=== PATIENT | male | born 1935 | race Caucasian/White ===

== ENCOUNTER 2019-03-14 15:59 | Outpatient (REF) | payer MEDICARE, BC, SELFPAY ==
[2019-03-14 21:21] LABS: Abs Immature Grans 0.01 k/cumm (0.0-0.09); Absolute Basophil Count 0.03 k/cumm (0.0-0.2); Absolute Eosinophil Count 0.36 k/cumm (0.0-0.7); Absolute Monocyte Count 0.54 k/cumm (0.11-0.7); Absolute Neutrophil Count 3.74 k/cumm (1.2-6.7); Basophils % 0.5; Eosinophils % 6.6; HCT 36.7 % (40.0-50.0); HGB 11.5 g/dL (13.5-17.5); Immature Grans % 0.2; Lymphocytes % 14.6; Mean Corp. HGB Concentration 31.3 g/dL (32.0-36.0); Mean Corpuscular Hemoglobin 26.6 pg (27.0-33.0); Mean Corpuscular Volume 84.8 fL (80-95); Mean Platelet Volume 10.8 fL (8.0-11.0); Monocytes % 9.9; Neutrophils % 68.2; Platelet Count 196 x1000/uL (130-400); RBC 4.33 m/cumm (4.50-6.00); RBC Distribution Width 14.4 % (11.8-14.1); White Blood Cell Count 5.48 k/cumm (4.4-10.8)
[2019-03-14 21:31] LABS: ALT 24 U/L (12-78); AST 23 U/L (15-37); Albumin 3.2 g/dL (3.4-5.0); Alkaline Phosphatase 101 U/L (46-116); Anion Gap 9.9 mmol/L (3-11); BUN 24 mg/dL (7-18); Bilirubin, Total 0.3 mg/dL (0.2-1.0); CO2 25.1 mmol/L (21.0-32.0); CREATININE 1.32 mg/dL (0.70-1.30); Calcium 8.3 mg/dL (8.5-10.1); Chloride 107 mmol/L (98-107); Estimated GFR 52.06 (mL/min/1.73m2); Glucose 97 mg/dL (70-100); Potassium 4.6 mmol/L (3.5-5.1); Sodium 142 mmol/L (136-145); Total Protein 6.4 g/dL (6.4-8.2)
== END 2019-03-14 16:19 ==
LOC: NCHCN 15:59
PROVIDERS: PCP Internal Medicine; Visit Provider Specialist/Technologist Athletic Trainer
DX: R00.1 Bradycardia, unspecified (principal); R42 Dizziness and giddiness; I45.10 Unspecified right bundle-branch block
CPT/HCPCS: 80053; 85025

== ENCOUNTER 2019-04-01 10:52 | Outpatient (REF) | payer MEDICARE, BC, SELFPAY ==
[2019-04-01 12:53] LABS: HCT 38.3 % (40.0-50.0); HGB 12.4 g/dL (13.5-17.5); Mean Corp. HGB Concentration 32.4 g/dL (32.0-36.0); Mean Corpuscular Hemoglobin 27.1 pg (27.0-33.0); Mean Corpuscular Volume 83.8 fL (80-95); Mean Platelet Volume 10.1 fL (8.0-11.0); Platelet Count 216 x1000/uL (130-400); RBC 4.57 m/cumm (4.50-6.00); RBC Distribution Width 14.5 % (11.8-14.1); Reticulocyte 0.7 % (0.5-2.4); White Blood Cell Count 5.45 k/cumm (4.4-10.8)
[2019-04-01 13:11] LABS: Iron 58 ug/dL (50-175); Total Iron Binding Capacity 347 ug/dL (250-450); Transferrin Sat 17 % (20-55)
[2019-04-01 13:36] LABS: Vitamin B12 381 pg/mL (193-986)
== END 2019-04-01 11:12 ==
LOC: NCHCN 10:52
PROVIDERS: PCP Internal Medicine; Visit Provider Internal Medicine
DX: D64.9 Anemia, unspecified (principal); I10 Essential (primary) hypertension; R42 Dizziness and giddiness; R00.1 Bradycardia, unspecified
CPT/HCPCS: 85027; 82607; 83540; 83550; 85045

== ENCOUNTER 2019-06-23 12:52 | Outpatient (REF) | payer MEDICARE, BC, SELFPAY ==
[2019-06-23 21:26] LABS: HCT 38.5 % (40.0-50.0); HGB 12.3 g/dL (13.5-17.5); Mean Corp. HGB Concentration 31.9 g/dL (32.0-36.0); Mean Corpuscular Hemoglobin 26.9 pg (27.0-33.0); Mean Corpuscular Volume 84.1 fL (80-95); Mean Platelet Volume 10.5 fL (8.0-11.0); Platelet Count 232 x1000/uL (130-400); RBC 4.58 m/cumm (4.50-6.00); RBC Distribution Width 14.2 % (11.8-14.1); White Blood Cell Count 6.15 k/cumm (4.4-10.8)
[2019-06-23 21:43] LABS: ALT 18 U/L (16-63); AST 23 U/L (15-37); Albumin 3.5 g/dL (3.4-5.0); Alkaline Phosphatase 116 U/L (46-116); Anion Gap 11.8 mmol/L (3-11); BUN 21 mg/dL (7-18); Bilirubin, Total 0.5 mg/dL (0.2-1.0); C-Reactive Protein 0.45 mg/dL (0.0-0.3); CO2 25.2 mmol/L (21.0-32.0); CREATININE 1.38 mg/dL (0.70-1.30); Calcium 8.7 mg/dL (8.5-10.1); Chloride 107 mmol/L (98-107); Estimated GFR 49.45 (mL/min/1.73m2); Glucose 91 mg/dL (70-100); Lipase 97 U/L (73-393); Potassium 4.7 mmol/L (3.5-5.1); Sodium 144 mmol/L (136-145); Total Protein 7.1 g/dL (6.4-8.2)
[2019-06-23 22:32] LABS: ESR 38 mm/hr (1-20)
== END 2019-06-23 13:12 ==
LOC: NCHCN 12:52
PROVIDERS: PCP Internal Medicine; Visit Provider Internal Medicine
DX: R63.4 Abnormal weight loss (principal)
CPT/HCPCS: 80053; 83690; 85027; 85652; 86140

== ENCOUNTER 2019-07-13 01:24 | Outpatient (CLI) | payer MEDICARE, BC, SELFPAY ==
--- NOTE | 2019-07-13 09:21 | DI.RAD_ITS ---
EXAM: XR HIP PELVIS ADULT BL INDICATION: BILATERAL HIP PAIN, WEIGHT LOSS, H/O RHEUMATOID ARTHRITIS, M25.559, R63.4. COMPARISON: No exams were available for comparison TECHNIQUE: 2D digital imaging was performed. FINDINGS: The pelvic bones appear intact. There are minimal degenerative changes involving both hips. There i s no evidence of a fracture or dislocation.
== END 2019-07-13 01:44 ==
PROVIDERS: PCP Internal Medicine; Visit Provider Internal Medicine
DX: M25.551 Pain in right hip (principal); M25.552 Pain in left hip; R63.4 Abnormal weight loss; M16.0 Bilateral primary osteoarthritis of hip
CPT/HCPCS: 73521

== ENCOUNTER → 2020-02-17 14:26 | Outpatient (BNVA) | payer MEDICARE, BC, SELFPAY | PROVIDERS: PCP Internal Medicine; Referring Provider Internal Medicine; Visit Provider Urology | DX: N40.1 Benign prostatic hyperplasia with lower urinary tract symptoms (principal); N13.8 Other obstructive and reflux uropathy; Z87.898 Personal history of other specified conditions; N52.9 Male erectile dysfunction, unspecified; I10 Essential (primary) hypertension | CPT/HCPCS: 81003; 99203 ==

== ENCOUNTER 2020-09-20 15:28 | Outpatient (REF) | payer MEDICARE, BC, SELFPAY ==
[2020-09-20 21:37] LABS: Anion Gap 11.1 mmol/L (3-11); BUN 21 mg/dL (7-18); CO2 23.9 mmol/L (21.0-32.0); CREATININE 1.38 mg/dL (0.70-1.30); Calcium 8.6 mg/dL (8.5-10.1); Chloride 108 mmol/L (98-107); Estimated GFR 49.21 (mL/min/1.73m2); Glucose 97 mg/dL (74-106); Potassium 4.3 mmol/L (3.5-5.1); Sodium 143 mmol/L (136-145)
== END 2020-09-20 15:48 ==
LOC: NCHCN 15:28
PROVIDERS: PCP Internal Medicine; Visit Provider Internal Medicine
DX: I10 Essential (primary) hypertension (principal)
CPT/HCPCS: 80048

== ENCOUNTER → 2021-02-15 07:45 | Outpatient (BNVA) | payer MEDICARE, BC, SELFPAY | PROVIDERS: PCP Internal Medicine; Referring Provider Internal Medicine; Visit Provider Urology | DX: N40.1 Benign prostatic hyperplasia with lower urinary tract symptoms (principal); N13.8 Other obstructive and reflux uropathy; R35.1 Nocturia; R39.12 Poor urinary stream; N52.9 Male erectile dysfunction, unspecified | CPT/HCPCS: 99213 ==

== ENCOUNTER 2021-03-25 17:47 | Outpatient (REF) | payer MEDICARE, BC, SELFPAY ==
[2021-03-25 21:34] LABS: Abs Immature Grans 0.01 10^3/uL (0.0-0.06); Absolute Basophil Count 0.05 10^3/uL (0.0-0.2); Absolute Eosinophil Count 0.31 10^3/uL (0.0-0.7); Absolute Lymphocyte Count 0.85 10^3/uL (1.2-3.4); Absolute Monocyte Count 0.43 10^3/uL (0.1-0.8); Absolute Neutrophil Count 4.11 10^3/uL (1.2-6.7); Basophils % 0.9; Eosinophils % 5.4; HCT 29.9 % (40.0-50.0); HGB 8.9 g/dL (13.5-17.5); Immature Grans % 0.2; Lymphocytes % 14.8; MCH 23.4 pg (27.0-33.0); MCHC 29.8 % (32.0-36.0); MCV 78.5 fL (80-95); MPV 10.8 fL (8.0-11.0); Monocytes % 7.5; Neutrophils % 71.2; Nucleated RBC 0 %; Platelet Count 242 10^3/uL (130-400); RBC 3.81 10^6/uL (4.36-5.78); RDW 15.6 % (11.8-14.1); RDW-SD 44.3 fL; WBC 5.76 10^3/uL (4.4-10.8)
[2021-03-25 21:51] LABS: ALT 18 U/L (16-63); AST 14 U/L (15-37); Albumin 3.1 g/dL (3.4-5.0); Alkaline Phosphatase 95 U/L (46-116); Anion Gap 9.3 mmol/L (3-11); BUN 33 mg/dL (7-18); Bilirubin, Total 0.4 mg/dL (0.2-1.0); CO2 23.7 mmol/L (21.0-32.0); CREATININE 1.7 mg/dL (0.70-1.30); Calcium 8.6 mg/dL (8.5-10.1); Chloride 109 mmol/L (98-107); Estimated GFR 38.68 (mL/min/1.73m2); Glucose 121 mg/dL (74-106); Potassium 4.3 mmol/L (3.5-5.1); Sodium 142 mmol/L (136-145); Total Protein 6.2 g/dL (6.4-8.2)
== END 2021-03-25 17:48 | disposition home or self-care (01) ==
LOC: NCHCN 17:47
PROVIDERS: PCP Internal Medicine; Visit Provider Family Medicine
DX: R19.7 Diarrhea, unspecified (principal)
CPT/HCPCS: 80053; 85025

== ENCOUNTER 2021-03-27 19:28 | Outpatient (REF) | payer MEDICARE, BC, SELFPAY | END 2021-03-27 19:29 | disposition home or self-care (01) | LOC: NCHCN 19:28 | PROVIDERS: PCP Internal Medicine; Visit Provider Family Medicine | DX: R19.7 Diarrhea, unspecified (principal) | CPT/HCPCS: 87329; 87493; 83630; 87177 ==

== ENCOUNTER 2021-04-01 20:46 | Outpatient (REF) | payer MEDICARE, BC, SELFPAY ==
[2021-04-01 21:43] LABS: Iron 24 ug/dL (65-175); Total Iron Binding Capacity 332 ug/dL (250-450); Transferrin Sat 7 % (20-55)
[2021-04-01 21:51] LABS: Ferritin 13 ng/mL (26-388)
== END 2021-04-01 20:47 | disposition home or self-care (01) ==
LOC: NCHCN 20:46
PROVIDERS: PCP Internal Medicine; Visit Provider Family Medicine
DX: D64.9 Anemia, unspecified (principal)
CPT/HCPCS: 82728; 83540; 83550

== ENCOUNTER 2021-04-15 09:20 | Outpatient (REF) | payer MEDICARE, BC, SELFPAY ==
[2021-04-15 18:23] LABS: Bilirubin Negative (Negative); Blood Trace-lysed (Negative); Clarity Clear (Clear); Glucose Negative (Negative); HCT 32.3 % (40.0-50.0); Ketones Negative (Negative); Leukocyte Esterase Negative (Negative); Nitrite Negative (Negative); Specific Gravity 1.015 (1.005-1.025); Urobilinogen 0.2 EU/dL (Up TO 0.2)
[2021-04-15 18:36] LABS: Bacteria Negative HPF (Negative); C & S Indicated? C&S Done As Ordered; Crystals Negative HPF (Negative); Epithelial Cells Negative HPF (Negative); Mucus Trace (Negative); WBC Negative HPF (0-5)
== END 2021-04-15 09:21 | disposition home or self-care (01) ==
LOC: NCHCN 09:20
PROVIDERS: PCP Internal Medicine; Visit Provider Family Medicine
DX: D50.9 Iron deficiency anemia, unspecified (principal); R19.7 Diarrhea, unspecified
CPT/HCPCS: 81003; 81015; 85014; 87086

== ENCOUNTER 2021-04-17 13:52 | Outpatient (CLI) | payer MEDICARE, BC, SELFPAY ==
--- NOTE | 2021-04-17 | DI.US_ITS ---
Exam(s) US RENAL EXAM: US RENAL CLINICAL HISTORY: ASYMPTOMATIC MICROSCOPIC HEMATURIA R31.21 TECHNIQUE: Ultrasound of both kidneys performed using standard protocol. COMPARISON: No exams were available for comparison FINDINGS: RIGHT KIDNEY: Measures 10.4 cm in length. There are few cysts noted in the inferior half the right kidney. The lar gest of these measures 1.6 x 1.5 cm. Normal cortical thickness and corticomedullary differentiation .No solid masses No intrarenal calculi nor hydronephrosis. LEFT KIDNEY: Measures 10.3 cm in length. No cysts evident. Normal cortical thickness and corticomedullary differe ntiaion. No solids masses. No intrarenal calculi nor hydonephrosis. URINARY BLADDER: Prevoid volume is 274 cc Postvoid volume is 71 cc There is some debris evident within the urinary bladder. Most of this appears mobile but cannot excl ude a mural mass. Adjacent to the right side of the urinary bladder and somewhat indenting the right side of the urinar y bladder is a round 4.8 x 4.7 x 4.6 cm cystic structure in the pelvis which contains some echogenic foci therein. This does not appear to communicate with the urinary bladder to suggest that it is a d iverticulum. IMPRESSION: 1. There are few small benign cyst in the right kidney. No solid renal masses. No hydronephrosis 2. Moderate residual urine volume in the urinary bladder post micturition. In addition, there is some debris evident within the urinary bladder. Cannot exclude mural mass at t his level. In addition, there is a round consistently present 4.8 x 4.6 x 4.7 cm cystic structure in the right-s edith of the pelvis indenting the right side of the urinary bladder and containing numerous echogenic f oci. This does not appear to communicate the urinary bladder despite being immediately adjacent to i t. Main possibilities here are that this is a somewhat atypical urinary bladder diverticulum or that it possibly represents a reservoir for this patient's penile prosthesis. Correlation with model of prosthesis and location of pump reservoir is recommended. If clinically indicated follow-up CT scan can be performed for added specificity DATA REPOSITORY:
== END 2021-04-17 14:12 ==
PROVIDERS: PCP Internal Medicine; Visit Provider Family Medicine
DX: N28.1 Cyst of kidney, acquired; R31.21 Asymptomatic microscopic hematuria
CPT/HCPCS: 76770

== ENCOUNTER → 2021-04-30 08:26 | Outpatient (BNVA) | payer MEDICARE, BC, SELFPAY | PROVIDERS: PCP Internal Medicine; Referring Provider Internal Medicine; Visit Provider Nurse Practitioner Gerontology | DX: R31.29 Other microscopic hematuria (principal); R19.7 Diarrhea, unspecified | CPT/HCPCS: 99214 ==

== ENCOUNTER 2021-06-07 16:33 | Outpatient (REF) | payer MEDICARE, BC, SELFPAY ==
[2021-06-07 20:25] LABS: HCT 39.9 % (40.0-50.0); HGB 12.2 g/dL (13.5-17.5); MCH 25.9 pg (27.0-33.0); MCHC 30.6 % (32.0-36.0); MCV 84.7 fL (80-95); MPV 10.7 fL (8.0-11.0); Platelet Count 215 10^3/uL (130-400); RBC 4.71 10^6/uL (4.36-5.78); RDW 18.8 % (11.8-14.1); WBC 6.73 10^3/uL (4.4-10.8)
[2021-06-07 21:05] LABS: BUN 23 mg/dL (7-18); CREATININE 1.4 mg/dL (0.70-1.30); Calcium 8.6 mg/dL (8.5-10.1); Chloride 108 mmol/L (98-107); Ferritin 43 ng/mL (26-388); Glucose 83 mg/dL (74-106); Potassium 4.2 mmol/L (3.5-5.1); Sodium 144 mmol/L (136-145)
== END 2021-06-07 16:34 | disposition home or self-care (01) ==
LOC: NCHCN 16:33
PROVIDERS: PCP Internal Medicine; Visit Provider Family Medicine
DX: D50.9 Iron deficiency anemia, unspecified (principal); I10 Essential (primary) hypertension; N28.9 Disorder of kidney and ureter, unspecified
CPT/HCPCS: 80048; 85027; 82728

== ENCOUNTER → 2021-07-19 10:50 | Outpatient (BNVA) | payer MEDICARE, BC, SELFPAY | PROVIDERS: PCP Family Medicine; Referring Provider Internal Medicine; Visit Provider Urology | DX: R31.29 Other microscopic hematuria (principal) | CPT/HCPCS: 52000; 81003 ==

== ENCOUNTER 2021-09-06 14:59 | Outpatient (REF) | payer MEDICARE, BC, SELFPAY ==
[2021-09-06 21:12] LABS: Abs Immature Grans 0.02 10^3/uL (0.0-0.06); Absolute Basophil Count 0.05 10^3/uL (0.0-0.2); Absolute Eosinophil Count 0.34 10^3/uL (0.0-0.7); Absolute Lymphocyte Count 0.56 10^3/uL (1.2-3.4); Absolute Neutrophil Count 6.14 10^3/uL (1.2-6.7); Basophils % 0.7; Eosinophils % 4.5; HCT 38.4 % (40.0-50.0); HGB 12.1 g/dL (13.5-17.5); Immature Grans % 0.3; Lymphocytes % 7.4; MCH 28.2 pg (27.0-33.0); MCHC 31.5 % (32.0-36.0); MCV 89.5 fL (80-95); MPV 10.1 fL (8.0-11.0); Monocytes % 6.6; Neutrophils % 80.5; Nucleated RBC 0 %; Platelet Count 201 10^3/uL (130-400); RBC 4.29 10^6/uL (4.36-5.78); RDW-SD 46.2 fL; WBC 7.61 10^3/uL (4.4-10.8)
[2021-09-06 21:49] LABS: Ferritin 76 ng/mL (26-388)
== END 2021-09-06 15:00 | disposition home or self-care (01) ==
LOC: NCHCN 14:59
PROVIDERS: PCP Family Medicine; Visit Provider Family Medicine
DX: D50.9 Iron deficiency anemia, unspecified (principal)
CPT/HCPCS: 82728; 85025

== ENCOUNTER → 2022-02-18 09:34 | Outpatient (BNVA) | payer MEDICARE, BC, SELFPAY | PROVIDERS: PCP Family Medicine; Referring Provider Internal Medicine; Visit Provider Urology | DX: R31.29 Other microscopic hematuria (principal); N40.1 Benign prostatic hyperplasia with lower urinary tract symptoms; N13.8 Other obstructive and reflux uropathy | CPT/HCPCS: 51798; 81003; 99213 ==

== ENCOUNTER 2022-04-30 17:01 | Emergency (ER) | payer MEDICARE, BC, SELFPAY ==
[2022-04-30 17:06] VITALS: BP 166/61; PULSE 65; RESP 18; TEMP 37; O2SAT 99
--- NOTE | 2022-04-30 17:49 | ED.GENADUL_ITS ---
Discharge Plan Disposition Patient Disposition: HOME Condition: Improving Discharge Details Chief Complaint: Laceration Clinical Impression: Skin tear of right upper extremity Primary Care Provider: Magdaleno Dickens ED Provider: Jt Hernandez Home Meds and New Rx's Prescriptions: No Action finasteride 5 mg tablet 5 mg PO DAILY betamethasone dipropionate 0.05 % cream 1 applic TP BID PRN spironolactone 50 mg tablet 50 mg PO DAILY losartan 100 mg tablet 100 mg PO DAILY ferrous sulfate 325 mg (65 mg iron) tablet 325 mg PO DAILY trazodone 50 MG tablet 50 mg PO HS simvastatin 10 MG tablet 10 mg PO DAILY aspirin [Aspir-Low] 81 MG tablet,delayed release (DR/EC) 81 mg PO DAILY omeprazole 20 MG capsule,delayed release(DR/EC) 20 mg PO DAILY folic acid 1 MG tablet 1 mg PO DAILY Discharge Instructions Instructions: Skin Tear (ED) Additional Instructions: Please keep wound clean and dry. Please return to the emergency room if you develop any signs of infection or worsening bleeding. Medical Decision Making 86-year-old male presents with 2 skin tears to right forearm in the setting of striking his arm on a cement wall while trying to start his lawnmower. 5 cm and 3 cm diameter skin tear to dorsal aspect of right forearm, cleaned, irrigated, hemostatic no foreign bodies. Will anesthetize skin and tacked down the edges of skin tears will wrap with Xeroform and dry dressing. Home care instructions and return precautions to be given. Patient's last Tdap was in 2016 per records. No evidence of underlying fracture. 18: 31 wound irrigated, hemostatic, no foreign bodies, 3 times simple interrupted 5-0 Vicryl on larger flap, 1x5 0 Vicryl simple interrupted on smaller flap. Covered with Xeroform gauze; dry gauze applied and Kerlix wrapping, home care instructions wound care instructions and return precautions given HPI General Date/Time Provider Initiated Documentation: 04/30/22 17:48 . HPI Narrative: 86-year-old male presents after sustaining skin tear lacerations to right upper extremity in the setting of trying to get his lawnmower started next to a wall, struck his arm against a concrete wall, 2 large skin flaps to dorsal aspect of forearm. No other injuries. Patient unsure when his last Tdap was. Related Data Home Medications Medication Instructions Recorded Confirmed aspirin 81 mg tablet,delayed 81 mg PO DAILY 07/26/15 04/30/22 release (Aspir-Low) folic acid 1 mg tablet 1 mg PO DAILY 07/26/15 04/30/22 omeprazole 20 mg capsule,delayed 20 mg PO DAILY 07/26/15 04/30/22 release simvastatin 10 mg tablet 10 mg PO DAILY 07/26/15 04/30/22 trazodone 50 mg tablet 50 mg PO HS 07/26/15 04/30/22 betamethasone dipropionate 0.05 % 1 applic topical BID PRN 12/05/19 04/30/22 topical cream losartan 100 mg tablet 100 mg PO DAILY 12/05/19 04/30/22 spironolactone 50 mg tablet 50 mg PO DAILY 12/05/19 04/30/22 ferrous sulfate 325 mg (65 mg 325 mg PO DAILY 04/16/21 04/30/22 iron) tablet finasteride 5 mg tablet 5 mg PO DAILY 02/18/22 04/30/22 Allergies Allergy/AdvReac Type Severity Reaction Status Date / Time atenolol Allergy Unverified 04/30/22 17:12 codeine AdvReac Unknown Unverified 04/30/22 17:12 General Stated Complaint: Laceration REGINALDO: 4 Review of Systems Narrative: Review of Systems Constitutional: negative Eyes: negative ENT: negative Cardiovascular: negative Respiratory: negative Gastrointestinal: negative : negative Musculoskeletal: negative Skin: Skin tear Neurologic: negative Psych: negative PFSH All Active Problems (Updated 04/30/22 @ 18:32 by Jt Hernandez MD) Skin tear of right upper extremity (Acute) Microscopic hematuria (Acute) Erectile dysfunction (Acute) History of elevated prostate specific antigen (PSA) (Acute) BPH w urinary obs/LUTS (Acute) Medical History (Updated 04/30/22 @ 18:32 by Jt Hernandez MD) Adenomatous colon polyp Allergic rhinitis Anemia Bilateral hip pain Chronic constipation Dysphonia Elevated PSA Esophageal stricture HLD (hyperlipidemia) HTN (hypertension) Lesion of iris Orthostatic dizziness Pruritus RBBB (right bundle branch block) Rheumatoid arthritis Sinus bradycardia Spinal stenosis Transient acantholytic dermatosis Weight loss Surgical History (Updated 07/30/15 @ 14:28 by Jailyn Cardenas) Colonoscopy - [facility] (07/27/15) DR.TERRY CHOUDHARY Social History Smoking/Tobacco Use Status: Former Tobacco Use Smoking risk assessment performed?: Yes Drug use: Never Do you feel safe at home: Yes Do you feel safe in your relationship?: Yes Exam Narrative Exam Narrative: Physical Examination General: alert, awake, cooperative, resting comfortably, no acute distress HEENT: normocephalic, atraumatic; PERRL, EOM intact, conjunctiva normal; no nasal discharge; moist mucous membranes, oral and pharyngeal mucosa normal, tolerating secretions Neck: supple, trachea midline; full ROM Chest: normal to inspection Respiratory: normal respiratory effort, speaking in full sentences, clear to auscultation, no wheezing, rales or rhonchi Cardiac: regular rate, regular rhythm, S1S2 intact, no murmurs rubs or gallops GI: abdomen soft, non-tender, non-distended; no palpable mass or hepatosplenomegaly Skin: 2 times large skin tears dorsal aspect of right forearm, 1 approximately 5 cm diameter the other approximately 3 cm in diameter. Clean hemostatic no foreign bodies appreciated Neuro: AAOx3, normal speech, moving all extremities Extremities: Range of motion hand wrist and elbow intact in affected limb. Warm well perfused sensate extremity. Psych: Appropriate mood and affect Course Vital Signs Vital signs: Vital Signs Temperature 37 C 04/30/22 17:06 Pulse 65 04/30/22 17:06 Respiratory Rate 18 04/30/22 17:06 Blood Pressure 166/61 H 04/30/22 17:06 Pulse Oximetry 99 04/30/22 17:06 Temperature 37 C 04/30/22 17:06 Temperature Source Skin 04/30/22 17:06 Pulse 65 04/30/22 17:06 Respiratory Rate 18 04/30/22 17:06 Respiratory Effort 04/30/22 17:15 Blood Pressure 166/61 H 04/30/22 17:06 Blood Pressure Position Sitting 04/30/22 17:06 Pulse Oximetry 99 04/30/22 17:06 Oxygen Delivery Method Room Air 04/30/22 17:06 Oxygen Flow Rate 0 04/30/22 17:06 Pain Level 2 04/30/22 17:17 Procedures Laceration Laceration 1: Site: upper extremity Side (If applicable): right Size (cm): 8 Description: flap Depth: simple, single layer Local Anesthetic: other anesthetic (LET gel) Pre-repair: irrigated extensively Skin layer closed with: vicryl Size (cm): 5-0 Number of sutures: 4 Technique: simple, interrupted
[2022-04-30] MEDS: Lidocaine/Epinephri/Tetracaine Topical Gel 3 ML TP (17:54)
== END 2022-04-30 18:36 | disposition home or self-care (01) ==
PROVIDERS: Emergency Provider Emergency Medicine; PCP Family Medicine
DX: S51.811A Laceration without foreign body of right forearm, initial encounter (principal); I10 Essential (primary) hypertension; Z87.891 Personal history of nicotine dependence; W22.01XA Walked into wall, initial encounter; Y93.89 Activity, other specified
CPT/HCPCS: 12004; 99282

== ENCOUNTER 2022-09-09 13:12 | Outpatient (REF) | payer MEDICARE, BC, SELFPAY ==
[2022-09-09 14:36] LABS: Abs Immature Grans 0.03 10^3/uL (0.0-0.06); Absolute Basophil Count 0.04 10^3/uL (0.0-0.2); Absolute Eosinophil Count 0.24 10^3/uL (0.0-0.7); Absolute Lymphocyte Count 0.42 10^3/uL (1.2-3.4); Absolute Monocyte Count 0.48 10^3/uL (0.1-0.8); Absolute Neutrophil Count 5.95 10^3/uL (1.2-6.7); Basophils % 0.6; Eosinophils % 3.4; HCT 36.1 % (40.0-50.0); HGB 11.4 g/dL (13.5-17.5); Immature Grans % 0.4; Lymphocytes % 5.9; MCH 28.6 pg (27.0-33.0); MCHC 31.6 % (32.0-36.0); MCV 91 fL (80-95); MPV 10.1 fL (8.0-11.0); Monocytes % 6.7; Platelet Count 223 10^3/uL (130-400); RBC 3.99 10^6/uL (4.36-5.78); RDW 13.3 % (11.8-14.1); RDW-SD 44.3 fL; WBC 7.16 10^3/uL (4.4-10.8)
[2022-09-09 15:06] LABS: ALT 14 U/L (16-63); AST 23 U/L (15-37); Albumin 3.1 g/dL (3.4-5.0); Alkaline Phosphatase 103 U/L (46-116); Anion Gap 5.8 mmol/L (3-11); BUN 28 mg/dL (7-18); Bilirubin, Total 0.5 mg/dL (0.2-1.0); CO2 28.2 mmol/L (21.0-32.0); CREATININE 1.4 mg/dL (0.70-1.30); Calcium 9.1 mg/dL (8.5-10.1); Chloride 107 mmol/L (98-107); Estimated GFR 49.25 (mL/min/1.73m2); Glucose 108 mg/dL (74-106); Potassium 4.5 mmol/L (3.5-5.1); Sodium 141 mmol/L (136-145); Total Protein 7.1 g/dL (6.4-8.2)
== END 2022-09-09 13:13 | disposition home or self-care (01) ==
LOC: NCHCN 13:12
PROVIDERS: PCP Family Medicine; Visit Provider Family Medicine
DX: R04.2 Hemoptysis (principal); I10 Essential (primary) hypertension; N28.9 Disorder of kidney and ureter, unspecified
CPT/HCPCS: 80053; 85025

== ENCOUNTER → 2022-09-26 00:44 | Outpatient (CLI) | payer MEDICARE, BC, SELFPAY ==
--- NOTE | 2022-09-26 11:00 | DI.CT_ITS ---
Exam(s) CT CHEST W EXAM: CT CHEST W CLINICAL HISTORY: HEMOPTYSIS, R04.2, ? MASS TECHNIQUE: Imaging Protocol: Axial computed tomography images with coronal and sagittal reformatted images were created and reviewed CONTRAST MATERIAL: Intravenous: Omnipaque 350Contrast volume:70 mL. COMPARISON: No exams were available for comparison FINDINGS: Tracheobronchial tree: There are few small secretions in the dependent portion of the mid trachea. Pulmonary parenchyma: Emphysematous changes are present in the lungs. There is a 1.4 cm area of spic ulation in the right upper lobe. No areas of consolidation are seen. There is scarring in the lung bases. Mediastinum and Dang: No dominant adenopathy or fluid collection. The esophagus is unremarkable. Thyroid gland: Unremarkable. Pleura: No effusion or pneumothorax. Heart: The heart is not dilated. Coronary artery calcifications are present. No pericardial effusion . Aorta: Thoracic aorta non-dilated. Atherosclerosis is present. Pulmonary arteries: The pulmonary arteries are inadequately opacified for evaluation of pulmonary emb marly. Upper abdomen: Status post cholecystectomy. Lymph nodes: Within normal limits. Bones: Within normal limits for the patient's age. Soft tissues: Bilateral gynecomastia. IMPRESSION: 1. 1.4 cm area of spiculation in the right upper lobe. A 3 month follow-up CT scan is recommended. Alternatively PET/CT or tissue sampling should be considered. (Krista et al, 2017). 2. Emphysematous changes in the lungs. RADIATION DOSE DELIVERED: 400.38mGy.cm Total DLP DATA REPOSITORY: All CT scans at this facility are submitted to the National Radiology Data Registry (NRDR) Dose Index Registry (DIR) with the [employer] ([employer]). RADIATION OPTIMIZATION: All CT scans at this facility use at least one of these dose optimization te chniques: automated exposure control; mA and/or kV adjustment per patient size (includes targeted exa ms where dose is matched to clinical indication); or iterative reconstruction.
[2022-09-26] MEDS: Omnipaque 350 MG/ML 500 ML BTL-Imaging package 70 ML IJ (11:12)
== END ==
PROVIDERS: PCP Family Medicine; Visit Provider Family Medicine
DX: R04.2 Hemoptysis (principal); J43.8 Other emphysema; R91.8 Other nonspecific abnormal finding of lung field; Z90.49 Acquired absence of other specified parts of digestive tract
CPT/HCPCS: 71260

== ENCOUNTER 2022-10-08 10:10 | Emergency (ER) | payer MEDICARE, BC, SELFPAY ==
[2022-10-08] VITALS (35 sets, daily range): BP systolic 101–154; BP diastolic 41–63; PULSE 72–107; RESP 8–25; TEMP 36.8; O2SAT 94–100
--- NOTE | 2022-10-08 10:00 | RT.EKG_ITS ---
APPROVED REPORT Exam: Resting ECG Reason for Exam: Shortness of breath Patient Location: E HR:78 bpm ECG Measurements Heart Rate 78 AXIS AL 144 P 72 QRSd 140 QRS -87 QT 403 T 77 QTc 460 Conclusion Sinus rhythm...normal P axis, V-rate 60- 99 Ventricular premature complex...V complex w/ short R-R interval Right bundle branch block...QRSd>120, terminal axis(90,270) Anteroseptal infarct, age indeterminate...Q >35mS, T neg, V1-V2 NO stemi
--- NOTE | 2022-10-08 10:30 | RT.EKG_ITS ---
APPROVED REPORT Exam: Resting ECG Reason for Exam: Shortness of breath Patient Location: E HR:79 bpm ECG Measurements Heart Rate [address] 136 P 54 QRSd 138 QRS -83 QT 425 T 68 QTc 487 Conclusion Sinus rhythm...normal P axis, V-rate 60- 99 Multiform ventricular premature complexes...short R-R, variable morphology Right bundle branch block...QRSd>120, terminal axis(90,270) Anteroseptal infarct, age indeterminate...Q >35mS, T neg, V1-V2 ST elevation, consider inferior injury...ST >0.08mV, II III aVF NO stemi
--- NOTE | 2022-10-08 10:37 | ED.GENADUL_ITS ---
Discharge Plan Disposition Patient Disposition: Home Condition: Stable Discharge Details Clinical Impression: RSV (respiratory syncytial virus infection), Emphysema lung, Abnormal CT scan of lung Primary Care Provider: Magdaleno Dickens ED Provider: Edison Saravia Home Meds and New Rx's Prescriptions: New prednisone 20 mg tablet 40 mg PO DAILY Qty: 8 0RF benzonatate 100 mg capsule 100 mg PO TID PRN (Reason: cough) Qty: 30 0RF Combivent Respimat 20-100 mcg/actuation mist 1 puff inhalation Q4H PRN (Reason: shortness of breath or wheezing) Qty: 4 0RF Continued finasteride 5 mg tablet 5 mg PO DAILY betamethasone dipropionate 0.05 % cream 1 applic TP BID PRN spironolactone 50 mg tablet 50 mg PO DAILY losartan 100 mg tablet 100 mg PO DAILY trazodone 50 MG tablet 50 mg PO HS simvastatin 10 MG tablet 10 mg PO DAILY aspirin [Aspir-Low] 81 MG tablet,delayed release (DR/EC) 81 mg PO DAILY omeprazole 20 MG capsule,delayed release(DR/EC) 20 mg PO DAILY Discharge Instructions Instructions: Respiratory Syncytial Virus (ED) Additional Instructions: Please take medication as prescribed and stay well-hydrated during viral illness. If you develop any new or significant worsening of symptoms or change in your condition feel free to return to the emergency department otherwise follow-up with pulmonology or primary care provider to further discuss your abnormal CT findings. Referrals: Nirmala Woodard MD [ [facility] STAFF PHYSICIAN] - (Please call the office on Thursday for arrangement of follow-up appointment) Medical Decision Making Patient presenting to the emergency department for chief complaint of cough with hemoptysis and some shortness of breath especially during severe coughing episodes. Patient states this is been going on for weeks and primary care provider did do a CT scan and found a lung mass but patient has had acute worsening over the past 5 days. No fever chills, sore throat, nasal congestion. Physical exam shows significant decreased lung sounds with possible rhonchi heard during coughing but difficult to assess. Patient does have a wet tight sounding cough. Patient has no signs of hypoxia, no tachycardia, no tachypnea and unremarkable cardiac and general exam. We will plan on performing EKG and labs with high probability of CTA for rule out of PE given hemoptysis and worsening cough with shortness of breath. Pending results we will give DuoNeb and Solu-Medrol. Please see physician interpretation for full interpretation of EKG but upon my review patient has a rate of 78, sinus rhythm, right bundle branch block noted but I do not feel that patient has any criteria to meet STEMI. We will continue to monitor. Pending results while patient was on monitor nurse staff did state some ST changes. Patient continues to deny any chest pain but will repeat EKG just to ensure no changes occurred. Repeat EKG did not show much changes from initial and I do not feel the patient again meet STEMI criteria. Please see physician interpretation for full interpretation of EKG Review of labs show a chronic but stable anemia otherwise nondiagnostic with no leukocytosis or shift noted, chloride slightly elevated at 109, BUN of 33 with creatinine 1.6 and GFR 41 which again is near patient's baseline. CMP is otherwise unremarkable and nondiagnostic. Initial troponin is negative, BNP slightly elevated at 304 and D-dimer is elevated at 1780. Viral pathogen panel was negative for COVID and influenza but positive for RSV. We will continue with CTA imaging of the chest given hemoptysis and lung mass along with elevated dimer but suspect that acute viral illness could be the main contributor to the worsening of symptoms over the past 5 days. Spoke with radiologist and reviewed CT imaging that shows stable and unchanged abnormality in the right upper lung that could represent mass versus scarring. No noted pneumonia, no pulmonary embolism. Was noted that patient had significant emphysema. Reviewed patient's meds and I do not see any long-term meds to help with his emphysema will consult with pulmonology Spoke with verification engineer who recommended Combivent, continued steroids, and trial of Tessalon Perles to see if this helps. We will hold off on antibiotics at this time due to patient having no signs of leukocytosis and CT not showing any signs of pneumonia either. Patient will follow-up with pulmonology office or return for new or worsening symptoms. I did reassess patient and still he did state some improvement after the DuoNeb but still sounded fairly diminished lung sounds so we will give additional DuoNeb prior to discharge. After discussion of diagnosis and plan of care patient has no further needs, questions, or concerns and states clear understanding to return to the emergency department for any worsening symptoms. This documentation was generated using Dragon dictation system, please disregard any oddities of phrase or misspellings. Imaging Data Radiologic Study: Imaging: CT Scan Radiologist's impression: Exam(s) CT CHEST PE CTA EXAM: CT CHEST PE CTA CLINICAL HISTORY: Shortness of breath, hemoptysis, lung mass. TECHNIQUE: Imaging Protocol: Axial CT angiography was performed with multi- slice acquisition and multi-planar reconstructions as well as axial, coronal and sagittal MIP reconstructions. CONTRAST MATERIAL: Intravenous: Omnipaque 350 Contrast volume:100 ml COMPARISON: CT CT CHEST W from 09/26/2022 FINDINGS: Pulmonary Arteries: No evidence of filling defect to suggest pulmonary emboli. Tracheobronchial tree: Mild lower lobe bronchiectasis. No mucous plugging. Mediastinum and Dang: No dominant adenopathy or fluid collection. Pulmonary parenchyma: Underlying moderate emphysematous changes. Stable area of spiculation at the right lung apex, scar versus mass. No change mild scarring posterior right upper lobe. Pleura: No effusion or pneumothorax. Heart: The heart is not dilated. Severe coronary artery calcifications are seen. Aorta: Thoracic aorta non-dilated. No aneurysm. No dissection. Severe atherosclerotic changes. Upper abdomen: Unremarkable. Bones: Flowing osteophytes. Stable mild T12 compression fracture. Lucencies in the vertebral endplates presumed Schmorl's nodes, unchanged. Tubes, Catheters, and Lines: None IMPRESSION: No evidence of pulmonary embolism. Stable spiculated area at the right lung apex may represent scarring versus mass. No change from prior exam. Findings called to Edison Saravia, emergency department provider. HPI General Mode of arrival: ambulatory . Date/Time Provider Initiated Documentation: 10/08/22 10:13 . Limitations to Documentation: no limitations . Information obtained by: patient, family and RN notes reviewed . History of Present Illness 87 year old M presents to the emergency department with the chief complaint of Worsening cough, shortness of breath, described as moderate and similar to prior episodes, Quality is described as other (Denies pain), and is localized to the chest. Patient reports no radiation. Patient started experiencing this week(s) (But worsening over the past 4 to 5 days) and it has been constant. No relieving factors improve symptom(s), No exacerbating factors reported . Patient notes no other symptoms.. Patient did receive the following treatments prior to arrival, none Related Data Home Medications Medication Instructions Recorded Confirmed aspirin 81 mg tablet,delayed 81 mg PO DAILY 07/26/15 10/08/22 release (Aspir-Low) omeprazole 20 mg capsule,delayed 20 mg PO DAILY 07/26/15 10/08/22 release simvastatin 10 mg tablet 10 mg PO DAILY 07/26/15 10/08/22 trazodone 50 mg tablet 50 mg PO HS 07/26/15 10/08/22 betamethasone dipropionate 0.05 % 1 applic topical BID PRN 12/05/19 10/08/22 topical cream losartan 100 mg tablet 100 mg PO DAILY 12/05/19 10/08/22 spironolactone 50 mg tablet 50 mg PO DAILY 12/05/19 10/08/22 finasteride 5 mg tablet 5 mg PO DAILY 02/18/22 10/08/22 benzonatate 100 mg capsule 100 mg PO TID PRN cough #30 caps 10/08/22 ipratropium 20 mcg-albuterol 100 1 puff inhalation Q4H PRN 10/08/22 mcg/actuation mist for inhalation shortness of breath or wheezing #4 (Combivent Respimat) grams prednisone 20 mg tablet 40 mg PO DAILY #8 tabs 10/08/22 Previous Rx's Medication Instructions Recorded benzonatate 100 mg capsule 100 mg PO TID PRN cough #30 caps 10/08/22 ipratropium 20 mcg-albuterol 100 1 puff inhalation Q4H PRN 10/08/22 mcg/actuation mist for inhalation shortness of breath or wheezing #4 (Combivent Respimat) grams prednisone 20 mg tablet 40 mg PO DAILY #8 tabs 10/08/22 Allergies Allergy/AdvReac Type Severity Reaction Status Date / Time atenolol Allergy Unverified 10/08/22 10:18 codeine AdvReac Unknown Unverified 10/08/22 10:18 General Stated Complaint: SOB REGINALDO: 3 Review of Systems Constitutional Constitutional: Denies chills, Denies fever(s) and Reports malaise Cardiovascular Cardiovascular: Denies chest pain, Denies chest pain with activity, Denies syncope, Denies irregular heart rhythm, Denies palpitations and Reports dyspnea (Mostly with severe coughing episodes) Respiratory Respiratory: Reports chest congestion, Reports cough, Reports hemoptysis and Reports dyspnea (Mostly with severe coughing episodes) Gastrointestinal Gastrointestinal: Denies abdominal pain, Denies nausea and Denies vomiting Neurologic Neurologic: Denies syncope Psychiatric Psychiatric: Denies anxiety Endocrine Endocrine: Denies cold intolerance, Denies heat intolerance and Denies palpitations PFSH All Active Problems (Updated 10/08/22 @ 12:30 by Edison Saravia NP) RSV (respiratory syncytial virus infection) (Acute) Emphysema lung (Acute) Abnormal CT scan of lung (Acute) Microscopic hematuria (Acute) Erectile dysfunction (Acute) History of elevated prostate specific antigen (PSA) (Acute) BPH w urinary obs/LUTS (Acute) Medical History Adenomatous colon polyp Allergic rhinitis Anemia Bilateral hip pain Chronic constipation Dysphonia Elevated PSA Esophageal stricture HLD (hyperlipidemia) HTN (hypertension) Lesion of iris Orthostatic dizziness Pruritus RBBB (right bundle branch block) Rheumatoid arthritis Sinus bradycardia Spinal stenosis Transient acantholytic dermatosis Weight loss Surgical History Colonoscopy - MAC (07/27/15) DR.TERRY CHOUDHARY Social History Smoking/Tobacco Use Status: Former Tobacco Use Smoking risk assessment performed?: Yes Alcohol Intake: never Drug use: Never Substance use type: does not use Do you feel safe at home: Yes Do you feel safe in your relationship?: Yes Exam Const General: cooperative, healthy appearing, comfortable, no acute distress, not diaphoretic and not ill appearing Nutritional Appearance: average body habitus Orientation: alert, awake and oriented x3 Limitations: mental status not altered Neck Neck: normal visual inspection, full ROM, trachea midline, supple and no anterior neck swelling Thyroid: thyroid normal Carotids: normal carotid upstroke and no bruits Chest Chest: normal inspection of the chest Resp Effort & Inspection: normal respiratory effort, able to speak in complete sentences and cough Quality of cough: actively coughing Auscultation: diminished lung sounds (Significant diminished bilateral) Cardio Jugular venous pressure: no JVD Palpation: normal PMI Rate: regular rate Rhythm: regular rhythm Heart Sounds: S1 normal, S2 normal, no click, no gallops, no murmurs and no rubs Bruits: no abdominal aortic bruits and no carotid bruits Pulses: radial pulses present bilaterally 2+ GI Inspection: normal to inspection Palpation: soft, no aortic enlargement, no pulsatile masses and nontender Auscultation: normal bowel sounds Skin General skin exam: no rashes or lesions noted Neuro General: patient alert, patient awake, patient oriented x3, tone normal and moves all extremities Course Vital Signs Vital signs: Vital Signs Temperature 36.8 C 10/08/22 10:13 Pulse 86 10/08/22 10:13 Respiratory Rate 18 10/08/22 10:13 Blood Pressure 154/63 H 10/08/22 10:13 Pulse Oximetry 100 10/08/22 10:13 Temperature 36.8 C 10/08/22 10:13 Temperature Source Skin 10/08/22 10:13 Pulse 86 10/08/22 10:13 Respiratory Rate 18 10/08/22 10:13 Respiratory Effort 10/08/22 10:21 Blood Pressure 154/63 H 10/08/22 10:13 Blood Pressure Position Sitting 10/08/22 10:13 Pulse Oximetry 100 10/08/22 10:13 Oxygen Delivery Method Room Air 10/08/22 10:13 Oxygen Flow Rate 0 10/08/22 10:13 Pain Level 0 10/08/22 10:13
[2022-10-08] MEDS: methylPREDNISolone SUCC 125 MG VIAL IVP (10:44)
[2022-10-08] MEDS: Albuterol/Ipratropium 3 ML UPD VIAL UPD ×2 (10:44→12:35)
[2022-10-08 10:51] LABS: Abs Immature Grans 0.01 10^3/uL (0.0-0.06); Absolute Basophil Count 0.03 10^3/uL (0.0-0.2); Absolute Eosinophil Count 0.39 10^3/uL (0.0-0.7); Absolute Lymphocyte Count 0.49 10^3/uL (1.2-3.4); Absolute Monocyte Count 0.48 10^3/uL (0.1-0.8); Basophils % 0.6; Eosinophils % 7.2; HCT 37.7 % (40.0-50.0); HGB 11.8 g/dL (13.5-17.5); Immature Grans % 0.2; Lymphocytes % 9.1; MCHC 31.3 % (32.0-36.0); MCV 90 fL (80-95); MPV 9.4 fL (8.0-11.0); Monocytes % 8.9; Platelet Count 162 10^3/uL (130-400); RBC 4.21 10^6/uL (4.36-5.78); RDW 13.1 % (11.8-14.1)
[2022-10-08 11:13] LABS: PTT Activated 25.6 sec (21.0-27.5); Prothrombin Time 9.8 sec (9.3-11.0)
[2022-10-08 11:16] LABS: ALT 17 U/L (16-63); AST 25 U/L (15-37); Alkaline Phosphatase 88 U/L (46-116); Anion Gap 5.8 mmol/L (3-11); BUN 33 mg/dL (7-18); Bilirubin, Total 0.4 mg/dL (0.2-1.0); CO2 25.2 mmol/L (21.0-32.0); CREATININE 1.6 mg/dL (0.70-1.30); Calcium 8.5 mg/dL (8.5-10.1); Chloride 109 mmol/L (98-107); Estimated GFR 41.96 (mL/min/1.73m2); Glucose 101 mg/dL (74-106); Magnesium 1.9 mg/dL (1.8-2.4); NT-proBNP 304 pg/mL (<300); Potassium 4.6 mmol/L (3.5-5.1); Sodium 140 mmol/L (136-145); Total Protein 7.1 g/dL (6.4-8.2); Troponin I < 50 ng/L (<or=60)
[2022-10-08 11:20] LABS: D-Dimer 1780 ng/mlFEU (<500)
[2022-10-08 11:32] LABS: COVID-19 PCR Negative (Negative); Influenza A PCR Negative (Negative); Influenza B PCR Negative (Negative)
[2022-10-08 11:33] LABS: Source Nasopharynx
[2022-10-08 11:36] LABS: RSV PCR Positive (Negative)
[2022-10-08] MEDS: Omnipaque 350 MG/ML 100 ML BTL IJ (11:54)
[2022-10-08] MEDS: Normal Saline - Diluent 50 ML VIAL IJ (11:56)
--- NOTE | 2022-10-08 12:00 | DI.CT_ITS ---
Exam(s) CT CHEST PE CTA EXAM: CT CHEST PE CTA CLINICAL HISTORY: Shortness of breath, hemoptysis, lung mass. TECHNIQUE: Imaging Protocol: Axial CT angiography was performed with multi-slice acquisition and mu lti-planar reconstructions as well as axial, coronal and sagittal MIP reconstructions. CONTRAST MATERIAL: Intravenous: Omnipaque 350 Contrast volume:100 ml COMPARISON: CT CT CHEST W from 09/26/2022 FINDINGS: Pulmonary Arteries: No evidence of filling defect to suggest pulmonary emboli. Tracheobronchial tree: Mild lower lobe bronchiectasis. No mucous plugging. Mediastinum and Dang: No dominant adenopathy or fluid collection. Pulmonary parenchyma: Underlying moderate emphysematous changes. Stable area of spiculation at the r ight lung apex, scar versus mass. No change mild scarring posterior right upper lobe. Pleura: No effusion or pneumothorax. Heart: The heart is not dilated. Severe coronary artery calcifications are seen. Aorta: Thoracic aorta non-dilated. No aneurysm. No dissection. Severe atherosclerotic changes. Upper abdomen: Unremarkable. Bones: Flowing osteophytes. Stable mild T12 compression fracture. Lucencies in the vertebral endpla brenda presumed Schmorl's nodes, unchanged. Tubes, Catheters, and Lines: None IMPRESSION: No evidence of pulmonary embolism. Stable spiculated area at the right lung apex may represent scarring versus mass. No change from aiden or exam. Findings called to Edison Saravia, emergency department provider. RADIATION DOSE DELIVERED: 322.65mGy.cm Total DLP DATA REPOSITORY: All CT scans at this facility are submitted to the National Radiology Data Registry (NRDR) Dose Index Registry (DIR) with the [employer] (A[employer]). RADIATION OPTIMIZATION: All CT scans at this facility use at least one of these dose optimization te chniques: automated exposure control; mA and/or kV adjustment per patient size (includes targeted exa ms where dose is matched to clinical indication); or iterative reconstruction.
== END 2022-10-08 13:29 | disposition home or self-care (01) ==
PROVIDERS: Emergency Provider Nurse Practitioner Family; PCP Family Medicine
DX: J43.9 Emphysema, unspecified (principal); B97.4 Respiratory syncytial virus as the cause of diseases classified elsewhere; R93.89 Abnormal findings on diagnostic imaging of other specified body structures; I10 Essential (primary) hypertension; I45.10 Unspecified right bundle-branch block; E87.8 Other disorders of electrolyte and fluid balance, not elsewhere classified; R79.1 Abnormal coagulation profile; Z79.82 Long term (current) use of aspirin; Z20.822 Contact with and (suspected) exposure to COVID-19
CPT/HCPCS: 36415; 71275; 80053; 87637; 93005; 94640; 96374; 99285; 83735; 83880; 84484; 85025; 85379; 85610; 85730; 93010; 99284; J2930; J3490; J7620

== ENCOUNTER → 2023-02-17 09:41 | Outpatient (BNVA) | payer MEDICARE, BC, SELFPAY | PROVIDERS: PCP Family Medicine; Visit Provider Urology | DX: N40.1 Benign prostatic hyperplasia with lower urinary tract symptoms (principal); N13.8 Other obstructive and reflux uropathy | CPT/HCPCS: 51798; 81003; 99213 ==

== ENCOUNTER 2023-02-25 10:13 | Emergency (ER) | payer MEDICARE, BC, SELFPAY ==
[2023-02-25 10:17] VITALS: BP 132/51; PULSE 73; RESP 16; TEMP 36.8; O2SAT 97
[2023-02-25] MEDS: Cephalexin 500 MG CAP PO (12:11)
--- NOTE | 2023-02-25 12:37 | W.ED.GENAD ---
Discharge Plan Disposition Patient Disposition: Home Discharge Details Clinical Impression: Infected skin tear Primary Care Provider: Magdaleno Dickens ED Provider: Bridget Landon Home Meds and New Rx's Prescriptions: New cephalexin 500 mg tablet 500 mg PO BID 5 Days Qty: 10 0RF No Action finasteride 5 mg tablet 5 mg PO DAILY indapamide 2.5 mg tablet 2.5 mg PO QAM potassium chloride [Klor-Con 10] 10 mEq tablet extended release 10 meq PO DAILY losartan-hydrochlorothiazide 100-12.5 mg tablet 1 tab PO DAILY tamsulosin 0.4 mg capsule 0.4 mg PO QHS Qty: 90 4RF betamethasone dipropionate 0.05 % cream 1 applic TP BID PRN spironolactone 50 mg tablet 50 mg PO DAILY losartan 100 mg tablet 100 mg PO DAILY trazodone 50 MG tablet 50 mg PO HS simvastatin 10 MG tablet 10 mg PO DAILY aspirin [Aspir-Low] 81 MG tablet,delayed release (DR/EC) 81 mg PO DAILY omeprazole 20 MG capsule,delayed release(DR/EC) 20 mg PO DAILY prednisone 20 mg tablet 40 mg PO DAILY Qty: 8 0RF benzonatate 100 mg capsule 100 mg PO TID PRN (Reason: cough) Qty: 30 0RF Combivent Respimat 20-100 mcg/actuation mist 1 puff inhalation Q4H PRN (Reason: shortness of breath or wheezing) Qty: 4 0RF Discharge Instructions Instructions: Skin Tear (ED) Additional Instructions: Please keep clean and dry. Allow to air dry at least 2 hours a day. May continue to wash it once daily with soap and water. Keep it covered as needed. Follow up with primary care provider in 3-5 days. Return to ED sooner if any worsening or concerns. Increase oral fluids. Take the antibiotic as directed with yogurt or probiotic twice daily for the next 5 days. You were given the first dose here. Referrals: Magdaleno Dickens MD [Primary Care Provider] - 3 days Medical Decision Making 87-year-old male presents to the ER with a chief complaint of right dorsal forearm skin tear which has been unhealed for the last 10 days. His reports that he accidentally scraped the scabs off. She has been applying bacitracin to the area. There is mild surrounding erythema, no significant purulent drainage or swelling noted. He has full range of motion noted to his wrist. Distal CMS is intact. Dermabond applied to small flap of skin wound care performed by staffing director. We will give patient a small 5-day dose of antibiotic. Instructed on home care and further follow-up with PCP his and verbalized understanding. This text was generated using [employer] dictation system, please disregard any oddities of phrase or misspellings. HPI General Mode of arrival: ambulatory. Date/Time Provider Initiated Documentation: 02/25/23 11:24. Limitations to Documentation: no limitations. Information obtained by: patient, RN notes reviewed and old records reviewed. HPI Narrative: 87-year-old male presents to the ER with a chief complaint of right dorsal forearm skin tear which has been unhealed for the last 10 days. His reports that he accidentally scraped the scabs off. She has been applying bacitracin to the area. There is mild surrounding erythema, no significant purulent drainage or swelling noted. He has full range of motion noted to his wrist. Distal CMS is intact. Related Data Home Medications Medication Instructions Recorded Confirmed aspirin 81 mg tablet,delayed 81 mg PO DAILY 07/26/15 02/17/23 release (Aspir-Low) omeprazole 20 mg capsule,delayed 20 mg PO DAILY 07/26/15 02/17/23 release simvastatin 10 mg tablet 10 mg PO DAILY 07/26/15 02/17/23 trazodone 50 mg tablet 50 mg PO HS 07/26/15 02/17/23 betamethasone dipropionate 0.05 % 1 applic topical BID PRN 12/05/19 02/17/23 topical cream losartan 100 mg tablet 100 mg PO DAILY 12/05/19 02/17/23 spironolactone 50 mg tablet 50 mg PO DAILY 12/05/19 02/17/23 finasteride 5 mg tablet 5 mg PO DAILY 02/18/22 02/17/23 benzonatate 100 mg capsule 100 mg PO TID PRN cough #30 caps 10/08/22 02/17/23 ipratropium 20 mcg-albuterol 100 1 puff inhalation Q4H PRN 10/08/22 02/17/23 mcg/actuation mist for inhalation shortness of breath or wheezing #4 (Combivent Respimat) grams prednisone 20 mg tablet 40 mg PO DAILY #8 tabs 10/08/22 02/17/23 indapamide 2.5 mg tablet 2.5 mg PO QAM 02/17/23 02/17/23 losartan 100 1 tab PO DAILY 02/17/23 02/17/23 mg-hydrochlorothiazide 12.5 mg tablet potassium chloride 10 mEq 10 meq PO DAILY 02/17/23 02/17/23 tablet,extended release (Klor-Con) tamsulosin 0.4 mg capsule 0.4 mg PO QHS urine flow #90 caps 02/17/23 02/17/23 cephalexin 500 mg tablet 500 mg PO BID 5 days #10 tabs 02/25/23 Previous Rx's Medication Instructions Recorded benzonatate 100 mg capsule 100 mg PO TID PRN cough #30 caps 10/08/22 ipratropium 20 mcg-albuterol 100 1 puff inhalation Q4H PRN 10/08/22 mcg/actuation mist for inhalation shortness of breath or wheezing #4 (Combivent Respimat) grams prednisone 20 mg tablet 40 mg PO DAILY #8 tabs 10/08/22 tamsulosin 0.4 mg capsule 0.4 mg PO QHS urine flow #90 caps 02/17/23 cephalexin 500 mg tablet 500 mg PO BID 5 days #10 tabs 02/25/23 Allergies Allergy/AdvReac Type Severity Reaction Status Date / Time atenolol Allergy Unverified 02/17/23 09:43 codeine AdvReac Unknown Unverified 02/17/23 09:43 General Stated Complaint: Laceration REGINALDO: 4 Review of Systems Integumentary/Breasts Skin/Breast: Reports as per HPI and Reports wounds PFSH All Active Problems (Updated 02/25/23 @ 12:43 by Bridget Landon NP) Infected skin tear (Acute) Atopic dermatitis (Acute) Lung nodule (Acute) Microscopic hematuria (Acute) Erectile dysfunction (Acute) History of elevated prostate specific antigen (PSA) (Acute) BPH w urinary obs/LUTS (Acute) Medical History Adenomatous colon polyp Allergic rhinitis Anemia Bilateral hip pain Chronic constipation Dysphonia Elevated PSA Esophageal stricture HLD (hyperlipidemia) HTN (hypertension) Lesion of iris Orthostatic dizziness Pruritus RBBB (right bundle branch block) Rheumatoid arthritis Sinus bradycardia Spinal stenosis Transient acantholytic dermatosis Weight loss Surgical History Colonoscopy - MAC (07/27/15) DR.TERRY CHOUDHARY Social History Smoking/Tobacco Use Status: Former Tobacco Use tobacco type: cigarettes Quit Date: 10/05/99 Smoking risk assessment performed?: Yes Alcohol Intake: never Drug use: Never Substance use type: does not use Do you feel safe at home: Yes Do you feel safe in your relationship?: Yes Exam Extrem Right upper extremity: wrist Details: abrasion (Skin tear noted approximately 4 cm in length by 3 cm in width) Elbow/forearm/wrist images: 1. Skin tear Course Vital Signs Vital signs: Vital Signs Temperature 36.8 C 02/25/23 10:17 Pulse 73 02/25/23 10:17 Respiratory Rate 16 02/25/23 10:17 Blood Pressure 132/51 L 02/25/23 10:17 Pulse Oximetry 97 02/25/23 10:17 Temperature 36.8 C 02/25/23 10:17 Temperature Source Skin 02/25/23 10:17 Pulse 73 02/25/23 10:17 Respiratory Rate 16 02/25/23 10:17 Respiratory Effort Normal 02/25/23 12:12 Blood Pressure 132/51 L 02/25/23 10:17 Blood Pressure Position Sitting 02/25/23 10:17 Pulse Oximetry 97 02/25/23 10:17 Oxygen Delivery Method Room Air 02/25/23 10:17 Oxygen Flow Rate 0 02/25/23 10:17 Pain Level 0 02/25/23 10:17
== END 2023-02-25 12:49 | disposition home or self-care (01) ==
PROVIDERS: Emergency Provider Registered Nurse Emergency; PCP Family Medicine
DX: S51.811A Laceration without foreign body of right forearm, initial encounter (principal); I10 Essential (primary) hypertension; X58.XXXA Exposure to other specified factors, initial encounter; L08.9 Local infection of the skin and subcutaneous tissue, unspecified
CPT/HCPCS: 12001

== ENCOUNTER 2023-03-03 09:51 | Outpatient (REF) | payer MEDICARE, BC, SELFPAY ==
[2023-03-03 15:19] LABS: Abs Immature Grans 0.02 10^3/uL (0.0-0.06); Absolute Basophil Count 0.04 10^3/uL (0.0-0.2); Absolute Eosinophil Count 0.23 10^3/uL (0.0-0.7); Absolute Lymphocyte Count 0.53 10^3/uL (1.2-3.4); Absolute Monocyte Count 0.48 10^3/uL (0.1-0.8); Absolute Neutrophil Count 5.11 10^3/uL (1.2-6.7); Basophils % 0.6; Eosinophils % 3.6; HCT 35.7 % (40.0-50.0); HGB 11.4 g/dL (13.5-17.5); Immature Grans % 0.3; Lymphocytes % 8.3; MCH 27.9 pg (27.0-33.0); MCHC 31.9 % (32.0-36.0); MCV 87 fL (80-95); MPV 10.5 fL (8.0-11.0); Monocytes % 7.5; Neutrophils % 79.7; Platelet Count 232 10^3/uL (130-400); RBC 4.09 10^6/uL (4.36-5.78); RDW 13.8 % (11.8-14.1); RDW-SD 43.8 fL; WBC 6.41 10^3/uL (4.4-10.8)
[2023-03-03 15:43] LABS: ALT 21 U/L (16-63); AST 23 U/L (15-37); Albumin 3.3 g/dL (3.4-5.0); Alkaline Phosphatase 103 U/L (46-116); Anion Gap 10.8 mmol/L (3-11); BUN 35 mg/dL (7-18); Bilirubin, Total 0.5 mg/dL (0.2-1.0); CO2 24.2 mmol/L (21.0-32.0); CREATININE 1.7 mg/dL (0.70-1.30); Chloride 106 mmol/L (98-107); Estimated GFR 39.02 (mL/min/1.73m2); Glucose 93 mg/dL (74-106); Potassium 5.1 mmol/L (3.5-5.1); Sodium 141 mmol/L (136-145); Total Protein 7.3 g/dL (6.4-8.2)
== END 2023-03-03 09:52 | disposition home or self-care (01) ==
LOC: NCHCN 09:51
PROVIDERS: PCP Family Medicine; Visit Provider Family Medicine
DX: D50.9 Iron deficiency anemia, unspecified (principal); I10 Essential (primary) hypertension; J44.9 Chronic obstructive pulmonary disease, unspecified
CPT/HCPCS: 80053; 85025

== ENCOUNTER → 2023-03-31 14:04 | Outpatient (BNVA) | payer MEDICARE, BC, SELFPAY | PROVIDERS: PCP Family Medicine; Visit Provider Urology | DX: N40.1 Benign prostatic hyperplasia with lower urinary tract symptoms (principal); N13.8 Other obstructive and reflux uropathy | CPT/HCPCS: 99213 ==

== ENCOUNTER 2023-05-10 08:51 | Observation (INO) | payer MEDICARE, BC, SELFPAY ==
[2023-05-10] VITALS (33 sets, daily range): BP systolic 103–183; BP diastolic 57–103; PULSE 55–71; RESP 12–23; TEMP 35.7–36.3; O2SAT 95–100
--- NOTE | 2023-05-10 08:45 | RT.EKG_ITS ---
APPROVED REPORT Exam: Resting ECG Reason for Exam: dizziness Patient Location: E HR:68 bpm ECG Measurements Heart Rate 68 AXIS MA [id number] P [id number] QRSd 138 QRS -80 QT 418 T 84 QTc 446 Conclusion Atrial flutter with predominant 4:1 AV block...A-rate 268, multiple Ps Right bundle branch block...QRSd>120, terminal axis(90,270) Anteroseptal infarct, age indeterminate...Q >35mS, T neg, V1-V2 ST elevation, consider inferior injury...ST >0.08mV, II III aVF The patient is in a NSR, not aflutter RBBB LAD, T wave inversion in V1-V2 unchanged from previous. No STEMI
--- NOTE | 2023-05-10 08:55 | ED.GENADUL_ITS ---
Discharge Plan Disposition Patient Disposition: Admit to [facility] Discharge Details Clinical Impression: Near syncope, Lung nodule Primary Care Provider: Magdaleno Dickens ED Provider: Nancy Givens Home Meds and New Rx's Prescriptions: No Action finasteride 5 mg tablet 5 mg PO DAILY indapamide 2.5 mg tablet 2.5 mg PO QAM potassium chloride [Klor-Con 10] 10 mEq tablet extended release 10 meq PO DAILY losartan-hydrochlorothiazide 100-12.5 mg tablet 1 tab PO DAILY doxazosin 1 mg tablet 1 mg PO QHS Qty: 90 0RF betamethasone dipropionate 0.05 % cream 1 applic TP BID PRN spironolactone 50 mg tablet 50 mg PO DAILY losartan 100 mg tablet 100 mg PO DAILY trazodone 50 MG tablet 50 mg PO HS simvastatin 10 MG tablet 10 mg PO DAILY aspirin [Aspir-Low] 81 MG tablet,delayed release (DR/EC) 81 mg PO DAILY omeprazole 20 MG capsule,delayed release(DR/EC) 20 mg PO DAILY prednisone 20 mg tablet 40 mg PO DAILY Qty: 8 0RF benzonatate 100 mg capsule 100 mg PO TID PRN (Reason: cough) Qty: 30 0RF Combivent Respimat 20-100 mcg/actuation mist 1 puff inhalation Q4H PRN (Reason: shortness of breath or wheezing) Qty: 4 0RF Discharge Data Discharge Physician: Nancy Givens Medical Decision Making This is an 87-year-old male with past medical history of TIA on aspirin who is being worked up for a lung nodule and who has lost 20 pounds over the past year. He presents today with dizziness that does not sound vertiginous which began at 3 AM this morning. He had another episode at 6 AM. He denies falling or headache. He has had diplopia which was present prior to the onset of today's symptoms. He has been seen at [facility] for a lung nodule and is awaiting the results of his second CT scan. He has no prior history of syncope although he has had dizziness in the past. It does not sound vertiginous and he denies any tinnitus, barotrauma changes in hearing or discharge from his ears. His neurologic exam currently is nonfocal. He does have severe rheumatoid arthritis but is not on any immunosuppressants currently. We will check a CBC for anemia. His EKG I have reviewed and it shows a right bundle branch block and left axis deviation with some T wave inversion which is old. There is no evidence of acute ST elevation [place]. My plan is to admit him to the hospital for further evaluation and treatment. Differential Diagnosis Differential Diagnosis: Near syncope, arrhythmia, electrolyte abnormality, vertigo Medical Records Medical records reviewed: Yes I reviewed the patient's medical records. Lab Data Lab results reviewed: Yes I reviewed the patient's lab results. Lab results narrative: Elevated D-dimer but also elevated renal function. ECG Data Attestation: I personally reviewed and interpreted this ECG (s) as follows: Prior ECG tracings: available for review Interpretation: Left axis deviation, right bundle branch block. T wave inversions in V1 V2 aVR and aVL. No evidence of ST elevation TX. Borderline left atrial enlargement HPI General Date/Time Provider Initiated Documentation: 05/10/23 08:53 . History of Present Illness 87 year old M presents to the emergency department with the chief complaint of Dizziness, HPI Narrative: Time seen was 9:10 AM in bed 8. The patient is a 87-year-old [id number] male who was well until approximately 3 AM this morning when he awoke to use the bathroom and felt dizzy. He states he did not fall but he was able to hold onto furniture and went to the bathroom and then went back to bed. At 6 AM this morning he got up to use the bathroom and again felt dizzy. He denied any chest pain or headache. He tells me he had 1 previous episode of near syncope when he had pneumonia but tells me that was a while ago and he was not admitted. He also tells me he is being worked up at [facility] for lung CA. He had an abnormal CT in October which was recently repeated about a month ago. He has not received those results and has a follow-up appointment in July. He does endorse a 20 pound weight loss and some chronic shortness of breath. He quit smoking 25 years ago. He says that he had a mini stroke 15 years ago. His symptoms at that time included difficulty with his speech. The symptoms resolved and he was started on a baby aspirin. He also endorses [id number] diplopia which she has had for months. He says that it usually occurs when he is driving at night but he is no longer driving. He denies any black or bloody stools. He does not use oxygen at home. He denies alcohol use. He denies any trauma, or headache. He denies chest or abdominal pain. He denies any unilateral weakness numbness or tingling. The patient also has a history of severe rheumatoid arthritis. He was on methotrexate but that was discontinued. He tells me it was discontinued because it affected his immune system. Related Data Home Medications Medication Instructions Recorded Confirmed aspirin 81 mg tablet,delayed 81 mg PO DAILY 07/26/15 05/10/23 release (Aspir-Low) omeprazole 20 mg capsule,delayed 20 mg PO DAILY 07/26/15 05/10/23 release simvastatin 10 mg tablet 10 mg PO DAILY 07/26/15 05/10/23 trazodone 50 mg tablet 50 mg PO HS 07/26/15 05/10/23 betamethasone dipropionate 0.05 % 1 applic topical BID PRN 12/05/19 03/31/23 topical cream losartan 100 mg tablet 100 mg PO DAILY 12/05/19 05/10/23 spironolactone 50 mg tablet 50 mg PO DAILY 12/05/19 05/10/23 finasteride 5 mg tablet 5 mg PO DAILY 02/18/22 05/10/23 ipratropium 20 mcg-albuterol 100 1 puff inhalation Q4H PRN 10/08/22 05/10/23 mcg/actuation mist for inhalation shortness of breath or wheezing #4 (Combivent Respimat) grams indapamide 2.5 mg tablet 2.5 mg PO QAM 02/17/23 03/31/23 losartan 100 1 tab PO DAILY 02/17/23 03/31/23 mg-hydrochlorothiazide 12.5 mg tablet potassium chloride 10 mEq 10 meq PO DAILY 02/17/23 03/31/23 tablet,extended release (Klor-Con) doxazosin 1 mg tablet 1 mg PO QHS #90 tabs 03/31/23 03/31/23 tamsulosin 0.4 mg capsule 0.4 mg PO DAILY 05/10/23 05/10/23 umeclidinium 62.5 mcg-vilanterol 1 inh inhalation DAILY 05/10/23 05/10/23 25 mcg/actuation powdr for inhalation (Anoro Ellipta) Previous Rx's Medication Instructions Recorded ipratropium 20 mcg-albuterol 100 1 puff inhalation Q4H PRN 10/08/22 mcg/actuation mist for inhalation shortness of breath or wheezing #4 (Combivent Respimat) grams doxazosin 1 mg tablet 1 mg PO QHS #90 tabs 03/31/23 Allergies Allergy/AdvReac Type Severity Reaction Status Date / Time atenolol Allergy Unverified 03/31/23 14:39 codeine AdvReac Unknown Unverified 03/31/23 14:39 General REGINALDO: 4 Review of Systems Narrative: see hpi Genitourinary Comments: History of elevated PSA and BPH Musculoskeletal Comments: Mild peripheral edema PFSH All Active Problems (Updated 05/10/23 @ 10:14 by Nancy Givens MD) Near syncope (Acute) Atopic dermatitis (Acute) Lung nodule (Acute) Microscopic hematuria (Acute) Erectile dysfunction (Acute) History of elevated prostate specific antigen (PSA) (Acute) BPH w urinary obs/LUTS (Acute) Medical History Adenomatous colon polyp Allergic rhinitis Anemia Bilateral hip pain Chronic constipation Dysphonia Elevated PSA Esophageal stricture HLD (hyperlipidemia) HTN (hypertension) Lesion of iris Orthostatic dizziness Pruritus RBBB (right bundle branch block) Rheumatoid arthritis Sinus bradycardia Spinal stenosis Transient acantholytic dermatosis Weight loss Surgical History Colonoscopy - [facility] (07/27/15) DR.TERRY CHOUDHARY Social History Smoking/Tobacco Use Status: Former Tobacco Use tobacco type: cigarettes Quit Date: 10/05/99 Smoking risk assessment performed?: Yes Alcohol Intake: never Drug use: Never Substance use type: does not use Housing: house Do you feel safe at home: Yes Do you feel safe in your relationship?: Yes Exam Narrative Exam Narrative: The patient is well-developed thin male in no acute distress. GCS is 15. He is alert and oriented x4. Vital signs reveal mild hypertension with a blood pressure of 145/86. He is not tachycardic or tachypneic. His temperature was slightly low at 36.3 ?C room air O2 sat is normal at 98% on room air. Const General: cooperative, comfortable, no acute distress, well developed and well groomed Orientation: alert, awake and oriented x3 HENMT Head: normal to inspection, normocephalic and atraumatic Ears: hearing grossly normal bilaterally and external ears normal General nose exam: external nose normal, nares normal and no nasal discharge Face and sinus: normal facial exam, sinuses nontender and face symmetric Mouth: oral mucosae normal, lip normal, tongue normal, oropharynx normal, moist mucous membranes and other (Normal phonation. The patient is handling secretions.) Throat: posterior oropharynx normal and uvula midline Eyes General: appearance normal, both eyes and all related structures Eyelids: eyelids normal Sclera: sclerae normal Cornea: corneas normal Pupils: PERRL EOM: EOM intact bilaterally and No nystagmus Other: His eye movements appear conjugate. He is not photophobic. Conjunctiva are slightly pale Neck Neck: normal visual inspection, full ROM, no lymphadenopathy, no meningeal signs, trachea midline and supple Lymphatic: no lymphadenopathy noted Other: No thyromegaly Chest Chest: normal inspection of the chest Resp Effort & Inspection: normal respiratory effort, able to speak in complete sentences, no audible wheezes, no nasal flaring, no respiratory distress, no retractions, no stridor, not tachypneic, no tracheal deviation, no use of accessory muscles, No prolonged expiratory phase and other (Normal inspiratory to expiratory ratio.) Auscultation: clear to auscultation bilaterally, no rales, no rhonchi, no wheezes and no rubs Tactile Fremitus: tactile fremitus absent Cardio Jugular venous pressure: no JVD Palpation: normal PMI Rate: regular rate Rhythm: regular rhythm Heart Sounds: S1 normal, S2 normal, no gallops, no murmurs and no rubs GI Inspection: normal to inspection and non-distended Palpation: soft, no hepatosplenomegaly, no guarding and nontender Percussion: normal to percussion Auscultation: normal bowel sounds General: No CVA tenderness Back/Spine/Pelvis Back: no CVA tenderness and No back tenderness Cervical Spine: normal cervical lordosis, cervical ROM normal, No cervical muscular tenderness, No pain with cervical ROM, No cervical spinal tenderness and No step off deformity Thoracic/Lumbar Spine: thoracic and lumbar spine normal to inspection, No thoracic spinal tenderness and No lumbar spinal tenderness Pelvis: no pain with anterior-posterior compression and no pain with lateral compression Skin General skin exam: no rashes or lesions noted, turgor normal, no petechiae and purpura Rashes: no rashes Other: The patient does have some bruises of variable ages on his forearms. Neuro General: patient alert, patient awake, patient oriented x3, moves all extremities, no meningeal signs, no focal motor deficits and CN's II-XI intact bilaterally Cranial Nerves: CN's II-XI intact bilaterally, PERRL, accommodation normal, EOM intact bilaterally, no nystagmus, facial strength normal, tongue midline, hearing normal and no nystagmus Cognition: normal cognition Speech: speech normal Gait: normal gait Motor: muscle tone normal throughout and strength 5/5 throughout Sensory Exam: no sensory deficits noted Other: Normal finger-nose bilaterally. No pronator drift. Reflexes 1-2+ and symmetric in his bicep brachioradialis patellar and ankle jerks. No Babinski is present. Extrem General: capillary refill normal and no calf tenderness Other: His extremities reveal severe changes consistent with rheumatoid arthritis. He has 2+ edema that is symmetric to the ankles. Motor function is 5 out of 5 in his upper and lower extremities. Psych Appearance: grossly normal Affect: normal affect Attitude: cooperative Thought Process: normal Thought Content: normal Insight: insight good Judgment: judgment good Other: The patient appears to have capacity make medical decisions. Course I have spoken with the hospitalist who has agreed to admit him for observation Lab/Test Results Lab/Test Results: Mild anemia, mild renal insufficiency, mild dehydration. Mild hypoalbuminemia
[2023-05-10 09:30] LABS: Abs Immature Grans 0.02 10^3/uL (0.0-0.06); Absolute Basophil Count 0.02 10^3/uL (0.0-0.2); Absolute Eosinophil Count 0.22 10^3/uL (0.0-0.7); Absolute Lymphocyte Count 0.51 10^3/uL (1.2-3.4); Absolute Monocyte Count 0.41 10^3/uL (0.1-0.8); Absolute Neutrophil Count 4.04 10^3/uL (1.2-6.7); Basophils % 0.4; Eosinophils % 4.2; HCT 33.4 % (40.0-50.0); HGB 10.7 g/dL (13.5-17.5); Immature Grans % 0.4; Lymphocytes % 9.8; MCH 27.9 pg (27.0-33.0); MCV 87 fL (80-95); MPV 9.4 fL (8.0-11.0); Monocytes % 7.9; Neutrophils % 77.3; Platelet Count 163 10^3/uL (130-400); RBC 3.83 10^6/uL (4.36-5.78); RDW 14.1 % (11.8-14.1); RDW-SD 45.1 fL; WBC 5.22 10^3/uL (4.4-10.8)
[2023-05-10 09:55] LABS: ALT 15 U/L (16-63); AST 19 U/L (15-37); Alkaline Phosphatase 98 U/L (46-116); Anion Gap 8.4 mmol/L (3-11); BUN 42 mg/dL (7-18); Bilirubin, Total 0.4 mg/dL (0.2-1.0); CO2 24.6 mmol/L (21.0-32.0); CREATININE 1.6 mg/dL (0.70-1.30); Calcium 8.6 mg/dL (8.5-10.1); Chloride 109 mmol/L (98-107); Estimated GFR 41.96 (mL/min/1.73m2); Glucose 89 mg/dL (74-106); Magnesium 1.8 mg/dL (1.8-2.4); Potassium 4.4 mmol/L (3.5-5.1); Sodium 142 mmol/L (136-145); TSH (W/Ref FT4) 2.12 uIU/mL (0.36-3.74); Total Protein 6.5 g/dL (6.4-8.2); Troponin I < 50 ng/L (<or=60)
--- NOTE | 2023-05-10 12:34 | HPE_ITS ---
Date of service: 05/10/23 Time of Service: 12:34 Assessment and Plan Assessment and plan (1) Near syncope: Status: Acute Assessment and plan: Patient is orthostatic hypotensive appears to be mildly dehydrated. He has chronic kidney disease as well as cardiac conduction problems. He has a bradycardia cardia despite the fact that he is not on any blockers or calcium channel blockers. I suspect he has some intrinsic conduction problems given his bifascicular block on his EKG. However he did demonstrate orthostatic hypotension which would suggest a decreased vascular tone or decreased intravasc ular volume. We will hydrate him overnight with LR x1 L I have discontinued his diuretics and occluding his indapamide and hydrochlorothiazide. I have reduced his losartan dose to half his usual dose of 50 daily. I think he needs further evaluation for his anemia. Given his prior history of adenomatous colon polyps and his history of intermittent hematuria I think he is having chronic blood lo ss causing iron deficiency anemia. Plan will be to monitor him overnight see if he develops any advanced heart block such as third-degree AV block. If there is no advanced heart block then he would not necessarily need a pacemaker. We will keep him off of his diuretics for now and monitor his blood pressure and a reduced dose of his losartan. He has blood pressure medications should be adjusted based on his standing blood pressure and not his sitting or supine blood pressures. I will treat his iron deficiency anemia with IV iron infusion. I will recommend further outpatient work-up including an EGD plus or minus colonoscopy depending on how aggressive he wants to get. With respect to his hematuria he should follow-up with his urologist. He has had a prior history of BPH and elevated PSAs therefore he may needs further urologic evaluation such as cystoscopy and/or prostate biopsy. I explicitly discussed CODE STATUS with him he wants to be full code at present time. He is indicated in the event that he does have cardiopulmonary arrest and it looks like you have no meaningful recovery then he would want further resuscitation to be discontinued. (2) Anemia: Assessment and plan: Normal B12 and folate but low serum iron as well as decreased transferrin saturation with normal TIBC and low normal ferritin levels. Findings are consistent with a chronic iron deficiency anemia. We will start him on Venofer. Check stools for occult blood. (3) BPH w urinary obs/LUTS: Status: Acute Assessment and plan: Continue his tamsulosin and pro scar. I have with his docs as his. (4) HTN (hypertension): (5) RBBB (right bundle branch block): Assessment and plan: Avoid calcium channel blockers and beta-blockers in treating his hypertension. We will monitor overnight on telemetry if there is no advanced heart block and pacemaker would not be indicated otherwise consider outpatient cardiac event recorder. History of Present Illness History of Present Illness Chief Complaint: dizziness Narrative: 87-year-old male with history of essential hypertension, COPD, BPH, GERD with history of esophageal stricture, hyperlipidemia, spinal stenosis, remote TIA for which she is on aspirin, adenomatous colon polyp, currently being worked up through [facility] for lung nodule. He presented emergency department today with recurrent dizziness and near syncope. Patient reportedly had episode around 3 AM this morning when he got up to go the bathroom. He did not lose consciousness or fall. Then again this morning had another spell at 6 AM not associated with any fall or headache. There is no vertiginous component nor any tinnitus with this. Evaluation in the ER included EKG that showed sinus rhythm with right bundle branch block with some old T wave inversions. Orthostatics were not performed in the emergency department. He was actually noted to be hypertensive with systolic blood pressures of 140's to 170's and diastolic readings in the 60s to 70s. HR in the 50's to 60's. Laboratory work-up was remarkable for a normocytic normochromic anemia hemoglobin 10.7 g hematocrit 33% with no leukocytosis. Patient's had a chronic anemia last hemoglobin was 11.4 g on March 03, 2023. He has a normal platelet count 163,000. There is no abnormalities on his differential. Chemistry profile was remarkable for elevated BUN and creatinine 42 and 1.6. This is similar to his previous readings from March 03, 2023 when his BUN was 35 creatinine 1.7. Magnesium level was normal at 1.8 calcium is normal at 8.6 potassium is normal at 4.4. He had a normal anion gap. Liver transaminases were unremarkable and he has had 3 troponin levels that are normal. TSH was normal at 2.1. After receiving a call from Dr Givens, ED provider, I had the lab add further anemia work-up to his labs including serum iron which is low at 34 with a normal TIBC of 274 low normal ferritin at 28 and transferrin saturation is low at 12%. His findings are consistent with iron deficiency anemia. Histo ry of bone and levels as a said were normal. His LDH is normal at 148 and his B12 is normal at 337 and folate is normal at 13.6. Since his admission he underwent orthostatic vital signs which showed significant drop in his blood pressure from 181/74 supine down to 103/58 standing. I have since ordered IV fluids of LR at 100 mL an hour x1 L. Patient is admitted to the hospital for further evaluation of his orthostatic symptoms. His home medications include number medications that can affect his blood pressure including doxazosin 1 mg nightly, indapamide 2.5 mg every morning, losartan with hydrochlorothiazide 100-12.5 mg daily, spironolactone 50 mg daily. I have withheld some of these medications including the doxazosin and the indapamide and the hydrochlorothiazide. I did order his losartan to be given at a reduced dose with blood pressure parameters. Patient will need further work- up of his iron deficiency anemia. Review of Systems Constitutional Constitutional: Denies chills, Denies fever(s) and Denies frequent falls ENT Ears, Nose, Mouth, and Throat: Reports system reviewed and no additional complaints, except as documented Cardiovascular Cardiovascular: Denies chest pain, Denies leg edema, Reports lightheadedness, Denies palpitations and Denies dyspnea Respiratory Respiratory: Reports cough, Denies hemoptysis, Denies excessive phlegm production and Denies dyspnea Gastrointestinal Gastrointestinal: Denies abdominal pain, Denies melena, Denies hematochezia, Denies diarrhea, Denies nausea and Denies vomiting Genitourinary Genitourinary: Reports hematuria and Reports difficulty urinating Musculoskeletal Musculoskeletal: Reports system reviewed and no additional complaints, except as documented Integumentary/Breasts Skin/Breast: Reports system reviewed and no additional complaints, except as documented Neurologic Neurologic: Reports system reviewed and no additional complaints, except as documented and Denies frequent falls Psychiatric Psychiatric: Reports system reviewed and no additional complaints, except as documented Endocrine Endocrine: Reports system reviewed and no additional complaints, except as documented and Denies palpitations Hematologic/Lymphatic Hematologic/Lymphatic: Reports system reviewed and no additional complaints, except as documented PFSH All Active Problems (Updated 05/10/23 @ 10:14 by Nancy Givens MD) Near syncope (Acute) Atopic dermatitis (Acute) Lung nodule (Acute) Microscopic hematuria (Acute) Erectile dysfunction (Acute) History of elevated prostate specific antigen (PSA) (Acute) BPH w urinary obs/LUTS (Acute) Medical History Adenomatous colon polyp Allergic rhinitis Anemia Bilateral hip pain Chronic constipation Dysphonia Elevated PSA Esophageal stricture HLD (hyperlipidemia) HTN (hypertension) Lesion of iris Orthostatic dizziness Pruritus RBBB (right bundle branch block) Rheumatoid arthritis Sinus bradycardia Spinal stenosis Transient acantholytic dermatosis Weight loss Surgical History Colonoscopy - MAC (07/27/15) DR.TERRY CHOUDHARY Social History Smoking/Tobacco Use Status: Former Tobacco Use tobacco type: cigarettes Quit Date: 10/05/99 Smoking risk assessment performed?: Yes Alcohol Intake: never Drug use: Never Substance use type: does not use Housing: house Do you feel safe at home: Yes Do you feel safe in your relationship?: Yes Meds Allergies and Home Medications Allergies Allergy/AdvReac Type Severity Reaction Status Date / Time atenolol Allergy Unverified 03/31/23 14:39 codeine AdvReac Unknown Unverified 03/31/23 14:39 Home Medications Medication Instructions Recorded Confirmed Type aspirin 81 mg tablet,delayed 81 mg PO DAILY 07/26/15 05/10/23 History release (Aspir-Low) omeprazole 20 mg capsule,delayed 20 mg PO DAILY 07/26/15 05/10/23 History release simvastatin 10 mg tablet 10 mg PO DAILY 07/26/15 05/10/23 History trazodone 50 mg tablet 50 mg PO HS 07/26/15 05/10/23 History betamethasone dipropionate 0.05 % 1 applic topical BID PRN 12/05/19 03/31/23 Hi story topical cream losartan 100 mg tablet 100 mg PO DAILY 12/05/19 05/10/23 History spironolactone 50 mg tablet 50 mg PO DAILY 12/05/19 05/10/23 History finasteride 5 mg tablet 5 mg PO DAILY 02/18/22 05/10/23 History ipratropium 20 mcg-albuterol 100 1 puff inhalation Q4H PRN 10/08/22 05/10/23 Rx mcg/actuation mist for inhalation shortness of breath or wheezing #4 (Combivent Respimat) grams indapamide 2.5 mg tablet 2.5 mg PO QAM 02/17/23 03/31/23 History losartan 100 1 tab PO DAILY 02/17/23 03/31/23 History mg-hydrochlorothiazide 12.5 mg tablet potassium chloride 10 mEq 10 meq PO DAILY 02/17/23 03/31/23 History tablet,extended release (Klor-Con) doxazosin 1 mg tablet 1 mg PO QHS #90 tabs 03/31/23 03/31/23 Rx tamsulosin 0.4 mg capsule 0.4 mg PO DAILY 05/10/23 05/10/23 History umeclidinium 62.5 mcg-vilanterol 1 inh inhalation DAILY 05/10/23 05/10/23 History 25 mcg/actuation powdr for inhalation (Anoro Ellipta) Exam Const General: cooperative, no acute distress and well developed Nutritional Appearance: average body habitus Orientation: alert, awake and oriented x3 HENMT Head: normal to inspection Ears: hearing grossly normal bilaterally General nose exam: external nose normal Face and sinus: normal facial exam Mouth: oral mucosae normal Teeth and gingiva: dentures (top) Eyes General: appearance normal, both eyes and all related structures Alignment and Position: alignment normal Periorbital: periorbital findings normal Eyelids: eyelids normal Conjunctivae: conjunctivae normal Sclera: sclerae normal Cornea: corneas normal Neck Neck: normal visual inspection, full ROM and no lymphadenopathy Carotids: normal carotid upstroke Lymphatic: no lymphadenopathy noted Chest Chest: normal inspection of the chest Resp Effort & Inspection: normal respiratory effort and able to speak in complete sentences Auscultation: clear to auscultation bilaterally and crackles bilaterally at the base Cardio Jugular venous pressure: no JVD Palpation: normal PMI Rate: bradycardic Rhythm: regular rhythm Heart Sounds: no gallops, no murmurs and no rubs Pulses: posterior tibial pulses present and dorsalis pedis present GI Inspection: normal to inspection Palpation: soft and no hepatosplenomegaly Auscultation: normal bowel sounds Back/Spine/Pelvis Back: no CVA tenderness Cervical Spine: normal cervical lordosis Thoracic/Lumbar Spine: thoracic and lumbar spine normal to inspection Skin General skin exam: elasticity normal and turgor normal Lesions: no lesions Rashes: no rashes Neuro General: patient alert, patient awake and patient oriented x3 Cranial Nerves: CN's II-XI intact bilaterally Cognition: normal cognition Speech: speech normal Gait: shuffling Motor: muscle tone normal throughout Sensory Exam: no sensory deficits noted Extrem General: full ROM Right upper extremity: hand (arthritic changes to MCP joints) Left upper extremity: hand (arthritic changes to MCP joints) Psych Appearance: grossly normal Mental Status: mental status grossly normal Speech and Movement: speech and movement normal Mood: congruent mood Affect: normal affect Attitude: cooperative Thought Process: normal Thought Content: normal Insight: insight good Judgment: judgment good Results Imaging EKG: image reviewed (SR w/ bifascicular block (LAFB, RBBB)) Labs 05/10/23 09:22 05/10/23 09:22 Labs: Laboratory Results - last 24 hr 05/10/23 05/10/23 05/10/23 09:22 09:22 09:30 WBC 5.22 RBC 3.83 L Hgb 10.7 L Hct 33.4 L MCV 87 MCH 27.9 MCHC 32.0 RDW 14.1 Plt Count 163 MPV 9.4 Immature Gran % 0.4 Neutrophils % 77.3 Lymphocytes % 9.8 Monocytes % 7.9 Eosinophils % 4.2 Basophils % 0.4 Nucleated RBC % 0.0 Absolute Neutrophils 4.04 Absolute Lymphocytes 0.51 L Absolute Monocytes 0.41 Absolute Eosinophils 0.22 Absolute Basophils 0.02 Sodium 142 Potassium 4.4 Chloride 109 H Carbon Dioxide 24.6 Anion Gap 8.4 BUN 42 H Creatinine 1.6 H Est GFR (CKD-EPI 2020) 41.96 Glucose 89 Calcium 8.6 Magnesium 1.8 Total Bilirubin 0.4 AST 19 ALT 15 L Alkaline Phosphatase 98 Troponin I < 50 Total Protein 6.5 Albumin 3.0 L TSH 2.12 Cancelled Last Vital Signs Temp 35.7 C L 05/10/23 12:34 Pulse 65 05/10/23 12:34 Resp 16 05/10/23 12:34 BP 176/69 H 05/10/23 12:34 Pulse Ox 98 05/10/23 12:34 Time Spent Time spent with Patient: 55-74 minutes Time was spent: preparing to see the patient(eg.review tests), obtaining and/or reviewing separately otained hiistory, ordering medications,tests, procedures, referring, communicating with other health pharmacy customer care specialist (Discussion with Dr. Givens), indepentently interpreting results, counseling the patient and care coordination
[2023-05-10 12:40] LABS: Lab Add On Test DONE
[2023-05-10 12:48] LABS: Troponin I < 50 ng/L (<or=60)
[2023-05-10 12:52] LABS: Reticulocyte 0.9 % (0.5-2.4)
[2023-05-10 13:03] LABS: Iron 34 ug/dL (65-175); Total Iron Binding Capacity 274 ug/dL (250-450); Transferrin Sat 12 % (20-55)
[2023-05-10 13:04] LABS: LDH 148 U/L (85-227)
[2023-05-10] MEDS: Lactated Ringers 1,000 ML 100 ML IV (13:08)
[2023-05-10] MEDS: Enoxaparin 40 MG/0.4 ML SYR SC (13:09)
[2023-05-10 13:31] LABS: Ferritin 28 ng/mL (26-388); Folate 13.6 ng/mL (8.6-20.0); Vitamin B12 337 pg/mL (193-986)
[2023-05-10 16:00] LABS: Troponin I < 50 ng/L (<or=60)
[2023-05-10] MEDS: Simvastatin 10 MG TAB PO (21:55)
[2023-05-11 05:51] VITALS: BP 132/66; PULSE 76; RESP 16; TEMP 35.9; O2SAT 97
[2023-05-11 07:00] VITALS: PULSE 61
[2023-05-11 07:14] LABS: Abs Immature Grans 0.01 10^3/uL (0.0-0.06); Absolute Basophil Count 0.03 10^3/uL (0.0-0.2); Absolute Eosinophil Count 0.29 10^3/uL (0.0-0.7); Absolute Lymphocyte Count 0.52 10^3/uL (1.2-3.4); Absolute Monocyte Count 0.47 10^3/uL (0.1-0.8); Basophils % 0.5; Eosinophils % 5.1; HCT 33.4 % (40.0-50.0); HGB 10.6 g/dL (13.5-17.5); Immature Grans % 0.2; Lymphocytes % 9.1; MCH 27.5 pg (27.0-33.0); MCHC 31.7 % (32.0-36.0); MCV 87 fL (80-95); Monocytes % 8.2; Neutrophils % 76.9; Platelet Count 156 10^3/uL (130-400); RBC 3.86 10^6/uL (4.36-5.78); RDW 14.2 % (11.8-14.1); RDW-SD 44.6 fL; WBC 5.72 10^3/uL (4.4-10.8)
[2023-05-11 07:23] VITALS: BP 102/59; BP 168/74; PULSE 77; PULSE 80; RESP 18; TEMP 36; O2SAT 96
[2023-05-11] MEDS: Omeprazole 20 MG CAPCR PO (07:33)
[2023-05-11 07:34] LABS: BUN 33 mg/dL (7-18); CREATININE 1.3 mg/dL (0.70-1.30); Calcium 8.7 mg/dL (8.5-10.1); Chloride 109 mmol/L (98-107); Estimated GFR 53.84 (mL/min/1.73m2); Glucose 91 mg/dL (74-106); Sodium 141 mmol/L (136-145)
[2023-05-11] MEDS: Losartan 50 MG TAB PO (07:34)
[2023-05-11] MEDS: Tamsulosin 0.4 MG CAPCR PO (07:34)
[2023-05-11] MEDS: Finasteride 5 MG TAB PO (07:34)
[2023-05-11] MEDS: Aspirin E.C. 81 MG TABEC PO (07:34)
[2023-05-11 07:35] VITALS: BP 136/63; PULSE 71; RESP 16; TEMP 36.5; O2SAT 98
[2023-05-11] MEDS: Tiotropium/Olodaterol 10 PUFF INHALER IH (08:15)
[2023-05-11] MEDS: IRON SUCROSE COMPLEX 400 MG in Normal Saline 250 ML 100 MG IVPB (09:17)
--- NOTE | 2023-05-11 10:09 | PDOC.CMIN ---
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 They have been together for 15 years. Ed requires some assistance but has not required any ambulatory aides. He did state that after this episode, he may need a cane or a walker for balance. Ed no longer drives. CURRENT FUNCTIONAL STATUS:: Ed was sitting up in a chair when CM met with him. He was pleasant and agreeable to conversation. Ed talked about his petroleum products district supervisor Nanette. Although she is 82 years old, he informed CM that she has the energy of someone 60. Her exact role was not made clear, but Ed stated that after 15 years they are good friends. When asked if he has [employer], Ed did not seem to think he did. Apparently Nanette is a paid privately as a petroleum products district supervisor. ADVANCE DIRECTIVES:: none on file Has patient been provided with info about the portal/API?: Yes Did the patient sign up for the portal?: No CODE STATUS:: Full Code INSURANCE COVERAGE / FINANCIAL ISSUES:: Medicare /[facility] CURRENT HOME/COMMUNITY SERVICES/EQUIPMENT:: has a caregiver PRIMARY CARE PHYSICIAN:: Magdaleno Dickens POTENTIAL DISCHARGE NEEDS:: follow up appointment with PCP PATIENT/FAMILY EDUCATION NEEDS:: review of discharge instructions, follow up plan, limitations, discuss Ask Me Three. TRANSPORTATION:: via private vehicle with Nanette PLAN:: Ed will be discharged home with no new services. He will follow up with his PCP and plan of care and transport home with Nanette. [facility] All Active Problems (Updated 05/10/23 @ 10:14 by Nancy Givens MD) Near syncope (Acute) Atopic dermatitis (Acute) Lung nodule (Acute) Microscopic hematuria (Acute) Erectile dysfunction (Acute) History of elevated prostate specific antigen (PSA) (Acute) BPH w urinary obs/LUTS (Acute) Medical History Adenomatous colon polyp Allergic rhinitis Anemia Bilateral hip pain Chronic constipation Dysphonia Elevated PSA Esophageal stricture HLD (hyperlipidemia) HTN (hypertension) Lesion of iris Orthostatic dizziness Pruritus RBBB (right bundle branch block) Rheumatoid arthritis Sinus bradycardia Spinal stenosis Transient acantholytic dermatosis Weight loss Surgical History Colonoscopy - [facility] (07/27/15) DR.TERRY CHOUDHARY Social History Smoking/Tobacco Use Status: Former Tobacco Use tobacco type: cigarettes Quit Date: 10/05/99 Smoking risk assessment performed?: Yes Alcohol Intake: never Drug use: Never Substance use type: does not use Housing: house Do you feel safe at home: Yes Do you feel safe in your relationship?: Yes
[2023-05-11 12:10] VITALS: BP 154/68; PULSE 71; RESP 16; TEMP 36.4; O2SAT 98
[2023-05-11] MEDS: Normal Saline Flush 10 ML SYR IVP (12:11)
[2023-05-11] MEDS: Enoxaparin 40 MG/0.4 ML SYR SC (13:27)
--- NOTE | 2023-05-11 14:16 | PDOC.HHF2F_ITS ---
Home Health Referral Home Health Orders Clinical synopsis of why skilled professionals are needed: P.T. and nursing evaluated him and feel that he would benefit from home P.T. to improve his gait stability. He would benefit from nursing to monitor his blood pressures and his orthostatic bp's and to coordinate medication changes w/ his PCP Medical diagnosis necessitation home health referral: orthostatic hypotension. Registered Nurse: Check all that apply Instruct on new or changed medication(s)/assess compliance: Ordered Physical Therapist: Check all that apply Increase strength & endurance for safe mobility at home: Ordered To design/establish home maintenance program: Ordered Fall reduction therapy program for patient with history of frequent falls: Ordered Home Bound Status Requires the aid of supportive device (check all that apply): Walker Patient has a condition such that leaving home is medically contraindicated (Describe): severe orthostasis causing near syncope Describe why leaving home would require a considerable and taxing effort: Safety Concerns: describe (orthostatic hypotension causing near syncope; increased risk of falls) Encounter Date and Reason: I certify that a FTF encounter for this patient was performed on May 11, 2023 and that such encounter was related to the primary reason the patient requires home health services. The encounter was conducted in the following manner: * By me as the certifying physician, ELECTRIC METER REPAIRER, PA or * By an inpatient physician, ELECTRIC METER REPAIRER or PA during an inpatient stay who communicated findings to me, Certification And Authentication I certify that I composed the above information based on my clinical judgment relating to this patient's medical condition and, if applicable, clinical findings communicated to me by the NPP or inpatient physician who performed the FTF encounter. Name of Provider that will be monitoring home health services: Magdaleno Dickens
--- NOTE | 2023-05-11 14:16 | W.PM.DS.N ---
Date of service: 05/11/23 Time of Service: 14:16 DS: Diagnosis Discharge Diagnosis (1) Near syncope: Status: Acute (2) Anemia: (3) BPH w urinary obs/LUTS: Status: Acute (4) HTN (hypertension): (5) RBBB (right bundle branch block): Discharge Plan Disposition Patient Disposition: Home W/Home Health Services Condition: Good Discharge Details Reason For Visit: Near Syncope Admit Date/Time: 05/10/23 10:55 Admit Provider: Teddy Brewer Attending Provider: Teddy Brewer Primary Care Provider: Magdaleno Dickens [facility] Course Hospital Course: Mr. Mcbride is an 87-year-old male with history of hypertension, COPD, BPH, GERD, esophageal stricture, hyperlipidemia, remote TIA, spinal stenosis who is [place] being [place] [facility] [place]. He presented emergency department on 05/10/2023 with complaints of recurrent dizziness and near syncope. See admission H&P for details. Evaluation included EKG that demonstrated sinus rhythm right bundle branch block and old T wave inversions. Unchanged from previous ECGs. Orthostatics were not performed intially but after admission were found to be postive. Nevertheless orthostatics were positive after admission to the medical/surgical floor. Rather interesting when he presented the emergency department he was actually hypertensive with systolic pressures in the 140-170 range and diastolic readings in the 60s to 70s. With a heart rate that was in the 50s to 60s. On admission his bp of 181/74 supine dropped to 103/58. His diuretics were witheld and he was given fluids overnight which improved his orthostatic symptoms. His HR was monitored and he had no advanced heart block and no signifcant pauses. Serial troponin were negative. Patient felt markedly better by the next day and he was discharged home w/ adjustment in his medications. His indapamide and doxazosin were stopped. His losartan was changed to 50 mg daily. An order for 14 day cardiac event recorder was written but will need prior authorization. Patient should be fitted for prescription strength compression stockings. Home Meds and New Rx's Prescriptions: Continued finasteride 5 mg tablet 5 mg PO DAILY spironolactone 50 mg tablet 50 mg PO DAILY trazodone 50 MG tablet 50 mg PO HS simvastatin 10 MG tablet 10 mg PO DAILY aspirin [Aspir-Low] 81 MG tablet,delayed release (DR/EC) 81 mg PO DAILY omeprazole 20 MG capsule,delayed release(DR/EC) 20 mg PO DAILY Anoro Ellipta 62.5-25 mcg/actuation Blister With Device 1 inh INHALATION DAILY tamsulosin 0.4 mg capsule 0.4 mg PO DAILY Patient Comments: TAKE ONE CAPSULE BY MOUTH AT BEDTIME FOR URINE FLOW Combivent Respimat 20-100 mcg/actuation mist 1 puff inhalation Q4H PRN (Reason: shortness of breath or wheezing) Qty: 4 0RF Changed losartan 100 mg tablet 50 mg PO DAILY Qty: 0 0RF Discontinued indapamide 2.5 mg tablet 2.5 mg PO QAM Patient Comments: Not on pts medication list potassium chloride [Klor-Con 10] 10 mEq tablet extended release 10 meq PO DAILY Patient Comments: Not on pts medication list losartan-hydrochlorothiazide 100-12.5 mg tablet 1 tab PO DAILY Patient Comments: Not on patients med list doxazosin 1 mg tablet 1 mg PO QHS Qty: 90 0RF Patient Comments: Not on pts med list betamethasone dipropionate 0.05 % cream 1 applic TP BID PRN Patient Comments: Not on pts med list Discharge Instructions Instructions: Syncope (GEN), Hypotension (DC), Near Syncope (DC) Additional Instructions: You were admitted for evaluation of near syncope and orthostatic hypotension. Your dizziness was directly related to drops in your blood pressure while standing. We feel that you are over medicated for your hypertension. You were on a number of medications for both control of your urinary symptoms from your enlarge prostate and medications to control your blood pressure. Some of the medicines for your prostate can drop your blood pressure and lead to dizziness. We have decreased your dose of losartan to 50 mg (1/2 of 100 mg tablet) once per day. Your medication list included two diuretics both which we have stopped from your list (indapamide and hydrochlorothiazide). You also were listed as taking doxazosin, a medication that is used for improving urinary flow due to enlarged prostate but also has effects of causing orthostatic hypotension. It is similar to a medication you were already taking, tamsulosin. We have kept the tamsulosin on your list but stopped the doxazosin. Please follow up with your primary care provider in the next week. Monitor your blood pressures twice a day and it would be a good idea to measure your blood pressure both while sitting and after you have been standing for two minutes in order to get an idea how much of a drop in your blood pressure is caused by being upright. We have prescribed a walker to take home with you. This will help with your balance. We have ordered home health nursing and physical therapy to visit you and work with you. We have also ordered a heart monitor to look for any arrhythmias. You have an intrinsic conduction issue in your heart known as a bundle branch block. YOur primary care provider will follow up on the results of the heart monitor and may refer you to cardiology if necessary. Stand Alone Forms: Nursing Discharge Form Referrals: Magdaleno Dickens MD [Primary Care Provider] - 05/19/23 10:45 am Activity:: Activity as Tolerated Equipment/Supplies:: Walker Diet:: Low Sodium Discharge Orders Discharge Orders: Discharge Order (Routine); Ordered 05/11/23 Ordered By: Teddy Brewer Other Ambulatory Orders: 14 Day Garden Worker (Routine) Timeframe: 10 Day Facility: [facility] - Location: Respiratory Therapy Ordered By: Teddy Brewer Discharge Data Discharge Date/Time-TO BE ENTERED AT DEPARTURE: 05/11/23 15:44 DS: Summary Time Spent with Patient providing and/or coordinating discharge services: Greater than 30 minutes Status at Discharge Functional status at discharge: uses cane/walker Overall status at discharge: patient is back to baseline Mental Status: mental status grossly normal Speech and Movement: speech and movement normal Mood: congruent mood Affect: normal affect Exam Narrative Exam Narrative: Mr. Galvez is sitting up in his chair he is alert and oriented person place time circumstance. No acute distress. He denies any dizziness or dyspnea or chest pain Lungs: clear Heart: regular Abdomen:soft, nontender legs: no edema Psych Mental Status: mental status grossly normal Speech and Movement: speech and movement normal Mood: congruent mood Affect: normal affect DS: Data Vitals/I&O Vitals and I&O: Vital Signs Temperature 36.4 C L 05/11/23 12:10 Temperature Source Tympanic 05/11/23 12:10 Pulse 71 05/11/23 12:10 Pulse Rhythm Regular 05/11/23 07:27 Pulse 61 05/10/23 11:40 Respiratory Rate 16 05/11/23 12:10 Respiratory Effort Normal, Non-Labored 05/11/23 07:27 Respiratory Depth Normal 05/11/23 07:27 Respiratory Pattern Normal 05/11/23 07:27 Blood Pressure 154/68 H 05/11/23 12:10 Blood Pressure Mean 85 05/10/23 11:31 Blood Pressure Position Sitting 05/10/23 08:55 Pulse Oximetry 98 05/11/23 12:10 Oxygen Delivery Method Room Air 05/11/23 12:10 Oxygen Flow Rate 0 05/11/23 12:10 Pain Level 0 05/11/23 12:10 Comment pt remained asymptomatic with positive orthostatic vitals signs. 05/11/23 07:23 Intake & Output 05/10/23 05/11/23 05/11/23 23:59 11:59 23:59 Intake Total 1240 / 1250 250 / 770 520 / 770 Output Total 525 / 525 2950 / 3250 300 / 3250 Balance 715 / 725 -2700 / -2480 220 / -2480 Weight 63 kg 63.078 kg Intake: IV 1000 / 1010 270 / 270 Oral 240 / 240 250 / 500 250 / 500 Output: Urine 525 / 525 2950 / 3250 300 / 3250 Other: Urine Color Straw Yellow Yellow Urine Appearance Clear Clear Clear Urine Odor Normal Comment with TP Stool Size Smear Small Stool Characteristics Brown Soft Voiding Methods Urinal Bedside Commode Urinal Data Completed and Pending Labs on day of discharge: Labs from last 24 hours 05/11/23 05/11/23 05/10/23 06:12 06:12 15:17 WBC 5.72 RBC 3.86 L Hgb 10.6 L Hct 33.4 L MCV 87 MCH 27.5 MCHC 31.7 L RDW 14.2 H Plt Count 156 MPV 10.0 Immature Gran % 0.2 Neutrophils % 76.9 Lymphocytes % 9.1 Monocytes % 8.2 Eosinophils % 5.1 Basophils % 0.5 Nucleated RBC % 0.0 Absolute Neutrophils 4.40 Absolute Lymphocytes 0.52 L Absolute Monocytes 0.47 Absolute Eosinophils 0.29 Absolute Basophils 0.03 Sodium 141 Potassium 4.0 Chloride 109 H Carbon Dioxide 24.0 Anion Gap 8.0 BUN 33 H Creatinine 1.3 Est GFR (CKD-EPI 2020) 53.84 Glucose 91 Calcium 8.7 Troponin I < 50 PFSH All Active Problems Near syncope (Acute) Atopic dermatitis (Acute) Lung nodule (Acute) Microscopic hematuria (Acute) Erectile dysfunction (Acute) History of elevated prostate specific antigen (PSA) (Acute) BPH w urinary obs/LUTS (Acute) Medical History Adenomatous colon polyp Allergic rhinitis Anemia Bilateral hip pain Chronic constipation Dysphonia Elevated PSA Esophageal stricture HLD (hyperlipidemia) HTN (hypertension) Lesion of iris Orthostatic dizziness Pruritus RBBB (right bundle branch block) Rheumatoid arthritis Sinus bradycardia Spinal stenosis Transient acantholytic dermatosis Weight loss Surgical History Colonoscopy - [facility] (07/27/15) DR.TERRY CHOUDHARY Social History Smoking/Tobacco Use Status: Former Tobacco Use tobacco type: cigarettes Quit Date: 10/05/99 Smoking risk assessment performed?: Yes Alcohol Intake: never Drug use: Never Substance use type: does not use Housing: house Do you feel safe at home: Yes Do you feel safe in your relationship?: Yes Time Spent with Patient Time Spent with Patient: <45 minutes Time was spent: preparing to see the patient(eg.review tests), ordering medications,tests, procedures, referring, communicating with other health laboratory animal care veterinarian, indepentently interpreting results, counseling the patient and care coordination
--- NOTE | 2023-05-11 14:45 | PT.INIE ---
Date of service: 05/11/23 Time of Service: 12:36 PT Notes Visit Reasons: Near Syncope Physical Therapy Inpatient Initial Evaluation Date: 05/11/2023 Referring Doctor: Teddy Marquez MD PT Orders: PT CONSULT: Safety consult for D/C Precautions: Fall. Standard. Activity as tolerated. Patient Profile/Admitting Diagnosis: Ed is an 87-year-old male who was admitted for management of near syncope, anemia, BPH, HTN, and RBBB. PMHX: All Active Problems?(Updated 05/10/23 @ 10:14 by Nancy Givens MD) Near syncope (Acute) Atopic dermatitis (Acute) Lung nodule (Acute) Microscopic hematuria (Acute) Erectile dysfunction (Acute) History of elevated prostate specific antigen (PSA) (Acute) BPH w urinary obs/LUTS (Acute) Medical History? Adenomatous colon polyp Allergic rhinitis Anemia Bilateral hip pain Chronic constipation Dysphonia Elevated PSA Esophageal stricture HLD (hyperlipidemia) HTN (hypertension) Lesion of iris Orthostatic dizziness Pruritus RBBB (right bundle branch block) Rheumatoid arthritis Sinus bradycardia Spinal stenosis Transient acantholytic dermatosis Weight loss Surgical History? Colonoscopy - [facility] (07/27/15) DR.TERRY CHOUDHARY Social History/Home Situation: Lives alone in a private home with his clinical reimbursement specialist. Has 10 steps to enter with 1 rail. Helminthologist no longer works during the day and is able to provide 24/7 care for patient as needed. Equipment Owned/DME: None Subjective: Agreeable to consult. Just got done with iron infusion. States that he has had good help at home and is confident about being able to manage with the help of the hair of his clinical reimbursement specialist. Agreeable to home health PT services. Denies headache, chest pain, and lightheadedness throughout session. Independent with all aspects of mobility ADL without an assistive device prior to admission. Objective: General Observation: Seated on bedside chair. Mental Status: Alert and oriented as to person, place, time, and purpose. Able to pay attention, focus, and respond appropriately. Pain: Denies Vital Signs: Closely monitored by nursing staff ROM: Right Upper Extremity: Shoulder Flexion WFL. Shoulder abduction WFL. Elbow flexion WFL. Wrist flexion WFL. Functional opening and closing of hand WFL. Left Upper Extremity: Shoulder Flexion WFL. Shoulder abduction WFL. Elbow flexion WFL. Wrist flexion WFL. Functional opening and closing of hand WFL. Right Lower Extremity: Hip flexion WFL. Hip abduction WFL. Knee flexion WFL. Ankle dorsiflexion WFL. Ankle plantarflexion WFL. Left Lower Extremity: Hip flexion WFL. Hip abduction WFL. Knee flexion WFL. Ankle dorsiflexion WFL. Ankle plantarflexion WFL. Strength: Right Upper Extremity: Shoulder flexors 4-/5. Shoulder abductors 4-/5. Elbow flexors 4-/5. Elbow extensors 4-/5. Director Of Institutional Research strong. Left Upper Extremity: Shoulder flexors 4-/5. Shoulder abductors 4-/5. Elbow flexors 4-/5. Elbow extensors 4-/5. Director Of Institutional Research strong. Right Lower Extremity: Hip flexors 4-/5. Hip abductors 4-/5. Knee flexors 4-/5. Knee extensors 4-/5. Ankle dorsiflexors 40/5. Ankle plantarflexors 4-/5. Left Lower Extremity: Hip flexors 4-/5. Hip abductors 4-/5. Knee flexors 4-/5. Knee extensors 4-/5. Ankle dorsiflexors 40/5. Ankle plantarflexors 4-/5. Bed Mobility/Transfers: Rolling independent Supine to sit independent Sit to supine independent Sit to stand independent Stand to sit independent Bed to bedside commode independent Bedside commode to bed independent Bed to reclining chair independent Reclining chair to bed independent Gait: Instructed patient with level surface ambulation of 200 feet requiring FWW and stand by assist. Suzanne decreased. Step height decrased. Step length decreased. Balance: Static Sitting: Normal Dynamic Sitting: Normal Static Standing: Fair Dynamic Standing: Fair Special Tests: Mobility Limitations Standardized Measure [facility] AM-PAC 6 clicks Basic Mobility Inpatient Short Form: Raw Score: 24 CMS Score: 0% deficit 4-Stage balance test: Able to mainatin feet together and semi tandem for 10 seconds, unable with full tandem and one-legged stance. Informed Consent/Education: Patient was instructed in purpose of PT consult and plan of care. Agreeable to proceed with established PT POC to achieve personal goals. Assessment: Patient presents with clinical signs and symptoms consistent with current/admitting diagnoses that have resulted to mobility limitations, gait instability, generalized weakness, and overall ADL decline as demonstrated by the following impairment level findings: 1. Decreased strength to b UE/LE major muscle groups 2. Impaired sitting/standing balance 3. Impaired activity tolerance Impairments are contributing to the following functional limitations: 1. Difficulty with ambulation without assistive device 2. Increased completion time for mobility ADL performance 3. Increased risk for falls Patient is assessed as a [id number] moderate complexity based on the following: History: 87-year-old male with past medical history as indicated above Examination: Demonstrable impairment in strength, balance, and mobility level with underlying impairments and functional limitations as exhibited above Presentation: Stable Decision Makin moderate complexity Goals: N/A. PT evaluation only. Plan of Care/Treatment Plan: N/A. PT evaluation only. DISCHARGE RECOMMENDATIONS: [] Home with no services [] [X] Home with services. Patient will benefit from home health PT services in order to progress mobility level using least restrictive assistive ambulatory device, assess home safety, identify additional equipment needs, and establish a functional maintenance program that will increase ability of patient to remain at home. [] Home with outpatient PT [] [] SNF for continued rehabilitation [] [] Care Home Care [] [] SNF versus LTC based on ability to participate and progress [] TREATMENT CODE/TIME: 17961 x 20 minutes beginning at 12:36 PM. Thank you for the opportunity to participate in the care of this patient. Vicky Myers PT, DPT, CLT [facility] [place], [place]
[2023-05-11 14:56] VITALS: PULSE 72
[2023-05-12 10:00] LABS: Haptoglobin 170 mg/dL (32-197)
== END 2023-05-11 15:44 | disposition home health service (06) ==
LOC: ER 11:09 → MS 17:44
PROVIDERS: Admitting Provider Internal Medicine; Emergency Provider Emergency Medicine Emergency Medical Services; PCP Family Medicine; Visit Provider Internal Medicine
DX: R55 Syncope and collapse (principal); I45.10 Unspecified right bundle-branch block; I10 Essential (primary) hypertension; I48.92 Unspecified atrial flutter; Z79.899 Other long term (current) drug therapy; R42 Dizziness and giddiness; R91.1 Solitary pulmonary nodule; R06.02 Shortness of breath; Z87.891 Personal history of nicotine dependence; Z86.73 Personal history of transient ischemic attack (TIA), and cerebral infarction without residual deficits; N40.1 Benign prostatic hyperplasia with lower urinary tract symptoms; N13.8 Other obstructive and reflux uropathy; E78.5 Hyperlipidemia, unspecified; K22.2 Esophageal obstruction; K59.09 Other constipation; M48.00 Spinal stenosis, site unspecified; R63.4 Abnormal weight loss; Z68.21 Body mass index [BMI] 21.0-21.9, adult; D50.9 Iron deficiency anemia, unspecified; J44.9 Chronic obstructive pulmonary disease, unspecified
CPT/HCPCS: 36415; 80048; 80053; 93005; 94640; 96365; 96366; 97162; 99285; J1650; 82270; 82607; 82728; 82746; 83010; 83540; 83550; 83615; 83735; 84443; 84484; 85025; 85045; 93010; 94664; 99223; 99239; G0378; J1756; J3490

== ENCOUNTER → 2023-05-19 11:09 | Outpatient (BNVA) | payer MEDICARE, BC, SELFPAY | PROVIDERS: PCP Family Medicine; Visit Provider Urology | DX: N40.1 Benign prostatic hyperplasia with lower urinary tract symptoms (principal); N13.8 Other obstructive and reflux uropathy | CPT/HCPCS: 99213 ==

== ENCOUNTER 2023-05-28 13:23 | Outpatient (CLI) | payer MEDICARE, BC, SELFPAY | END 2023-05-28 13:24 | disposition home or self-care (01) | LOC: CARDOPNVT 13:23 | PROVIDERS: PCP Family Medicine; Visit Provider Family Medicine | DX: I45.10 Unspecified right bundle-branch block (principal); R00.1 Bradycardia, unspecified; R55 Syncope and collapse | CPT/HCPCS: 93246 ==

== ENCOUNTER 2023-06-25 06:58 | Outpatient (CLI) | payer MEDICARE, BC, SELFPAY ==
--- NOTE | 2023-06-25 12:49 | W.CARDEVENT ---
Date of service: 06/25/23 Time of Service: 12:49 Cardiac Event Recorder Referring Provider:: Magdaleno Dickens Indications:: Syncope Cardiac Event Note: This is a cardiac event monitor ordered for syncope. Patient was monitored for 13 days 11 hours rhythm throughout was sinus. Average heart rate was 67. Minimum was 37, maximum 92 There were occasional ventricular ectopic beats. There was 1 ventricular triplet There were moderately frequent atrial premature beats. Several self-limited atrial runs occurred. The longest of these was 23 beats in duration There was no atrial fibrillation, no high-grade AV block, no pauses greater than 3 seconds Patient symptoms were reported. Some of these corresponded to atrial premature beats, others to sinus rhythm
== END 2023-06-25 06:59 | disposition home or self-care (01) ==
LOC: CARDOPNVT 06:58
PROVIDERS: PCP Family Medicine; Visit Provider Internal Medicine Cardiovascular Disease
DX: R55 Syncope and collapse (principal); I49.1 Atrial premature depolarization; I49.3 Ventricular premature depolarization
CPT/HCPCS: 93248

== ENCOUNTER 2023-09-01 19:54 | Outpatient (REF) | payer MEDICARE, BC, SELFPAY ==
[2023-09-01 14:53] LABS: Source Nasal/Nares
[2023-09-01 15:35] LABS: ALT 22 U/L (16-63); AST 22 U/L (15-37); Alkaline Phosphatase 115 U/L (46-116); Anion Gap 7.6 mmol/L (3-11); BUN 29 mg/dL (7-18); Bilirubin, Total 0.5 mg/dL (0.2-1.0); CO2 26.4 mmol/L (21.0-32.0); CREATININE 1.3 mg/dL (0.70-1.30); Calcium 8.8 mg/dL (8.5-10.1); Chloride 105 mmol/L (98-107); Glucose 100 mg/dL (74-106); Potassium 4.9 mmol/L (3.5-5.1); Sodium 139 mmol/L (136-145); Total Protein 6.5 g/dL (6.4-8.2)
[2023-09-01 16:09] LABS: COVID-19 PCR POSITIVE (Negative)
== END 2023-09-01 19:55 | disposition home or self-care (01) ==
LOC: LBN 19:54
PROVIDERS: PCP Family Medicine; Visit Provider Nurse Practitioner Family
DX: Z20.822 Contact with and (suspected) exposure to COVID-19 (principal)
CPT/HCPCS: 80053; 87635

== ENCOUNTER 2023-09-09 13:50 | Outpatient (REF) | payer MEDICARE, BC, SELFPAY ==
[2023-09-09 14:57] LABS: Abs Immature Grans 0.06 10^3/uL (0.0-0.06); Absolute Basophil Count 0.03 10^3/uL (0.0-0.2); Absolute Eosinophil Count 0.26 10^3/uL (0.0-0.7); Absolute Lymphocyte Count 0.45 10^3/uL (1.2-3.4); Absolute Monocyte Count 0.45 10^3/uL (0.1-0.8); Absolute Neutrophil Count 8.76 10^3/uL (1.2-6.7); Basophils % 0.3; Eosinophils % 2.6; HCT 39.6 % (40.0-50.0); HGB 12.6 g/dL (13.5-17.5); Immature Grans % 0.6; Lymphocytes % 4.5; MCH 28.3 pg (27.0-33.0); MCHC 31.8 % (32.0-36.0); MCV 89 fL (80-95); MPV 9.9 fL (8.0-11.0); Monocytes % 4.5; Neutrophils % 87.5; Platelet Count 228 10^3/uL (130-400); RBC 4.46 10^6/uL (4.36-5.78); RDW 13.7 % (11.8-14.1); RDW-SD 44.9 fL; WBC 10.01 10^3/uL (4.4-10.8)
[2023-09-09 15:11] LABS: Iron 51 ug/dL (65-175); Total Iron Binding Capacity 248 ug/dL (250-450); Transferrin Sat 21 % (20-55)
[2023-09-09 15:22] LABS: Ferritin 106 ng/mL (26-388)
== END 2023-09-09 13:51 | disposition home or self-care (01) ==
LOC: NCHCN 13:50
PROVIDERS: PCP Family Medicine; Visit Provider Family Medicine
DX: D50.9 Iron deficiency anemia, unspecified (principal)
CPT/HCPCS: 82728; 83540; 83550; 85025

== ENCOUNTER → 2023-09-25 07:47 | Outpatient (BNVA) | payer MEDICARE, BC, SELFPAY | PROVIDERS: PCP Family Medicine; Visit Provider Urology | DX: R31.29 Other microscopic hematuria (principal); N40.1 Benign prostatic hyperplasia with lower urinary tract symptoms; R35.1 Nocturia; N13.8 Other obstructive and reflux uropathy; Z87.898 Personal history of other specified conditions | CPT/HCPCS: 81002; 99214 ==

== ENCOUNTER 2023-10-08 13:23 | Outpatient (REF) | payer MEDICARE, BC, SELFPAY ==
[2023-10-08 19:54] LABS: Abs Immature Grans 0.03 10^3/uL (0.0-0.06); Absolute Basophil Count 0.04 10^3/uL (0.0-0.2); Absolute Eosinophil Count 0.17 10^3/uL (0.0-0.7); Absolute Lymphocyte Count 0.54 10^3/uL (1.2-3.4); Absolute Monocyte Count 0.43 10^3/uL (0.1-0.8); Absolute Neutrophil Count 6.42 10^3/uL (1.2-6.7); Basophils % 0.5; Eosinophils % 2.2; HCT 38.1 % (40.0-50.0); HGB 12.3 g/dL (13.5-17.5); Immature Grans % 0.4; Lymphocytes % 7.1; MCH 28.9 pg (27.0-33.0); MCHC 32.3 % (32.0-36.0); MCV 90 fL (80-95); MPV 9.5 fL (8.0-11.0); Monocytes % 5.6; Neutrophils % 84.2; Platelet Count 220 10^3/uL (130-400); RBC 4.25 10^6/uL (4.36-5.78); RDW 13.8 % (11.8-14.1); RDW-SD 45.2 fL; WBC 7.63 10^3/uL (4.4-10.8)
[2023-10-08 20:54] LABS: ALT 20 U/L (16-63); AST 20 U/L (15-37); Alkaline Phosphatase 108 U/L (46-116); Anion Gap 8.2 mmol/L (3-11); BUN 32 mg/dL (7-18); Bilirubin, Total 0.4 mg/dL (0.2-1.0); CO2 24.8 mmol/L (21.0-32.0); CREATININE 1.5 mg/dL (0.70-1.30); Chloride 106 mmol/L (98-107); Estimated GFR 45.06 (mL/min/1.73m2); Glucose 95 mg/dL (74-106); Potassium 5.7 mmol/L (3.5-5.1); Sodium 139 mmol/L (136-145); Total Protein 6.7 g/dL (6.4-8.2); Vitamin B12 405 pg/mL (193-986)
[2023-10-08 20:59] LABS: Folate > 20.0 ng/mL (8.6-20.0)
== END 2023-10-08 13:24 | disposition home or self-care (01) ==
LOC: NCHCN 13:23
PROVIDERS: PCP Family Medicine; Visit Provider Family Medicine
DX: R41.9 Unspecified symptoms and signs involving cognitive functions and awareness (principal); G45.9 Transient cerebral ischemic attack, unspecified
CPT/HCPCS: 80053; 82607; 82746; 85025

== ENCOUNTER → 2023-10-26 02:08 | Outpatient (CLI) | payer MEDICARE, BC, SELFPAY ==
--- NOTE | 2023-10-26 | DI.CT_ITS ---
Exam(s) CT HEAD WO EXAM: CT HEAD WO CLINICAL HISTORY: IMPAIRED COGNITION R41.89. TECHNIQUE: Imaging Protocol: Axial computed tomography images with coronal and sagittal reformatted images were created and reviewed COMPARISON: No exams were available for comparison FINDINGS: Ventricles and Extra axial spaces: Normal in size and morphology for the patient's age. Hemorrhage: None. Cerebral parenchyma: No evidence of acute infarct or mass. Mild atrophy. Dmss-yv-ohodvzaq white ma tter changes of small vessel disease. Midline shift: None. Brainstem/Cerebellum: Normal. Calvarium: Normal. Visualized Paranasal sinuses:Clear. Mastoids: Clear. Soft Tissues: Unremarkable. ORBITS: Unremarkable. PITUITARY: Normal. IMPRESSION: No acute intracranial process. RADIATION DOSE DELIVERED: 715.28mGy.cm Total DLP DATA REPOSITORY: All CT scans at this facility are submitted to the National Radiology Data Registry (NRDR) Dose Index Registry (DIR) with the [employer] (A[employer]). RADIATION OPTIMIZATION: All CT scans at this facility use at least one of these dose optimization te chniques: automated exposure control; mA and/or kV adjustment per patient size (includes targeted exa ms where dose is matched to clinical indication); or iterative reconstruction.
== END ==
PROVIDERS: PCP Family Medicine; Visit Provider Family Medicine
DX: R41.89 Other symptoms and signs involving cognitive functions and awareness (principal)
CPT/HCPCS: 70450

== ENCOUNTER 2024-01-26 13:18 | Emergency (ER) | payer MEDICARE, BC, SELFPAY ==
[2024-01-26 13:34] VITALS: BP 105/49; PULSE 77; RESP 26; TEMP 36.8; O2SAT 95
--- NOTE | 2024-01-26 13:45 | RT.EKG_ITS ---
APPROVED REPORT Exam: Resting ECG Reason for Exam: Resp Patient Location: E HR:69 bpm ECG Measurements Heart Rate 69 AXIS VT 134 P 18 QRSd 142 QRS -79 QT 433 T 52 QTc 466 Conclusion Sinus rhythm...normal P axis, V-rate 60- 99 RBBB and LAFB...QRSd >120mS, axis(-40,240) sinus rhyhtm, left axis, bifascicular block, non ischemic
--- NOTE | 2024-01-26 14:02 | ED.GENADUL_ITS ---
Discharge Plan Discharge Details Chief Complaint: RespSymp Primary Care Provider: Magdaleno Dickens ED Provider: Dev Austin Home Meds and New Rx's Prescriptions: No Action tamsulosin 0.4 mg capsule 0.4 mg PO DAILY Qty: 90 4RF finasteride 5 mg tablet 5 mg PO DAILY Qty: 90 4RF multivitamin with iron Tablet 1 tab PO DAILY spironolactone 50 mg tablet 50 mg PO DAILY simvastatin 10 MG tablet 10 mg PO DAILY aspirin [Aspir-Low] 81 MG tablet,delayed release (DR/EC) 81 mg PO DAILY omeprazole 20 MG capsule,delayed release(DR/EC) 20 mg PO DAILY Anoro Ellipta 62.5-25 mcg/actuation Blister With Device 1 inh INHALATION DAILY losartan 100 mg tablet 50 mg PO DAILY Qty: 0 0RF HPI General Date/Time Provider Initiated Documentation: 01/26/24 13:25 . HPI Narrative: 88 year-old male presents to ED today by POV/ambulating with his with a chief complaint of hemoptysis- patient has been battling a respiratory infection for the past 10 days- was seen at [facility] and diagnosed with Covid-19 and Influenza B concurrently- and was started on doyxycycline for empiric secondary PNA coverage for duration of symptoms, today he had some significant hemoptysis. Quality described as coughing, denies severe shortness of breath, no radiation to chest pain, abdominal pain, nausea/vomiting, endorses eating well, denies severe distress just states his phlegm is thick and difficult to bring up. Severity is described as moderate to severe. Palliating factors include has inhalers at home. Provoking factors include nothing specific. Patient not anticoagulated. Related Data Home Medications Medication Instructions Recorded Confirmed aspirin 81 mg tablet,delayed 81 mg PO DAILY 07/26/15 01/26/24 release (Aspir-Low) omeprazole 20 mg capsule,delayed 20 mg PO DAILY 07/26/15 01/26/24 release simvastatin 10 mg tablet 10 mg PO DAILY 07/26/15 01/26/24 spironolactone 50 mg tablet 50 mg PO DAILY 12/05/19 01/26/24 umeclidinium 62.5 mcg-vilanterol 1 inh inhalation DAILY 05/10/23 01/26/24 25 mcg/actuation powdr for inhalation (Anoro Ellipta) losartan 100 mg tablet 50 mg (1/2 x 100 mg) PO DAILY #0 05/11/23 01/26/24 tabs finasteride 5 mg tablet 5 mg PO DAILY #90 tabs 05/19/23 01/26/24 tamsulosin 0.4 mg capsule 0.4 mg PO DAILY #90 caps 05/19/23 01/26/24 multivitamin with iron 1 tab PO DAILY 09/25/23 01/26/24 Previous Rx's Medication Instructions Recorded losartan 100 mg tablet 50 mg (1/2 x 100 mg) PO DAILY #0 05/11/23 tabs finasteride 5 mg tablet 5 mg PO DAILY #90 tabs 05/19/23 tamsulosin 0.4 mg capsule 0.4 mg PO DAILY #90 caps 05/19/23 Allergies Allergy/AdvReac Type Severity Reaction Status Date / Time atenolol Allergy Other (See Unverified 01/26/24 14:31 Comment) codeine AdvReac Unknown Other (See Unverified 01/26/24 14:31 Comment) General Stated Complaint: RespSymp REGINALDO: 4 Review of Systems All systems reviewed & are unremarkable except as noted in HPI and below Exam Narrative Exam Narrative: GENERAL APPEARANCE: Well-nourished, non-toxic, awake and alert, atraumatic, no acute distress. SKIN: Warm, pink, dry, intact, without rashes/lesions/ulcerations. HEAD: Normocephalic, atraumatic, normal hair distribution for gender/age. EYES: Pupils PERRLA, EOMs intact without nystagmus, normal conjunctiva, no exudates on lids/lashes. ENT: Nares patent, no circumoral cyanosis, no facial swelling NECK: Supple, trachea midline, painless cervical ROM. LUNGS/CHEST: Lungs -diffuse rhonchi, no rales or wheezing, labored respirations, normal A/P diameter, symmetrical expansion, no chest wall deformity HEART (CV/PV): Regular rate and rhythm without murmur, no peripheral edema, no JVD. ABDOMEN: Soft, non-distended, no guarding, no tenderness. MSK: Normal ROM, no swelling/deformity to bilateral UEs or LEs, moving all extremities without weakness, no cyanosis, spine midline without tenderness, normal curvature. NEURO: Mental Status AAOx4 - alert to person, place, time, events No facial droop, no forehead involvement. Motor: No focal weakness - strength 5/5 in bilateral UEs and LEs, proximal and distal, symmetric. Sensory: sensation intact to light touch globally. Gait normal: patient ambulated without ataxia into ED room. PSYCH: euthymic, cooperative, pleasant, appropriate speech Course Vital Signs Vital signs: Vital Signs Temperature 36.8 C 01/26/24 13:34 Pulse 77 01/26/24 13:34 Respiratory Rate 26 H 01/26/24 13:34 Blood Pressure 105/49 L 01/26/24 13:34 Pulse Oximetry 95 01/26/24 13:34 Temperature 36.8 C 01/26/24 13:34 Temperature Source Tympanic 01/26/24 13:34 Pulse 77 01/26/24 13:34 Respiratory Rate 26 H 01/26/24 13:34 Blood Pressure 105/49 L 01/26/24 13:34 Blood Pressure Position Sitting 01/26/24 13:34 Pulse Oximetry 95 01/26/24 13:34 Oxygen Delivery Method Room Air 01/26/24 13:34 Oxygen Flow Rate 0 01/26/24 13:34 Pain Level 0 01/26/24 13:34 Medical Decision Making This dictation utilizes [id number] dictation software and may contain unedited grammatical errors. 88 y/o M presents to ED today with a chief complaint of has concurrent Covid & influenza B, ongoing for greater than 10 days, due to duration was started on doxycycline for empiric PNA coverage at [facility]. Today he had some significant hemoptysis, and reports his sputum is thick and difficult to bring up. Denies any decrease in appetite, denies chest pain, denies abdominal pain. Patient is vaccinated for Covid-19. 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 Family and social history: Lives at home with his . Pertinent exam findings / vital signs include rhonchorous lungs diffusely, benign abdomen, nontoxic vitals, not hypoxic, neuro baseline. Differential / pathologies of concern include pulmonary embolism, pneumonia, respiratory failure. Diagnostic studies of: -CBC, CMP, lactate, lipase, CTA chest PE study, blood cultures. EKG. -CBC shows no leukocytosis, mild chronic anemia -CMP shows mildly elevated creatinine chronic in nature, no other actionable abnormalities -CRP and ESR both mildly elevated, nonspecific -BNP mildly elevated at 442, initial troponin negative -Lipase within normal limits -Magnesium within normal limits - VBG shows PO2 of 32, patient not hypoxic. Interventions of: -no interventions initiated prior to sign-out, no breathing treatment required 99% RA. ED Course/Assessment/Plan: 88-year-old male experiencing significant lower respiratory tract infection with both rapid antigen test positive for COVID and influenza B at a recent express care visit was also started on doxycycline for this illness due to the duration longer than 10 days. He did have some hemoptysis today and was urged to present to ED for this reason. I empirically performed CTA, he is signed out with this imaging study pending to Dr. Natasha Givens. Findings not consistent with hypoxic respiratory failure, sepsis- nontoxic vitals. Disposition of Covid-19, Influenza B. Patient verbalized understanding of the plan and return to ED criteria and engaged in shared decision making. Medical Records Medical records reviewed: Yes I reviewed the patient's medical records. Lab Data Lab results reviewed: Yes I reviewed the patient's lab results. Labs: Laboratory Tests Range/Units 01/26/24 14:13 WBC (4.4-10.8) 10^3/uL 5.28 RBC (4.36-5.78) 10^6/uL 3.93 L Hgb (13.5-17.5) g/dL 11.3 L Hct (40.0-50.0) % 35.5 L MCV (80-95) fL 90 MCH (27.0-33.0) pg 28.8 MCHC (32.0-36.0) % 31.8 L RDW (11.8-14.1) % 13.1 Plt Count (130-400) 10^3/uL 160 MPV (8.0-11.0) fL 9.1 Immature Gran % 0.2 Neutrophils % 78.7 Lymphocytes % 9.7 Monocytes % 7.0 Eosinophils % 3.8 Basophils % 0.6 Nucleated RBC % (0.0-0.3) % 0.0 Absolute Neutrophils (1.2-6.7) 10^3/uL 4.16 Absolute Lymphocytes (1.2-3.4) 10^3/uL 0.51 L Absolute Monocytes (0.1-0.8) 10^3/uL 0.37 Absolute Eosinophils (0.0-0.7) 10^3/uL 0.20 Absolute Basophils (0.0-0.2) 10^3/uL 0.03 ESR (0-20) mm/hr 34 H VBG pH (7.31-7.41) 7.33 VBG pCO2 (41-51) mmHg 43 VBG pO2 mmHg 32 L* VBG HCO3 (23-28) mmol/L 23 VBG Total CO2 (24-29) mmol/L 24 VBG O2 Saturation % 57 VBG Base Excess (-2-3) mmol/L -4 L VBG Lactate (0.9-1.7) mmol/L 1.2 Sodium (136-145) mmol/L 142 Potassium (3.5-5.1) mmol/L 4.3 Chloride (98-107) mmol/L 107 Carbon Dioxide (21.0-32.0) mmol/L 25.9 Anion Gap (3-11) mmol/L 9.1 BUN (7-18) mg/dL 29 H Creatinine (0.70-1.30) mg/dL 1.6 H Est GFR (CKD-EPI 2020) (mL/min/1.73m2) 41.70 Glucose (74-106) mg/dL 131 H Calcium (8.5-10.1) mg/dL 8.3 L Magnesium (1.8-2.4) mg/dL 1.8 Total Bilirubin (0.2-1.0) mg/dL 0.4 AST (15-37) U/L 26 ALT (16-63) U/L 26 Alkaline Phosphatase (46-116) U/L 99 Troponin I (< or =60) ng/L < 50 C-Reactive Protein (<or=0.5) mg/dL 1.47 H NT-Pro-B Natriuret Pep (<300) pg/mL 442 H Total Protein (6.4-8.2) g/dL 6.6 Albumin (3.4-5.0) g/dL 2.7 L Lipase (16-77) U/L 28 Procalcitonin ng/mL < 0.1 Quality:SDOH Health Related Social Needs: No Data to Display PFSH All Active Problems (Updated 05/20/23 @ 00:05 by KODI RAMIREZ) Atopic dermatitis (Acute) Lung nodule (Acute) Microscopic hematuria (Acute) Erectile dysfunction (Acute) History of elevated prostate specific antigen (PSA) (Acute) BPH w urinary obs/LUTS (Acute) Medical History Adenomatous colon polyp Allergic rhinitis Anemia Bilateral hip pain Chronic constipation Dysphonia Elevated PSA Esophageal stricture HLD (hyperlipidemia) HTN (hypertension) Lesion of iris Orthostatic dizziness Pruritus RBBB (right bundle branch block) Rheumatoid arthritis Sinus bradycardia Spinal stenosis Transient acantholytic dermatosis Weight loss Surgical History Colonoscopy - MAC (07/27/15) DR.TERRY CHOUDHARY Social History Smoking/Tobacco Use Status: Former Tobacco Use tobacco type: cigarettes Quit Date: 10/05/99 Smoking risk assessment performed?: Yes Alcohol Intake: never Drug use: Never Substance use type: does not use Housing: house Do you feel safe at home: Yes Do you feel safe in your relationship?: Yes Sign Out Sign Out Data: Sign Out Comment: Patient seen at [facility] for Lower Resp Infxn - diagnosed with concurrent Covid and Flu B - ongoing 10 days. [facility] started on doxy due to length of illness to cover 2ndary PNA. Non-hypoxic on RA - had hemoptysis, needs CTA for PE ruleout. Last updated by Dev Austin PA at 01/26/24 15:08
[2024-01-26 14:24] LABS: Lactate 1.2 mmol/L (0.9-1.7)
[2024-01-26 14:28] LABS: Abs Immature Grans 0.01 10^3/uL (0.0-0.06); Absolute Basophil Count 0.03 10^3/uL (0.0-0.2); Absolute Lymphocyte Count 0.51 10^3/uL (1.2-3.4); Absolute Monocyte Count 0.37 10^3/uL (0.1-0.8); Absolute Neutrophil Count 4.16 10^3/uL (1.2-6.7); BE (Venous) -4 mmol/L (-2-3); Basophils % 0.6; Eosinophils % 3.8; HCO3 (Venous) 23 mmol/L (23-28); HCT 35.5 % (40.0-50.0); HGB 11.3 g/dL (13.5-17.5); Immature Grans % 0.2; Lymphocytes % 9.7; MCH 28.8 pg (27.0-33.0); MCHC 31.8 % (32.0-36.0); MCV 90 fL (80-95); MPV 9.1 fL (8.0-11.0); Neutrophils % 78.7; Platelet Count 160 10^3/uL (130-400); RBC 3.93 10^6/uL (4.36-5.78); RDW 13.1 % (11.8-14.1); RDW-SD 43.4 fL; TCO2 (Venous) 24 mmol/L (24-29); WBC 5.28 10^3/uL (4.4-10.8); pCO2 (Venous) 43 mmHg (41-51); pH (Venous) 7.33 (7.31-7.41)
[2024-01-26 14:29] LABS: O2 Sat (Venous) 57 %; pO2 (Venous) 32 mmHg
[2024-01-26 14:30] VITALS: PULSE 74; RESP 16
[2024-01-26 14:33] LABS: ESR 34 mm/hr (0-20)
[2024-01-26 14:36] VITALS: BP 124/48; PULSE 77; RESP 16; TEMP 36.8; O2SAT 99
[2024-01-26 14:49] LABS: ALT 26 U/L (16-63); AST 26 U/L (15-37); Albumin 2.7 g/dL (3.4-5.0); Alkaline Phosphatase 99 U/L (46-116); Anion Gap 9.1 mmol/L (3-11); BUN 29 mg/dL (7-18); Bilirubin, Total 0.4 mg/dL (0.2-1.0); C-Reactive Protein 1.47 mg/dL (<or=0.5); CO2 25.9 mmol/L (21.0-32.0); CREATININE 1.6 mg/dL (0.70-1.30); Calcium 8.3 mg/dL (8.5-10.1); Chloride 107 mmol/L (98-107); Glucose 131 mg/dL (74-106); Lipase 28 U/L (16-77); Magnesium 1.8 mg/dL (1.8-2.4); NT-proBNP 442 pg/mL (<300); Potassium 4.3 mmol/L (3.5-5.1); Sodium 142 mmol/L (136-145); Total Protein 6.6 g/dL (6.4-8.2); Troponin I < 50 ng/L (< or =60)
[2024-01-26 15:07] LABS: Procalcitonin < 0.1 ng/mL
[2024-01-26] MEDS: Normal Saline - Diluent 50 ML VIAL IJ (15:19)
[2024-01-26] MEDS: Omnipaque 350 MG/ML 100 ML BTL IJ (15:20)
--- NOTE | 2024-01-26 15:26 | DI.CT_ITS ---
Exam(s) CT CHEST PE CTA EXAM: CT CHEST PE CTA CLINICAL HISTORY: hemoptysis, active covid flu. TECHNIQUE: Imaging Protocol: CT angiography of the chest was performed using pulmonary embolus maryjo col. Multi planar reconstructions were performed. CONTRAST MATERIAL: Intravenous: Omnipaque 350 Contrast volume: 100 cc COMPARISON: CT CT CHEST PE CTA from 10/08/2022 FINDINGS: CHEST: PULMONARY ARTERIES: There are no intraluminal filling defects to suggest acute pulmonary emboli. LUNGS: The previously described spiculated nodular infiltrate in the sub apical aspect of the right u pper lobe is again noted. It is slightly increased in size from 10/08/2022. May be malignant. Ther e are also some increased interstitial markings in the right lower lobe basal segments more so than p revious. No pleural effusion.. In the opposite-left lung there is an unchanged subpleural 3 millimeter nodule in the lateral basal s egment of the left lower lobe. There increased interstitial markings in the posterior basal segment left lower lobe. No pleural effusion. There is mucous noted in the left side of the trachea and diamond MEDIASTINUM: Is no significant hilar adenopathy. Enlarged subcarinal lymph node again noted. There is no adenopathy in the anterior mediastinal fat. No axillary adenopathy. No supraclavicular adenop athy. CARDIAC: Heart size is upper normal. There is no pericardial effusion.Caliber of the thoracic aorta is within normal limits. No evidence of aortic dissection. There is no significant shift of the inte rventricular septum. PARTIALLY VISUALIZED UPPERMOST ABDOMEN: There is slight thickening of both adrenal glands, unchanged from previous. Spleen size normal. OSSEOUS: No acute fractures but there is significant osseous findings in the lower thoracic upper lum bar spine which are only partially included in the field of view. There is a compression fracture of T12 superior endplate which is unchanged from October 2022. Inferior endplate L1 large Schmorl's no de noted. L2-3 disc space is partially included in the field of view and there appear to be erosive changes at this level. Unfortunately only part of this level is included in the field of view of thi s chest study. Further imaging recommended. IMPRESSION: 1. No evidence of acute pulmonary emboli. No evidence of pulmonary infarction.No pleural effusions. 2. Spiculated nodular infiltrate in the right upper lobe has slightly further increased in size and m ay be malignant. This is in the sub apical region of the right upper lobe. 3. Increased interstitial markings in the basal segments both lower lobes. Also unchanged 3 millimet er small nodule left lower lobe. 4. Significant osseous findings in the partially visualized upper lumbar spine which requires furthe r imaging studies to rule out significant pathology at this level. Discussed by phone with ER physician RADIATION DOSE DELIVERED: 288.69mGy.cm Total DLP DATA REPOSITORY: All CT scans at this facility are submitted to the National Radiology Data Registry (NRDR) Dose Index Registry (DIR) with the [employer] ([employer]). RADIATION OPTIMIZATION: All CT scans at this facility use at least one of these dose optimization te chniques: automated exposure control; mA and/or kV adjustment per patient size (includes targeted exa ms where dose is matched to clinical indication); or iterative reconstruction.
--- NOTE | 2024-01-26 16:38 | W.EDPROG ---
Date of service: 01/26/24 Time of Service: 16:41 Medical Decision Making 4:31 PM I have seen and examined the patient. I have discussed the CT findings with Dr. Arshad radiologist. 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 We will request that his CT scan be sent to the virtual file room. The patient understands that he may have a malignancy in the right upper lobe which is slightly larger than it was in October 2022. The patient has no history of tuberculosis but this is also in the differential. I have discussed admission and the patient and his are amenable. I have discussed with Dr. Vazquez who has agreed to admit the patient. He requested that I write for 2 g of Rocephin and 500 mg p.o. of azithromycin. 4:58 PM the patient's friend wanted the express care notes she received the discharge returned to her but we cannot find them, so I have called express care and they will be faxing the patient's discharge information to us which I will provide to the patient's friend. She has gone home to feed their pets. 5:[address] Langley is in the department and is evaluating the patient. 5:[address] Vazquez has seen the patient and feels he can be discharged on prednisone 40 mg p.o. daily for 5 days. The nursing staff has called the patient's friend with whom he lives and notified them. Prior to discharge the patient and his friend were advised to take prednisone 40 mg once a day for the next 4 days. He was advised to return here if he develops any new or worsening symptoms. He was advised to follow-up with his water softener servicer and installer at [facility]. The patient/family/caregiver voiced agreement and understanding of the discharge instructions and plan for outpatient follow-up. There were advised to return to the Emergency Department for any new or worrisome symptoms or concerns. Due to voice recognition software, sound alike and misspelled words may be contained in the documentation. Medical Records Medical records reviewed: Yes I reviewed the patient's medical records. Imaging Data Radiologic Study: Imaging: CT Scan (CTA chest) Radiologist's impression: IMPRESSION: 1. No evidence of acute pulmonary emboli. No evidence of pulmonary infarction.No pleural effusions. 2. Spiculated nodular infiltrate in the right upper lobe has slightly further increased in size and may be malignant. This is in the sub apical region of the right upper lobe. 3. Increased interstitial markings in the basal segments both lower lobes. Also unchanged 3 millimeter small nodule left lower lobe. 4. Significant osseous findings in the partially visualized upper lumbar spine which requires further imaging studies to rule out significant pathology at this level. Lab Data Lab results reviewed: Yes I reviewed the patient's lab results. Lab results narrative: Slightly elevated sed rate. Negative procalcitonin. Mild anemia. proBNP is normal for age ECG Data Attestation: I personally reviewed and interpreted this ECG (s) as follows: Prior ECG tracings: available for review Quality:SDOH Health Related Social Needs: No Data to Display Exam Narrative Exam Narrative: The patient is a well-developed well-nourished elderly male lying in the stretcher no acute distress. He is able to speak in full sentences. He appears slightly . his lungs were clear to auscultation with a slight prolongation of his expiratory phase. Heart had a regular rate and rhythm I cannot appreciate any murmur rub or gallop. PMI was not displaced Sign Out Sign Out Data: Sign Out Comment: Patient seen at [facility] for Lower Resp Infx[facility] - diagnosed with concurrent Covid and Flu B - ongoing 10 days. [facility] due to length of illness to cover 2ndary PNA. Non-hypoxic on RA - had hemoptysis, needs CTA for PE ruleout. Last updated by Dev Austin PA at 01/26/24 15:08 Discharge Plan Disposition Patient Disposition: Home Condition: Good Discharge Details Clinical Impression: COVID, Influenza B, Anemia, Mass of upper lobe of lung Primary Care Provider: Magdaleno Dickens ED Provider: Nancy Givens Home Meds and New Rx's Prescriptions: New prednisone 20 mg tablet 20 mg PO DAILY 4 Days Qty: 4 0RF Rx Instructions: Take 2 tablets once a day for 4 days starting 01/27/2024 No Action tamsulosin 0.4 mg capsule 0.4 mg PO DAILY Qty: 90 4RF finasteride 5 mg tablet 5 mg PO DAILY Qty: 90 4RF multivitamin with iron Tablet 1 tab PO DAILY spironolactone 50 mg tablet 50 mg PO DAILY simvastatin 10 MG tablet 10 mg PO DAILY aspirin [Aspir-Low] 81 MG tablet,delayed release (DR/EC) 81 mg PO DAILY omeprazole 20 MG capsule,delayed release(DR/EC) 20 mg PO DAILY Anoro Ellipta 62.5-25 mcg/actuation Blister With Device 1 inh INHALATION DAILY losartan 100 mg tablet 50 mg PO DAILY Qty: 0 0RF Discharge Instructions Instructions: Influenza (ED), Viral Syndrome (ED) Additional Instructions: Start prednisone 40 mg once a day for the next 4 days. Continue the doxycycline as previously instructed. We recommend you take a probiotic while on the doxycycline. Call your primary care provider tomorrow for follow-up appointment and call your water softener servicer and installer at [facility] for a follow-up appointment. Tell your water softener servicer and installer that the CT scan should be available for their review. Recheck and return here if you develop any new or worsening symptoms, such as worsening shortness of breath or any concerns. Discharge Data Discharge Physician: Nancy Givens
--- NOTE | 2024-01-26 17:37 | W.MEDCONSULT ---
Date of service: 01/26/24 Time of Service: 17:37 Assessment and Plan Assessment and plan (1) COPD with exacerbation: Status: Acute Assessment and plan: Imaging reviewed including CT. Interstial markings c/w viral pneumonia. No focal pnuemonia, no fever, no respiratory distress. O2 sat 99-100% consistently. Given this, I don't see reason to admit or treat with pneumonia. Given 10 days of cough and increased sputum in setting of COPD, I recommend treating with prednisone - one dose here and 4 more days of burst - along with his previously prescirbed doxycycline and inhalers. Follow up with PCP within the week. (2) Mass of upper lobe of lung: Status: Acute Assessment and plan: This is the likely cause of the hemoptysis. He will need outpatient work up to consider biopsy or excision. Possible spinal lesions should also be evaluated. History of Present Illness History of Present Illness Chief Complaint: hemoptysis Narrative: 88 yo M with history of COPD, known lung nodule who presented to the ED with ongoing cough and new hemoptysis. He was seen 01/24 at [facility] with 10 days of cough and congestion. Flu B and COVID positive there. Given duration of symptoms was not offered antiviral treatment but did get doxycycline. Came to ED today after episode of hemoptysis. He states his phlegm is thick and difficult to bring up, denies severe shortness of breath. He is using his inhalers. Hospitalist team called to consider admission. [facility] All Active Problems (Updated 01/26/24 @ 17:48 by Remi Knott) COPD with exacerbation (Acute) Mass of upper lobe of lung (Acute) Anemia (Chronic) Influenza B (Acute) COVID (Acute) Atopic dermatitis (Acute) Lung nodule (Acute) Microscopic hematuria (Acute) Erectile dysfunction (Acute) History of elevated prostate specific antigen (PSA) (Acute) BPH w urinary obs/LUTS (Acute) Medical History Adenomatous colon polyp Allergic rhinitis Anemia Bilateral hip pain Chronic constipation Dysphonia Elevated PSA Esophageal stricture HLD (hyperlipidemia) HTN (hypertension) Lesion of iris Orthostatic dizziness Pruritus RBBB (right bundle branch block) Rheumatoid arthritis Sinus bradycardia Spinal stenosis Transient acantholytic dermatosis Weight loss Surgical History Colonoscopy - MAC (07/27/15) DR.TERRY CHOUDHARY Social History Smoking/Tobacco Use Status: Former Tobacco Use tobacco type: cigarettes Quit Date: 10/05/99 Smoking risk assessment performed?: Yes Alcohol Intake: never Drug use: Never Substance use type: does not use Housing: house Do you feel safe at home: Yes Do you feel safe in your relationship?: Yes Exam Narrative Exam Narrative: GEN: Alert and cooperative, but poor historian (has documented memory impairment). No acute distress at rest. HEENT: Head atraumatic. Conjunctiva clear, no icterus. PEERL, EOMI. no rhinorrhea. MMM, OP benign. Neck is supple with no masses or lymphadenopathy, trachea midline LUNGS: Diffusely deminished breath sounds, but moving air well, no increased WOB, no wheeze or rales. CV: RRR with no murmurs, gallops, or rubs. ABD: +BS, soft, NT/ND EXT: no cyanosis, clubbing, or edema MSK: No joint redness or swelling NEURO: CN 2-12 grossly intact. Normal movement of 4 extremities. Normal speech and coordination SKIN: No rashes or open wounds. PSYCH: normal mood and affect Results Last Vital Signs Temp 36.8 C 01/26/24 14:36 Pulse 77 01/26/24 14:36 Resp 16 01/26/24 14:36 BP 124/48 L 01/26/24 14:36 Pulse Ox 99 01/26/24 14:36 Labs 01/26/24 14:13 01/26/24 14:13 Labs: Laboratory Results - last 24 hr 01/26/24 14:13 WBC 5.28 RBC 3.93 L Hgb 11.3 L Hct 35.5 L MCV 90 MCH 28.8 MCHC 31.8 L RDW 13.1 Plt Count 160 MPV 9.1 Immature Gran % 0.2 Neutrophils % 78.7 Lymphocytes % 9.7 Monocytes % 7.0 Eosinophils % 3.8 Basophils % 0.6 Nucleated RBC % 0.0 Absolute Neutrophils 4.16 Absolute Lymphocytes 0.51 L Absolute Monocytes 0.37 Absolute Eosinophils 0.20 Absolute Basophils 0.03 ESR 34 H VBG pH 7.33 VBG pCO2 43 VBG pO2 32 L* VBG HCO3 23 VBG Total CO2 24 VBG O2 Saturation 57 VBG Base Excess -4 L VBG Lactate 1.2 Sodium 142 Potassium 4.3 Chloride 107 Carbon Dioxide 25.9 Anion Gap 9.1 BUN 29 H Creatinine 1.6 H Est GFR (CKD-EPI 2020) 41.70 Glucose 131 H Calcium 8.3 L Magnesium 1.8 Total Bilirubin 0.4 AST 26 ALT 26 Alkaline Phosphatase 99 Troponin I < 50 C-Reactive Protein 1.47 H NT-Pro-B Natriuret Pep 442 H Total Protein 6.6 Albumin 2.7 L Lipase 28 Procalcitonin < 0.1 [address] scan - pelvis: report reviewed
[2024-01-26] MEDS: predniSONE 20 MG TAB 40 MG PO (18:37)
[2024-01-26 18:40] VITALS: BP 187/63; PULSE 69; RESP 16; O2SAT 973
== END 2024-01-26 18:52 | disposition home or self-care (01) ==
PROVIDERS: Physician Assistant; Emergency Provider Emergency Medicine Emergency Medical Services; PCP Family Medicine
DX: R91.8 Other nonspecific abnormal finding of lung field; U07.1 COVID-19; J10.1 Influenza due to other identified influenza virus with other respiratory manifestations; I10 Essential (primary) hypertension; E78.5 Hyperlipidemia, unspecified; Z79.82 Long term (current) use of aspirin
CPT/HCPCS: 00123; 71275; 80053; 82805; 83690; 84145; 85652; 93005; 96365; 99285; 83605; 83735; 83880; 84484; 85025; 86140; 93010; 99284; J3490; J7512

== ENCOUNTER 2024-02-28 14:25 | Emergency (ER) | payer MEDICARE, BC, SELFPAY ==
[2024-02-28 14:31] VITALS: BP 113/68; PULSE 86; RESP 12; TEMP 37; O2SAT 92
--- NOTE | 2024-02-28 14:45 | ED.GENADUL_ITS ---
Discharge Plan Disposition Patient Disposition: Home Condition: Improving Discharge Details Chief Complaint: Laceration Clinical Impression: Multiple skin tears Primary Care Provider: Magdaleno Dickens ED Provider: Jt Hernandez Home Meds and New Rx's Prescriptions: No Action tamsulosin 0.4 mg capsule 0.4 mg PO DAILY Qty: 90 4RF finasteride 5 mg tablet 5 mg PO DAILY Qty: 90 4RF multivitamin with iron Tablet 1 tab PO DAILY spironolactone 50 mg tablet 50 mg PO DAILY simvastatin 10 MG tablet 10 mg PO DAILY aspirin [Aspir-Low] 81 MG tablet,delayed release (DR/EC) 81 mg PO DAILY omeprazole 20 MG capsule,delayed release(DR/EC) 20 mg PO DAILY Anoro Ellipta 62.5-25 mcg/actuation Blister With Device 1 inh INHALATION DAILY losartan 100 mg tablet 50 mg PO DAILY Qty: 0 0RF Discharge Instructions Instructions: Skin Tear (ED) Additional Instructions: Please keep wound clean and dry. Please return to the emerged part for any worsening symptoms HPI General Date/Time Provider Initiated Documentation: 02/28/24 14:32 . HPI Narrative: 89-year-old male brought in by family for evaluation of skin tears to left hand, tripped falling forward into the yard, no other injuries. Related Data Home Medications Medication Instructions Recorded Confirmed aspirin 81 mg tablet,delayed 81 mg PO DAILY 07/26/15 01/26/24 release (Aspir-Low) omeprazole 20 mg capsule,delayed 20 mg PO DAILY 07/26/15 01/26/24 release simvastatin 10 mg tablet 10 mg PO DAILY 07/26/15 01/26/24 spironolactone 50 mg tablet 50 mg PO DAILY 12/05/19 01/26/24 umeclidinium 62.5 mcg-vilanterol 1 inh inhalation DAILY 05/10/23 01/26/24 25 mcg/actuation powdr for inhalation (Anoro Ellipta) losartan 100 mg tablet 50 mg (1/2 x 100 mg) PO DAILY #0 05/11/23 01/26/24 tabs finasteride 5 mg tablet 5 mg PO DAILY #90 tabs 05/19/23 01/26/24 tamsulosin 0.4 mg capsule 0.4 mg PO DAILY #90 caps 05/19/23 01/26/24 multivitamin with iron 1 tab PO DAILY 09/25/23 01/26/24 Previous Rx's Medication Instructions Recorded losartan 100 mg tablet 50 mg (1/2 x 100 mg) PO DAILY #0 05/11/23 tabs finasteride 5 mg tablet 5 mg PO DAILY #90 tabs 05/19/23 tamsulosin 0.4 mg capsule 0.4 mg PO DAILY #90 caps 05/19/23 Allergies Allergy/AdvReac Type Severity Reaction Status Date / Time atenolol Allergy Other (See Unverified 01/26/24 14:31 Comment) codeine AdvReac Unknown Other (See Unverified 01/26/24 14:31 Comment) General Stated Complaint: Laceration REGINALDO: 4 Review of Systems Narrative: Review of Systems Constitutional: negative Eyes: negative ENT: negative Cardiovascular: negative Respiratory: negative Gastrointestinal: negative : negative Musculoskeletal: negative Skin: Skin tears left hand Neurologic: negative Psych: negative Exam Narrative Exam Narrative: Physical Examination General: alert, awake, cooperative, resting comfortably, no acute distress HEENT: normocephalic, atraumatic; PERRL, EOM intact, conjunctiva normal; no nasal discharge; moist mucous membranes, oral and pharyngeal mucosa normal, tolerating secretions Neck: supple, trachea midline; full ROM Chest: normal to inspection Respiratory: normal respiratory effort, speaking in full sentences Skin: See extremity Neuro: AAOx3, normal speech, moving all extremities Extremities: Left hand: 5 cm skin flap dorsal radial aspect of hand, 7 cm skin flap dorsal ulnar aspect of hand, hemostatic no foreign bodies; chronic contractures of fingers, radial pulse intact, sensation intact, warm well- perfused Psych: Appropriate mood and affect Course Vital Signs Vital signs: Vital Signs Temperature 37.0 C 02/28/24 14:31 Pulse 86 02/28/24 14:31 Respiratory Rate 12 02/28/24 14:31 Blood Pressure 113/68 02/28/24 14:31 Pulse Oximetry 92 02/28/24 14:31 Temperature 37.0 C 02/28/24 14:31 Temperature Source Oral 02/28/24 14:31 Pulse 86 02/28/24 14:31 Respiratory Rate 12 02/28/24 14:31 Respiratory Effort Normal, Non-Labored 02/28/24 14:33 Blood Pressure 113/68 02/28/24 14:31 Blood Pressure Position Sitting 02/28/24 14:31 Pulse Oximetry 92 02/28/24 14:31 Oxygen Delivery Method Room Air 02/28/24 14:31 Oxygen Flow Rate 0 02/28/24 14:31 Medical Decision Making 88-year-old male presents brought in by family for evaluation of skin tears to dorsal aspect of left hand, hemostatic no foreign bodies, wound irrigated and flaps approximated with Steri-Strips and adhesive, neurovascular exam of limb intact, no signs of dislocation or fractures. No other signs of trauma. Home care instructions return precautions given. Patient's tetanus is up-to-date per family Quality:SDOH Health Related Social Needs: No Data to Display PFSH All Active Problems (Updated 02/28/24 @ 14:48 by Jt Hernandez MD) Multiple skin tears (Acute) COPD with exacerbation (Acute) COVID (Acute) Atopic dermatitis (Acute) Lung nodule (Acute) Microscopic hematuria (Acute) Erectile dysfunction (Acute) History of elevated prostate specific antigen (PSA) (Acute) BPH w urinary obs/LUTS (Acute) Medical History Adenomatous colon polyp Allergic rhinitis Anemia Bilateral hip pain Chronic constipation Dysphonia Elevated PSA Esophageal stricture HLD (hyperlipidemia) HTN (hypertension) Lesion of iris Orthostatic dizziness Pruritus RBBB (right bundle branch block) Rheumatoid arthritis Sinus bradycardia Spinal stenosis Transient acantholytic dermatosis Weight loss Surgical History Colonoscopy - MAC (07/27/15) DR.TERRY CHOUDHARY Social History Smoking/Tobacco Use Status: Former Tobacco Use tobacco type: cigarettes Quit Date: 10/05/99 Smoking risk assessment performed?: Yes Alcohol Intake: never Drug use: Never Substance use type: does not use Housing: house Do you feel safe at home: Yes Do you feel safe in your relationship?: Yes
== END 2024-02-28 15:06 | disposition home or self-care (01) ==
LOC: ER 18:05
PROVIDERS: Emergency Provider Emergency Medicine; PCP Family Medicine
DX: S61.402A Unspecified open wound of left hand, initial encounter (principal); W01.10XA Fall on same level from slipping, tripping and stumbling with subsequent striking against unspecified object, initial encounter
CPT/HCPCS: 90471; 90715; 99284; 99283

== ENCOUNTER 2024-03-06 09:11 | Emergency (ER) | payer MEDICARE, BC, SELFPAY ==
[2024-03-06 09:16] VITALS: BP 127/73; PULSE 70; RESP 18; TEMP 36.6; O2SAT 99
--- NOTE | 2024-03-06 10:06 | ED.GENADUL_ITS ---
Discharge Plan Disposition Patient Disposition: Home Condition: Good Discharge Details Clinical Impression: Cellulitis Primary Care Provider: Magdaleno Dickens ED Provider: Ana Villar Home Meds and New Rx's Prescriptions: New cefuroxime axetil 500 mg tablet 500 mg PO BID Qty: 11 0RF Continued tamsulosin 0.4 mg capsule 0.4 mg PO DAILY Qty: 90 4RF finasteride 5 mg tablet 5 mg PO DAILY Qty: 90 4RF multivitamin with iron Tablet 1 tab PO DAILY spironolactone 50 mg tablet 50 mg PO DAILY simvastatin 10 MG tablet 10 mg PO DAILY aspirin [Aspir-Low] 81 MG tablet,delayed release (DR/EC) 81 mg PO DAILY Anoro Ellipta 62.5-25 mcg/actuation Blister With Device 1 inh INHALATION DAILY losartan 100 mg tablet 50 mg PO DAILY Qty: 0 0RF Held omeprazole 20 MG capsule,delayed release(DR/EC) 20 mg PO DAILY Hold Instructions: Resume on 03/10/24. Discharge Instructions Instructions: Cellulitis (ED) Additional Instructions: Please follow-up with [facility] this week for reevaluation of your hand wound. I have prescribed an antibiotic to treat local infection. Please take this with food. I recommend that you hold your omeprazole while you are taking this medication, as it may decrease absorption. Keep your wound clean and dry. Wash daily with antibacterial soap and water, cover with a thin layer bacitracin. You may keep it open to air, but cover it when you are going out or if you are at risk of getting it dirty. Keep an eye out for signs of worsening infection such as redness, pus drainage, swelling, pain. If you notice any of these, please seek care immediately. Referrals: Magdaleno Dickens MD [Primary Care Provider] - HPI General Date/Time Provider Initiated Documentation: 03/06/24 09:15 . HPI Narrative: Ed is an 88-year-old male who presents to the emergency department today for evaluation of redness to his left forearm. He reports that he fell 5 days ago, hitting his arm on the banister of his deck. He had Steri-Strips applied. Caregiver/girlfriend Nanette has been taking care of the wound, washing daily with water and covering with a thin layer of bacitracin. They have been wrapping daily with roll gauze. Today she noticed redness to his forearm. He denies increased pain, fever/chills, general malaise. No history of recent antibiotic use or immunocompromise. He does have a PCP he can follow-up with. Related Data Home Medications Medication Instructions Recorded Confirmed aspirin 81 mg tablet,delayed 81 mg PO DAILY 07/26/15 03/06/24 release (Aspir-Low) omeprazole 20 mg capsule,delayed 20 mg PO DAILY 07/26/15 03/06/24 release simvastatin 10 mg tablet 10 mg PO DAILY 07/26/15 03/06/24 spironolactone 50 mg tablet 50 mg PO DAILY 12/05/19 03/06/24 umeclidinium 62.5 mcg-vilanterol 1 inh inhalation DAILY 05/10/23 03/06/24 25 mcg/actuation powdr for inhalation (Anoro Ellipta) losartan 100 mg tablet 50 mg (1/2 x 100 mg) PO DAILY #0 05/11/23 03/06/24 tabs finasteride 5 mg tablet 5 mg PO DAILY #90 tabs 05/19/23 03/06/24 tamsulosin 0.4 mg capsule 0.4 mg PO DAILY #90 caps 05/19/23 03/06/24 multivitamin with iron 1 tab PO DAILY 09/25/23 03/06/24 cefuroxime axetil 500 mg tablet 500 mg PO BID #11 tabs 03/06/24 Previous Rx's Medication Instructions Recorded losartan 100 mg tablet 50 mg (1/2 x 100 mg) PO DAILY #0 05/11/23 tabs finasteride 5 mg tablet 5 mg PO DAILY #90 tabs 05/19/23 tamsulosin 0.4 mg capsule 0.4 mg PO DAILY #90 caps 05/19/23 cefuroxime axetil 500 mg tablet 500 mg PO BID #11 tabs 03/06/24 Allergies Allergy/AdvReac Type Severity Reaction Status Date / Time atenolol Allergy Other (See Unverified 03/06/24 09:23 Comment) codeine AdvReac Unknown Other (See Unverified 03/06/24 09:23 Comment) General Stated Complaint: Laceration REGINALDO: 4 Review of Systems Narrative: see HPI Exam Const General: cooperative, healthy appearing, comfortable and no acute distress Resp Effort & Inspection: normal respiratory effort and able to speak in complete sentences Skin Trauma: laceration (dorsum of L hand, closely approximated lacerations, scant pus drainage) Other: approx 4 in x 4 in area of erythema to dorsum of L forearm, no overlying warmth or skin changes. No tenderness with palpation Course Vital Signs Vital signs: Vital Signs Temperature 36.6 C 03/06/24 09:16 Pulse 70 03/06/24 09:16 Respiratory Rate 18 03/06/24 09:16 Blood Pressure 127/73 03/06/24 09:16 Pulse Oximetry 99 03/06/24 09:16 Temperature 36.6 C 03/06/24 09:16 Temperature Source Temporal Artery Scan 03/06/24 09:16 Pulse 70 03/06/24 09:16 Respiratory Rate 18 03/06/24 09:16 Blood Pressure 127/73 03/06/24 09:16 Blood Pressure Position Sitting 03/06/24 09:16 Pulse Oximetry 99 03/06/24 09:16 Oxygen Delivery Method Room Air 03/06/24 09:16 Oxygen Flow Rate 0 03/06/24 09:16 Pain Level 2 03/06/24 09:16 Medical Decision Making Ed is an 88-year-old male who presents to the emergency department today for evaluation of redness to his left forearm. He reports that he fell 5 days ago, hitting his arm on the banister of his deck. He had Steri-Strips applied. Caregiver/girlfriend Nanette has been taking care of the wound, washing daily with water and covering with a thin layer of bacitracin. They have been wrapping daily with roll gauze. Today she noticed redness to his forearm. He denies increased pain, fever/chills, general malaise. No history of recent antibiotic use or immunocompromise. He does have a PCP he can follow-up with. Physical exam remarkable for well-approximated lacerations noted to the left dorsum of hand. Mild pus drainage noted from wounds. No surrounding tenderness/erythema/warmth. There is an area of redness noted to his right forearm, nontender, nonswollen. Patient is alert and oriented, no acute distress. History and presentation concerning for early cellulitis, though sunburn is also possible to forearm. No red flags at this time for significant extension of infection/systemic infection requiring labs or imaging. As there is scant pus drainage at the lacerations, will treat for local cellulitis with cefuroxime and have patient reevaluated by PCP within the week. Reviewed wound care instructions with patient and family. They are agreeable with plan of care. Quality:SDOH Health Related Social Needs: No Data to Display PFSH All Active Problems (Updated 03/06/24 @ 10:02 by Ana Lees) Cellulitis (Acute) Multiple skin tears (Acute) COPD with exacerbation (Acute) COVID (Acute) Atopic dermatitis (Acute) Lung nodule (Acute) Microscopic hematuria (Acute) Erectile dysfunction (Acute) History of elevated prostate specific antigen (PSA) (Acute) BPH w urinary obs/LUTS (Acute) Medical History Adenomatous colon polyp Allergic rhinitis Anemia Bilateral hip pain Chronic constipation Dysphonia Elevated PSA Esophageal stricture HLD (hyperlipidemia) HTN (hypertension) Lesion of iris Orthostatic dizziness Pruritus RBBB (right bundle branch block) Rheumatoid arthritis Sinus bradycardia Spinal stenosis Transient acantholytic dermatosis Weight loss Surgical History Colonoscopy - MAC (07/27/15) DR.TERRY CHOUDHARY Social History Smoking/Tobacco Use Status: Former Tobacco Use tobacco type: cigarettes Quit Date: 10/05/99 Smoking risk assessment performed?: Yes Alcohol Intake: never Drug use: Never Substance use type: does not use Housing: house Do you feel safe at home: Yes Do you feel safe in your relationship?: Yes
[2024-03-06] MEDS: Cefuroxime 500 MG TAB PO (10:13)
--- NOTE | 2024-03-06 13:14 | NUR.NOTE ---
Referral faxed to PCP for re-evaluation hand wound, for this week. Nursing Note:
== END 2024-03-06 10:31 | disposition home or self-care (01) ==
PROVIDERS: Emergency Provider Nurse Practitioner Family; PCP Family Medicine
DX: L03.114 Cellulitis of left upper limb (principal); I10 Essential (primary) hypertension; E78.5 Hyperlipidemia, unspecified; I45.19 Other right bundle-branch block; M06.8A Other specified rheumatoid arthritis, other specified site; J44.9 Chronic obstructive pulmonary disease, unspecified; Z79.82 Long term (current) use of aspirin; Z87.891 Personal history of nicotine dependence
CPT/HCPCS: 99283

== ENCOUNTER → 2024-05-27 12:57 | Outpatient (BNVA) | payer MEDICARE, BC, SELFPAY | PROVIDERS: PCP Family Medicine; Visit Provider Urology | DX: N40.1 Benign prostatic hyperplasia with lower urinary tract symptoms (principal); N13.8 Other obstructive and reflux uropathy | CPT/HCPCS: 99214 ==

== ENCOUNTER → 2024-06-21 10:09 | Outpatient (BNVA) | payer MEDICARE, BC, SELFPAY | PROVIDERS: PCP Family Medicine; Referring Provider Family Medicine; Visit Provider Nurse Practitioner Adult Health | DX: R44.1 Visual hallucinations (principal); R41.89 Other symptoms and signs involving cognitive functions and awareness; R29.818 Other symptoms and signs involving the nervous system | CPT/HCPCS: 99215 ==

== ENCOUNTER → 2024-07-13 09:31 | Outpatient (BNVA) | payer MEDICARE, BC, SELFPAY | PROVIDERS: PCP Family Medicine; Referring Provider Family Medicine; Visit Provider Podiatrist | DX: L84 Corns and callosities (principal); M20.41 Other hammer toe(s) (acquired), right foot; M20.42 Other hammer toe(s) (acquired), left foot; L97.519 Non-pressure chronic ulcer of other part of right foot with unspecified severity; L60.2 Onychogryphosis; I73.89 Other specified peripheral vascular diseases; R60.0 Localized edema; M79.674 Pain in right toe(s); M79.675 Pain in left toe(s) | CPT/HCPCS: 11056; 11719 ==

== ENCOUNTER 2024-07-14 01:07 | Outpatient (CLI) | payer MEDICARE, BC, SELFPAY ==
--- NOTE | 2024-07-14 11:33 | DI.MRI_ITS ---
Exam(s) MR BRAIN WO EXAM: MR BRAIN WO CLINICAL HISTORY: ? stroke, mass,visual hallucination,paranoia,cognitive changes TECHNIQUE: Multiplanar multisequence MRI of the brain was performed. COMPARISON: CT CT HEAD WO from 10/26/2023 FINDINGS: CEREBRAL PARENCHYMA: There is no evidence of intracranial hemorrhage, mass effect, or shift of midline structures. There are no extra-axial fluid collections. Ventricles are not enlarged or shifted. Amount of involutiona l changes consistent with the patient's advanced age and is symmetrical. There are multiple foci of FLAIR bright signal abnormality in the Mady in supra ventricular white mat ter consistent chronic small vessel disease. There is no evidence of hemorrhage or surrounding edema and there is no restricted diffusion on DWI to suggest acute ischemic event. SWI: Small focus susceptibility artifact in the right occipital parietal region probably from prior m icrohemorrhage (series [id number]/image [id number]). There is no significant focal signal abnormality evident on diffusion imaging to suggest acute ischem ic event. PITUITARY GLAND: No mass nor parasellar abnormality. No obvious abnormality in the cavernous sinuses. FLOW VOIDS: The expected flow void are noted. No evidence of obvious aneurysm nor obvious vascular ma lformation. Posterior communicating arteries are incidentally noted on both sides the [id number] s. PARANASAL SINUSES: Post inflammatory retention cysts noted in the floor of the right maxillary sinus. No associated fluid level. Other paranasal sinuses are clear. ORBITS: Left orbit unremarkable. On the right side there is an abnormal finding on the posterior asp ect of the globe adjacent to the insertion of the optic nerve, this measuring 8 mm by 5.7 mm. This w as evident on prior CT scan of 10/26/2023. IMPRESSION: No significant acute intracranial findings on this noninfused MRI scan of the brain. Bilateral periventricular signal abnormality consistent with chronic small vessel disease. No eviden ce of restricted diffusion to suggest acute ischemic event. Incidental note is made of an 8 x 5.7 cm abnormality in the posterior aspect of the right orbital alden be which appears unchanged in size from 10/26/2023. This may be related to prior surgery. If clinic ally indicated follow-up dedicated orbital MRI can be performed. DATA REPOSITORY:
== END 2024-07-14 01:27 ==
LOC: DI 01:07
PROVIDERS: PCP Family Medicine; Visit Provider Nurse Practitioner Adult Health
DX: I67.82 Cerebral ischemia (principal)
CPT/HCPCS: 70551

== ENCOUNTER → 2024-07-27 09:42 | Outpatient (BNVA) | payer MEDICARE, BC, SELFPAY | PROVIDERS: PCP Family Medicine; Referring Provider Family Medicine; Visit Provider Nurse Practitioner Adult Health | DX: G31.83 Neurocognitive disorder with Lewy bodies (principal); F02.80 Dementia in other diseases classified elsewhere, unspecified severity, without behavioral disturbance, psychotic disturbance, mood disturbance, and anxiety; R41.89 Other symptoms and signs involving cognitive functions and awareness | CPT/HCPCS: 99215; G2212 ==

== ENCOUNTER → 2024-08-08 15:12 | Outpatient (BNVA) | payer MEDICARE, BC, SELFPAY | PROVIDERS: PCP Family Medicine; Referring Provider Family Medicine; Visit Provider Podiatrist | DX: L97.422 Non-pressure chronic ulcer of left heel and midfoot with fat layer exposed (principal); L84 Corns and callosities; M20.41 Other hammer toe(s) (acquired), right foot; M20.42 Other hammer toe(s) (acquired), left foot; M21.611 Bunion of right foot; M21.612 Bunion of left foot; L60.2 Onychogryphosis | CPT/HCPCS: 11042 ==

== ENCOUNTER → 2024-08-09 09:04 | Outpatient (BNVA) | payer MEDICARE, BC, SELFPAY | PROVIDERS: PCP Family Medicine; Referring Provider Family Medicine; Visit Provider Psychiatry & Neurology Neurology | DX: G31.83 Neurocognitive disorder with Lewy bodies (principal); F02.80 Dementia in other diseases classified elsewhere, unspecified severity, without behavioral disturbance, psychotic disturbance, mood disturbance, and anxiety; R29.818 Other symptoms and signs involving the nervous system | CPT/HCPCS: 99215 ==

== ENCOUNTER 2024-08-15 15:21 | Outpatient (REF) | payer MEDICARE, BC, SELFPAY ==
[2024-08-15 15:44] LABS: Abs Immature Grans 0.01 10^3/uL (0.0-0.06); Absolute Basophil Count 0.03 10^3/uL (0.0-0.2); Absolute Eosinophil Count 0.35 10^3/uL (0.0-0.7); Absolute Monocyte Count 0.38 10^3/uL (0.1-0.8); Absolute Neutrophil Count 6.01 10^3/uL (1.2-6.7); Basophils % 0.4 %; Eosinophils % 4.8 %; HCT 38.9 % (40.0-50.0); HGB 12.4 g/dL (13.5-17.5); Immature Grans % 0.1 %; Lymphocytes % 6.9 %; MCH 27.9 pg (27.0-33.0); MCHC 31.9 % (32.0-36.0); MCV 87 fL (80-95); MPV 10.3 fL (8.0-11.0); Monocytes % 5.2 %; Neutrophils % 82.6 %; Platelet Count 194 10^3/uL (130-400); RBC 4.45 10^6/uL (4.36-5.78); RDW 14.4 % (11.8-14.1); RDW-SD 45.9 fL; WBC 7.28 10^3/uL (4.4-10.8)
[2024-08-15 16:26] LABS: Iron 54 ug/dL (65-175); Total Iron Binding Capacity 260 ug/dL (250-450); Transferrin Sat 21 % (20-55)
[2024-08-15 16:38] LABS: ALT 19 U/L (16-63); AST 23 U/L (15-37); Albumin 2.7 g/dL (3.4-5.0); Alkaline Phosphatase 103 U/L (46-116); BUN 35 mg/dL (7-18); Bilirubin, Total 0.38 mg/dL (0.2-1.0); CREATININE 1.6 mg/dL (0.70-1.30); Calcium 8.8 mg/dL (8.5-10.1); Chloride 109 mmol/L (98-107); Estimated GFR 41.44 (mL/min/1.73m2); Ferritin 58 ng/mL (26-388); Glucose 82 mg/dL (74-106); Potassium 4.5 mmol/L (3.5-5.1); Sodium 143 mmol/L (136-145); Total Protein 6.5 g/dL (6.4-8.2)
== END 2024-08-15 15:22 | disposition home or self-care (01) ==
LOC: NCHCN 15:21
PROVIDERS: PCP Family Medicine; Visit Provider Family Medicine
DX: D50.9 Iron deficiency anemia, unspecified (principal); I10 Essential (primary) hypertension
CPT/HCPCS: 80053; 82728; 83540; 83550; 85025

== ENCOUNTER → 2024-08-29 11:21 | Outpatient (BNVA) | payer MEDICARE, BC, SELFPAY | PROVIDERS: PCP Family Medicine; Referring Provider Family Medicine; Visit Provider Podiatrist | DX: L97.512 Non-pressure chronic ulcer of other part of right foot with fat layer exposed (principal); L97.422 Non-pressure chronic ulcer of left heel and midfoot with fat layer exposed; L84 Corns and callosities; M20.41 Other hammer toe(s) (acquired), right foot; M20.42 Other hammer toe(s) (acquired), left foot; M21.611 Bunion of right foot; M21.612 Bunion of left foot; L60.2 Onychogryphosis | CPT/HCPCS: 11042 ==

== ENCOUNTER 2024-08-29 12:29 | Outpatient (REF) | payer MEDICARE, BC, SELFPAY | END 2024-08-29 12:30 | disposition home or self-care (01) | LOC: LBN 12:29 | PROVIDERS: PCP Family Medicine; Visit Provider Podiatrist | DX: L97.529 Non-pressure chronic ulcer of other part of left foot with unspecified severity (principal); L97.419 Non-pressure chronic ulcer of right heel and midfoot with unspecified severity | CPT/HCPCS: 87070; 87075; 87205 ==

== ENCOUNTER → 2024-09-20 13:13 | Outpatient (BNVA) | payer MEDICARE, BC, SELFPAY | PROVIDERS: PCP Family Medicine; Referring Provider Family Medicine; Visit Provider Podiatrist | DX: L97.512 Non-pressure chronic ulcer of other part of right foot with fat layer exposed (principal); L97.422 Non-pressure chronic ulcer of left heel and midfoot with fat layer exposed; L84 Corns and callosities; M20.41 Other hammer toe(s) (acquired), right foot; M20.42 Other hammer toe(s) (acquired), left foot; M21.611 Bunion of right foot; M21.612 Bunion of left foot; L60.2 Onychogryphosis; L03.115 Cellulitis of right lower limb | CPT/HCPCS: 99214 ==

== ENCOUNTER 2024-09-20 15:10 | Outpatient (REF) | payer MEDICARE, BC, SELFPAY | END 2024-09-20 15:11 | disposition home or self-care (01) | LOC: LBN 15:10 | PROVIDERS: PCP Family Medicine; Visit Provider Podiatrist | DX: L97.519 Non-pressure chronic ulcer of other part of right foot with unspecified severity (principal) | CPT/HCPCS: 87077; 87070; 87075; 87186; 87205 ==

== ENCOUNTER 2024-09-21 02:56 | Outpatient (CLI) | payer MEDICARE, BC, SELFPAY ==
--- NOTE | 2024-09-21 07:15 | DI.RAD_ITS ---
Exam(s) XR HEEL RT OS CALCIS EXAM: XR HEEL RT OS CALCIS CLINICAL HISTORY: heel ulcer,rt,l97.512. TECHNIQUE: 2D digital imaging was performed. COMPARISON: CR XR HEEL LT OS CALCIS from 09/21/2024 FINDINGS: Two views-lateral and axial views of the calcaneus: No evidence of calcaneal fracture. Small inferior calcaneal spur is noted. There is a skin ulcer ov er the posterior lateral aspect of the heel best seen on the axial image. There is some irregularity of the posterior cortex of the calcaneus which appears generalize but slightly more so laterally lorraine n medially. Cannot exclude very subtle radiographic evidence of osteomyelitis Vascular calcification is noted in the region of the ankle including posterior tibial artery and dors alphonso pedis artery. IMPRESSION: As above. If there is a significant clinical consideration for osteomyelitis an MRI would be recomme nded. DATA REPOSITORY: RADIATION DOSE DELIVERED:
--- NOTE | 2024-09-21 07:15 | DI.RAD_ITS ---
Exam(s) XR HEEL LT OS CALCIS EXAM: XR HEEL LT OS CALCIS CLINICAL HISTORY: Heel ulcer,lt,l97.422. TECHNIQUE: 2D digital imaging was performed. COMPARISON: No exams were available for comparison FINDINGS: Two views-lateral and axial views of left calcaneus: There is no obvious heel ulcer seen on the axial image. Hand there may be a shallow ulcer noted post eriorly on the lateral view. There are no fractures. No evidence of osteomyelitis on the lateral view. On the axial view there i s an area of lucency in the posterior aspect of the calcaneus which is possibly suspicious for osteom yelitis in the correct clinical setting. Otherwise, there is a tiny inferior calcaneal spur. No calcification seen in the plantar fascia. So me vascular calcifications noted, similar to the opposite foot. IMPRESSION: Possible osteomyelitis. Recommend follow-up MRI. DATA REPOSITORY: RADIATION DOSE DELIVERED:
== END 2024-09-21 03:16 ==
LOC: DI 02:56
PROVIDERS: PCP Family Medicine; Visit Provider Podiatrist
DX: L97.512 Non-pressure chronic ulcer of other part of right foot with fat layer exposed (principal); L97.422 Non-pressure chronic ulcer of left heel and midfoot with fat layer exposed
CPT/HCPCS: 73650

== ENCOUNTER 2024-10-07 01:24 | Outpatient (CLI) | payer MEDICARE, BC, SELFPAY ==
[2024-10-07 12:53] LABS: Abs Immature Grans 0.01 10^3/uL (0.0-0.06); Absolute Basophil Count 0.01 10^3/uL (0.0-0.2); Absolute Eosinophil Count 0.24 10^3/uL (0.0-0.7); Absolute Lymphocyte Count 0.37 10^3/uL (1.2-3.4); Absolute Monocyte Count 0.35 10^3/uL (0.1-0.8); Absolute Neutrophil Count 4.76 10^3/uL (1.2-6.7); Basophils % 0.2 %; Eosinophils % 4.2 %; HCT 35.5 % (40.0-50.0); HGB 11.5 g/dL (13.5-17.5); Immature Grans % 0.2 %; Lymphocytes % 6.4 %; MCH 27.6 pg (27.0-33.0); MCHC 32.4 % (32.0-36.0); MCV 85 fL (80-95); MPV 9.8 fL (8.0-11.0); Monocytes % 6.1 %; Neutrophils % 82.9 %; Platelet Count 173 10^3/uL (130-400); RBC 4.16 10^6/uL (4.36-5.78); RDW 15.1 % (11.8-14.1); RDW-SD 47.3 fL; WBC 5.74 10^3/uL (4.4-10.8)
[2024-10-07 13:10] LABS: ESR 59 mm/hr (0-20)
[2024-10-07 13:25] LABS: ALT 17 U/L (16-63); AST 27 U/L (15-37); Albumin 2.4 g/dL (3.4-5.0); Alkaline Phosphatase 85 U/L (46-116); Anion Gap 7.7 mmol/L (3-11); BUN 28 mg/dL (7-18); Bilirubin, Total 0.22 mg/dL (0.2-1.0); C-Reactive Protein 1.77 mg/dL (<or=0.5); CO2 23.3 mmol/L (21.0-32.0); CREATININE 1.5 mg/dL (0.70-1.30); Calcium 8.7 mg/dL (8.5-10.1); Chloride 109 mmol/L (98-107); Estimated GFR 44.78 (mL/min/1.73m2); Glucose 84 mg/dL (74-106); Potassium 4.7 mmol/L (3.5-5.1); Sodium 140 mmol/L (136-145); Total Protein 6.5 g/dL (6.4-8.2)
== END 2024-10-07 01:25 | disposition home or self-care (01) ==
LOC: LBO 01:24
PROVIDERS: PCP Family Medicine; Visit Provider Podiatrist
DX: L97.422 Non-pressure chronic ulcer of left heel and midfoot with fat layer exposed (principal); L97.512 Non-pressure chronic ulcer of other part of right foot with fat layer exposed; L03.90 Cellulitis, unspecified
CPT/HCPCS: 36415; 80053; 85652; 85025; 86140

== ENCOUNTER → 2024-10-10 12:54 | Outpatient (BNVA) | payer MEDICARE, BC, SELFPAY | PROVIDERS: PCP Family Medicine; Referring Provider Family Medicine; Visit Provider Podiatrist | DX: L97.512 Non-pressure chronic ulcer of other part of right foot with fat layer exposed (principal); L97.422 Non-pressure chronic ulcer of left heel and midfoot with fat layer exposed; I70.209 Unspecified atherosclerosis of native arteries of extremities, unspecified extremity; L84 Corns and callosities; M20.41 Other hammer toe(s) (acquired), right foot; M20.42 Other hammer toe(s) (acquired), left foot; M21.611 Bunion of right foot; M21.612 Bunion of left foot; L60.2 Onychogryphosis; L03.115 Cellulitis of right lower limb; L03.116 Cellulitis of left lower limb | CPT/HCPCS: 11042 ==

== ENCOUNTER 2024-10-10 14:55 | Outpatient (CLI) | payer MEDICARE, BC, SELFPAY ==
--- NOTE | 2024-10-10 14:02 | DI.RAD_ITS ---
Exam(s) XR HEEL RT OS CALCIS EXAM: XR HEEL RT OS CALCIS CLINICAL HISTORY: Atherosclerotic PVD with ulceration, I70.209, L98.499, osteomyelitis?. TECHNIQUE: 2D digital imaging was performed. COMPARISON: CR XR HEEL RT OS CALCIS from 09/21/2024 FINDINGS: BONES: No acute fracture is present. No bony destructive lesion is seen. JOINTS: No dislocation present. SOFT TISSUE: Atherosclerotic calcifications are present. IMPRESSION: No radiographic evidence to suggest osteomyelitis of the calcaneus. DATA REPOSITORY: RADIATION DOSE DELIVERED:
== END 2024-10-10 15:15 ==
LOC: DI 14:56
PROVIDERS: PCP Family Medicine; Visit Provider Podiatrist
DX: L98.499 Non-pressure chronic ulcer of skin of other sites with unspecified severity
CPT/HCPCS: 11042; 73650

== ENCOUNTER → 2024-10-26 12:49 | Outpatient (BNVA) | payer MEDICARE, BC, SELFPAY | PROVIDERS: PCP Family Medicine; Referring Provider Family Medicine; Visit Provider Podiatrist | DX: L97.512 Non-pressure chronic ulcer of other part of right foot with fat layer exposed (principal); L97.422 Non-pressure chronic ulcer of left heel and midfoot with fat layer exposed; L03.115 Cellulitis of right lower limb; L03.116 Cellulitis of left lower limb; I70.209 Unspecified atherosclerosis of native arteries of extremities, unspecified extremity; L84 Corns and callosities; M20.41 Other hammer toe(s) (acquired), right foot; M20.42 Other hammer toe(s) (acquired), left foot; M21.611 Bunion of right foot; M21.612 Bunion of left foot; L60.2 Onychogryphosis | CPT/HCPCS: 11042 ==

== ENCOUNTER 2024-10-31 01:51 | Outpatient (CLI) | payer MEDICARE, BC, SELFPAY ==
--- NOTE | 2024-10-31 07:15 | DI.MRI_ITS ---
Exam(s) MR LOWER JOINT RT WO/W EXAM: MR LOWER JOINT RT WO/W CLINICAL HISTORY: osteomyelitis,atherosclerotic pvd with ulceration. TECHNIQUE: Multiplanar multisequence MRI was performed. CONTRAST MATERIAL: IV Contrast: 13 mL of Dotarem contrast administered. COMPARISON: CR XR HEEL RT OS CALCIS from 10/10/2024 FINDINGS: The examination is limited due to patient motion artifact. BONES/JOINTS: No evidence of fracture. In the plantar surface of the heel posterior laterally there i s hyperintense signal on the T2 weighted images and corresponding hypointense signal on the T1 weight ed images. There is mild edema seen in the soft tissues overlying the bone in this region. There al so appears to be a soft tissue defect in the skin suggesting an ulcer. No joint space narrowing iden tified. No joint effusion identified. LIGAMENTS: The medial and lateral collateral ligaments are intact. MUSCULOTENDINOUS STRUCTURES: Visualized portion of the planar fascia is unremarkable. There is diffus e [id number] atrophy of the musculature of the foot. SOFT TISSUES: There is a soft tissue ulceration at the posterior lateral aspect of the heel. This is adjacent to the calcaneal marrow signal abnormality. ENHANCEMENT: Following contrast administration, there is enhancement seen in the plantar surface of t he calcaneus posterior laterally. Findings are suspicious for osteomyelitis. There is also mild enhan cement in the soft tissues around the ulceration. No focal fluid collection is seen to suggest an abs cess. OTHER FINDINGS: None. IMPRESSION: 1. Findings suspicious for osteomyelitis involving the plantar surface of the calcaneus posterior lat erally. No abscess is seen. 2. Skin defect in the heel posterior laterally suggestive of an ulcer. 3. Examination is severely limited due to patient motion artifact. DATA REPOSITORY:
[2024-10-31] MEDS: Normal Saline Flush 10 ML SYR IVP (13:12)
[2024-10-31] MEDS: Gadoterate meglumine 20 ML SYRINGE 13 ML IVP (13:12)
== END 2024-10-31 02:11 ==
LOC: DI 01:51
PROVIDERS: PCP Family Medicine; Visit Provider Podiatrist
DX: L97.512 Non-pressure chronic ulcer of other part of right foot with fat layer exposed (principal)
CPT/HCPCS: 73723

== ENCOUNTER 2024-11-01 18:06 | Outpatient (REF) | payer MEDICARE, BC, SELFPAY ==
[2024-11-01 18:16] LABS: Abs Immature Grans 0.01 10^3/uL (0.0-0.06); Absolute Basophil Count 0.05 10^3/uL (0.0-0.2); Absolute Eosinophil Count 0.34 10^3/uL (0.0-0.7); Absolute Lymphocyte Count 0.46 10^3/uL (1.2-3.4); Absolute Monocyte Count 0.47 10^3/uL (0.1-0.8); Absolute Neutrophil Count 5.62 10^3/uL (1.2-6.7); Basophils % 0.7 %; Eosinophils % 4.9 %; HGB 11.8 g/dL (13.5-17.5); Immature Grans % 0.1 %; Lymphocytes % 6.6 %; MCH 27.9 pg (27.0-33.0); MCHC 31.1 % (32.0-36.0); MCV 90 fL (80-95); MPV 10.7 fL (8.0-11.0); Monocytes % 6.8 %; Neutrophils % 80.9 %; Platelet Count 195 10^3/uL (130-400); RBC 4.23 10^6/uL (4.36-5.78); RDW 15.1 % (11.8-14.1); RDW-SD 49.7 fL; WBC 6.95 10^3/uL (4.4-10.8)
[2024-11-01 18:26] LABS: ALT 25 U/L (16-63); AST 31 U/L (15-37); Alkaline Phosphatase 97 U/L (46-116); Anion Gap 4.8 mmol/L (3-11); BUN 36 mg/dL (7-18); Bilirubin, Total 0.44 mg/dL (0.2-1.0); CO2 27.2 mmol/L (21.0-32.0); CREATININE 1.6 mg/dL (0.70-1.30); Calcium 9.1 mg/dL (8.5-10.1); Chloride 108 mmol/L (98-107); Estimated GFR 41.44 (mL/min/1.73m2); Glucose 84 mg/dL (74-106); Sodium 140 mmol/L (136-145); Total Protein 6.6 g/dL (6.4-8.2)
== END 2024-11-01 18:07 | disposition home or self-care (01) ==
LOC: NCHCN 18:06
PROVIDERS: PCP Family Medicine; Visit Provider Family Medicine
DX: Z01.818 Encounter for other preprocedural examination (principal)
CPT/HCPCS: 80053; 85025

== ENCOUNTER 2024-11-02 02:44 | Outpatient (CLI) | payer MEDICARE, BC, SELFPAY ==
--- NOTE | 2024-11-02 | DI.RAD_ITS ---
Exam(s) XR CHEST 2V PA LATERAL EXAM: XR CHEST 2V PA LATERAL CLINICAL HISTORY: PREOP,Z01.818,ENCOUNTER FOR PRE PROCEDURE TECHNIQUE: 2D digital imaging was performed of the chest. Two images were obtained. PA and lateral views were obtained. COMPARISON: No exams were available for comparison FINDINGS: MEDIASTINUM: Normal. HEART: Normal. PULMONARY VASCULATURE: Normal. LUNGS: No focal consolidating infiltrates. PLEURAL SPACE: No pleural effusion or pneumothorax. BONE:Within normal limits for the patient's age. OTHER FINDINGS:Colon is seen beneath the hemidiaphragms. IMPRESSION: No acute pulmonary findings. DATA REPOSITORY: RADIATION DOSE DELIVERED:
== END 2024-11-02 03:04 ==
LOC: DI 02:44
PROVIDERS: PCP Family Medicine; Visit Provider Family Medicine
DX: Z01.818 Encounter for other preprocedural examination (principal)
CPT/HCPCS: 71046

== ENCOUNTER 2024-11-07 07:01 | Day surgery (SDC) | payer MEDICARE, BC, SELFPAY ==
[2024-11-07] VITALS (15 sets, daily range): BP systolic 118–152; BP diastolic 53–96; PULSE 60–80; RESP 12–18; TEMP 36–36.6; O2SAT 79–100; BMI 21.4
--- NOTE | 2024-11-07 06:23 | ANES.PREOP_ITS ---
General Info Date of Service Date Performed: 11/07/24 Height: 5 ft 8 in Weight: 63.957 kg Body Mass Index (BMI): 21.4 Surgical Procedure: Operation Date: 11/07/24 08:10 Proposed Procedure Side Surgeon p Excisional Wound Debridement Heel, Possible Bone Biopsy Right Che Amaral DPM Meds Allergies and Home Medications Allergies Allergy/AdvReac Type Severity Reaction Status Date / Time trazodone Allergy Mild Other (See Verified 11/03/24 09:27 Comment) atenolol Allergy Other (See Verified 11/03/24 09:27 Comment) codeine AdvReac Unknown Other (See Verified 11/03/24 09:27 Comment) Home Medication ?Medication ?Instructions ?Recorded aspirin 81 mg tablet,delayed 81 mg PO DAILY 07/26/15 release (Aspir-Low) omeprazole 20 mg capsule,delayed 20 mg PO DAILY 07/26/15 release simvastatin 10 mg tablet 10 mg PO DAILY 07/26/15 spironolactone 50 mg tablet 50 mg PO DAILY 12/05/19 umeclidinium 62.5 mcg-vilanterol 1 inh inhalation DAILY 05/10/23 25 mcg/actuation powdr for inhalation (Anoro Ellipta) multivitamin with iron 1 tab PO DAILY 09/25/23 finasteride 5 mg tablet 5 mg PO DAILY #90 tabs 05/27/24 tamsulosin 0.4 mg capsule 0.8 mg (2 x 0.4 mg) PO DAILY #180 06/17/24 caps losartan 100 mg tablet 25 mg PO DAILY 06/21/24 triamcinolone acetonide 0.1 % 1 applic topical BID 06/22/24 topical cream hydroxyzine HCl 25 mg tablet 25 mg PO QID PRN 07/27/24 collagenase clostridium histo. 250 1 applic topical DAILY #90 grams 08/29/24 unit/gram topical ointment (Santyl) quetiapine 25 mg tablet (Seroquel) 75 mg PO DAILY 09/27/24 albuterol sulfate 90 mcg/actuation 1 puff inhalation ONCE 10/18/24 aerosol inhaler benzonatate 100 mg capsule 100 mg PO BID PRN 10/18/24 lisdexamfetamine 50 mg capsule 50 mg PO DAILY 10/18/24 meclizine 12.5 mg tablet 12.5 mg PO DAILY PRN 10/18/24 polyethylene glycol 3350 17 17 g PO DAILY 10/18/24 gram/dose oral powder sodium chloride 5 % eye ointment 1 applic ophthalmic (eye) DAILY 10/18/24 Current Visit Medications: Current Medications Generic Name Dose Route Start Last Admin Trade Name Hugo PRN Reason Stop Dose Admin Ringer's Solution 1,000 mls @ 30 mls/hr 11/07/24 06:00 IV 11/07/24 23:59 INFUSION KAMILAH Cefazolin Sodium/Dextrose 2 gm in 50 mls @ 100 mls/hr 11/07/24 06:00 Ancef Duplex IVPB 11/07/24 16:00 PREOP KAMILAH IV Miscellaneous Supplies 1 each 11/07/24 06:00 Iv Access IV 11/07/24 23:59 DIRECTED KAMILAH Sodium Chloride 0 ml 11/07/24 06:00 Normal Saline Flush 10 Ml Syr IV 11/07/24 23:59 PRN PRN Sodium Chloride 0 ml 11/07/24 06:00 Normal Saline 10 Ml Vial IJ 11/07/24 23:59 DIRECTED PRN Sterile Water 0 ml 11/07/24 06:00 Water,Injection,Sterile 10 Ml Vial IJ 11/07/24 23:59 DIRECTED PRN PFSH Active Problems Active Problems: Problem Status Onset Code Acute osteomyelitis of right calcaneus Acute M86.171 Atherosclerotic PVD with ulceration Acute I70.209, L98.499 DNR (do not resuscitate) Acute Z66 Advanced care planning/counseling discussion Acute Z71.89 Palliative care encounter Acute Z51.5 Ambulatory dysfunction Acute R26.2 Caregiver stress Acute Z63.6 Non-healing ulcer of right foot Acute L97.519 Ulcer of right foot with fat layer exposed Acute L97.512 Ulcer of left heel and midfoot with fat layer exposed Acute L97.422 Lewy body dementia Acute G31.83, F02.80 Corns and callosities Acute L84 Long toenail Acute L60.2 Bilateral bunions Acute M21.611, M21.612 Acquired hammertoes of both feet Acute M20.41, M20.42 Ulcer of right foot Acute L97.519 Parkinsonian features Acute R29.818 Cognitive changes Acute R41.89 Paranoia Acute F22 Visual hallucination Acute R44.1 Cellulitis Acute L03.90 Atopic contact dermatitis Acute L23.9 Transient cerebral ischemia Chronic G45.9 Chronic kidney disease Chronic N18.9 Benign prostatic hyperplasia Chronic N40.0 COPD with exacerbation Acute J44.1 COVID Acute U07.1 Atopic dermatitis Acute L20.9 Lung nodule Acute R91.1 Microscopic hematuria Acute R31.29 Erectile dysfunction Acute N52.9 History of elevated prostate specific antigen (PSA) Acute Z87.898 BPH w urinary obs/LUTS Acute N40.1, N13.8 Medical History Medical History Esophageal stricture Rheumatoid arthritis HTN (hypertension) HLD (hyperlipidemia) Adenomatous colon polyp Allergic rhinitis Dysphonia Lesion of iris Transient acantholytic dermatosis Elevated PSA Bilateral hip pain Spinal stenosis Chronic constipation Orthostatic dizziness Sinus bradycardia RBBB (right bundle branch block) Anemia Weight loss Pruritus Surgical History Surgical History Colonoscopy - MAC (07/27/15) DR.TERRY CHOUDHARY Tobacco Smoking/Tobacco Use Status: Former Tobacco Use Alcohol Alcohol Intake: never Substance Use Substance use: Never Substance use type: does not use Vital Signs and Lab Results Vital Signs Most Recent Vital Signs in EMR: Temp Pulse Resp BP Pulse Ox 36.2 C L 80 18 140/67 98 11/07/24 07:38 11/07/24 07:38 11/07/24 07:38 11/07/24 07:38 11/07/24 07:38 Lab Results Blood Type / Crossmatch: No Data to Display Complete Blood Count: White Blood Count 6.95 10^3/uL (4.4-10.8) 11/01/24 12:10 Red Blood Count 4.23 10^6/uL (4.36-5.78) L 11/01/24 12:10 Hemoglobin 11.8 g/dL (13.5-17.5) L 11/01/24 12:10 Hematocrit 38.0 % (40.0-50.0) L 11/01/24 12:10 Platelet Count 195 10^3/uL (130-400) 11/01/24 12:10 Complete Metabolic Panel: Sodium 140 mmol/L (136-145) 11/01/24 12:10 Potassium 5.0 mmol/L (3.5-5.1) 11/01/24 12:10 Chloride 108 mmol/L (98-107) H 11/01/24 12:10 Carbon Dioxide 27.2 mmol/L (21.0-32.0) 11/01/24 12:10 BUN 36 mg/dL (7-18) H 11/01/24 12:10 Creatinine 1.6 mg/dL (0.70-1.30) H 11/01/24 12:10 Est GFR (CKD-EPI 2020) 41.44 (mL/min/1.73m2) 11/01/24 12:10 Calcium 9.1 mg/dL (8.5-10.1) 11/01/24 12:10 Albumin 3.0 g/dL (3.4-5.0) L 11/01/24 12:10 Glucose 84 mg/dL (74-106) 11/01/24 12:10 Liver Function Panel: Alanine Aminotransferase (ALT/SGPT) 25 U/L (16-63) 11/01/24 12: 10 Aspartate Amino Transf (AST/SGOT) 31 U/L (15-37) 11/01/24 12:10 Coagulation Panel: No Data to Display Cardiac Panel: No Data to Display Arterial Blood Gas: No Data to Display Venous Blood Gas: No Data to Display Pancreas Panel: No Data to Display Thyroid Panel: No Data to Display Infectious Disease: No Data to Display Blood Cultures: No Data to Display Toxicology Panel: No Data to Display Anesthesia Assessment and Plan Anesthesia History Personal History: No History of Anesthesia Complications Family History: No Family History of Anesthesia Complications Exercise Tolerance Exercise Tolerance: Metabolic Equivalents<4 Cardiac & Pulmonary Exam Cardiac Exam: Normal S1/S2 Heart Sounds Pulmonary Exam: Clear Bilateral Breath Sounds (distant) Implantable Cardiac Device Does patient have a Pacemaker or an ICD?: No Airway Exam Known Difficult Airway: No Mallampati Class: 4 Mouth Opening: Narrow (< 3cm) Thyromental Distance: Less than 3 cm Neck Range of Motion: Limited ROM Neck Circumference: Normal Teeth Condition: Removable Dentures/Plates Upper and Edentulous ASA Classification ASA Score: ASA 3 Emergency Case?: No NPO Status NPO Status: NPO Clears >2 hours, Solids >8 hours Anesthesia Plan Resuscitation Status: DNR Modified During Perioperative Period Resuscitation Modifications: Pt. Requests for Clinical Judgement to be Used Anesthesia Technique: MAC Anesthesia Airway Planned: Natural Airway Monitors Used: Standard Monitors Preoperative Comments:: 89 yo male for debridement. Sig PMHx: HTN (losartan, spironolactone. is checked at home, they don't have numbers with them, but his DBP runs low), COPD (albuterol (rare use), anoro ellipta. breathing feels good today), GERD (omeprazole), lewy body dementia (has had issues with disturbing hallucinations). former smoker EKG: sinus. RBBB/LAFB. Holter: no afib/AV block. Discussed plan with Ed and his SO of very light sedation for the localization of the foot. DNR will be modified for the procedure for us to correct reversible causes, but resucitiative efforts would be limited in order to respect his DNR wishes - he and his SO are in agreement.
[2024-11-07] MEDS: Lactated Ringers 1,000 ML 30 ML IV (08:12)
[2024-11-07] MEDS: ceFAZolin 2 GM/50 ML BAG IVPB (08:21)
[2024-11-07] MEDS: Lidocaine 1% Pres-Free 30 ML VIAL (08:30)
[2024-11-07] MEDS: Gelatin SPONGE 12-7 MM PKT 1 EACH TP (09:00)
--- NOTE | 2024-11-07 09:10 | BONE_PTH ---
PATIENT: Ed Galvez LOC: DI U#:[id number] AGE/SX: 89/M ROOM: RE11/07/[address]: Che Amaral DPM : 1935 BED: DIS: 11/07/2024 SPEC #: [id number] RECD: 11/07/24 13:00 STATUS: KASHIF REKeagan #: [id number] GUI: 11/07/24 09:[address]: Che Amaral DEPT: Surgical Specimen RECD BY: Tegan Brito ENTERED: 11/07/24 13:01 SP TYPE: Bone OTHR DR: Magdaleno Dickens Tissues: 1 - BONE BX/CURRETTE NOT PATH FRACTURE Procedures: GROSS AND MICRO LEVEL 5 DECALCIFICATION Comments: [id number]
--- NOTE | 2024-11-07 09:36 | W.PM.DSUDISC ---
Date of service: 11/07/24 Discharge Plan Disposition Patient Disposition: Home Condition: Stable Discharge Details Attending Provider: Che Amaral Primary Care Provider: Magdaleno Dickens Home Meds and New Rx's Prescriptions: No Action losartan 100 mg tablet 25 mg PO DAILY triamcinolone acetonide 0.1 % cream 1 applic topical BID lisdexamfetamine 50 mg capsule 50 mg PO DAILY albuterol sulfate 90 mcg/actuation HFA aerosol inhaler 1 puff inhalation ONCE benzonatate 100 mg capsule 100 mg PO BID PRN meclizine 12.5 mg tablet 12.5 mg PO DAILY PRN polyethylene glycol 3350 17 gram/dose powder 17 g PO DAILY sodium chloride 5 % ointment 1 applic ophthalmic (eye) DAILY multivitamin with iron Tablet 1 tab PO DAILY finasteride 5 mg tablet 5 mg PO DAILY Qty: 90 4RF hydroxyzine HCl 25 mg tablet 25 mg PO QID PRN quetiapine [Seroquel] 25 mg tablet 75 mg PO DAILY Patient Comments: 25mg QAM 62.5QPM per caregiver Santyl 250 unit/gram ointment 1 applic topical DAILY Qty: 90 0RF Rx Instructions: 4.3x3.6x0.5cm spironolactone 50 mg tablet 50 mg PO DAILY tamsulosin 0.4 mg capsule 0.8 mg PO DAILY Qty: 180 4RF simvastatin 10 MG tablet 10 mg PO DAILY aspirin [Aspir-Low] 81 MG tablet,delayed release (DR/EC) 81 mg PO DAILY omeprazole 20 MG capsule,delayed release(DR/EC) 20 mg PO DAILY Anoro Ellipta 62.5-25 mcg/actuation Blister With Device 1 inh INHALATION DAILY Discharge Instructions Stand Alone Forms: Podiatry Instructions-DSU Activity:: Elevate Remove Dressings/Wound Care:: Do Not Remove Shower/Bathe:: Cover Diet:: Normal Diet Discharge Orders Discharge Orders: Discharge Order (Routine); Ordered 11/07/24 Ordered By: Che Amaral DS: Diagnosis Discharge Diagnosis (1) Acute osteomyelitis of right calcaneus: Status: Acute (2) Atherosclerotic PVD with ulceration: Status: Acute (3) Ulcer of right foot with fat layer exposed: Status: Acute (4) Non-healing ulcer of right foot: Status: Acute (5) Ulcer of left heel and midfoot with fat layer exposed: Status: Acute
--- NOTE | 2024-11-07 09:41 | ROE_ITS ---
Operative Note Operative Note PRE-OP DIAGNOSIS: Full thickness ulcer with osteomyelitis, right heel POST-OP DIAGNOSIS: same PROCEDURE: Excisional wound debridement (2.1x1.3x1.0cm post debridement), including subcutaenous tissue, right heel. Bone biopsy, right calcaenus SURGEON: Che Amaral ANESTHESIA TYPE: Local By Surgeon (10 mL 1% LIdocaine plain. ) Refer to Anesthesia Record ESTIMATED BLOOD LOSS: 10 PATHOLOGY: none sent (Bone cultures and biopsy, wound cultures, right heel ) COMPLICATIONS: None Patient was transported to: PACU Patient's condition: stable Indications: This is a male patient with dementia, TIA, CKD, nonhealing ulcer to the right heel. Patient has had local wound care in office however the ulcer persists. There is a worsening noted to the ulcer. MRI findings concerning for osteomyelitis. The wound is extremely painful for the patient for an office wound debridement. I discussed taking the patient to the OR for OR wound debridement as well as biopsy with the patient's significant other. I discussed all the risks, benefits and possible complications of the procedure including but not limited to pain, nerve pain, bleeding, hematoma formation, seroma formation, need for further surgery or amputation, worsening infection, delayed healing, nonhealing, DVT, PE, stroke, heart attack or with anesthesia. No guarantees or warranties were made or implied. Informed consent was signed, reviewed and in chart. Findings: Soft tissue necrosis, healthy bleeding. Procedure Description: Patient was identified in preop holding. Site was marked. Patient was then brought to the operating room placed in supine position with the anesthesia team. Upon induction of general anesthesia, a local block was performed using 10 mL of 1% lidocaine plain preoperatively around the ulcer. An ankle tourniquet was then applied. The right lower extremity was then scrubbed, prepped and draped in the usual aseptic manner. An Esmarch was used for his exsanguination and the tourniquet was then inflated. Attention was then directed to the lateral aspect of the right heel where a full-thickness ulc eration was noted. The Versajet was used for excisional debridement of the right heel wound and all necrotic, nonviable tissue was debrided excisionally until healthy bleeding tissue was noted. Next, a biopsy trocar was used to obtain 2 bone biopsy specimens from the calcaneus. 1 was sent to pathology and 1 was sent for cultures. Wound culture was then taken and sent as well. There was bleeding to the tissue noted, electrocautery was used to achieve hemostasis however bleeding persisted. Surgifoam was then applied to the wound followed by 4 x 4 and Coban for compression for 5 minutes. This was then removed, tourniquet was then deflated and hemostasis was noted to be achieved without any active bleeders noted to the wound bed. Additional Surgifoam was then applied to the wound, Xeroform gauze, 4 x 4, Kerlix and an Mauricio wrap. Patient tolerated the procedure and anesthesia well with vital signs stable and vascular status intact to the right lower extremity. Patient was transferred to PACU for further monitoring. Patient has an appointment scheduled to follow-up in office on . Date of Procedure: 11/07/24
--- NOTE | 2024-11-07 09:43 | W.ANESPOSTOP ---
Postoperative Evaluation Date, Time and Location Date Performed: 11/07/24 Time Performed: 09:43 Patient Location: PACU Vital Signs Most Recent Imported Vital Signs: Most Recent Vital Signs Temp Pulse Resp BP Pulse Ox 36.2 C L 63 12 138/53 L 100 11/07/24 07:38 11/07/24 09:40 11/07/24 09:40 11/07/24 09:36 11/07/24 09:40 Pain Score Most Recent Pain Score: Most Recent Pain Score Pain Level 0 11/07/24 07:38 Assessment Mental Status: Awake (Alert & Oriented to Patient Baseline) Airway and Respiratory Function: Patent airway with normal (patient baseline) respiratory exam Cardiovascular Function: Hemodynamically Stable Hydration Status: Adequately Hydrated Nausea & Vomiting: No Nausea or Vomiting Pain: Pt. Denies Any Pain Peripheral Nerve Block: Patient did not receive a nerve block
== END 2024-11-07 10:55 | disposition home or self-care (01) ==
PROVIDERS: PCP Family Medicine; Visit Provider Podiatrist
PROC: (CPT 20220; principal; 2024-11-07 08:00)
DX: M86.171 Other acute osteomyelitis, right ankle and foot (principal); I70.244 Atherosclerosis of native arteries of left leg with ulceration of heel and midfoot; L97.422 Non-pressure chronic ulcer of left heel and midfoot with fat layer exposed; I70.234 Atherosclerosis of native arteries of right leg with ulceration of heel and midfoot; L97.412 Non-pressure chronic ulcer of right heel and midfoot with fat layer exposed; E78.5 Hyperlipidemia, unspecified; J44.9 Chronic obstructive pulmonary disease, unspecified; F03.90 Unspecified dementia, unspecified severity, without behavioral disturbance, psychotic disturbance, mood disturbance, and anxiety; N18.9 Chronic kidney disease, unspecified; I12.9 Hypertensive chronic kidney disease with stage 1 through stage 4 chronic kidney disease, or unspecified chronic kidney disease
CPT/HCPCS: 20220; 11042; 00123; 87070; 87075; 87205; 88304; 88307; 88311; J0690; J2704

== ENCOUNTER 2024-11-08 21:29 | Observation (INO) | payer MEDICARE, BC, SELFPAY ==
[2024-11-08] VITALS (16 sets, daily range): BP systolic 142–185; BP diastolic 70–152; PULSE 56–88; RESP 14–19; TEMP 36.6; O2SAT 87–97
--- NOTE | 2024-11-08 21:45 | DI.CT_ITS ---
Exam(s) CT HEAD WO EXAM: CT HEAD WO CLINICAL HISTORY: AMS. TECHNIQUE: Imaging Protocol: Axial computed tomography images with coronal and sagittal reformatted images were created and reviewed COMPARISON: CT CT HEAD WO from 10/26/2023 FINDINGS: Ventricles and Extra axial spaces: Normal in size and morphology for the patient's age. Hemorrhage: None. Cerebral parenchyma: No evidence of acute infarct or mass. White matter changes small vessel diseas e. Mild atrophy. Midline shift: None. Brainstem/Cerebellum: Normal. Calvarium: Normal. Visualized Paranasal sinuses:Mucous retention cysts in the maxillary sinuses. Ethmoid mucosal thicke cira. Mastoids: Clear. Soft Tissues: Unremarkable. ORBITS: Circumferential high density material noted around the right globe, related to prior surgery. PITUITARY: Not enlarged. IMPRESSION: No acute intracranial process. RADIATION DOSE DELIVERED: 884.03mGy.cm Total DLP DATA REPOSITORY: All CT scans at this facility are submitted to the National Radiology Data Registry (NRDR) Dose Index Registry (DIR) with the [employer] ([employer]). RADIATION OPTIMIZATION: All CT scans at this facility use at least one of these dose optimization te chniques: automated exposure control; mA and/or kV adjustment per patient size (includes targeted exa ms where dose is matched to clinical indication); or iterative reconstruction.
--- NOTE | 2024-11-08 21:45 | RT.EKG_ITS ---
APPROVED REPORT Exam: Resting ECG Reason for Exam: AMS, vomiting Patient Location: E HR:85 bpm ECG Measurements Heart Rate 85 AXIS MA 143 P 38 QRSd 136 QRS -84 QT 394 T 74 QTc 470 Conclusion Gender not entered, assumed to be male for purpose of ECG interpretation Sinus rhythm...normal P axis, V-rate 60- 99 RBBB and LAFB...QRSd >120mS, axis(-40,240) There are no significant changes compared to prior EKG performed on 01/26/2024 at 14:02.
--- NOTE | 2024-11-08 21:59 | DI.RAD_ITS ---
Exam(s) XR CHEST 2V PA LATERAL EXAM: XR CHEST 2V PA LATERAL CLINICAL HISTORY: AMS TECHNIQUE: 2D digital imaging was performed. Two views. COMPARISON: No exams were available for comparison FINDINGS: HEART: Normal size. Aorta: Not dilated. Calcification. PULMONARY VASCULATURE: Normal. MEDIASTINUM: Unremarkable. LUNGS: Mild fibrotic changes, otherwise clear. PLEURAL SPACE: No pleural effusion or pneumothorax. BONE:Unremarkable for age. SOFT TISSUES: Stable mild elevation of the left hemidiaphragm. IMPRESSION: No acute abnormality. DATA REPOSITORY: RADIATION DOSE DELIVERED:
--- NOTE | 2024-11-08 22:00 | ED.GENADUL_ITS ---
Discharge Plan Discharge Details Chief Complaint: Nausea/Vomit/Diar Clinical Impression: Vomiting Primary Care Provider: Magdaleno Dickens ED Provider: Crow Rothman [place] Meds and New Rx's Prescriptions: No Action losartan 100 mg tablet 25 mg PO DAILY triamcinolone acetonide 0.1 % cream 1 applic topical BID lisdexamfetamine 50 mg capsule 50 mg PO DAILY albuterol sulfate 90 mcg/actuation HFA aerosol inhaler 1 puff inhalation ONCE benzonatate 100 mg capsule 100 mg PO BID PRN meclizine 12.5 mg tablet 12.5 mg PO DAILY PRN polyethylene glycol 3350 17 gram/dose powder 17 g PO DAILY sodium chloride 5 % ointment 1 applic ophthalmic (eye) DAILY multivitamin with iron Tablet 1 tab PO DAILY finasteride 5 mg tablet 5 mg PO DAILY Qty: 90 4RF hydroxyzine HCl 25 mg tablet 25 mg PO QID PRN quetiapine [Seroquel] 25 mg tablet 75 mg PO DAILY Patient Comments: 25mg QAM 62.5QPM per caregiver Santyl 250 unit/gram ointment 1 applic topical DAILY Qty: 90 0RF Rx Instructions: 4.3x3.6x0.5cm spironolactone 50 mg tablet 50 mg PO DAILY tamsulosin 0.4 mg capsule 0.8 mg PO DAILY Qty: 180 4RF simvastatin 10 MG tablet 10 mg PO DAILY aspirin [Aspir-Low] 81 MG tablet,delayed release (DR/EC) 81 mg PO DAILY omeprazole 20 MG capsule,delayed release(DR/EC) 20 mg PO DAILY Anoro Ellipta 62.5-25 mcg/actuation Blister With Device 1 inh INHALATION DAILY HPI General Mode of arrival: EMS . Date/Time Provider Initiated Documentation: 11/08/24 21:34 . Limitations to Documentation: other (dementia) . Information obtained by: patient, EMS, RN notes reviewed and old records reviewed . HPI Narrative: Patient brought into ED by ambulance for evaluation of vomiting. Patient has history of dementia unable to provide history other than hearing now. Denies having headache, chest pain, shortness of breath, abdominal pain. Did have biopsy done by podiatry yesterday in the right foot. There is no report of fever. Significant other is reporting that he has been persistently vomiting clear marie liquid. Related Data Home Medications ?Medication ?Instructions ?Recorded ?Confirmed aspirin 81 mg tablet,delayed 81 mg PO DAILY 07/26/15 11/07/24 release (Aspir-Low) omeprazole 20 mg capsule,delayed 20 mg PO DAILY 07/26/15 11/07/24 release simvastatin 10 mg tablet 10 mg PO DAILY 07/26/15 11/07/24 spironolactone 50 mg tablet 50 mg PO DAILY 12/05/19 11/07/24 umeclidinium 62.5 mcg-vilanterol 1 inh inhalation DAILY 05/10/23 11/07/24 25 mcg/actuation powdr for inhalation (Anoro Ellipta) multivitamin with iron 1 tab PO DAILY 09/25/23 11/07/24 finasteride 5 mg tablet 5 mg PO DAILY #90 tabs 05/27/24 11/07/24 tamsulosin 0.4 mg capsule 0.8 mg (2 x 0.4 mg) PO DAILY #180 06/17/24 11/07/24 caps losartan 100 mg tablet 25 mg PO DAILY 06/21/24 11/07/24 triamcinolone acetonide 0.1 % 1 applic topical BID 06/22/24 11/03/24 topical cream hydroxyzine HCl 25 mg tablet 25 mg PO QID PRN 07/27/24 11/07/24 collagenase clostridium histo. 250 1 applic topical DAILY #90 grams 08/29/24 11/03/24 unit/gram topical ointment (Santyl) quetiapine 25 mg tablet (Seroquel) 75 mg PO DAILY 09/27/24 11/07/24 albuterol sulfate 90 mcg/actuation 1 puff inhalation ONCE 10/18/24 11/07/24 aerosol inhaler benzonatate 100 mg capsule 100 mg PO BID PRN 10/18/24 11/07/24 lisdexamfetamine 50 mg capsule 50 mg PO DAILY 10/18/24 11/03/24 meclizine 12.5 mg tablet 12.5 mg PO DAILY PRN 10/18/24 11/07/24 polyethylene glycol 3350 17 17 g PO DAILY 10/18/24 11/03/24 gram/dose oral powder sodium chloride 5 % eye ointment 1 applic ophthalmic (eye) DAILY 10/18/24 11/03/24 Previous Rx's ?Medication ?Instructions ?Recorded finasteride 5 mg tablet 5 mg PO DAILY #90 tabs 05/27/24 tamsulosin 0.4 mg capsule 0.8 mg (2 x 0.4 mg) PO DAILY #180 06/17/24 caps collagenase clostridium histo. 250 1 applic topical DAILY #90 grams 08/29/24 unit/gram topical ointment (Santyl) Allergies Allergy/AdvReac Type Severity Reaction Status Date / Time trazodone Allergy Mild Other (See Verified 11/03/24 09:27 Comment) atenolol Allergy Other (See Verified 11/03/24 09:27 Comment) codeine AdvReac Unknown Other (See Verified 11/03/24 09:27 Comment) General Stated Complaint: Nausea/Vomit/Diar REGINALDO: 3 Review of Systems Unobtainable due to (dementia) Exam Narrative Exam Narrative: Const: WDWN elderly male in NAD. VS per triage. HEENT: NC/AT. Normal facial exam. Neck: Supple. Trachea midline. Lungs: Normal respiratory effort. Lungs are clear. Cor: RRR without murmur. Good radial pulses. GI: Soft/ND/NT. Neuro: A+O x 2. Normal speech. Cranial nerves II - XII grossly intact. No gross motor or sensory deficit. Ext: No C/C/E. Right foot/ankle in post op dressing, not taken down. Course Vital Signs Vital signs: Vital Signs Temperature 97.9 F 11/08/24 21: Pulse 85 11/08/24 21: Respiratory Rate 16 11/08/24 21:26 Blood Pressure 178/77 H 11/08/24 21:26 Pulse Oximetry 94 11/08/24 21:26 Temperature 97.9 F 11/08/24 21:26 Pulse 85 11/08/24 21:26 Respiratory Rate 16 11/08/24 21:26 Blood Pressure 178/77 H 11/08/24 21:26 Pulse Oximetry 94 11/08/24 21:26 Oxygen Delivery Method Room Air 11/08/24 21: Oxygen Flow Rate 0 11/08/24 21:26 Medical Decision Making Patient presenting to ED because of persistent vomiting at home. He has no complaint of pain. There has been no report of fever. He is status post biopsy involving right foot due to concern for osteomyelitis. Review of his records shows that he does have a history of esophageal stricture. He also has history of Lewy body dementia. Significant other stating that he is also not really a cting right seems more confused. IV is in place. Will proceed with altered mental status workup to include head CT, chest x-ray, labs, urinalysis. EKG is sinus rhythm with bundle branch block which is old and unchanged. 23:00 - Patient's laboratory studies with normal white count and mild anemia. Electrolytes are normal and kidney function is baseline. Troponin is normal. Liver function and lipase normal. Imaging and urinalysis still pending. 23:45 - Patient's CT head per prelim radiology read is negative. CXR per my read without acute cardiopulmonary process. Appears to have a large amount of air in the visible bowel. Nursing reports that he was gagging and dry heaves with just oral mouth care. Does have a history of esophageal stricture. Consider possibility of esophageal foreign body. Will attempt p.o. trial here after Zofran. If unable to swallow consider esophageal foreign body. If it goes down consider CT abdomen pelvis given the amount of air noted in the bowel on chest x-ray. Straight cath urinalysis being performed now. [facility], Dr. Noble. 23:55 - Patient took one swallow of liquid which came back up within a couple of minutes. Still no abdominal pain or tenderness. Significant other reporting that he had chicken, peas, rice for lunch. He has not ate since then but has not been able to keep down liquids either. Suspect this probably is food impaction. Will try IV glucagon but if this is related to stricture unlikely to help. He has just been straight cathed for urine. Medical Records Medical records reviewed: Yes I reviewed the patient's medical records. Imaging Data Radiologic Study: Attestation: I personally reviewed and interpreted this imaging study as follows: Imaging: X-Ray My impression: see [facility] Lab Data Lab results reviewed: Yes I reviewed the patient's lab results. Lab results narrative: see [facility] ECG Data Attestation: I personally reviewed and interpreted this ECG (s) as follows: Prior ECG tracings: available for review Interpretation: see [facility]/EKG [facility] All Active Problems (Updated 11/08/24 @ 23:46 by Crow Rothman MD) Vomiting (Acute) Acute osteomyelitis of right calcaneus (Acute) Atherosclerotic PVD with ulceration (Acute) DNR (do not resuscitate) (Acute) 09/27/2024 COLST: DNR/DNI. +transfer to the hospital, treat, use antibiotics and IV fluids. Nanette says he should not have a feeding tube. Pt does not know what he would want to do. Advanced care planning/counseling discussion (Acute) Palliative care encounter (Acute) Ambulatory dysfunction (Acute) Caregiver stress (Acute) Non-healing ulcer of right foot (Acute) Ulcer of right foot with fat layer exposed (Acute) Ulcer of left heel and midfoot with fat layer exposed (Acute) Corns and callosities (Acute) Long toenail (Acute) Bilateral bunions (Acute) Acquired hammertoes of both feet (Acute) Ulcer of right foot (Acute) Parkinsonian features (Acute) Cognitive changes (Acute) Paranoia (Acute) Visual hallucination (Acute) Cellulitis (Acute) Atopic contact dermatitis (Acute) Transient cerebral ischemia (Chronic) Benign prostatic hyperplasia (Chronic) Atopic dermatitis (Acute) Lung nodule (Acute) Microscopic hematuria (Acute) Erectile dysfunction (Acute) History of elevated prostate specific antigen (PSA) (Acute) Medical History BPH w urinary obs/LUTS Chronic kidney disease CKD 3B Lewy body dementia Esophageal stricture Rheumatoid arthritis HTN (hypertension) HLD (hyperlipidemia) Adenomatous colon polyp Allergic rhinitis Dysphonia Lesion of iris Transient acantholytic dermatosis Bilateral hip pain Spinal stenosis Chronic constipation Orthostatic dizziness Sinus bradycardia RBBB (right bundle branch block) Anemia Weight loss Pruritus Surgical History Colonoscopy - MAC (07/27/15) DR.TERRY CHOUDHARY Social History Smoking/Tobacco Use Status: Former Tobacco Use tobacco type: cigarettes Quit Date: 10/05/99 Smoking risk assessment performed?: Yes Alcohol Intake: never Drug use: Never Substance use type: does not use Housing: house Additional Social history: [employer]
[2024-11-08 22:07] LABS: Abs Immature Grans 0.03 10^3/uL (0.0-0.06); Absolute Basophil Count 0.02 10^3/uL (0.0-0.2); Absolute Eosinophil Count 0.03 10^3/uL (0.0-0.7); Absolute Lymphocyte Count 0.33 10^3/uL (1.2-3.4); Absolute Neutrophil Count 7.91 10^3/uL (1.2-6.7); Basophils % 0.2 %; Eosinophils % 0.3 %; HCT 38.9 % (40.0-50.0); HGB 12.4 g/dL (13.5-17.5); Immature Grans % 0.3 %; Lymphocytes % 3.8 %; MCHC 31.9 % (32.0-36.0); MCV 88 fL (80-95); Monocytes % 3.5 %; Neutrophils % 91.9 %; Platelet Count 216 10^3/uL (130-400); RBC 4.43 10^6/uL (4.36-5.78); RDW 14.7 % (11.8-14.1); RDW-SD 47.1 fL; WBC 8.62 10^3/uL (4.4-10.8)
[2024-11-08 22:27] LABS: ALT 18 U/L (16-63); AST 26 U/L (15-37); Albumin 2.9 g/dL (3.4-5.0); Alkaline Phosphatase 106 U/L (46-116); Anion Gap 8.2 mmol/L (3-11); BUN 25 mg/dL (7-18); Bilirubin, Total 0.42 mg/dL (0.2-1.0); CO2 26.8 mmol/L (21.0-32.0); CREATININE 1.5 mg/dL (0.70-1.30); Calcium 9.1 mg/dL (8.5-10.1); Chloride 107 mmol/L (98-107); Estimated GFR 44.78 (mL/min/1.73m2); Glucose 115 mg/dL (74-106); Lipase 21 U/L (<78); Sodium 142 mmol/L (136-145); Total Protein 7.3 g/dL (6.4-8.2); Troponin I 13 ng/L (<or=76)
[2024-11-08] MEDS: Ondansetron 4 MG/2 ML VIAL IVP (23:01)
--- NOTE | 2024-11-08 23:40 | DI.VRAD_ITS ---
PROCEDURE INFORMATION: Exam: CT Head Without Contrast Exam date and time: 11/08/2024 11:03 PM Age: 89 years old Clinical indication: Altered mental status/memory loss; AMS TECHNIQUE: Imaging protocol: Computed tomography of the head without contrast. Radiation optimization: All CT scans at this facility use at least one of these dose optimization techniques: automated exposure control; mA and/or kV adjustment per patient size (includes targeted exams where dose is matched to clinical indication); or iterative reconstruction. COMPARISON: MR BRAIN WO 07/14/2024 12:05 PM FINDINGS: Brain: Mineralization of bilateral basal ganglia, age-related. There are bilateral periventricular white matter and centrum semiovale hypodensities, consistent with chronic ischemic small vessel disease. No recent infarct, intracranial bleed or mass effect. Age related diffuse parenchymal volume loss. Cerebral ventricles: Ex vacuo dilatation of the ventricles. Paranasal sinuses: Mucous retention cysts in bilateral maxillary sinuses. Mild mucosal disease of the right ethmoid air cells. Mastoid air cells: Visualized mastoid air cells are well aerated. Orbital cavities: Post bilateral cataract surgery. Bones: Unremarkable. No acute fracture. Soft tissues: Unremarkable. IMPRESSION: No large territorial infarct or intracranial bleed. Dictated and Authenticated by: Cristopher Contreras MD. Orderin Stephan Maria MD
--- NOTE | 2024-11-08 23:41 | DI.VRAD_ITS ---
PROCEDURE INFORMATION: Exam: XR Chest Exam date and time: 11/08/2024 11:14 PM Age: 89 years old Clinical indication: Other: AMS TECHNIQUE: Imaging protocol: Radiologic exam of the chest. Views: 2 views. COMPARISON: CR XR CHEST 2V PA LATERAL 11/02/2024 10:01 AM FINDINGS: Lungs: Bibasilar atelectasis. No focal consolidation. Pleural spaces: Unremarkable. No pleural effusion. No pneumothorax. Heart/Mediastinum: Unremarkable. No cardiomegaly. Vasculature: There are aortic arch calcifications. There is unfolding of the thoracic aorta. Diaphragm: Elevated left hemidiaphragm. Bones/joints: The thoracic spine demonstrates mild degenerative changes at multiple levels. Moderate degenerative disease of bilateral acromioclavicular joints. There are mild degenerative changes of the glenohumeral joint. IMPRESSION: No acute cardiopulmonary process. Dictated and Authenticated by: Cristopher Contreras MD. Orderin Stephan Maria MD
[2024-11-08] MEDS: Lidocaine 2% Jelly 6 ML SYR (23:46)
[2024-11-08 23:51] LABS: Bilirubin Negative (Negative); Blood Negative (Negative); Clarity Clear (Clear); Glucose Negative (Negative); Ketones Negative (Negative); Leukocyte Esterase Negative (Negative); Nitrite Negative (Negative); Urobilinogen 0.2 mg/dL (Up to 0.2); pH 5.5 (5-8)
[2024-11-09] VITALS (42 sets, daily range): BP systolic 91–172; BP diastolic 51–103; PULSE 59–88; RESP 12–23; TEMP 36.3–36.9; O2SAT 90–97
[2024-11-09] MEDS: Glucagon 1 MG VIAL IVP (00:09)
--- NOTE | 2024-11-09 00:37 | ED.PROG_ITS ---
Date of service: 11/08/24 Time of Service: 23:45 Medical Decision Making This patient was signed out to me. Please see previous notes for H&P and initial eval. In brief, 89yo M with dementia presenting with vomiting. Workup overall reassuring. Failed PO trial, difficulty swallowing and liquids immediately come back up. Known esophageal stricture, concerned for food impaction. Signed out pending glucagon and repeat PO trial; if not successful, plan to consult surgery for endoscopy. PO challenge unsuccessful. On my assessment abdomen entirely non-tender. Spoke with surgery Dr. Rodriges; plan for barium swallow in the morning. Request pt be admitted to medicine service. Discussed with Dr. Knott; patient accepted to medicine service. Awaiting transfer to the floor. Quality:[facility] Health Related Social Needs: No Data to Display Discharge Plan Disposition Patient Disposition: Admit to [facility] Condition: Serious Discharge Details Chief Complaint: Nausea/Vomit/Diar Clinical Impression: Vomiting Primary Care Provider: Magdaleno Dickens ED Provider: Helena Noble Home Meds and New Rx's Prescriptions: No Action losartan 100 mg tablet 25 mg PO DAILY triamcinolone acetonide 0.1 % cream 1 applic topical BID lisdexamfetamine 50 mg capsule 50 mg PO DAILY albuterol sulfate 90 mcg/actuation HFA aerosol inhaler 1 puff inhalation ONCE benzonatate 100 mg capsule 100 mg PO BID PRN meclizine 12.5 mg tablet 12.5 mg PO DAILY PRN polyethylene glycol 3350 17 gram/dose powder 17 g PO DAILY sodium chloride 5 % ointment 1 applic ophthalmic (eye) DAILY multivitamin with iron Tablet 1 tab PO DAILY finasteride 5 mg tablet 5 mg PO DAILY Qty: 90 4RF hydroxyzine HCl 25 mg tablet 25 mg PO QID PRN quetiapine [Seroquel] 25 mg tablet 75 mg PO DAILY Patient Comments: 25mg QAM 62.5QPM per caregiver Santyl 250 unit/gram ointment 1 applic topical DAILY Qty: 90 0RF Rx Instructions: 4.3x3.6x0.5cm spironolactone 50 mg tablet 50 mg PO DAILY tamsulosin 0.4 mg capsule 0.8 mg PO DAILY Qty: 180 4RF simvastatin 10 MG tablet 10 mg PO DAILY aspirin [Aspir-Low] 81 MG tablet,delayed release (DR/EC) 81 mg PO DAILY omeprazole 20 MG capsule,delayed release(DR/EC) 20 mg PO DAILY Anoro Ellipta 62.5-25 mcg/actuation Blister With Device 1 inh INHALATION DAILY
--- NOTE | 2024-11-09 02:06 | W.SURGCON ---
Date of service: 11/09/24 Time of Service: 02:07 Assessment and Plan Assessment and plan (1) Vomiting: Status: Acute Assessment and plan: Agree that Ed has a number of risk factors that would raise concern for impaction of a food bolus. Although details on the esophageal stricture are quite limited with regards to his history, that would certainly put him at risk. He also appears to have significant mechanical dysfunction that is probably secondary to his Lewy body dementia. Currently, he seems to be managing his secretions okay, and although it took a little while to drink the water, he was able to keep that down with no signs of any type of vomiting or discomfort. And while the risk of the EGD itself is actually quite low, I would suggest endotracheal intubation for this as the risk of aspiration if there is impacted food bolus is much higher. And I think the intubation and sedation would raise a fair amount of risk and the big picture of things if there is no active food bolus at this time. Since Ed seems to doing better now compared to the original presentation, I think admission to the hospital for observation, and a trial of n.p.o. is very reasonable. Once he is more awake and alert in the morning time, we can reassess his swallowing function. A contrast-enhanced swallowing study such as a modified barium swallow, esophagram may be the safest option in the short-term. History of Present Illness History of Present Illness Chief Complaint: Vomiting Narrative: Ed is 89 years old. He has a past medical history that is most significant for Lewy body dementia with parkinsonian features. He comes to the emergency department tonight with fire rescue after his caregiver had concerns about vomiting. She tells me he had been doing well through yesterday, when he underwent a bone biopsy of his heel as part of workup for osteomyelitis. She says he tolerated that procedure fine, was doing okay at home, although in retrospect she thinks he is appetite was a little bit less than usual. He was mostly requesting things like chicken soup. At the time, however, nothing in particular structure is unusual. For lunch, he had chicken and peas, which she tells me she chopped up quite fine. She says that is the normal routine since he does have some difficulty swallowing, which mostly seems oropharyngeal and complicated by his lack of teeth, and difficulty with chewing. She tells me that he ate lunch, and that was uneventful. It sounds like it was several hours later that he started to develop vomiting. She describes it as productive of marie, stringy, bubbly fluid. She does not recall noting any food particulate within it. She says it seems like he has something stuck at the back of his throat. He had several rounds of this, and she eventually called 911 for help. Upon further review, they report a history of an esophageal stricture that was diagnosed much earlier in his life. This was long before she knew him (which has been 16 years). She says they had to stretch something out. Ed's not able to provide any meaningful details on this because of his dementia. He developed a more retching, vomiting type symptoms while in the ER, and he was treated with intravenous glucagon. I was asked to see him for EGD over concerns for an impacted food bolus. When I got to the bedside, Ed was sleeping, but easily arousable. His caregiver provided the history mentioned above. She thought that he has been a little bit more comfortable prior to my arrival. Currently, Ed denies any nausea. Although he also says he does not have any appetite. He seems quite tired and dozes off intermittently during the conversation. As were talking, I assisted him with drinking a cup of water. He is not able to use a straw, but is able to sip from the cup. Over the course of about half an hour he drank a full cup of water. We talked for a little while thereafter, he had no episodes of any retching or vomiting. He does cough quite a bit, and does seem to pull some secretions in the hypopharynx, but he seems to be clearing them on his own without any intervention while I was present. Other past medical history includes retinal detachment, TIA, and a pulmonary nodule that has features that are concerning for malignancy. He has been working with palliative care, and is currently DNR/DNI, do transfer and do treat. Review of Systems Constitutional Constitutional: Reports poor appetite, Reports weakness and Reports weight loss Eyes Eyes: Reports blurry vision ENT Ears, Nose, Mouth, and Throat: Reports abnormal hearing, Reports dysphagia, Reports hearing loss, Denies odynophagia, Reports disequilibrium and Denies sore throat Cardiovascular Cardiovascular: Denies chest pain and Denies dyspnea Respiratory Respiratory: Reports cough, Reports excessive phlegm production and Denies dyspnea Gastrointestinal Gastrointestinal: Reports bloating, Denies change in stool character, Reports dysphagia, Reports nausea, Denies odynophagia and Reports vomiting Musculoskeletal Musculoskeletal: Reports atrophy Comments: Tremor Neurologic Neurologic: Reports abnormal hearing, Reports behavioral changes, Reports confusion, Reports memory loss, Reports other visual disturbances, Reports tremor(s), Reports disequilibrium and Reports weakness Psychiatric Psychiatric: Reports behavioral changes, Reports confusion and Reports memory loss Hematologic/Lymphatic Hematologic/Lymphatic: Denies easy bleeding and Denies easy bruising PFSH All Active Problems Vomiting (Acute) Acute osteomyelitis of right calcaneus (Acute) Atherosclerotic PVD with ulceration (Acute) DNR (do not resuscitate) (Acute) 09/27/2024 COLST: DNR/DNI. +transfer to the hospital, treat, use antibiotics and IV fluids. Nanette says he should not have a feeding tube. Pt does not know what he would want to do. Advanced care planning/counseling discussion (Acute) Palliative care encounter (Acute) Ambulatory dysfunction (Acute) Caregiver stress (Acute) Non-healing ulcer of right foot (Acute) Ulcer of right foot with fat layer exposed (Acute) Ulcer of left heel and midfoot with fat layer exposed (Acute) Corns and callosities (Acute) Long toenail (Acute) Bilateral bunions (Acute) Acquired hammertoes of both feet (Acute) Ulcer of right foot (Acute) Parkinsonian features (Acute) Cognitive changes (Acute) Paranoia (Acute) Visual hallucination (Acute) Cellulitis (Acute) Atopic contact dermatitis (Acute) Transient cerebral ischemia (Chronic) Benign prostatic hyperplasia (Chronic) Atopic dermatitis (Acute) Lung nodule (Acute) Microscopic hematuria (Acute) Erectile dysfunction (Acute) History of elevated prostate specific antigen (PSA) (Acute) Medical History BPH w urinary obs/LUTS Chronic kidney disease CKD 3B Lewy body dementia Esophageal stricture Rheumatoid arthritis HTN (hypertension) HLD (hyperlipidemia) Adenomatous colon polyp Allergic rhinitis Dysphonia Lesion of iris Transient acantholytic dermatosis Bilateral hip pain Spinal stenosis Chronic constipation Orthostatic dizziness Sinus bradycardia RBBB (right bundle branch block) Anemia Weight loss Pruritus Surgical History Colonoscopy - MAC (07/27/15) DR.TERRY CHOUDHARY Social History Smoking/Tobacco Use Status: Former Tobacco Use tobacco type: cigarettes Quit Date: 10/05/99 Smoking risk assessment performed?: Yes Alcohol Intake: never Drug use: Never Substance use type: does not use Housing: house 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 General: cooperative and no acute distress Nutritional Appearance: well nourished Orientation: confused (But is able to answer many questions accurately) [facility] Head: normal to inspection Ears: external ears normal Mouth: oral mucosae normal, moist mucous membranes abnormal, no drooling and no muffled voice Throat: posterior oropharynx normal Neck Neck: normal visual inspection, full ROM, no lymphadenopathy, trachea midline and supple Thyroid: no masses Resp Effort & Inspection: able to speak in complete sentences (Mostly), cough and decreased respiratory effort Auscultation: bronchial breath sounds and rhonchi Cardio Rate: regular rate Rhythm: regular rhythm GI Inspection: normal to inspection and distended (Mild) Palpation: soft, no guarding and nontender Auscultation: normal bowel sounds Results Last Vital Signs Temp 97.9 F 11/08/24 21:26 Pulse 82 11/09/24 01:31 Resp 17 11/09/24 01:31 BP 91/55 L 11/09/24 01:31 Pulse Ox 87 L 11/08/24 22:15 Labs 11/08/24 21:35 11/08/24 21:35 Labs: Laboratory Results - last 24 hr 11/08/24 11/08/24 21:35 23:43 WBC 8.62 RBC 4.43 Hgb 12.4 L Hct 38.9 L MCV 88 MCH 28.0 MCHC 31.9 L RDW 14.7 H Plt Count 216 MPV 10.0 Immature Gran % 0.3 Neutrophils % 91.9 Lymphocytes % 3.8 Monocytes % 3.5 Eosinophils % 0.3 Basophils % 0.2 Nucleated RBC % 0.0 Absolute Neutrophils 7.91 H Absolute Lymphocytes 0.33 L Absolute Monocytes 0.30 Absolute Eosinophils 0.03 Absolute Basophils 0.02 Sodium 142 Potassium 5.0 Chloride 107 Carbon Dioxide 26.8 Anion Gap 8.2 BUN 25 H Creatinine 1.5 H Est GFR (CKD-EPI 2020) 44.78 Glucose 115 H Calcium 9.1 Total Bilirubin 0.42 AST 26 ALT 18 Alkaline Phosphatase 106 Troponin I 13 Total Protein 7.3 Albumin 2.9 L Lipase 21 Urine Color Yellow Urine Clarity Clear Urine pH 5.5 Ur Specific [place] 1.020 Urine Protein Negative Urine Ketones Negative Urine Blood Negative Urine Nitrite Negative Urine Bilirubin Negative Urine Urobilinogen 0.2 Ur Leukocyte Esterase Negative Urine Glucose Negative
--- NOTE | 2024-11-09 02:44 | HPE_ITS ---
Date of service: 11/09/24 Time of Service: 06:11 Assessment and Plan Assessment and plan (1) Vomiting: Status: Acute Assessment and plan: Mr. Galvez has a history of both Parkinsonism/Lewy Body Dementia as well as known esophogeal strictures. He does have some degree of baseline oropharyngeal dysphagia related to his Parkinsons. This could also be the first stages of infectious gastroenteritis/norovirus we are seeing this winter. CT head negative, no localizing findings to suggest acute CVA/TIA Case was reviewed with Dr. Rodriges in ED who recommends barium swallow as the first step in evaluation rather than endoscopy given his high baseline risk. He was able to tolerate some sips of water with Dr. Rodriges but not adequate to discharge. Will observe inpatient with IV fluids for now, NPO until discussed again with surgery, and proceed with barium swallow. 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 (2) Chronic kidney disease: Assessment and plan: creatinine at baseline suggesting is he not severely dehydrated. Continue to monitor (3) Non-healing ulcer of right foot: Status: Acute Assessment and plan: He just had day surgery procedure with Dr. Amaral. Will consult to ask her to reassess the wound and help determine need for antibiotics. Continue wound care as previously directed by Dr. Amaral. (4) HTN (hypertension): Assessment and plan: Continue losartan if tolerating po but hold spironolactone while vomiting (5) BPH w urinary obs/LUTS: Assessment and plan: continue tamsulosin (6) Anemia: Assessment and plan: mild, at baseline. Hold iron until GI issues resolve. (7) Lewy body dementia: Assessment and plan: Continue quetiapine as he has been tolerating this as outpatient despite risk of worse parkinsonism with neuroleptics (8) DVT prophylaxis: Status: Acute Assessment and plan: enoxaparin History of Present Illness History of Present Illness Chief Complaint: vomiting Narrative: 89 yo M with history of dementia, esophageal stricture, s/p debridement with bone biopsy 11/07/24 for non-healing right foot wound with concern for osteomyelitis, who presented overnight with acute vomiting, unable to keep food or fluids down. Per family vomiting torres fluid for several hours. Patient is not able to give history, but does say no to direct questions about headache, fever, increased cough, abdominal or chest pain, nausea or shortness of breath. He has not had diarrhea. No blood in vomit or coffee grounds or bile. He had a debridement and biopsy of a non-healing pressure wound of his right heel on 11/07 as a day procedure without complication. There is concern for osteomyelitis but he has not been on antibiotics. Since then he had been eating normal food, though perhaps with slightly less appetite. He does have baseline oropharyngeal dysphagia and eats a finely chopped diet. His last meal was lunch 11/08, and the vomiting started a couple of hours after that. See Dr. Rodriges's note, as he was able to talk directly to Mr. Galvez's caregiver. Of note, he had a remote esophageal stricture that was stretched. When Dr. Rodriges evaluated the patient in the ED, he was able sip a full cup of water over 30 minutes without additional vomiting. Review of Systems All systems reviewed & are unremarkable except as noted in HPI and below (though limited by MS) Constitutional Constitutional: Denies chills and Denies fever(s) Cardiovascular Cardiovascular: Denies dyspnea Respiratory Respiratory: Reports cough (some at baseline), Denies excessive phlegm production and Denies dyspnea Integumentary/Breasts Skin/Breast: Reports wounds (right heel) Neurologic Neurologic: Reports memory loss Psychiatric Psychiatric: Reports memory loss PFSH All Active Problems DVT prophylaxis (Acute) Vomiting (Acute) Acute osteomyelitis of right calcaneus (Acute) Atherosclerotic PVD with ulceration (Acute) DNR (do not resuscitate) (Acute) 09/27/2024 COLST: DNR/DNI. +transfer to the hospital, treat, use antibiotics and IV fluids. Nanette says he should not have a feeding tube. Pt does not know what he would want to do. Advanced care planning/counseling discussion (Acute) Palliative care encounter (Acute) Ambulatory dysfunction (Acute) Caregiver stress (Acute) Non-healing ulcer of right foot (Acute) Ulcer of right foot with fat layer exposed (Acute) Ulcer of left heel and midfoot with fat layer exposed (Acute) Corns and callosities (Acute) Long toenail (Acute) Bilateral bunions (Acute) Acquired hammertoes of both feet (Acute) Ulcer of right foot (Acute) Parkinsonian features (Acute) Cognitive changes (Acute) Paranoia (Acute) Visual hallucination (Acute) Atopic contact dermatitis (Acute) Transient cerebral ischemia (Chronic) Benign prostatic hyperplasia (Chronic) Cellulitis (Acute) Atopic dermatitis (Acute) Lung nodule (Acute) Microscopic hematuria (Acute) Erectile dysfunction (Acute) History of elevated prostate specific antigen (PSA) (Acute) Medical History Lewy body dementia Chronic kidney disease CKD 3B Esophageal stricture Rheumatoid arthritis HTN (hypertension) HLD (hyperlipidemia) BPH w urinary obs/LUTS Adenomatous colon polyp Allergic rhinitis Dysphonia Lesion of iris Transient acantholytic dermatosis Bilateral hip pain Spinal stenosis Chronic constipation Orthostatic dizziness Sinus bradycardia RBBB (right bundle branch block) Anemia Weight loss Pruritus Surgical History Colonoscopy - MAC (07/27/15) DR.TERRY CHOUDHARY Social History Smoking/Tobacco Use Status: Former Tobacco Use tobacco type: cigarettes Quit Date: 10/05/99 Smoking risk assessment performed?: Yes Alcohol Intake: never Drug use: Never Substance use type: does not use Housing: house Additional Social history: [facility] Meds Allergies and Home Medications Allergies Allergy/AdvReac Type Severity Reaction Status Date / Time trazodone Allergy Mild Other (See Verified 11/03/24 09:27 Comment) atenolol Allergy Other (See Verified 11/03/24 09:27 Comment) codeine AdvReac Unknown Other (See Verified 11/03/24 09:27 Comment) Home Medications ?Medication ?Instructions ?Recorded ?Confirmed ?Type aspirin 81 mg tablet,delayed 81 mg PO DAILY 07/26/15 11/09/24 History release (Aspir-Low) omeprazole 20 mg capsule,delayed 20 mg PO DAILY 07/26/15 11/09/24 History release simvastatin 10 mg tablet 10 mg PO DAILY 07/26/15 11/09/24 History spironolactone 50 mg tablet 50 mg PO DAILY 12/05/19 11/09/24 History umeclidinium 62.5 mcg-vilanterol 1 inh inhalation DAILY 05/10/23 11/09/24 History 25 mcg/actuation powdr for inhalation (Anoro Ellipta) multivitamin with iron 1 tab PO DAILY 09/25/23 11/09/24 History finasteride 5 mg tablet 5 mg PO DAILY #90 tabs 05/27/24 11/09/24 Rx tamsulosin 0.4 mg capsule 0.8 mg (2 x 0.4 mg) PO DAILY #180 06/17/24 11/09/24 Rx caps losartan 100 mg tablet 25 mg PO DAILY 06/21/24 11/09/24 History triamcinolone acetonide 0.1 % 1 applic topical BID 06/22/24 11/09/24 History topical cream hydroxyzine HCl 25 mg tablet 25 mg PO QID PRN 07/27/24 11/09/24 History collagenase clostridium histo. 250 1 applic topical DAILY #90 grams 08/29/24 11/09/24 Rx unit/gram topical ointment (Santyl) quetiapine 25 mg tablet (Seroquel) 75 mg PO DAILY 09/27/24 11/09/24 History albuterol sulfate 90 mcg/actuation 1 puff inhalation ONCE 10/18/24 11/09/24 History aerosol inhaler benzonatate 100 mg capsule 100 mg PO BID PRN 10/18/24 11/09/24 History lisdexamfetamine 50 mg capsule 50 mg PO DAILY 10/18/24 11/09/24 History meclizine 12.5 mg tablet 12.5 mg PO DAILY PRN 10/18/24 11/09/24 History polyethylene glycol 3350 17 17 g PO DAILY 10/18/24 11/09/24 History gram/dose oral powder sodium chloride 5 % eye ointment 1 applic ophthalmic (eye) DAILY 10/18/24 11/09/24 History Exam Narrative Exam Narrative: GEN: Sleepy, thin with masked faces, only answering yes/no to direct questions, though cooperative and following directions. Unable to related history. No acute distress at rest. HEENT: Head atraumatic. Conjunctiva clear, no icterus. Pupils 2mm bilaterally and reactive. no rhinorrhea. MM a little dry (he is mouth breathing), edentulous, OP benign. Neck is supple with no masses or lymphadenopathy, trachea midline LUNGS: CTAB with normal effort CV: RRR with no murmurs, gallops, or rubs. ABD: active bowel sounds, soft, nontender and nondistended. No masses. EXT: no cyanosis, clubbing, or edema MSK: No joint redness or swelling NEURO: CN 2-12 grossly intact. Increased tone diffusely with occaisional slight myoclonic jerk. Cogwheeling with passive ROM. He is moving with roughly equal tone all 4 extremities. His speech is slow but can make out words. slight resting tremor in extremities. SKIN: No rashes. Skin proximal and distal to right heel wound is not red or tender. Bandage is C/D/I, I did not take this down. PSYCH: flat affect Results Imaging CT scan - chest: report reviewed (No large territorial infarct or intracranial bleed. ) and image reviewed Additional studies: sugerical culture 2/3: NG x 24 hours Imaging Studies: CT head: No large territorial infarct or intracranial bleed. Labs 11/08/24 21:35 11/08/24 21:35 Labs: Laboratory Results - last 24 hr 11/08/24 11/08/24 21:35 23:43 WBC 8.62 RBC 4.43 Hgb 12.4 L Hct 38.9 L MCV 88 MCH 28.0 MCHC 31.9 L RDW 14.7 H Plt Count 216 MPV 10.0 Immature Gran % 0.3 Neutrophils % 91.9 Lymphocytes % 3.8 Monocytes % 3.5 Eosinophils % 0.3 Basophils % 0.2 Nucleated RBC % 0.0 Absolute Neutrophils 7.91 H Absolute Lymphocytes 0.33 L Absolute Monocytes 0.30 Absolute Eosinophils 0.03 Absolute Basophils 0.02 Sodium 142 Potassium 5.0 Chloride 107 Carbon Dioxide 26.8 Anion Gap 8.2 BUN 25 H Creatinine 1.5 H Est GFR (CKD-EPI 2020) 44.78 Glucose 115 H Calcium 9.1 Total Bilirubin 0.42 AST 26 ALT 18 Alkaline Phosphatase 106 Troponin I 13 Total Protein 7.3 Albumin 2.9 L Lipase 21 Urine Color Yellow Urine Clarity Clear Urine pH 5.5 Ur Specific [place] 1.020 Urine Protein Negative Urine Ketones Negative Urine Blood Negative Urine Nitrite Negative Urine Bilirubin Negative Urine Urobilinogen 0.2 Ur Leukocyte Esterase Negative Urine Glucose Negative Last Vital Signs Temp 36.6 C 11/08/24 21:26 Pulse 83 11/09/24 02:20 Resp 21 11/09/24 02:20 BP 113/51 L 11/09/24 02:15 Pulse Ox 95 11/09/24 02:20 Time Spent Time spent with Patient: 55-74 minutes Time was spent: preparing to see the patient(eg.review tests), obtaining and/or reviewing separately otained hiistory, ordering medications,tests, procedures, referring, communicating with other health critical care rn, indepentently interpreting results and care coordination
--- NOTE | 2024-11-09 05:04 | W.PC.ACHO ---
Registration Status: Primary Language: Preferred Language: ED Information & Data Chief Complaint Nausea/Vomit/Diar 11/08/24 22:16 Other Complaint AMS/LOC 11/08/24 21:26 Triage Note right foot bone biopsy 11/08/24 21:26 yesterday. today vomiting, unknown amount of times, appears clear/marie. BS 145. hx of dementia. reporting he is acting unusual. Medical / Surgical History (Last Reviewed 11/09/24 @ 02:58 by Remi Knott) BPH w urinary obs/LUTS Chronic kidney disease Lewy body dementia Esophageal stricture Rheumatoid arthritis HTN (hypertension) HLD (hyperlipidemia) Adenomatous colon polyp Allergic rhinitis Dysphonia Lesion of iris Transient acantholytic dermatosis Bilateral hip pain Spinal stenosis Chronic constipation Orthostatic dizziness Sinus bradycardia RBBB (right bundle branch block) Anemia Weight loss Pruritus (Last Reviewed 11/09/24 @ 02:58 by Remi Knott) Colonoscopy - MAC (07/27/15) Most Recent Vital Signs Temperature 36.9 C 11/09/24 04:29 Pulse 79 11/09/24 04:29 Pulse Rhythm Regular 11/09/24 04:13 Pulse 70 11/09/24 03:50 Respiratory Rate 18 11/09/24 04:29 Respiratory Effort Non-Labored 11/09/24 04:13 Respiratory Depth Deep 11/09/24 04:13 Respiratory Pattern Normal 11/09/24 04:13 Blood Pressure 134/67 11/09/24 04:29 Blood Pressure Mean 67 11/09/24 03:45 Pulse Oximetry 95 11/09/24 04:29 Oxygen Delivery Method Room Air 11/09/24 04:29 Oxygen Flow Rate 0 11/09/24 04:29 Comment pt denies pain at this time 11/09/24 04:29 Allergies trazodone Allergy (Mild, Verified 11/03/24 09:27) Other (See Comment) CONFUSION, HALLUCINATIONS atenolol Allergy (Verified 11/03/24 09:27) Other (See Comment) unknown codeine Adverse Reaction (Unknown, Verified 11/03/24 09:27) Other (See Comment) unknown IV IV Catheter Type [Right Saline Lock Antecubital] IV Catheter Gauge [Right 20 Antecubital] Diet Orders Category Date Time Status Regular/Normal [DIET] Nutrition 11/09/24 Breakfast Active Diagnostics 11/09/24 11/08/24 11/08/24 Range/Units 05:35 23:43 21:35 WBC 8.62 (4.4-10.8) 10^3/uL RBC 4.43 (4.36-5.78) 10^6/uL Hgb 12.4 L (13.5-17.5) g/dL Hct 38.9 L (40.0-50.0) % MCV 88 (80-95) fL MCH 28.0 (27.0-33.0) pg MCHC 31.9 L (32.0-36.0) % RDW 14.7 H (11.8-14.1) % Plt Count 216 (130-400) 10^3/uL MPV 10.0 (8.0-11.0) fL Immature Gran % 0.3 % Neutrophils % 91.9 % Lymphocytes % 3.8 % Monocytes % 3.5 % Eosinophils % 0.3 % Basophils % 0.2 % Nucleated RBC % 0.0 (0.0-0.3) % Absolute Neutrophils 7.91 H (1.2-6.7) 10^3/uL Absolute Lymphocytes 0.33 L (1.2-3.4) 10^3/uL Absolute Monocytes 0.30 (0.1-0.8) 10^3/uL Absolute Eosinophils 0.03 (0.0-0.7) 10^3/uL Absolute Basophils 0.02 (0.0-0.2) 10^3/uL Sodium Pending 142 (136-145) mmol/L Potassium Pending 5.0 (3.5-5.1) mmol/L Chloride Pending 107 (98-107) mmol/L Carbon Dioxide Pending 26.8 (21.0-32.0) mmol/L Anion Gap Pending 8.2 (3-11) mmol/L BUN Pending 25 H (7-18) mg/dL Creatinine Pending 1.5 H (0.70-1.30) mg/dL Est GFR (CKD-EPI 2020) Pending 44.78 (mL/min/1.73m2) Glucose Pending 115 H (74-106) mg/dL Calcium Pending 9.1 (8.5-10.1) mg/dL Magnesium Pending Total Bilirubin 0.42 (0.2-1.0) mg/dL AST 26 (15-37) U/L ALT 18 (16-63) U/L Alkaline Phosphatase 106 (46-116) U/L Troponin I 13 (<or=76) ng/L Total Protein 7.3 (6.4-8.2) g/dL Albumin 2.9 L (3.4-5.0) g/dL Lipase 21 (<78) U/L Urine Color Yellow (Yellow) Urine Clarity Clear (Clear) Urine pH 5.5 (5-8) Ur Specific [place] 1.020 (1.005-1.025) Urine Protein Negative (Neg-Trace) mg/dL Urine Ketones Negative (Negative) mg/dL Urine Blood Negative (Negative) Urine Nitrite Negative (Negative) Urine Bilirubin Negative (Negative) Urine Urobilinogen 0.2 (Up to 0.2) mg/dL Ur Leukocyte Esterase Negative (Negative) Urine Glucose Negative (Negative) mg/dL Intake and Output - 24 Hour Total 11/08/24 21:18 thru 11/09/24 04:29 Intake Total 10 Output Total 900 Balance -890 Weight 64.864 kg Intake: IV 10 Output: Urine 900 Other: Urine Color Pale Yellow Urine Appearance Clear Emesis Description Clear/Water Mucous # Voids 1 Falls Risk Assessment History of Falls Previous History 11/09/24 04:13 Contributing Factors Confusion,Impairments 11/09/24 04:13 Ambulatory Aids Uses ambulatory device + 11/09/24 04:13 Tubes/Lines With any additional score 11/09/24 04:13 Gait Evaluation W/any additional score 11/09/24 04:13 Cognition No cognitive impairment 11/09/24 04:13 Fall Total Score 91 11/09/24 04:13 Level of Risk Maximum Risk 11/09/24 04:13 Problems (Last Reviewed 11/09/24 @ 02:58 by Remi Knott) DVT prophylaxis (Acute) Vomiting (Acute) Non-healing ulcer of right foot (Acute) v v v v v v v v v Sending and/or Receiving Nurses: Please use comment section below to note any information pertinent to the patient hand-off not included above. Information / Comments: Report received from:
[2024-11-09] MEDS: Normal Saline Flush 10 ML SYR IVP ×3 (05:18→21:23)
[2024-11-09] MEDS: POTASSIUM CHLORIDE/D5-0.45NACL 1,000 ML 100 MEQ IV (05:19)
[2024-11-09 07:55] LABS: Anion Gap 7.1 mmol/L (3-11); BUN 30 mg/dL (7-18); CO2 24.9 mmol/L (21.0-32.0); CREATININE 1.5 mg/dL (0.70-1.30); Calcium 8.7 mg/dL (8.5-10.1); Chloride 106 mmol/L (98-107); Estimated GFR 44.78 (mL/min/1.73m2); Glucose 136 mg/dL (74-106); Magnesium 1.8 mg/dL (1.8-2.4); Potassium 4.1 mmol/L (3.5-5.1); Sodium 138 mmol/L (136-145)
[2024-11-09] MEDS: Tiotropium/Olodaterol 10 PUFF INHALER IH (08:20)
[2024-11-09] MEDS: Pantoprazole 40 MG VIAL IVP (08:23)
--- NOTE | 2024-11-09 10:48 | DI.RAD_ITS ---
Exam(s) RF BARIUM SWALLOW EXAM: RF BARIUM SWALLOW CLINICAL HISTORY: h/o esophageal stricture, acute vomiting TECHNIQUE: 2D and realtime digital imaging was performed. CONTRAST MATERIAL: Thick and thin barium and barium tablet were administered. 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 Exam is limited by patient immobility. The exam was performed upright a chair. Laryngeal penetration was observed on 1 occasion. No shira aspiration was observed. Mild residue in the vallecular or piriform sinuses. Esophagus: The patient swallowed barium without difficulty. Noevidence for mucosal erosions. Nofol d thickening. No mass is visible. Nostricture. No evidence of Zenker diverticulum. A barium tablet was administered was stuck briefly at the vallecula. Motility: There is a normal primary stripping wave. No tertiary contractions were noted. There is no visible hiatal hernia. IMPRESSION: No evidence of esophageal stricture. RADIATION DOSE DELIVERED: johanna Naylor=15.9 mGy
[2024-11-09] MEDS: Barium Sulfate 700 MG TAB PO (10:49)
[2024-11-09] MEDS: Barium Sulfate 60% W/V 355 ML BTL PO (10:50)
--- NOTE | 2024-11-09 12:44 | W.PODCONSULT ---
Date of service: 11/09/24 Time of Service: 11:15 Assessment and Plan Assessment and plan (1) Acute osteomyelitis of right calcaneus: Status: Acute (2) Atherosclerotic PVD with ulceration: Status: Acute (3) Non-healing ulcer of right foot: Status: Acute (4) Ulcer of right foot with fat layer exposed: Status: Acute (5) Ulcer of left heel and midfoot with fat layer exposed: Status: Acute Assessment and plan: Patient was seen bedside today. Right heel ulcer was evaluated today. The wound bed appears healthy and stable. No periwound erythema noted there is edema noted to the right heel, no malodor no fluctuance no bogginess concerning for worsening infection. MRI concerning for osteomyelitis. Early wound cultures show growth of corynebacterium. I recommend antibiotics. Will await biopsy results to determine length of antibiotics. Dressings changed today with Allevyn heel dressings. Will continue to monitor. History of Present Illness Narrative: 89-year-old male with dementia patient admitted for vomiting and inability to keep fluids and food down. He is status post OR wound debridement and bone biopsy on 11/07/2024. Patient seen bedside resting comfortably. Offers no complaints. Review of Systems Integumentary/Breasts Comments: Ulcer to the right heel Psychiatric Psychiatric: Reports as per [facility] All Active Problems DVT prophylaxis (Acute) Vomiting (Acute) Acute osteomyelitis of right calcaneus (Acute) Atherosclerotic PVD with ulceration (Acute) DNR (do not resuscitate) (Acute) 09/27/2024 COLST: DNR/DNI. +transfer to the hospital, treat, use antibiotics and IV fluids. Nanette says he should not have a feeding tube. Pt does not know what he would want to do. Advanced care planning/counseling discussion (Acute) Palliative care encounter (Acute) Ambulatory dysfunction (Acute) Caregiver stress (Acute) Cellulitis (Acute) Non-healing ulcer of right foot (Acute) Ulcer of right foot with fat layer exposed (Acute) Ulcer of left heel and midfoot with fat layer exposed (Acute) Corns and callosities (Acute) Long toenail (Acute) Bilateral bunions (Acute) Acquired hammertoes of both feet (Acute) Ulcer of right foot (Acute) Parkinsonian features (Acute) Cognitive changes (Acute) Paranoia (Acute) Visual hallucination (Acute) Atopic contact dermatitis (Acute) Transient cerebral ischemia (Chronic) Benign prostatic hyperplasia (Chronic) Atopic dermatitis (Acute) Lung nodule (Acute) Microscopic hematuria (Acute) Erectile dysfunction (Acute) History of elevated prostate specific antigen (PSA) (Acute) Medical History Lewy body dementia Chronic kidney disease CKD 3B BPH w urinary obs/LUTS Esophageal stricture Rheumatoid arthritis HTN (hypertension) HLD (hyperlipidemia) Adenomatous colon polyp Allergic rhinitis Dysphonia Lesion of iris Transient acantholytic dermatosis Bilateral hip pain Spinal stenosis Chronic constipation Orthostatic dizziness Sinus bradycardia RBBB (right bundle branch block) Anemia Weight loss Pruritus Surgical History Colonoscopy - MAC (07/27/15) DR.TERRY CHOUDHARY Social History Smoking/Tobacco Use Status: Former Tobacco Use tobacco type: cigarettes Quit Date: 10/05/99 Smoking risk assessment performed?: Yes Alcohol Intake: never Drug use: Never Substance use type: does not use Housing: house Additional Social history: [employer] Exam Extrem Other: Right lower extremity physical exam: Derm: Full-thickness ulcer noted to the lateral aspect of the right heel without any periwound erythema, there is edema, no fluctuance no bogginess no crepitus there is bone exposed at the biopsy site. Vascular: Pulses are nonpalpable to the light right lower extremity however skin is warm. No active bleeding noted from the ulcer. Neuro: Light touch is intact Results Last Vital Signs Temp 97.3 F L 11/09/24 08:09 Pulse 84 11/09/24 08:09 Resp 17 11/09/24 08:09 BP 136/103 H 11/09/24 08:09 Pulse Ox 94 11/09/24 08:09 Labs 11/08/24 21:35 11/09/24 07:38 Labs: Laboratory Results - last 24 hr 11/08/24 11/08/24 11/09/24 21:35 23:43 07:38 WBC 8.62 RBC 4.43 Hgb 12.4 L Hct 38.9 L MCV 88 MCH 28.0 MCHC 31.9 L RDW 14.7 H Plt Count 216 MPV 10.0 Immature Gran % 0.3 Neutrophils % 91.9 Lymphocytes % 3.8 Monocytes % 3.5 Eosinophils % 0.3 Basophils % 0.2 Nucleated RBC % 0.0 Absolute Neutrophils 7.91 H Absolute Lymphocytes 0.33 L Absolute Monocytes 0.30 Absolute Eosinophils 0.03 Absolute Basophils 0.02 Sodium 142 138 Potassium 5.0 4.1 Chloride 107 106 Carbon Dioxide 26.8 24.9 Anion Gap 8.2 7.1 BUN 25 H 30 H Creatinine 1.5 H 1.5 H Est GFR (CKD-EPI 2020) 44.78 44.78 Glucose 115 H 136 H Calcium 9.1 8.7 Magnesium 1.8 Total Bilirubin 0.42 AST 26 ALT 18 Alkaline Phosphatase 106 Troponin I 13 Total Protein 7.3 Albumin 2.9 L Lipase 21 Urine Color Yellow Urine Clarity Clear Urine pH 5.5 Ur Specific [place] 1.020 Urine Protein Negative Urine Ketones Negative Urine Blood Negative Urine Nitrite Negative Urine Bilirubin Negative Urine Urobilinogen 0.2 Ur Leukocyte Esterase Negative Urine Glucose Negative
--- NOTE | 2024-11-09 13:20 | TELEP.MEDR_ITS ---
Date of service: 11/09/24 Time of Service: 13:21 Telepharmacy Home Med Rec Allergies Allergies: trazodone Allergy (Mild, Verified 11/03/24 09:27) Other (See Comment) atenolol Allergy (Verified 11/03/24 09:27) Other (See Comment) codeine Adverse Reaction (Unknown, Verified 11/03/24 09:27) Other (See Comment) Interview Person Interviewed: Nanette Schreiber [phone] Quality Quality of Interview/Accuracy of Medication List: Good Sources Sources used to compile medication list: [employer] Medication List, Patient List and SureScripts Changes made to Home Medication List: ADDITIONS: Systane CLARY DELETIONS: Benzonatate Lisdexamfetamine Meclizine Polyethylene glycol CHANGES: Aspirin at HS Simvastatin at HS Tamsulosin at HS Quetiapine is now 25mg in AM and 62.5mg at HS (1 tab in AM, 2 and one half tabs at HS) Additional Notes Additional Notes: Per Nanette, pt took medications at home last night 11/09/24 Recommended Changes Recommended Changes(reason for recommendation): None Attestation: The home medication list is now updated to the best of my knowledge and is ready to be reconciled by the provider. Please contact the TelePharmacy Medication Reconciliation Pharmacist at for any questions.
--- NOTE | 2024-11-09 14:11 | INITIAL_ITS ---
Date of service: 11/09/24 Time of Service: 14:11 Care Management Initial Assmt Initial Assessment Reason for Hospitalization: Vomiting, osteomyelitis Functional Status/Living Situation Patient Presentation: Ed Pascual was sleeping when CM attempted to meet with him. Per report, he has been busy with testing all day, so CM did not wake him. CM contacted his s/o, Nanette, who is also his health care agent, by phone. She stated that Ankur requires a lot of support from her, but he is generally ambulatory. She helps with cooking, cleaning, and ADLs. She stated that his eyesight and arthritis impede his functioning. She reported that they have been receiving support from Yanna at [facility], and recently hired a caregiver using a dementia salvatore. Nanette stated that Yanna is helping them with a half-way [facility] application as well. Nanette stated that her goal is to keep Ed home as long as she is able to take care of him; she is a retired AIR COMPRESSOR MECHANIC and reported that she is very independent. Nanette stated that they recently were connected to palliative care, and have a home visit scheduled in December. CM will continue to follow. 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/ Care Team Visit Care Team Role Provider Type Magdaleno Dickens MD Primary Care Provider NON-[facility] STAFF PHYSICIAN Che Amaral, DPM Other Providers DPM [facility] STAFF PHYSICIAN Wili Wang, IMPACT HAMMER OPERATOR Other Providers CERT REG NURSE KERFER MACHINE OPERATOR [place] WilderM Other Providers DPM [facility] STAFF PHYSICIAN Davie Rodriges MD Other Providers [facility] STAFF PHYSICIAN Helena Noble MD Emergency Provider [facility] STAFF PHYSICIAN Remi Knott Admit Provider [facility] STAFF PHYSICIAN Attending Provider Discharge Potential Discharge Needs: PCP F/U Appt Anticipated Barriers to Discharge: None Identified Patient/Family Education Needs: Review discharge instructions, discuss Ask Me Three Transportation: Private vehicle Plan: Anticipate Ed will return home with a resumption of RN when medically cleared. He will transport home via private vehicle by family. He will follow up with his PCP and discharge plan of care. CM will continue to follow. Social Determinants of Health Screening Will the Patient Participate in the Screening?: Unable to obtain PFSH All Active Problems DVT prophylaxis (Acute) Vomiting (Acute) Acute osteomyelitis of right calcaneus (Acute) Atherosclerotic PVD with ulceration (Acute) DNR (do not resuscitate) (Acute) 09/27/2024 COLST: DNR/DNI. +transfer to the hospital, treat, use antibiotics and IV fluids. Nanette says he should not have a feeding tube. Pt does not know what he would want to do. Advanced care planning/counseling discussion (Acute) Palliative care encounter (Acute) Ambulatory dysfunction (Acute) Caregiver stress (Acute) Non-healing ulcer of right foot (Acute) Ulcer of right foot with fat layer exposed (Acute) Ulcer of left heel and midfoot with fat layer exposed (Acute) Corns and callosities (Acute) Long toenail (Acute) Bilateral bunions (Acute) Acquired hammertoes of both feet (Acute) Ulcer of right foot (Acute) Parkinsonian features (Acute) Cognitive changes (Acute) Paranoia (Acute) Visual hallucination (Acute) Cellulitis (Acute) Atopic contact dermatitis (Acute) Transient cerebral ischemia (Chronic) Benign prostatic hyperplasia (Chronic) Atopic dermatitis (Acute) Lung nodule (Acute) Microscopic hematuria (Acute) Erectile dysfunction (Acute) History of elevated prostate specific antigen (PSA) (Acute) Medical History Lewy body dementia Chronic kidney disease CKD 3B BPH w urinary obs/LUTS Esophageal stricture Rheumatoid arthritis HTN (hypertension) HLD (hyperlipidemia) Adenomatous colon polyp Allergic rhinitis Dysphonia Lesion of iris Transient acantholytic dermatosis Bilateral hip pain Spinal stenosis Chronic constipation Orthostatic dizziness Sinus bradycardia RBBB (right bundle branch block) Anemia Weight loss Pruritus Surgical History Colonoscopy - MAC (07/27/15) DR.TERRY CHOUDHARY Social History Smoking/Tobacco Use Status: Former Tobacco Use tobacco type: cigarettes Quit Date: 10/05/99 Smoking risk assessment performed?: Yes Alcohol Intake: never Drug use: Never Substance use type: does not use Housing: house Additional Social history: [facility]
[2024-11-09] MEDS: Finasteride 5 MG TAB PO (14:48)
[2024-11-09] MEDS: Simvastatin 10 MG TAB PO (21:20)
[2024-11-09] MEDS: Doxycycline Hyclate 100 MG CAP PO (21:20)
[2024-11-09] MEDS: Tamsulosin 0.4 MG CAPCR 0.8 MG PO (21:21)
[2024-11-09] MEDS: QUEtiapine 25 MG TAB 62.5 MG PO (21:21)
[2024-11-09] MEDS: Aspirin E.C. 81 MG TABEC PO (21:21)
[2024-11-09] MEDS: Triamcinolone 0.1% CR 15 GM TUBE TP (21:22)
[2024-11-09] MEDS: Enoxaparin 40 MG/0.4 ML SYR SC (21:22)
[2024-11-10 07:52] VITALS: BP 132/73; PULSE 60; RESP 17; TEMP 36.7; O2SAT 93
[2024-11-10] MEDS: Tiotropium/Olodaterol 10 PUFF INHALER IH (08:34)
[2024-11-10] MEDS: QUEtiapine 25 MG TAB PO (09:21)
[2024-11-10] MEDS: Losartan 25 MG TAB PO (09:21)
[2024-11-10] MEDS: Doxycycline Hyclate 100 MG CAP PO ×2 (09:21→20:06)
[2024-11-10] MEDS: Pantoprazole 40 MG VIAL IVP (09:21)
[2024-11-10] MEDS: Normal Saline Flush 10 ML SYR IVP ×2 (09:22→20:07)
[2024-11-10] MEDS: Finasteride 5 MG TAB PO (09:22)
--- NOTE | 2024-11-10 12:03 | PGE_ITS ---
Date of Service Date of service: 11/10/24 Time of Service: 11:30 Assessment and Plan Assessment and plan (1) Acute osteomyelitis of right calcaneus: Status: Acute (2) Atherosclerotic PVD with ulceration: Status: Acute (3) Non-healing ulcer of right foot: Status: Acute (4) Ulcer of right foot with fat layer exposed: Status: Acute (5) Ulcer of left heel and midfoot with fat layer exposed: Status: Acute Assessment and plan: Patient was seen bedside today. Right heel ulcer was evaluated today. The wound bed remains healthy and stable. No periwound erythema noted there is edema noted to the right heel, no malodor no fluctuance no bogginess concerning for worsening infection. MRI concerning for osteomyelitis. Early wound cultures show growth of corynebacterium. I recommend continuing antibiotics. I discussed this with Nanette today and she agrees with antibiotics to help keep this wound stable as there is risk for infection. Will await biopsy results to determine length of antibiotics. Dressings changed today with Allevyn heel dressings. Nursing to continue daily dressing changes as follows: Cleanse the wound with wound cleanse. Pat dry. Apply saline to the wound bed, Santyl, foam border dressing. Please continue Prevalon boots. Patient to remain nonweightbearing to the right lower extremity however he may toe touch for transfers. Patient to follow-up outpatient within 1 week of discharge Subjective Subjective Interval history since last seen: Patient was seen bedside today with family, his significant other present in the room. Patient offers no complaints however appears to be comfortable. Exam Extrem Other: Right lower extremity physical exam: Derm: Full-thickness ulcer noted to the lateral aspect of the right heel without any periwound erythema, there is edema, no fluctuance no bogginess no crepitus there is bone exposed at the biopsy site, no bogginess. Vascular: Pulses are nonpalpable to the light right lower extremity however skin is warm. No active bleeding noted from the ulcer. Neuro: Light touch is intact Objective Last Vital Signs Temp 98.1 F 11/10/24 07:52 Pulse 60 11/10/24 07:52 Resp 17 11/10/24 07:52 BP 132/73 11/10/24 07:52 Pulse Ox 93 11/10/24 07:52 Time Spent with Patient Time Spent with Patient: 35-49 minutes Time was spent: preparing to see the patient(eg.review tests), obtaining and/or reviewing separately otained hiistory, referring, communicating with other health veterinarian laboratory animal care, indepentently interpreting results, counseling the patient and care coordination
[2024-11-10] MEDS: Triamcinolone 0.1% CR 15 GM TUBE TP ×2 (12:08→20:06)
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
[2024-11-10 15:56] VITALS: BP 128/74; PULSE 75; RESP 18; TEMP 36.9; O2SAT 96
--- NOTE | 2024-11-10 16:22 | SP_ITS ---
Date of service: 11/10/24 Time of Service: 15:30 Subjective Clinical (Bedside) Swallow Evaluation Speech Language Pathology Referred by: Dr Manley Referral Type: Clinical Swallow Evaluation Reason for Referral/HPI: Ed Galvez is an 89 yo male adm with vomiting marie fluid and non-healing R heel wound with concern for osteomyeltis. He has history of esophageal strictures s/p dilation and hx Parkinsons/Lewy Body Dementia. Per MD and patient report, he is on a finely chopped diet at baseline and requires 1:1 assist with feeding. Per nursing, vomiting ceased last evening. He did undergo barium swallow which was largely unremarkable. Currently NPO pending BIOFUELS RESEARCH SCIENTIST eval. CXR negative. BIOFUELS RESEARCH SCIENTIST IMPRESSIONS & RECOMMENDATIONS: Patient presents with suspected acute on chronic oral pharyngeal dysphagia, with high fatigue at time of evaluation. Though he was able to tolerate small amounts of thin liquid and L5 minced/moist solid well. Recommend initiate PO as outlined below with strict aspiration precautions in place. Anticipate patient may be close to baseline in regards to swallow function. FURTHER BIOFUELS RESEARCH SCIENTIST SERVICES: Patient to be followed while on unit. Upon Discharge, do not anticipate BIOFUELS RESEARCH SCIENTIST needs Diet Recommendations: SOLIDS: L5 Minced Moist Solids LIQUIDS: Thin MEDICATIONS: Crushed or whole in puree SUPERVISION: 1:1 assist STRATEGIES: - Strict aspiration precautions - [place] upright 90 degrees for PO - Oral care before and after meals. Please use mouth moisturizer - 1:1 feed assist - Small single bites/sips SUBJECTIVE: Patient received alert/awake, agreeable to evaluation Pain Reported? None Baseline Swallow Function: Minced/moist diet at baseline due to PD/dentition PO Trials Assessed: Ice IDDSI 0 Thin Liquids - via straw IDDSI 4 Puree Solid - pudding IDDSI 5 Minced and Moist Solid - cottage cheese Oral Mechanism Examination: Pt is edentulous. Of notice, oral mucosa is very dry, with thick/dry secretions along palate, unable to fully remove. Lingual/labial strength is decreased as consistent with deconditioned status. Oral Phase Findings: Anterior leakage from mouth Slowed oral phaes Pharyngeal Phase Findings: Delayed swallow initiation Reduced hyolaryngeal elevation/excursion Voice change after swallow?x1 ASSESSMENT: Further BIOFUELS RESEARCH SCIENTIST Services indicated. Patient to be followed while on unit. Plan for re-assessment x1-2 as indicated Recommendation at Discharge: to be determined Education Provided to: Nursing, Patient Topics Addressed: BIOFUELS RESEARCH SCIENTIST findings PLAN: Frequency: 1-2x/week for 1-2 weeks Goals: Cigarette Machine Filler Goals: Patient will remain free from aspiration-related illness, malnutrition, and dehydration. Short Term Goals: Patient will tolerate L5 Diet and Thin liquids without overt s/s aspiration across 2/2 visits. BIOFUELS RESEARCH SCIENTIST CPT Code: 07427 Clinical Swallowing Evaluation TOTAL TIME: 20 Minutes [id number]
--- NOTE | 2024-11-10 16:49 | PDOC.CMPRO ---
Date of service: 11/10/24 Time of Service: 16:50 Care Management Progress Note Progress Note Text Progress Note Text: Ed was sitting up in bed when CM met with him. He stated that he is doing well, but he does not remember the events that led him to the hospital. During the conversation, speech therapy arrived to complete an evaluation. Ed was also seen by palliative care today, who contacted Nanette and discussed his goals of care. CM will continue to follow. Discharge Potential Discharge Needs: PCP F/U Appt Anticipated Barriers to Discharge: None Identified Patient/Family Education Needs: Review discharge instructions, discuss Ask Me Three Transportation: Private vehicle Plan: Anticipate Ed will return home with a resumption of HH RN when medically cleared. He will transport home via private vehicle by family. He will follow up with his PCP and discharge plan of care. CM will continue to follow. Social Determinants of Health Screening Will the Patient Participate in the Screening?: Unable to obtain Anticipated HH Services Anticipated HH Services at Discharge [facility] Resumption, RN Anticipated Date of Discharge: 11/11/24. Following Provider: Magdaleno Dickens.
--- NOTE | 2024-11-10 17:41 | W.PM.PROGNOT ---
Date of Service Date of service: 11/10/24 Time of Service: 17:41 Assessment and Plan Assessment and plan (1) Vomiting: Status: Acute Assessment and plan: -Mr. Galvez has a history of both Parkinsonism/Lewy Body Dementia as well as known esophogeal strictures. He does have some degree of baseline oropharyngeal dysphagia related to his Parkinsons. This could also be the first stages of infectious gastroenteritis/norovirus we are seeing this winter. -CT head negative, no localizing findings to suggest acute CVA/TIA -Case was reviewed with Dr. Rodriges in ED who recommends barium swallow which did not show any acute findings -Patient was observed, and ultimately evaluated by speech who determined that we could advance his diet to minced which patient states is not far from his baseline dietary restrictions (2) Chronic kidney disease: Assessment and plan: creatinine at baseline suggesting is he not severely dehydrated. Continue to monitor (3) Non-healing ulcer of right foot: Status: Acute Assessment and plan: -He just had day surgery procedure with Dr. Amaral. -Appreciate Dr. Roberts's ongoing assistance; stated about initial bone biopsy showed corny bacterium for which she has been started on doxycycline (4) HTN (hypertension): Assessment and plan: Continue losartan if tolerating po but hold spironolactone while vomiting (5) BPH w urinary obs/LUTS: Assessment and plan: continue tamsulosin (6) Anemia: Assessment and plan: mild, at baseline. Hold iron until GI issues resolve. (7) Lewy body dementia: Assessment and plan: Continue quetiapine as he has been tolerating this as outpatient despite risk of worse parkinsonism with neuroleptics (8) DVT prophylaxis: Status: Acute Assessment and plan: enoxaparin Subjective Subjective Interval history since last seen: Patient is stating that he is feeling significantly better as compared to admission. He is happy was able to work with speech therapy and knows he will continue to work on his diet. He has no complaints or concerns at this time. Exam Narrative Exam Narrative: Fatigued, chronically ill-appearing older gentleman laying in bed in no acute distress, ANO x 4, heart regular rhythm, lungs clear to auscultation bilaterally, abdomen soft, nontender, nondistended, resting tremors and rigidity noted in bilateral upper and lower extremities which is baseline for his known Parkinson's Objective Last Vital Signs Temp 98.4 F 11/10/24 15:56 Pulse 75 11/10/24 15:56 Resp 18 11/10/24 15:56 BP 128/74 11/10/24 15:56 Pulse Ox 96 11/10/24 15:56 Time Spent with Patient Time Spent with Patient: >50 minutes Time was spent: preparing to see the patient(eg.review tests), obtaining and/or reviewing separately otained hiistory, ordering medications,tests, procedures, referring, communicating with other health career development associate, indepentently interpreting results, counseling the patient and care coordination
[2024-11-10] MEDS: Tamsulosin 0.4 MG CAPCR 0.8 MG PO (20:06)
[2024-11-10] MEDS: QUEtiapine 25 MG TAB 62.5 MG PO (20:06)
[2024-11-10] MEDS: Aspirin E.C. 81 MG TABEC PO (20:06)
[2024-11-10] MEDS: Enoxaparin 40 MG/0.4 ML SYR SC (20:07)
[2024-11-10] MEDS: Simvastatin 10 MG TAB PO (21:16)
[2024-11-10 23:18] VITALS: BP 140/53; PULSE 64; RESP 18; TEMP 36.5; O2SAT 98
[2024-11-11 07:28] VITALS: BP 154/64; PULSE 60; RESP 18; TEMP 36.1; O2SAT 96
[2024-11-11] MEDS: Pantoprazole 40 MG VIAL IVP (07:39)
[2024-11-11] MEDS: Losartan 25 MG TAB PO (07:43)
[2024-11-11] MEDS: Doxycycline Hyclate 100 MG CAP PO (07:43)
[2024-11-11] MEDS: QUEtiapine 25 MG TAB PO (07:43)
[2024-11-11] MEDS: Finasteride 5 MG TAB PO (07:44)
[2024-11-11] MEDS: Triamcinolone 0.1% CR 15 GM TUBE TP (07:44)
[2024-11-11] MEDS: Normal Saline Flush 10 ML SYR IVP (07:44)
[2024-11-11] MEDS: Tiotropium/Olodaterol 10 PUFF INHALER IH (08:30)
--- NOTE | 2024-11-11 10:34 | IN_ITS ---
PT Notes Visit Reasons: Vomiting/Dysphagia Inpatient Physical Therapy Evaluation Date: 11/11/2024 Referring Doctor: Dr Manley PT Orders: PT CONSULT: PT Evaluation and treatment Precautions: Toe touch Weight bearing for transfers Patient Profile/Admitting Diagnosis: Pt is an 89yo male with parkinson's/Lewy Body Dementia , esophageal stricture who presented to ED with vomitting and non healing Right heel ulcer. Barium Swallow showed no acute findings. Podiatry Consult with Dr Amaral recommended Nonweight bearing/ Toe touch weight bearing for transfers only. Pt with (+) Osteomyelitis to calcaneus dressing in place. PMHX: DVT prophylaxis (Acute) Vomiting (Acute) Acute osteomyelitis of right calcaneus (Acute) Atherosclerotic PVD with ulceration (Acute) DNR (do not resuscitate) (Acute) 09/27/2024 COLST: DNR/DNI. +transfer to the hospital, treat, use antibiotics and IV fluids. Nanette says he should not have a feeding tube. Pt does not know what he would want to do.Advanced care planning/counseling discussion (Acute) Palliative care encounter (Acute) Ambulatory dysfunction (Acute) Caregiver stress (Acute) Non-healing ulcer of right foot (Acute) Ulcer of right foot with fat layer exposed (Acute) Ulcer of left heel and midfoot with fat layer exposed (Acute) Corns and callosities (Acute) Long toenail (Acute) Bilateral bunions (Acute) Acquired hammertoes of both feet (Acute) Ulcer of right foot (Acute) Parkinsonian features (Acute) Cognitive changes (Acute) Paranoia (Acute) Visual hallucination (Acute) Atopic contact dermatitis (Acute) Transient cerebral ischemia (Chronic) Benign prostatic hyperplasia (Chronic) Cellulitis (Acute) Atopic dermatitis (Acute) Lung nodule (Acute) Microscopic hematuria (Acute) Erectile dysfunction (Acute) History of elevated prostate specific antigen (PSA) (Acute) Medical History Lewy body dementia Chronic kidney disease CKD 3B Esophageal stricture Rheumatoid arthritis HTN (hypertension) HLD (hyperlipidemia) BPH w urinary obs/LUTS Adenomatous colon polyp Allergic rhinitis Dysphonia Lesion of iris Transient acantholytic dermatosis Bilateral hip pain Spinal stenosis Chronic constipation Orthostatic dizziness Sinus bradycardia RBBB (right bundle branch block) Anemia Weight loss Pruritus Surgical History Colonoscopy - MAC (07/27/15) DR.TERRY CHOUDHARY Social History/Home Situation: lives with partner He was independent with ambulation until recent heel ulcer debridement. Ankur requires a lot of support from his partner now , but he was generally ambulatory. She helps with cooking, cleaning, and ADLs. She stated that his eyesight and arthritis impede his functioning. She reported that they have been receiving support from Y[facility] at [facility], and recently hired a caregiver using a dementia salvatore. Nanette stated that Yanna is helping them with a software engineer advisor MARKO application as well. Nanette stated that her goal is to keep Ed home as long as she is able to take care of him; she is a retired FIELD HANDYMAN and reported that she is very independent. Nanette stated that they recently were connected to palliative care, and have a home visit scheduled in December. Equipment Owned/DME: [facility] Subjective: Pt reports he is feeling better and hoping to go home today Objective: [] General Observation: elderly male upright in bed sleeping easily woke to his name Heel float boot under blankets but not on his foot. Mental Status: Alert and oriented to person and place , cooperative, able to follow instructions Pain: right foot it hurts when I have to move my ankle unable to use scale Vital Signs: monitored by Nursing ROM: BUR: Shoulders limited to 100 degrees able to touch back of head, elbows WNL, hands with severe ulnar drift limited opposition BLE WFL except DF to neutral Strength: BUE : shoulders 3/5 elbow 3/5 hand power and recovery superintendent Fair -, pinch poor Right Lower Extremity: grossly 3/5 Left Lower Extremity: grossly 3/5 Sensation: intact Bed Mobility/Transfers: supine to sit min A sit to stand CGA step turn toward left min A maintaining Toe touch WB Gait: NA d/t WB restriction to transfers only Balance: [] Static Sitting: good Dynamic Sitting: fair + Static Standing:Fair Dynamic Standing:poor Special Tests: Mobility Limitations Standardized Measure [facility] AM-PAC 6 clicks Basic Mobility Inpatient Short Form: Raw Score: 17 CMS Score: 50.57% Informed Consent/Education: Patient instructed in purpose of PT consult and plan of care. Assessment: Pt demonstrates ability to maintain toe touch WB in static stand however unable to maintain during dynamic standing tasks. Pt performs transfers only at home since debridement of right heel ulcer . Pt performs transfer in less than 30 sec of WB on right LE. Due to PD/ LBD pt is at greater risk for falls , harm and injury attempting to perform NWB transfer vs performing quick transfer to various surfaces. Dr Amaral also advised of these recommendations. If strict WB restrictions are needed then pt would need to perform slide board.transfers. Home PT can continue to work with pt on Toe touch WB and further assess for benefit of heel offloading shoe. Patient is an 89 year old male referred to physical therapy services with the diagnosis of PD/ Lewy Body Dementia and non healing right heel ulcer. Patient presents with clinical signs and symptoms consistent with admitting diagnosis, as demonstrated by the following impairment level findings: 1. impaired strength BUE and BLE major muscle groups 2. impaired standing balance 3. impaired weight bearing RLE 4. Impaired activity tolerance 5. Limitation on ROM B hands 6. pain in right foot Impairments are contributing to the following functional limitations: 1.AMPAC score. 2. decline in bed mobility skills 3. decline in transfer skills 4. unable to ambulate maintaining WB 5. increased time to complete ADl/mobility tasks 6. Increased risk for falls Patient is assessed as a Moderate 45089 complexity based on the following: History: pt is an 89 yo male with complicated past medical history as outlined above Examination: demonstrates impaired strength, balance and mobility at toe touch WB level with underlying impairments and functional limitations as stated above. Presentation:evolving Decision Making: moderate Goals: NA dc to home Plan of Care/Treatment Plan: NA dc to home DISCHARGE RECOMMENDATIONS: [] [] Home with no services [] [X] Home with services PT Nursing [] Home with outpatient PT [] [] SNF for continued rehabilitation [] [] Intermediate Care [] [] SNF versus LTC based on ability to participate and progress [] TREATMENT CODE/TIME:92950, [id number] /[id number]
[2024-11-11] MEDS: Collagenase 30 GM TUBE TP (11:01)
--- NOTE | 2024-11-11 11:10 | PDOC.HHF2F_ITS ---
Home Health Referral Home Health Orders Clinical synopsis of why skilled professionals are needed: Parkinsons, non-healing right foot wound with osteo Registered Nurse: Check all that apply Instruct on new or changed medication(s)/assess compliance: Ordered Physical Therapist: Check all that apply Increase strength & endurance for safe mobility at home: Ordered To design/establish home maintenance program: Ordered Fall reduction therapy program for patient with history of frequent falls: Ordered Home Bound Status Requires the aid of supportive device (check all that apply): Walker Patient has a condition such that leaving home is medically contraindicated (Describe): severe orthostasis causing near syncope Encounter Date and Reason: I certify that a FTF encounter for this patient was performed on November 11, 2024 and that such encounter was related to the primary reason the patient requires home health services. The encounter was conducted in the following manner: * By me as the certifying physician, MAINTENANCE MECHANIC MILLWRIGHT, PA or * By an inpatient physician, MAINTENANCE MECHANIC MILLWRIGHT or PA during an inpatient stay who communicated findings to me, Certification And Authentication I certify that I composed the above information based on my clinical judgment relating to this patient's medical condition and, if applicable, clinical findings communicated to me by the NPP or inpatient physician who performed the FTF encounter. Name of Provider that will be monitoring home health services: Magdaleno Dickens
--- NOTE | 2024-11-11 11:11 | DSE_ITS ---
Date of service: 11/11/24 Time of Service: 11:11 DS: Diagnosis Discharge Diagnosis (1) Vomiting: Status: Acute (2) Chronic kidney disease: (3) Non-healing ulcer of right foot: Status: Acute (4) HTN (hypertension): (5) BPH w urinary obs/LUTS: (6) Anemia: (7) Lewy body dementia: (8) DVT prophylaxis: Status: Acute Discharge Plan Disposition Patient Disposition: Home W/Hospice Services Condition: Good Discharge Details Reason For Visit: Vomiting/Dysphagia Admit Date/Time: 11/09/24 02:26 Admit Provider: Remi Knott Attending Provider: Remi Knott Primary Care Provider: Magdaleno Dickens Hospital Course Hospital Course: Patient initially presented with intractable vomiting with concern for worsening esophageal stricture, worsening dysphagia secondary to Parkinson's, or potential viral gastritis. During hospitalization patient had significant improvement of his symptoms and was able to tolerate p.o. intake. Addition, he had barium swallow which did not show any acute findings. Ultimately, it is determined that patient had likely a viral gastritis which has since resolved. While hospitalized, the bone biopsy results from his procedure performed earlier in the week by Dr. Roberts showed Corynebacterium for which she was started on doxycycline. He worked with speech which also cleared him to return back to his home diet, and PT recommended resumption of home health RN with the addition of home health physical therapy to assist family with set up to promote transfers to toe-touch weightbearing. Home Meds and New Rx's Prescriptions: New doxycycline hyclate 100 mg Capsule 100 mg PO BID 14 Days Qty: 28 0RF Continued losartan 100 mg tablet 25 mg PO DAILY triamcinolone acetonide 0.1 % cream 1 applic topical BID PRN (Reason: itching) albuterol sulfate 90 mcg/actuation HFA aerosol inhaler 1 puff inhalation ONCE multivitamin with iron Tablet 1 tab PO DAILY finasteride 5 mg tablet 5 mg PO DAILY Qty: 90 4RF hydroxyzine HCl 25 mg tablet 25 mg PO QID PRN quetiapine [Seroquel] 25 mg tablet See Rx Instructions PO BID Patient Comments: 25mg QAM 62.5QPM per caregiver Rx Instructions: 25mg in AM and 62.5mg in PM orally twice a day spironolactone 50 mg tablet 50 mg PO DAILY simvastatin 10 MG tablet 10 mg PO HS aspirin [Aspir-Low] 81 MG tablet,delayed release (DR/EC) 81 mg PO HS omeprazole 20 MG capsule,delayed release(DR/EC) 20 mg PO DAILY Anoro Ellipta 62.5-25 mcg/actuation Blister With Device 1 inh INHALATION DAILY Systane Gel 0.3 % gel 1 drp ophthalmic (eye) DAILY Spencer 128 2 % drops 1 drp ophthalmic (eye) DAILY tamsulosin 0.4 mg capsule 0.8 mg PO HS No Action Santyl 250 unit/gram ointment 1 applic topical DAILY Qty: 90 0RF Rx Instructions: 4.3x3.6x0.5cm Discharge Instructions Activity:: Activity as Tolerated Equipment/Supplies:: No Equipment Needed Diet:: As Tolerated Discharge Orders Discharge Orders: Discharge Order (Routine); Ordered 11/11/24 Ordered By: Manav Manley DS: Summary Time Spent with Patient providing and/or coordinating discharge services: Greater than 30 minutes Status at Discharge Functional status at discharge: independent ambulation Overall status at discharge: patient is back to baseline Mental Status: mental status grossly normal Speech and Movement: speech and movement normal Mood: congruent mood Affect: normal affect Quality:SDOH Health Related Social Needs: No Data to Display Exam Narrative Exam Narrative: chronically ill-appearing older gentleman laying in bed in no acute distress, ANO x 4, heart regular rhythm, lungs clear to auscultation bilaterally, abdomen soft, nontender, nondistended, resting tremors and rigidity noted in bilateral upper and lower extremities which is baseline for his known Parkinson's Psych Mental Status: mental status grossly normal Speech and Movement: speech and movement normal Mood: congruent mood Affect: normal affect DS: Data Vitals/I&O Vitals and I&O: Vital Signs Temperature 97.0 F L 11/11/24 07:28 Temperature Source Tympanic 11/11/24 07:28 Pulse 60 11/11/24 07:28 Pulse Rhythm Regular 11/09/24 04:13 Pulse 70 11/09/24 03:50 Respiratory Rate 18 11/11/24 07:28 Respiratory Effort Non-Labored, Labored 11/09/24 04:13 Respiratory Depth Deep 11/09/24 04:13 Respiratory Pattern Normal 11/09/24 04:13 Blood Pressure 154/64 H 11/11/24 07:28 Blood Pressure Mean 67 11/09/24 03:45 Pulse Oximetry 96 11/11/24 07:28 Oxygen Delivery Method Room Air 11/11/24 07:28 Oxygen Flow Rate 0 11/11/24 07:28 Pain Level 0 11/10/24 23:18 Comment RN notified 11/09/24 15:40 Intake & Output 11/10/24 11/11/24 11/11/24 17:59 05:59 17:59 Intake Total 1000 / 1000 200 / 1200 Output Total 650 / 650 550 / 1200 Balance 350 / 350 -350 / 0 Weight 142 lb 10.225 oz Intake: IV 1000 / 1000 Oral 200 / 200 Output: Urine 650 / 650 550 / 1200 Other: Urine Color Light Cookie Yellow Urine Appearance Clear Clear Urine Odor None Normal Comment pT stated that he had to pee, pTs brief was dry but pT also did not urinate in the urinal pT was dry at this time. Stool Size Smear Small Stool Characteristics Soft Liquid Brown PFSH All Active Problems (Updated 11/11/24 @ 11:10 by Manav Manley MD) Palliative care patient (Acute) DVT prophylaxis (Acute) Vomiting (Acute) Acute osteomyelitis of right calcaneus (Acute) Atherosclerotic PVD with ulceration (Acute) DNR (do not resuscitate) (Acute) 09/27/2024 COLST: DNR/DNI. +transfer to the hospital, treat, use antibiotics and IV fluids. Nanette says he should not have a feeding tube. Pt does not know what he would want to do. Advanced care planning/counseling discussion (Acute) Palliative care encounter (Acute) Ambulatory dysfunction (Acute) Caregiver stress (Acute) Non-healing ulcer of right foot (Acute) Ulcer of right foot with fat layer exposed (Acute) Ulcer of left heel and midfoot with fat layer exposed (Acute) Corns and callosities (Acute) Long toenail (Acute) Bilateral bunions (Acute) Acquired hammertoes of both feet (Acute) Ulcer of right foot (Acute) Parkinsonian features (Acute) Cognitive changes (Acute) Paranoia (Acute) Visual hallucination (Acute) Cellulitis (Acute) Atopic contact dermatitis (Acute) Transient cerebral ischemia (Chronic) Benign prostatic hyperplasia (Chronic) Atopic dermatitis (Acute) Lung nodule (Acute) Microscopic hematuria (Acute) Erectile dysfunction (Acute) History of elevated prostate specific antigen (PSA) (Acute) Medical History BPH w urinary obs/LUTS Chronic kidney disease CKD 3B Lewy body dementia Esophageal stricture Rheumatoid arthritis HTN (hypertension) HLD (hyperlipidemia) Adenomatous colon polyp Allergic rhinitis Dysphonia Lesion of iris Transient acantholytic dermatosis Bilateral hip pain Spinal stenosis Chronic constipation Orthostatic dizziness Sinus bradycardia RBBB (right bundle branch block) Anemia Weight loss Pruritus Surgical History Colonoscopy - MAC (07/27/15) DR.TERRY CHOUDHARY Social History Smoking/Tobacco Use Status: Former Tobacco Use tobacco type: cigarettes Quit Date: 10/05/99 Smoking risk assessment performed?: Yes Alcohol Intake: never Drug use: Never Substance use type: does not use Housing: house Additional Social history: [employer] Time Spent with Patient Time Spent with Patient: <45 minutes Time was spent: preparing to see the patient(eg.review tests), obtaining and/or reviewing separately otained hiistory, ordering medications,tests, procedures, referring, communicating with other health career center advisor, indepentently interpreting results, counseling the patient and care coordination
--- NOTE | 2024-11-11 13:28 | PDOC.CMDIS ---
Date of service: 11/11/24 Time of Service: 13:28 LACE Index Scoring Tool Questions: Length of Stay (in days): 2 Was the patient admitted via the E.D.?: Yes Comorbidities: Dementia E.D. Visits: 0 Answers: Total Score: 8 Risk of Readmission: Low Risk Care Management Discharge Plan Reason for Hospitalization: vomiting, dysphasia Discharge Plan: Ed returned home today with a resumption of HH RN, and the addition of PT. His transported him home via private vehicle. He will follow up with his PCP and discharge plan of care. He is happy to be going home. Patient/Family Education Needs: Review discharge instructions and limitations, discussion of self care needs including ask me three. Services Needed at Discharge: Home Health Care Services (resume HH RN, add PT) SDOH Health Related Social Needs: No Data to Display
== END 2024-11-11 12:11 | disposition hospice, home (50) ==
LOC: ER 11-09 02:49 → MS 11-09 04:12
PROVIDERS: Emergency Medicine; Admitting Provider Family Medicine; Emergency Provider Student in an Organized Health Care Education/Training Program; PCP Family Medicine; Visit Provider Family Medicine
DX: R11.10 Vomiting, unspecified (principal); K22.2 Esophageal obstruction; R13.12 Dysphagia, oropharyngeal phase; G31.83 Neurocognitive disorder with Lewy bodies; F02.80 Dementia in other diseases classified elsewhere, unspecified severity, without behavioral disturbance, psychotic disturbance, mood disturbance, and anxiety; Z86.73 Personal history of transient ischemic attack (TIA), and cerebral infarction without residual deficits; R91.1 Solitary pulmonary nodule; Z66 Do not resuscitate; M86.171 Other acute osteomyelitis, right ankle and foot; L97.422 Non-pressure chronic ulcer of left heel and midfoot with fat layer exposed; L97.412 Non-pressure chronic ulcer of right heel and midfoot with fat layer exposed; G20.C Parkinsonism, unspecified; N18.32 Chronic kidney disease, stage 3b; I12.9 Hypertensive chronic kidney disease with stage 1 through stage 4 chronic kidney disease, or unspecified chronic kidney disease; E78.5 Hyperlipidemia, unspecified; N40.1 Benign prostatic hyperplasia with lower urinary tract symptoms; N13.8 Other obstructive and reflux uropathy; D64.9 Anemia, unspecified; I45.10 Unspecified right bundle-branch block; I70.244 Atherosclerosis of native arteries of left leg with ulceration of heel and midfoot; I70.234 Atherosclerosis of native arteries of right leg with ulceration of heel and midfoot
CPT/HCPCS: 00123; 36415; 51701; 80048; 80053; 83690; 92526; 93005; 94640; 96372; 96374; 96375; 96376; 97162; 97530; 99222; 99233; 99285; J1650; 70450; 71046; 74221; 81003; 83735; 84484; 85025; 93010; 94664; 99223; 99239; G0378; J1610; J2405; J2470

== ENCOUNTER → 2024-12-01 14:40 | Outpatient (BNVA) | payer MEDICARE, BC, SELFPAY | PROVIDERS: PCP Family Medicine; Referring Provider Family Medicine; Visit Provider Podiatrist | DX: L97.512 Non-pressure chronic ulcer of other part of right foot with fat layer exposed (principal); L97.422 Non-pressure chronic ulcer of left heel and midfoot with fat layer exposed; L84 Corns and callosities; M20.41 Other hammer toe(s) (acquired), right foot; M20.42 Other hammer toe(s) (acquired), left foot; M21.611 Bunion of right foot; M21.612 Bunion of left foot; L60.2 Onychogryphosis; M86.171 Other acute osteomyelitis, right ankle and foot; L03.115 Cellulitis of right lower limb; L03.116 Cellulitis of left lower limb | CPT/HCPCS: 99213 ==

== ENCOUNTER → 2024-12-21 14:08 | Outpatient (BNVA) | payer MEDICARE, BC, SELFPAY | PROVIDERS: PCP Family Medicine; Referring Provider Family Medicine; Visit Provider Nurse Practitioner Adult Health | DX: G31.83 Neurocognitive disorder with Lewy bodies (principal); F02.80 Dementia in other diseases classified elsewhere, unspecified severity, without behavioral disturbance, psychotic disturbance, mood disturbance, and anxiety; I95.9 Hypotension, unspecified | CPT/HCPCS: 99214 ==

== ENCOUNTER 2024-12-21 14:58 | Inpatient (IN) | payer MEDICARE, BC, SELFPAY ==
[2024-12-21] VITALS (70 sets, daily range): BP systolic 76–170; BP diastolic 42–90; PULSE 64–85; RESP 11–23; TEMP 36.7; O2SAT 91–99
--- NOTE | 2024-12-21 15:45 | RT.EKG_ITS ---
APPROVED REPORT Exam: Resting ECG Reason for Exam: Hypotension Patient Location: E HR:67 bpm ECG Measurements Heart Rate 67 AXIS MD 79 P 34 QRSd 147 QRS -85 QT 457 T 63 QTc 480 Conclusion Sinus rhythm 67 R BBB no stemi
--- NOTE | 2024-12-21 15:45 | DI.RAD_ITS ---
Exam(s) XR FOOT RT COMPLETE EXAM: XR FOOT RT COMPLETE CLINICAL HISTORY: Wound heel and toe. TECHNIQUE: 2D digital imaging was performed of the right foot. Three images were obtained. AP, obl ique and lateral views were obtained. COMPARISON: CR XR HEEL RT OS CALCIS from 10/10/2024 FINDINGS: BONES: No acute fracture is present. No bony destructive lesion is seen. JOINTS: No dislocation present. Chronic deformities are seen at the toes including hallux valgus defo rmity. There are subluxations of the metatarsophalangeal joints and hammertoe deformities. SOFT TISSUE: Normal. IMPRESSION: No radiographic findings to suggest osteomyelitis of the calcaneus. Follow-up as clinically appropri ate. DATA REPOSITORY: RADIATION DOSE DELIVERED:
--- NOTE | 2024-12-21 15:55 | DI.RAD_ITS ---
Exam(s) XR CHEST 2V PA LATERAL EXAM: XR CHEST 2V PA LATERAL CLINICAL HISTORY: Low Blood pressure TECHNIQUE: 2D digital imaging was performed of the chest. Two images were obtained. PA and lateral views were obtained. COMPARISON: CR XR CHEST 2V PA LATERAL from 11/02/2024 CR,XR XR CHEST 2V PA LATERAL from 11/08/2024 FINDINGS: There is poor inspiration. MEDIASTINUM: Normal. HEART: Normal. PULMONARY VASCULATURE: Normal. LUNGS: There are increased interstitial markings in the lung bases bilaterally. No focal consolidati ng infiltrates are seen. PLEURAL SPACE: No pleural effusion or pneumothorax. BONE:Within normal limits for the patient's age. OTHER FINDINGS:Normal. IMPRESSION: 1. Low lung volumes. There are increased interstitial markings predominantly in the bases. Differen tial considerations include pulmonary fibrosis, interstitial edema or pneumonitis. Please correlate clinically. 2. No focal consolidating infiltrates are present. DATA REPOSITORY: RADIATION DOSE DELIVERED:
--- NOTE | 2024-12-21 15:55 | W.ED.GENAD ---
Discharge Plan Disposition Patient Disposition: Admit to [facility] Condition: Stable Discharge Details Clinical Impression: Orthostatic hypotension, Dizziness Primary Care Provider: Magdaleno Dickens ED Provider: Bridget Landon Home Meds and New Rx's Prescriptions: No Action losartan 100 mg tablet 25 mg PO DAILY triamcinolone acetonide 0.1 % cream 1 applic topical BID PRN (Reason: itching) albuterol sulfate 90 mcg/actuation HFA aerosol inhaler 1 puff inhalation ONCE multivitamin with iron Tablet 1 tab PO DAILY finasteride 5 mg tablet 5 mg PO DAILY Qty: 90 4RF hydroxyzine HCl 25 mg tablet 25 mg PO QID PRN quetiapine [Seroquel] 25 mg tablet See Rx Instructions PO .COMPLEX Patient Comments: 25mg QAM 62.5QPM per caregiver Rx Instructions: 25mg in AM and 62.5mg in PM orally; Santyl 250 unit/gram ointment 1 applic topical DAILY Qty: 90 0RF Rx Instructions: 4.3x3.6x0.5cm doxycycline hyclate 100 mg capsule 100 mg PO BID Qty: 28 0RF spironolactone 50 mg tablet 50 mg PO DAILY simvastatin 10 MG tablet 10 mg PO HS aspirin [Aspir-Low] 81 MG tablet,delayed release (DR/EC) 81 mg PO HS omeprazole 20 MG capsule,delayed release(DR/EC) 20 mg PO DAILY Anoro Ellipta 62.5-25 mcg/actuation Blister With Device 1 inh INHALATION DAILY Systane Gel 0.3 % gel 1 drp ophthalmic (eye) DAILY Spencer 128 2 % drops 1 drp ophthalmic (eye) DAILY tamsulosin 0.4 mg capsule 0.8 mg PO HS HPI General Mode of arrival: EMS. Date/Time Provider Initiated Documentation: 12/21/24 15:05. Limitations to Documentation: no limitations and physical limitation (Dementia). Information obtained by: patient, family (), RN notes reviewed and old records reviewed. HPI Narrative: 89 year old male presents with low blood pressure and dizziness, was at Neurology appt per when he was c/o dizziness and found to have a BP of 70 systolic. Supine BP at this time is 115/50. He is awake and answers questions appropriately. Recently diagnosed with osteomyelitis to his right calcaneal and is taking Doxycycline. reports he ate breakfast and lunch today, does have a history of watery stools, no vomiting or nausea reported. He is DNR/DNI, sees palliative care, hx of Lewy body dementia, Chronic kidney disease, osteomyelitis, HTN, HLD, Esophageal stricture, and PVD. Related Data Home Medications ?Medication ?Instructions ?Recorded ?Confirmed aspirin 81 mg tablet,delayed 81 mg PO HS 07/26/15 12/21/24 release (Aspir-Low) omeprazole 20 mg capsule,delayed 20 mg PO DAILY 07/26/15 12/21/24 release simvastatin 10 mg tablet 10 mg PO HS 07/26/15 12/21/24 spironolactone 50 mg tablet 50 mg PO DAILY 12/05/19 12/21/24 umeclidinium 62.5 mcg-vilanterol 1 inh inhalation DAILY 05/10/23 12/21/24 25 mcg/actuation powdr for inhalation (Anoro Ellipta) multivitamin with iron 1 tab PO DAILY 09/25/23 12/21/24 finasteride 5 mg tablet 5 mg PO DAILY #90 tabs 05/27/24 12/21/24 losartan 100 mg tablet 25 mg PO DAILY 06/21/24 12/21/24 triamcinolone acetonide 0.1 % 1 applic topical BID PRN itching 06/22/24 12/21/24 topical cream hydroxyzine HCl 25 mg tablet 25 mg PO QID PRN 07/27/24 12/21/24 collagenase clostridium histo. 250 1 applic topical DAILY #90 grams 08/29/24 12/21/24 unit/gram topical ointment (Santyl) albuterol sulfate 90 mcg/actuation 1 puff inhalation ONCE 10/18/24 12/21/24 aerosol inhaler artificial tears(hypromellose) 0.3 1 drp ophthalmic (eye) DAILY 11/09/24 12/21/24 % eye gel (Systane Gel) sodium chloride 2 % eye drops 1 drp ophthalmic (eye) DAILY 11/09/24 12/21/24 (Spencer 128) tamsulosin 0.4 mg capsule 0.8 mg PO HS 11/09/24 12/21/24 quetiapine 25 mg tablet (Seroquel) See Rx Instructions PO .COMPLEX 12/08/24 12/21/24 doxycycline hyclate 100 mg capsule 100 mg PO BID #28 caps 12/12/24 12/21/24 Previous Rx's ?Medication ?Instructions ?Recorded finasteride 5 mg tablet 5 mg PO DAILY #90 tabs 05/27/24 collagenase clostridium histo. 250 1 applic topical DAILY #90 grams 08/29/24 unit/gram topical ointment (Santyl) doxycycline hyclate 100 mg capsule 100 mg PO BID #28 caps 12/12/24 Allergies Allergy/AdvReac Type Severity Reaction Status Date / Time trazodone Allergy Mild Other (See Verified 12/21/24 15:15 Comment) atenolol Allergy Other (See Verified 12/21/24 15:15 Comment) codeine AdvReac Unknown Other (See Verified 12/21/24 15:15 Comment) General Stated Complaint: [facility]Medical REGINALDO: 3 Review of Systems All systems reviewed & are unremarkable except as noted in HPI and below Constitutional Constitutional: Reports as per HPI and Reports weakness ENT Ears, Nose, Mouth, and Throat: Reports dizziness Cardiovascular Cardiovascular: Denies chest pain, Denies dyspnea and Reports other (low blood pressure) Respiratory Respiratory: Denies dyspnea Neurologic Neurologic: Reports dizziness and Reports weakness Exam Narrative Exam Narrative: Constitutional: Alert and oriented x3. Appears stated age. Normal body habitus. Appears very frail, Head: Normocephalic, no trauma. Eyes: Pupils PERRL, 2 mm bilaterally, Red reflex noted, EOM's intact. Eyelids symmetrical without lesions, discharge, or swelling. ENT: Bilateral TM's WNL, External ear normal to inspection, no mastoid TTP, swelling, or erythema, Nasal turbinates WNL, no nasal discharge. Normal dentition, Posterior pharynx WNL, no exudate. Chest: RRR, Normal S1, S2, distal pulses intact. Resp: Lungs clear to auscultation bilaterally, no wheezes, rales, or rhonchi. Abdomen: Soft, non-distended, Normoactive bowel sounds all 4 quads. Musculoskeletal: Unable to assess gait, Skin: Does have a small 1 cm ulcer to his right lateral heel, no surrounding erythema or swelling. Is chronic.. Capillary refill less than 2 sec. Neurologic: At baseline, does have a history of Lewy body dementia, alert and oriented x 2. Motor: No deficits noted. Sensory: Intact bilaterally all 4 extremities. Hematologic/Lymphatic: No ecchymosis, no lymphadenopathy. Course Vital Signs Vital signs: Vital Signs Temperature 36.7 C 12/21/24 15:08 Pulse 69 12/21/24 15:08 Respiratory Rate 18 12/21/24 15:08 Blood Pressure 93/58 L 12/21/24 15:08 Pulse Oximetry 91 L 12/21/24 15:08 Temperature 36.7 C 12/21/24 15:14 Temperature Source Oral 12/21/24 15:14 Pulse 69 12/21/24 15:14 Respiratory Rate 18 12/21/24 15:14 Blood Pressure 93/58 L 12/21/24 15:14 Blood Pressure Position Sitting 12/21/24 15:14 Pulse Oximetry 91 L 12/21/24 15:14 Oxygen Delivery Method Room Air 12/21/24 15:14 Oxygen Flow Rate 0 12/21/24 15:08 Pain Level 0 12/21/24 15:14 Lab/Test Results Lab/Test Results: 12/21/24 15:51 Blood Blood Culture - Pending 12/21/24 15:51 Blood Blood Culture - Pending Medical Decision Making 89 year old male presents with low blood pressure and dizziness, was at Neurology appt per when he was c/o dizziness and found to have a BP of 70 systolic. Supine BP at this time is 115/50. He is awake and answers questions appropriately. Recently diagnosed with osteomyelitis to his right calcaneal and is taking Doxycycline. reports he ate breakfast and lunch today, does have a history of watery stools, no vomiting or nausea reported. He is DNR/DNI, sees palliative care, hx of Lewy body dementia, Chronic kidney disease, osteomyelitis, HTN, HLD, Esophageal stricture, and PVD. work up ordered including CBC, CMP, Troponin, Lactate, Blood cultures, CXR, Foot XR, and 1 liter NS Rpt BP 146/68 At this time labs are largely at baseline no leukocytosis 12.0 hematocrit, lactate 1.0 sodium 139 BUN 40 creatinine 1.7 which is slightly above his previous. Initial troponin within normal limits. proBNP 265 Orthostatic vital signs patient's blood pressure dropped to 76/42 when standing. Upon lying back down, Bp 146/71 Unknown reason for orthostatic hypotension, could be from some of his medications as he is on tamsulosin, spironolactone alone losartan hydroxyzine. X-ray showed no radiographic evidence for osteomyelitis on the foot, chest x-ray shows low lung volumes. Increased interstitial markings in the bases. No focal consolidating infiltrates present. Discussed admission with verbalized understanding. Hospitalist myron. 192: Spoke with Dr. Knott who agrees to accept patient for admission. At this time patient is awaiting bed placement upstairs. Has remained hemodynamically stable while supine in bed. Medical Records Medical records reviewed: Yes I reviewed the patient's medical records. Lab Data Lab results reviewed: Yes I reviewed the patient's lab results. Labs: 12/21/24 16:59 Blood Blood Culture - Pending 12/21/24 16:31 Blood Blood Culture - Pending Laboratory Tests Range/Units 12/21/24 12/21/24 12/21/24 15:59 16:59 18:46 WBC (4.4-10.8) 10^3/uL 6.28 RBC (4.36-5.78) 10^6/uL 4.32 L Hgb (13.5-17.5) g/dL 12.0 L Hct (40.0-50.0) % 37.4 L MCV (80-95) fL 87 MCH (27.0-33.0) pg 27.8 MCHC (32.0-36.0) % 32.1 RDW (11.8-14.1) % 14.0 Plt Count (130-400) 10^3/uL 171 MPV (8.0-11.0) fL 9.2 Immature Gran % % 0.3 Neutrophils % % 77.3 Lymphocytes % % 7.3 Monocytes % % 8.6 Eosinophils % % 5.9 Basophils % % 0.6 Nucleated RBC % (0.0-0.3) % 0.0 Absolute Neutrophils (1.2-6.7) 10^3/uL 4.85 Absolute Lymphocytes (1.2-3.4) 10^3/uL 0.46 L Absolute Monocytes (0.1-0.8) 10^3/uL 0.54 Absolute Eosinophils (0.0-0.7) 10^3/uL 0.37 Absolute Basophils (0.0-0.2) 10^3/uL 0.04 VBG Lactate (<or=2.0) mmol/L 1.0 Sodium (136-145) mmol/L 139 Potassium (3.5-5.1) mmol/L 4.6 Chloride (98-107) mmol/L 104 Carbon Dioxide (21.0-32.0) mmol/L 25.2 Anion Gap (3-11) mmol/L 9.8 BUN (7-18) mg/dL 40 H Creatinine (0.70-1.30) mg/dL 1.7 H Est GFR (CKD-EPI 2020) (mL/min/1.73m2) 38.53 Glucose (74-106) mg/dL 94 Calcium (8.5-10.1) mg/dL 8.8 Magnesium mg/dL 1.7 Total Bilirubin (0.2-1.0) mg/dL 0.3 AST (15-37) U/L 27 ALT (16-63) U/L 19 Alkaline Phosphatase (46-116) U/L 108 Troponin I (<or=76) ng/L 9 9 Cancelled NT-Pro-B Natriuret Pep (<300) pg/mL 265 Total Protein (6.4-8.2) g/dL 6.7 Albumin (3.4-5.0) g/dL 2.5 L Quality:SDOH Health Related Social Needs: No Data to Display PFSH All Active Problems (Updated 12/21/24 @ 19:27 by Bridget Landon NP) Dizziness (Acute) Orthostatic hypotension (Acute) Chronic kidney disease (Chronic) CKD 3B Lewy body dementia (Acute) Chronic osteomyelitis (Acute) Palliative care patient (Acute) Acute osteomyelitis of right calcaneus (Acute) Atherosclerotic PVD with ulceration (Acute) DNR (do not resuscitate) (Acute) 09/27/2024 COLST: DNR/DNI. +transfer to the hospital, treat, use antibiotics and IV fluids. Nanette says he should not have a feeding tube. Pt does not know what he would want to do. Advanced care planning/counseling discussion (Acute) Palliative care encounter (Acute) Ambulatory dysfunction (Acute) Caregiver stress (Acute) Non-healing ulcer of right foot (Acute) Ulcer of right foot with fat layer exposed (Acute) Ulcer of left heel and midfoot with fat layer exposed (Acute) Corns and callosities (Acute) Long toenail (Acute) Bilateral bunions (Acute) Acquired hammertoes of both feet (Acute) Ulcer of right foot (Acute) Parkinsonian features (Acute) Cognitive changes (Acute) Paranoia (Acute) Visual hallucination (Acute) Cellulitis (Acute) Atopic contact dermatitis (Acute) Transient cerebral ischemia (Chronic) Benign prostatic hyperplasia (Chronic) Atopic dermatitis (Acute) Lung nodule (Acute) Microscopic hematuria (Acute) Erectile dysfunction (Acute) History of elevated prostate specific antigen (PSA) (Acute) Medical History Lewy body dementia Chronic kidney disease CKD 3B BPH w urinary obs/LUTS Esophageal stricture Rheumatoid arthritis HTN (hypertension) HLD (hyperlipidemia) Adenomatous colon polyp Allergic rhinitis Dysphonia Lesion of iris Transient acantholytic dermatosis Bilateral hip pain Spinal stenosis Chronic constipation Orthostatic dizziness Sinus bradycardia RBBB (right bundle branch block) Anemia Weight loss Pruritus Surgical History Colonoscopy - MAC (07/27/15) DR.TERRY CHOUDHARY Social History Smoking/Tobacco Use Status: Former Tobacco Use tobacco type: cigarettes Quit Date: 10/05/99 Smoking risk assessment performed?: Yes Alcohol Intake: never Drug use: Never Substance use type: does not use Housing: house Do you feel safe at home: Yes Do you feel safe in your relationship?: Yes Additional [facility] history[facility]
[2024-12-21] MEDS: Normal Saline 1,000 ML 1000 ML IV (16:00)
[2024-12-21 16:14] LABS: Abs Immature Grans 0.02 10^3/uL (0.0-0.06); Absolute Basophil Count 0.04 10^3/uL (0.0-0.2); Absolute Eosinophil Count 0.37 10^3/uL (0.0-0.7); Absolute Lymphocyte Count 0.46 10^3/uL (1.2-3.4); Absolute Monocyte Count 0.54 10^3/uL (0.1-0.8); Absolute Neutrophil Count 4.85 10^3/uL (1.2-6.7); Basophils % 0.6 %; Eosinophils % 5.9 %; HCT 37.4 % (40.0-50.0); Immature Grans % 0.3 %; Lymphocytes % 7.3 %; MCH 27.8 pg (27.0-33.0); MCHC 32.1 % (32.0-36.0); MCV 87 fL (80-95); MPV 9.2 fL (8.0-11.0); Monocytes % 8.6 %; Neutrophils % 77.3 %; Platelet Count 171 10^3/uL (130-400); RBC 4.32 10^6/uL (4.36-5.78); RDW-SD 45.1 fL; WBC 6.28 10^3/uL (4.4-10.8)
[2024-12-21 16:37] LABS: ALT 19 U/L (16-63); AST 27 U/L (15-37); Albumin 2.5 g/dL (3.4-5.0); Alkaline Phosphatase 108 U/L (46-116); Anion Gap 9.8 mmol/L (3-11); BUN 40 mg/dL (7-18); Bilirubin, Total 0.3 mg/dL (0.2-1.0); CO2 25.2 mmol/L (21.0-32.0); CREATININE 1.7 mg/dL (0.70-1.30); Calcium 8.8 mg/dL (8.5-10.1); Chloride 104 mmol/L (98-107); Estimated GFR 38.53 (mL/min/1.73m2); Glucose 94 mg/dL (74-106); Magnesium 1.7 mg/dL; Potassium 4.6 mmol/L (3.5-5.1); Sodium 139 mmol/L (136-145); Total Protein 6.7 g/dL (6.4-8.2); Troponin I 9 ng/L (<or=76)
[2024-12-21 16:44] LABS: NT-proBNP 265 pg/mL (<300)
[2024-12-21 17:47] LABS: Troponin I 9 ng/L (<or=76)
--- NOTE | 2024-12-21 21:42 | W.PM.HP.N ---
Date of service: 12/21/24 Time of Service: 21:55 Assessment and Plan Assessment and plan (1) Orthostatic hypotension: Status: Acute Assessment and plan: There is not a clear acute cause for orthostasis, though there are many possible causes in his history. Orthostasis can be a/w autonomic dysfunction of Lewey Body Dementia. Several of his medicaitons can cause it, including quetiapine, BP meds, and alpha blockers. 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 Will observe on telemetry, get echo as his EKG is abnormal and he has known vascular disease. Adjusing medications as below. He may be able to go home tomorrow if orthostasis resolves (2) Chronic kidney disease: Status: Chronic Assessment and plan: CKD near baseline around 1.5, follow (3) Chronic osteomyelitis: Status: Acute Assessment and plan: As above this doesn't appear to be getting worse, wound looks benign. Continue doxycycline. (4) Lewy body dementia: Status: Acute Assessment and plan: He has been on quetiapine to control hallucinations, I am hesitant to cut this back even though it can contribute to orthostasis and parkinsonism. No change for now. (5) BPH w urinary obs/LUTS: Assessment and plan: He is on high dose tamsulosin, which can cause orthostasis. Cut dose to 0.4mg and check post void bladder scan tomorrow. continue finasteride (6) Anemia: Assessment and plan: This is near his baseline mild anemia. I don't think it is contributing. (7) Palliative care patient: Status: Acute Assessment and plan: Follows with palliative. Some struggles with caring for him at home. Will consult. (8) DVT prophylaxis: Status: Resolved Assessment and plan: enoxaparin History of Present Illness Narrative: 89 yo M with history of Lewey Body dementia, chronic osteomyelitis a/w right foot ulcer, PAD, inactive RA, CKD, BPH/LUTS who was sent from a routine visit with his neurologist where he was complaining of dizziness and found to have a systolic blood pressure in 70s. He is being treated for chornic osteomyelitis but he has been acting normally recently. He ate breakfast and lunch as normal. He has not had any recent cough or URI symptoms, nausea/vomiting or abdominal pain. He has had some loose stools recently but not frequent. He has progressive Lewey Body dementia and relies on his partner Nanette for care. He gives a limited history, denies complaints currently. He has no currently focal pain. Doesn't feel dizzy now at rest. No chest pain or palptiations. His wound has not looked any worse. He hasn't had worse joint pain, though he does have chronic back pain issues. He was admitted 11/09-04/28 for vomiting/dysphagia, which improved and attributed to gastroenteritis. During that admission his previous bone biopsy returned with cornybacterium and he was started on doxycycline. He was given 1 liter NS in the emergency room. [place] well at rest, but BP dropped with standing and could not walk. Partner Nanette did not feel comfortable taking him home. Review of Systems All systems reviewed & are unremarkable except as noted in HPI and below Constitutional Constitutional: Denies headache(s) ENT Ears, Nose, Mouth, and Throat: Denies headache(s) Neurologic Neurologic: Reports abnormal speech, Denies headache(s), Denies localized weakness, Reports memory loss and Reports tremor(s) Comments: no change Psychiatric Psychiatric: Reports memory loss PFSH All Active Problems Dizziness (Acute) Orthostatic hypotension (Acute) Chronic osteomyelitis (Acute) Palliative care patient (Acute) Lewy body dementia (Acute) Chronic kidney disease (Chronic) CKD 3B Acute osteomyelitis of right calcaneus (Acute) Atherosclerotic PVD with ulceration (Acute) DNR (do not resuscitate) (Acute) 09/27/2024 COLST: DNR/DNI. +transfer to the hospital, treat, use antibiotics and IV fluids. Nanette says he should not have a feeding tube. Pt does not know what he would want to do. Advanced care planning/counseling discussion (Acute) Palliative care encounter (Acute) Ambulatory dysfunction (Acute) Caregiver stress (Acute) Non-healing ulcer of right foot (Acute) Ulcer of right foot with fat layer exposed (Acute) Ulcer of left heel and midfoot with fat layer exposed (Acute) Corns and callosities (Acute) Long toenail (Acute) Bilateral bunions (Acute) Acquired hammertoes of both feet (Acute) Ulcer of right foot (Acute) Parkinsonian features (Acute) Cognitive changes (Acute) Paranoia (Acute) Visual hallucination (Acute) Atopic contact dermatitis (Acute) Transient cerebral ischemia (Chronic) Benign prostatic hyperplasia (Chronic) Cellulitis (Acute) Atopic dermatitis (Acute) Lung nodule (Acute) Microscopic hematuria (Acute) Erectile dysfunction (Acute) History of elevated prostate specific antigen (PSA) (Acute) Medical History Esophageal stricture Rheumatoid arthritis HTN (hypertension) HLD (hyperlipidemia) BPH w urinary obs/LUTS Adenomatous colon polyp Allergic rhinitis Dysphonia Lesion of iris Transient acantholytic dermatosis Bilateral hip pain Spinal stenosis Chronic constipation Orthostatic dizziness Sinus bradycardia RBBB (right bundle branch block) Anemia Weight loss Pruritus Surgical History Colonoscopy - MAC (07/27/15) DR.TERRY CHOUDHARY Social History Smoking/Tobacco Use Status: Former Tobacco Use tobacco type: cigarettes Quit Date: 10/05/99 Smoking risk assessment performed?: Yes Alcohol Intake: never Drug use: Never Substance use type: does not use Housing: house Do you feel safe at home: Yes Do you feel safe in your relationship?: Yes Additional Social history: [facility] Meds Allergies and Home Medications Allergies Allergy/AdvReac Type Severity Reaction Status Date / Time trazodone Allergy Mild Other (See Verified 12/21/24 15:15 Comment) atenolol Allergy Other (See Verified 12/21/24 15:15 Comment) codeine AdvReac Unknown Other (See Verified 12/21/24 15:15 Comment) Home Medications ?Medication ?Instructions ?Recorded ?Confirmed ?Type aspirin 81 mg tablet,delayed 81 mg PO HS 07/26/15 12/21/24 History release (Aspir-Low) omeprazole 20 mg capsule,delayed 20 mg PO DAILY 07/26/15 12/21/24 History release simvastatin 10 mg tablet 10 mg PO HS 07/26/15 12/21/24 History spironolactone 50 mg tablet 50 mg PO DAILY 12/05/19 12/21/24 History umeclidinium 62.5 mcg-vilanterol 1 inh inhalation DAILY 05/10/23 12/21/24 History 25 mcg/actuation powdr for inhalation (Anoro Ellipta) multivitamin with iron 1 tab PO DAILY 09/25/23 12/21/24 History finasteride 5 mg tablet 5 mg PO DAILY #90 tabs 05/27/24 12/21/24 Rx losartan 100 mg tablet 25 mg PO DAILY 06/21/24 12/21/24 History triamcinolone acetonide 0.1 % 1 applic topical BID PRN itching 06/22/24 12/21/24 History topical cream hydroxyzine HCl 25 mg tablet 25 mg PO QID PRN 07/27/24 12/21/24 History collagenase clostridium histo. 250 1 applic topical DAILY #90 grams 08/29/24 12/21/24 Rx unit/gram topical ointment (Santyl) albuterol sulfate 90 mcg/actuation 1 puff inhalation ONCE 10/18/24 12/21/24 History aerosol inhaler artificial tears(hypromellose) 0.3 1 drp ophthalmic (eye) DAILY 11/09/24 12/21/24 History % eye gel (Systane Gel) sodium chloride 2 % eye drops 1 drp ophthalmic (eye) DAILY 11/09/24 12/21/24 History (Spencer 128) tamsulosin 0.4 mg capsule 0.8 mg PO HS 11/09/24 12/21/24 History quetiapine 25 mg tablet (Seroquel) See Rx Instructions PO .COMPLEX 12/08/24 12/21/24 History doxycycline hyclate 100 mg capsule 100 mg PO BID #28 caps 12/12/24 12/21/24 Rx Exam Narrative Exam Narrative: GEN: Alert and appropriately responsive, oriented to self only, cooperative and following directions. Cannot relate a linear history. No acute distress at rest. HEENT: Head atraumatic. Conjunctiva clear, no icterus. Pupils 2mm bilaterally and reactive. no rhinorrhea. MMM, edentulous, OP benign. Neck is supple with no masses or lymphadenopathy, trachea midline LUNGS: CTAB with normal effort CV: RRR with no murmurs, gallops, or rubs. ABD: active bowel sounds, soft, nontender and nondistended. No masses. EXT: no cyanosis, clubbing, or edema MSK: No joint redness or swelling. Ulnar deviation nicci MCPs, but no warmth/redness NEURO: CN 2-12 grossly intact. Increased tone diffusely with occaisional slight myoclonic jerk. Cogwheeling with passive ROM. He is moving with roughly equal tone all 4 extremities. His speech is slow but clear. slight resting tremor in extremities. SKIN: No rashes. Skin proximal and distal to right heel wound is not red or tender. Wound dress, under bandage looks pink, dry, no exudate or redness. PSYCH: flat affect, no apparent hallucinations or delusions. Results Imaging EKG: report reviewed and image reviewed (normal sinus, RBBB with left axis, no STEMI) Labs 12/21/24 15:59 12/21/24 15:59 Labs: Laboratory Results - last 24 hr 12/21/24 12/21/24 12/21/24 15:59 16:59 18:46 WBC 6.28 RBC 4.32 L Hgb 12.0 L Hct 37.4 L MCV 87 MCH 27.8 MCHC 32.1 RDW 14.0 Plt Count 171 MPV 9.2 Immature Gran % 0.3 Neutrophils % 77.3 Lymphocytes % 7.3 Monocytes % 8.6 Eosinophils % 5.9 Basophils % 0.6 Nucleated RBC % 0.0 Absolute Neutrophils 4.85 Absolute Lymphocytes 0.46 L Absolute Monocytes 0.54 Absolute Eosinophils 0.37 Absolute Basophils 0.04 VBG Lactate 1.0 Sodium 139 Potassium 4.6 Chloride 104 Carbon Dioxide 25.2 Anion Gap 9.8 BUN 40 H Creatinine 1.7 H Est GFR (CKD-EPI 2020) 38.53 Glucose 94 Calcium 8.8 Magnesium 1.7 Total Bilirubin 0.3 AST 27 ALT 19 Alkaline Phosphatase 108 Troponin I 9 9 Cancelled NT-Pro-B Natriuret Pep 265 Total Protein 6.7 Albumin 2.5 L Last Vital Signs Temp 36.7 C 12/21/24 15:14 Pulse 72 12/21/24 20:31 Resp 17 12/21/24 20:30 BP 138/60 12/21/24 20:31 Pulse Ox 95 12/21/24 20:31 Time Spent Time spent with Patient: 55-74 minutes Time was spent: preparing to see the patient(eg.review tests), obtaining and/or reviewing separately otained hiistory, ordering medications,tests, procedures, referring, communicating with other health healthcare consulting manager, indepentently interpreting results, counseling the patient and care coordination
--- NOTE | 2024-12-21 23:00 | W.PC.ACHO ---
Registration Status: Primary Language: Preferred Language: ED Information & Data Chief Complaint GenMedical 12/21/24 17:15 Chief Complaint GenMedical 12/21/24 16:01 Triage Note Patient presented today with 12/21/24 15:08 low blood pressure BP 76/38 at home. Significant other says he was complaining of dizziness Medical / Surgical History (Last Reviewed 12/21/24 @ 22:28 by Remi Knott) BPH w urinary obs/LUTS Esophageal stricture Rheumatoid arthritis HTN (hypertension) HLD (hyperlipidemia) Adenomatous colon polyp Allergic rhinitis Dysphonia Lesion of iris Transient acantholytic dermatosis Bilateral hip pain Spinal stenosis Chronic constipation Orthostatic dizziness Sinus bradycardia RBBB (right bundle branch block) Anemia Weight loss Pruritus (Last Reviewed 12/21/24 @ 22:28 by Remi Knott) Colonoscopy - MAC (07/27/15) Most Recent Vital Signs Temperature 36.7 C 12/21/24 15:14 Temperature Source Oral 12/21/24 15:14 Pulse 77 12/21/24 22:31 Pulse 76 12/21/24 22:31 Respiratory Rate 17 12/21/24 22:31 Respiratory Effort Normal 12/21/24 17:15 Respiratory Depth Normal 12/21/24 17:15 Blood Pressure 147/67 H 12/21/24 22:31 Blood Pressure Mean 96 12/21/24 22:31 Blood Pressure Position Sitting 12/21/24 15:14 Pulse Oximetry 98 12/21/24 22:31 Oxygen Delivery Method Room Air 12/21/24 15:14 Oxygen Flow Rate 0 12/21/24 15:08 Pain Level 0 12/21/24 15:14 Allergies trazodone Allergy (Mild, Verified 12/21/24 15:15) Other (See Comment) CONFUSION, HALLUCINATIONS atenolol Allergy (Verified 12/21/24 15:15) Other (See Comment) unknown codeine Adverse Reaction (Unknown, Verified 12/21/24 15:15) Other (See Comment) unknown Precautions Isolation Standard precaution 12/21/24 17:15 IV IV Catheter Type [Right Peripheral IV Antecubital] IV Catheter Gauge [Right 18 Antecubital] Diet Orders Category Date Time Status Regular/Normal [DIET] Nutrition 12/22/24 Breakfast Ordered Diagnostics 12/21/24 12/21/24 12/21/24 Range/Units 18:46 16:59 15:59 WBC 6.28 (4.4-10.8) 10^3/uL RBC 4.32 L (4.36-5.78) 10^6/uL Hgb 12.0 L (13.5-17.5) g/dL Hct 37.4 L (40.0-50.0) % MCV 87 (80-95) fL MCH 27.8 (27.0-33.0) pg MCHC 32.1 (32.0-36.0) % RDW 14.0 (11.8-14.1) % Plt Count 171 (130-400) 10^3/uL MPV 9.2 (8.0-11.0) fL Immature Gran % 0.3 % Neutrophils % 77.3 % Lymphocytes % 7.3 % Monocytes % 8.6 % Eosinophils % 5.9 % Basophils % 0.6 % Nucleated RBC % 0.0 (0.0-0.3) % Absolute Neutrophils 4.85 (1.2-6.7) 10^3/uL Absolute Lymphocytes 0.46 L (1.2-3.4) 10^3/uL Absolute Monocytes 0.54 (0.1-0.8) 10^3/uL Absolute Eosinophils 0.37 (0.0-0.7) 10^3/uL Absolute Basophils 0.04 (0.0-0.2) 10^3/uL VBG Lactate 1.0 (<or=2.0) mmol/L Sodium 139 (136-145) mmol/L Potassium 4.6 (3.5-5.1) mmol/L Chloride 104 (98-107) mmol/L Carbon Dioxide 25.2 (21.0-32.0) mmol/L Anion Gap 9.8 (3-11) mmol/L BUN 40 H (7-18) mg/dL Creatinine 1.7 H (0.70-1.30) mg/dL Est GFR (CKD-EPI 2020) 38.53 (mL/min/1.73m2) Glucose 94 (74-106) mg/dL Calcium 8.8 (8.5-10.1) mg/dL Magnesium 1.7 mg/dL Total Bilirubin 0.3 (0.2-1.0) mg/dL AST 27 (15-37) U/L ALT 19 (16-63) U/L Alkaline Phosphatase 108 (46-116) U/L Troponin I Cancelled 9 9 (<or=76) ng/L NT-Pro-B Natriuret Pep 265 (<300) pg/mL Total Protein 6.7 (6.4-8.2) g/dL Albumin 2.5 L (3.4-5.0) g/dL 12/21/24 16:59 Blood Culture - Pending Blood 12/21/24 16:31 Blood Culture - Pending Blood Intake and Output - 24 Hour Total 12/21/24 14:58 thru 12/21/24 17:13 Intake Total 1000 Balance 1000 Weight 63.503 kg Intake: IV 1000 Falls Risk Assessment History of Falls Previous History 12/21/24 17:15 Contributing Factors Confusion 12/21/24 17:15 Ambulatory Aids Uses ambulatory device 12/21/24 17:15 Tubes/Lines With any additional score 12/21/24 17:15 Gait Evaluation W/any additional score 12/21/24 17:15 Cognition Cognitive impairment 12/21/24 17:15 Fall Total Score 88 12/21/24 17:15 Level of Risk Maximum Risk 12/21/24 17:15 Problems (Last Reviewed 12/21/24 @ 22:28 by Remi Knott) Dizziness (Acute) Orthostatic hypotension (Acute) Chronic kidney disease (Chronic) Lewy body dementia (Acute) Chronic osteomyelitis (Acute) Palliative care patient (Acute) v v v v v v v v v Sending and/or Receiving Nurses: Please use comment section below to note any information pertinent to the patient hand-off not included above. Information / Comments: Pt with PMHx of lewy body dementia came from provider office for symptomatic low BP. 18g RAC. wearing brief, continent at home. 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 Report received from: DARRIUS Hernandez
[2024-12-22] VITALS (7 sets, daily range): BP systolic 76–137; BP diastolic 47–78; PULSE 70–84; RESP 17–20; TEMP 36.4–37.7; O2SAT 92–97
[2024-12-22] MEDS: MAGNESIUM SULFATE 1 GM/100 ML BAG IV_INF (00:12)
[2024-12-22] MEDS: Normal Saline Flush 10 ML SYR IVP ×2 (00:13→21:02)
[2024-12-22] MEDS: hydrOXYzine HCL 25 MG TAB PO (01:30)
[2024-12-22] MEDS: Tamsulosin 0.4 MG CAPCR PO ×2 (01:30→21:01)
[2024-12-22 07:27] LABS: Anion Gap 10.7 mmol/L (3-11); BUN 37 mg/dL (7-18); CO2 21.3 mmol/L (21.0-32.0); CREATININE 1.5 mg/dL (0.70-1.30); Calcium 8.7 mg/dL (8.5-10.1); Chloride 111 mmol/L (98-107); Estimated GFR 44.78 (mL/min/1.73m2); Glucose 91 mg/dL (74-106); Potassium 4.2 mmol/L (3.5-5.1); Sodium 143 mmol/L (136-145)
[2024-12-22 07:28] LABS: Magnesium 1.9 mg/dL
[2024-12-22] MEDS: Tiotropium/Olodaterol 10 PUFF INHALER 2 PUFF IH (08:21)
[2024-12-22] MEDS: Spironolactone 50 MG TAB 25 MG PO (08:24)
[2024-12-22] MEDS: Finasteride 5 MG TAB PO (08:24)
[2024-12-22] MEDS: Omeprazole 20 MG CAPCR PO (08:25)
[2024-12-22] MEDS: Losartan 25 MG TAB PO (08:25)
[2024-12-22] MEDS: QUEtiapine 25 MG TAB PO (08:25)
[2024-12-22] MEDS: Doxycycline Hyclate 100 MG CAP PO ×2 (08:25→21:01)
[2024-12-22] MEDS: Refresh PLUS Eye Drops 0.4ml 1 EACH OP (08:26)
[2024-12-22] MEDS: Collagenase 30 GM TUBE TP (08:34)
[2024-12-22] MEDS: Enoxaparin 30 MG/0.3 ML SYR SC (08:34)
--- NOTE | 2024-12-22 10:13 | INITIAL_ITS ---
Date of service: 12/22/24 Time of Service: 10:13 Care Management Initial Assmt Initial Assessment Reason for Hospitalization: orthostasis Functional Status/Living Situation Patient Presentation: Ankur was at a neurology appt with Dr. Bergeron yesterday, and was noted to have a BP with 70 systolic and c/o dizziness. Orthostatic VS were done in the ER, and standing BP was noted to be 76/42, improved to 146/71 when lying down. Lab work was largely at baseline. Today Ankur was up in the chair when CM met with him. He was not able to answer most questions today and stated that his would not be taking him home, and she was trying to take the house from him. CM met with Nanette, Ankur's , later in the day. She was in the roa crying, as Ankur did not know who she was today. This is the first time this has happened. CM talked with Nanette for some time, and offered active listening and support for the pain she is feeling. She stated, I am losing him. Ankur has HH RN 2x/week for dressing changes on his heel. He also has a [place] [facility] CM, Adriana, who has completed Ankur's [facility] application just recently. Nanette is adamant that Ankur return home with her. Town of Residence: [place] Resides with: Spouse (Nanette) Significant Other/Family: Local (Nanette's daughter and her are the biggest supports. Ankur had 7 children. His son Wilbur stays connected, but lives out of state, in [place]. 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) Instrumental Activities of Daily Living (ADLs): Requires support (Ankur has problems with his hands that make it difficult to perform some activities.) with Dishes/food prep, Supervisor Train Operations, Groceries, Heat/Utilities, Laundry and Transportation Medications Medication Management: No Issues/Barriers identified Advance Directives Advance Directives: Do you have an Advance Directive: Y 10/24/24 13:40 AD On File at [facility]: Y 10/24/24 13:40 Date Asked AD Date Reviewed 12/21/24 12/21/24 15:01 COLST On File at [facility] COLST Date Scanned Code Status Resuscitation Status DNR/DNI Insurance Coverage/Financial Issues Insurance: Medicare Part A & B - [facility] - Care Team Visit Care Team Role Provider Type Magdaleno Dickens MD Primary Care Provider NON-[facility] STAFF PHYSICIAN Bridget Landon, PROSTHETICS TECHNICIAN Emergency Provider NURSE PRACTITIONER Remi Knott Admit Provider [facility] STAFF PHYSICIAN Attending Provider Discharge Potential Discharge Needs: PCP F/U Appt Anticipated Barriers to Discharge: None Identified Patient/Family Education Needs: Review discharge instructions, discuss Ask Me Three Transportation: Private vehicle (with Nanette) Plan: Anticipate that Ankur will discharge home with continuation of his HH RN. He will f/u with his PCP and his other community providers and continue per his plan of care. CM will continue to follow and to update the plan as needed. Social Determinants of Health Screening Will the Patient Participate in the Screening?: Unable to obtain PFSH All Active Problems (Updated 12/22/24 @ 12:36 by Lisset Bergeron) Hypotension (Acute) Dizziness (Acute) Orthostatic hypotension (Acute) Chronic kidney disease (Chronic) CKD 3B Lewy body dementia (Acute) Chronic osteomyelitis (Acute) Palliative care patient (Acute) Acute osteomyelitis of right calcaneus (Acute) Atherosclerotic PVD with ulceration (Acute) DNR (do not resuscitate) (Acute) 09/27/2024 COLST: DNR/DNI. +transfer to the hospital, treat, use antibiotics and IV fluids. Nanette says he should not have a feeding tube. Pt does not know what he would want to do. Advanced care planning/counseling discussion (Acute) Palliative care encounter (Acute) Ambulatory dysfunction (Acute) Caregiver stress (Acute) Non-healing ulcer of right foot (Acute) Ulcer of right foot with fat layer exposed (Acute) Ulcer of left heel and midfoot with fat layer exposed (Acute) Corns and callosities (Acute) Long toenail (Acute) Bilateral bunions (Acute) Acquired hammertoes of both feet (Acute) Ulcer of right foot (Acute) Parkinsonian features (Acute) Cognitive changes (Acute) Paranoia (Acute) Visual hallucination (Acute) Cellulitis (Acute) Atopic contact dermatitis (Acute) Transient cerebral ischemia (Chronic) Benign prostatic hyperplasia (Chronic) Atopic dermatitis (Acute) Lung nodule (Acute) Microscopic hematuria (Acute) Erectile dysfunction (Acute) History of elevated prostate specific antigen (PSA) (Acute) Medical History BPH w urinary obs/LUTS Esophageal stricture Rheumatoid arthritis HTN (hypertension) HLD (hyperlipidemia) Adenomatous colon polyp Allergic rhinitis Dysphonia Lesion of iris Transient acantholytic dermatosis Bilateral hip pain Spinal stenosis Chronic constipation Orthostatic dizziness Sinus bradycardia RBBB (right bundle branch block) Anemia Weight loss Pruritus Surgical History Colonoscopy - MAC (07/27/15) DR.TERRY CHOUDHARY Social History Smoking/Tobacco Use Status: Former Tobacco Use tobacco type: cigarettes Quit Date: 10/05/99 Smoking risk assessment performed?: Yes Alcohol Intake: never Drug use: Never Substance use type: does not use Housing: house Do you feel safe at home: Yes Do you feel safe in your relationship?: Yes Additional Social history: UTAP Readmission Within the Past 30 Days Yes or No: No Anticipated HH Services Anticipated HH Services at Discharge [facility] Resumption, RN Following Provider:
--- NOTE | 2024-12-22 11:00 | DI.US_ITS ---
APPROVED REPORT EXAM: Comprehensive 2D, Doppler, and color-flow Echocardiogram Patient Location: In-Patient Room/Bed: [facility] Machine Plug Shaper: Kelechi Nayak RDCS (AE) Indications: New orthostatic hypotension, known vascular disease Other Information Study Quality: Technically Limited. Technically limited study due to poor acoustic windows, unable to follow breathing instructions. Conclusion Technically difficult and suboptimal study Normal left ventricular wall thickness and chamber size. Ejection fraction is 60%. Normal right ventricular size and function Both atria appear normal in size Within the limits of the study no significant valvular disease is identified Wall motion Left Ventricle The left ventricle is normal size. There is normal left ventricular wall thickness. LVEF is 60%. Right Ventricle Right ventricle is grossly normal in size. Right ventricular systolic function is grossly normal. Atria The left atrium size is normal. Right atrium is not well visualized. Aortic Valve Aortic valve is grossly normal in structure. No aortic regurgitation is present. Mitral Valve Mild mitral annular calcification. There is no mitral valve regurgitation noted. Tricuspid Valve Tricuspid valve is grossly normal in structure. Trace tricuspid regurgitation. Pulmonic Valve Pulmonic valve is not visualized. Great Vessels The aortic root is normal in size. Ascending aorta is not visualized. Aortic arch is not visualized. Due to poor image quality, the IVC could not be assessed. 2D Dimensions IVSD d PLAX 1.05 cm M: 0.6-1.2 Ao Root d 2.94 cm M: 3.1 - 3.7 LVPW d PLAX 1.00 cm M: 0.6 - 1.2 LVID d PLAX 4.75 cm M: 4.2 - 5.8 LVDs 3.22 cm M: 2.5 - 4.0 LV EF Teichholz 60.4 % FS 32.24 % LV EDV (Teich) 105.0 mL LV ESV (Teich) 41.6 mL Stroke Vol Index (Teich) 36.43 LA Volume LA Length A4C 3.6 cm LA Length A2C LA Area A4C s 7.55 cm2 LA Area A2C s LA Vol A4C A-L 13.45 mL LA Vol A2C A-L LA Vol Biplane A-L LA Vol A4C MOD 13.5 mL LA Vol A2C MOD LA Vol BP MOD LV Diastology MV E Vmax 0.56 (0.4-1.3 m/s) MV A Vmax 0.95 (0.4-1.3 m/s) E/A Ratio 0.6 Aortic Valve AoV Vmax 1.12 m/s LVOT Vmax 0.74 m/s AoV Peak Grad 5.0 mmHg LVOT Peak Grad 2.2 mmHg AoV Area (Vmax) 2.12 cm2 LVOT VTI 0.157 m AoV VTI 0.242 m LVOT Mean Grad 1.3 mmHg AoV Mean Valentin. 0.85 m/s LVOT SV 50.48 mL AoV Mean Grad 3.1 mmHg LVOT Diam s 2.00 cm AoV Area (VTI) 2.09 cm2 AV Regurg Peak Gr. 5.01 mmHg Velocity Ratio 0.66 Mitral Valve MV DT 257 (160-240 msec) MV Vmax TIPS 1.03 m/s MV Mean Grad 1.3 (<2mmHg) MV VTI 0.303 m
--- NOTE | 2024-12-22 14:48 | W.PM.PROGNOT ---
Date of Service Date of service: 12/22/24 Time of Service: 14:48 Assessment and Plan Assessment and plan (1) Orthostatic hypotension: Status: Acute Assessment and plan: There is not a clear acute cause for orthostasis, though there are many possible causes in his history. Orthostasis can be a/w autonomic dysfunction of Lewey Body Dementia. Several of his medicaitons can cause it, including quetiapine, BP meds, and alpha blockers. 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 Will observe on telemetry, get echo as his EKG is abnormal and he has known vascular disease. Adjusing medications as below. He may be able to go home tomorrow if orthostasis resolves 12/22/24 Pt still with orthostasis. Will add midodrine and abdominal binder as well as KANCHAN hose (2) Chronic kidney disease: Status: Chronic Assessment and plan: CKD near baseline around 1.5, follow 12/22/24 Will recheck labs in am (3) Chronic osteomyelitis: Status: Acute Assessment and plan: As above this doesn't appear to be getting worse, wound looks benign. Continue doxycycline. (4) Lewy body dementia: Status: Acute Assessment and plan: He has been on quetiapine to control hallucinations, I am hesitant to cut this back even though it can contribute to orthostasis and parkinsonism. No change for now. (5) BPH w urinary obs/LUTS: Assessment and plan: He is on high dose tamsulosin, which can cause orthostasis. Cut dose to 0.4mg and check post void bladder scan tomorrow. continue finasteride (6) Anemia: Assessment and plan: This is near his baseline mild anemia. I don't think it is contributing. (7) Palliative care patient: Status: Acute Assessment and plan: Follows with palliative. Some struggles with caring for him at home. Will consult. (8) DVT prophylaxis: Status: Resolved Assessment and plan: enoxaparin Subjective Subjective Interval history since last seen: Pt seen and examined in his room. POC d/w pt as well as his SO (Nanette) and with bedside nurse during MDR. PT still with significant orthostatic hypotension Exam Narrative Exam Narrative: GEN: Alert and appropriately responsive, oriented to self only, cooperative and following directions. Cannot relate a linear history. No acute distress at rest. HEENT: Head atraumatic. Conjunctiva clear, no icterus. Pupils 2mm bilaterally and reactive. no rhinorrhea. MMM, edentulous, OP benign. Neck is supple with no masses or lymphadenopathy, trachea midline LUNGS: CTAB with normal effort CV: RRR with no murmurs, gallops, or rubs. ABD: active bowel sounds, soft, nontender and nondistended. No masses. EXT: no cyanosis, clubbing, or edema. BUE c/w RA MSK: No joint redness or swelling. Ulnar deviation nicci MCPs, but no warmth/redness NEURO: CN 2-12 grossly intact. SKIN: No rashes. Skin proximal and distal to right heel wound is not red or tender. Wound dress, under bandage looks pink, dry, no exudate or redness. PSYCH: flat affect, no apparent hallucinations or delusions. Objective Last Vital Signs Temp 36.4 C L 12/22/24 11:51 Pulse 78 12/22/24 11:51 Resp 18 12/22/24 11:51 BP 124/62 12/22/24 11:51 Pulse Ox 96 12/22/24 11:51 Laboratory Results - last 24 hr 12/21/24 12/21/24 12/21/24 15:59 16:59 18:46 WBC 6.28 RBC 4.32 L Hgb 12.0 L Hct 37.4 L MCV 87 MCH 27.8 MCHC 32.1 RDW 14.0 Plt Count 171 MPV 9.2 Immature Gran % 0.3 Neutrophils % 77.3 Lymphocytes % 7.3 Monocytes % 8.6 Eosinophils % 5.9 Basophils % 0.6 Nucleated RBC % 0.0 Absolute Neutrophils 4.85 Absolute Lymphocytes 0.46 L Absolute Monocytes 0.54 Absolute Eosinophils 0.37 Absolute Basophils 0.04 VBG Lactate 1.0 Sodium 139 Potassium 4.6 Chloride 104 Carbon Dioxide 25.2 Anion Gap 9.8 BUN 40 H Creatinine 1.7 H Est GFR (CKD-EPI 2020) 38.53 Glucose 94 Calcium 8.8 Magnesium 1.7 Total Bilirubin 0.3 AST 27 ALT 19 Alkaline Phosphatase 108 Troponin I 9 9 Cancelled NT-Pro-B Natriuret Pep 265 Total Protein 6.7 Albumin 2.5 L 12/22/24 05:55 WBC RBC Hgb Hct MCV MCH MCHC RDW Plt Count MPV Immature Gran % Neutrophils % Lymphocytes % Monocytes % Eosinophils % Basophils % Nucleated RBC % Absolute Neutrophils Absolute Lymphocytes Absolute Monocytes Absolute Eosinophils Absolute Basophils VBG Lactate Sodium 143 Potassium 4.2 Chloride 111 H Carbon Dioxide 21.3 Anion Gap 10.7 BUN 37 H Creatinine 1.5 H Est GFR (CKD-EPI 2020) 44.78 Glucose 91 Calcium 8.7 Magnesium 1.9 Total Bilirubin AST ALT Alkaline Phosphatase Troponin I NT-Pro-B Natriuret Pep Total Protein Albumin Time Spent with Patient Time Spent with Patient: 25-34 minutes Time was spent: preparing to see the patient(eg.review tests), obtaining and/or reviewing separately otained hiistory, ordering medications,tests, procedures, referring, communicating with other health animal care service worker, indepentently interpreting results, counseling the patient and care coordination
--- NOTE | 2024-12-22 15:46 | NUR.NOTE ---
Abdominal binder applied
[2024-12-22] MEDS: QUEtiapine 25 MG TAB 62.5 MG PO (21:01)
[2024-12-22] MEDS: Simvastatin 10 MG TAB PO (21:01)
[2024-12-22] MEDS: Aspirin E.C. 81 MG TABEC PO (21:01)
[2024-12-23 04:11] VITALS: BP 135/67; PULSE 75; RESP 17; TEMP 36.8; O2SAT 95
[2024-12-23 07:24] LABS: Abs Immature Grans 0.03 10^3/uL (0.0-0.06); Absolute Basophil Count 0.03 10^3/uL (0.0-0.2); Absolute Eosinophil Count 0.24 10^3/uL (0.0-0.7); Absolute Monocyte Count 0.43 10^3/uL (0.1-0.8); Absolute Neutrophil Count 4.82 10^3/uL (1.2-6.7); Basophils % 0.5 %; HCT 34.4 % (40.0-50.0); HGB 11.1 g/dL (13.5-17.5); Immature Grans % 0.5 %; Lymphocytes % 8.3 %; MCH 27.5 pg (27.0-33.0); MCHC 32.3 % (32.0-36.0); MCV 85 fL (80-95); MPV 10.6 fL (8.0-11.0); Monocytes % 7.1 %; Neutrophils % 79.6 %; Platelet Count 163 10^3/uL (130-400); RBC 4.03 10^6/uL (4.36-5.78); RDW 13.9 % (11.8-14.1); RDW-SD 43.3 fL; WBC 6.05 10^3/uL (4.4-10.8)
[2024-12-23 08:02] LABS: ALT 17 U/L (16-63); AST 30 U/L (15-37); Albumin 2.3 g/dL (3.4-5.0); Alkaline Phosphatase 94 U/L (46-116); Anion Gap 9.8 mmol/L (3-11); BUN 37 mg/dL (7-18); Bilirubin, Total 0.3 mg/dL (0.2-1.0); CO2 22.2 mmol/L (21.0-32.0); CREATININE 1.5 mg/dL (0.70-1.30); Calcium 8.8 mg/dL (8.5-10.1); Chloride 112 mmol/L (98-107); Estimated GFR 44.78 (mL/min/1.73m2); Glucose 85 mg/dL (74-106); Potassium 3.8 mmol/L (3.5-5.1); Sodium 144 mmol/L (136-145); Total Protein 6.2 g/dL (6.4-8.2)
[2024-12-23 08:10] VITALS: O2SAT 96
[2024-12-23] MEDS: Tiotropium/Olodaterol 10 PUFF INHALER 2 PUFF IH (08:11)
[2024-12-23] MEDS: Refresh PLUS Eye Drops 0.4ml 1 EACH OP (08:38)
[2024-12-23] MEDS: Enoxaparin 30 MG/0.3 ML SYR SC (08:38)
[2024-12-23] MEDS: Doxycycline Hyclate 100 MG CAP PO (08:38)
[2024-12-23] MEDS: Finasteride 5 MG TAB PO (08:39)
[2024-12-23] MEDS: Omeprazole 20 MG CAPCR PO (08:39)
[2024-12-23] MEDS: QUEtiapine 25 MG TAB PO (08:40)
[2024-12-23] MEDS: Normal Saline Flush 10 ML SYR IVP (08:40)
[2024-12-23 08:48] VITALS: BP 130/51; BP 70/40; BP 97/54; PULSE 69; PULSE 71; PULSE 77; RESP 20; TEMP 36.6; O2SAT 95
--- NOTE | 2024-12-23 10:42 | NUR.NOTE ---
patient is AxOx2 this AM, unsure why he is in the hospital but understands where he is. Patient continues to have orthostatic hypotension, although asymptomatic when standing/pivoting to chair. POC is to have pt work with PT today and see if he is able to withstand ADLs without symptoms. Discussed adding midodrine in rounds as a daily medication. Held losartan and aldactone this AM due to orthostatic vitals, sat in chair this AM, helped feed, pt has hx of edith body dementia and has difficulty with tremors and weakness. Discussed all of this and POC with family/partner at bedside. Possible d/c to home today or tomorrow pending vitals and tolerance of PT. Chair alarm on, call palma in reach, denies pain or needs. Nursing Note:
[2024-12-23 11:37] VITALS: BP 127/61; PULSE 70; RESP 20; TEMP 36.7; O2SAT 95
[2024-12-23] MEDS: Multivitamin w/Minerals TAB 1 TAB PO (12:13)
--- NOTE | 2024-12-23 13:04 | PDOC.CMDIS ---
Date of service: 12/23/24 Time of Service: 12:00 LACE Index Scoring Tool Questions: Length of Stay (in days): 2 Was the patient admitted via the E.D.?: Yes Comorbidities: Liver or Renal Disease E.D. Visits: 2 Answers: Total Score: 12 Risk of Readmission: High Risk Care Management Discharge Plan Reason for Hospitalization: orthostatic hypotension Discharge Plan: Ankur is discharged home today with continuation of his HH RN and new PT. He will f/u with his PCP and continue per his plan of care. He will transport in a private vehicle with his . Patient/Family Education Needs: Review of discharge instructions, activity, limitations and discuss ask me 3. Services Needed at Discharge: Home Health Care Services (RN and PT) SDOH Health Related Social Needs: No Data to Display
[2024-12-23] MEDS: Collagenase 30 GM TUBE TP (13:28)
--- NOTE | 2024-12-23 13:43 | NUR.NOTE ---
patient with discharge order, MD Malagon spoke with and discussed plan to discharge to home. Pt bathed prior and wound care to R heel completed. Wound looks healthy and granular, santyl applied. Patient dressed, PIV removed, urinated to toilet and PVR of 325ml, MD Malagon aware and will continue pt on tamsulosin on discharge. Patient resting in chair with alarm on, significant other at bedside, waiting for d/c paperwork. Nursing Note:
--- NOTE | 2024-12-23 14:11 | PT.INIE ---
Date of service: 12/23/24 Time of Service: 10:45 PT Notes Visit Reasons: Orthostatic hypotension Inpatient Physical Therapy Evaluation I certify the need for these services as being medically necessary and skilled as furnished under this plan of treatment while under my care. Please sign and return within 14 days if you agree with the plan of care listed below.? Thank you for this referral! ? Referring Physician? Date Referring Doctor:? Crow Malagon MD PT Orders: PT CONSULT for functional mobility Precautions: fall risk. No weight bearing status listed in chart. reports she was told to have him NWB on right heel secondary to full-thickness ulcer with osteomyelitis, per biopsy taken on 11/07/2024. Note per Dr. Amaral 12/01/24: Home health dressing changes instructions: Please cleanse all wounds with wound cleanse. Soak the wound with wound cleanse for 5 minutes. Pat dry. Right heel dressing: Santyl, moistened gauze, 4 x 4, Edilberto, gentle Mauricio wrap. Left first interspace dressings: Ketoconazole, 4 x 4, Edilberto, Mauricio wrap Patient may use a surgical shoe for ambulation. He is having a difficult time remaining nonweightbearing to the right lower extremity. He may protected weightbearing in a surgical shoe. However limit ambulation. , Nanette, reports HH did not recommend the surgical shoe and said to cue him to weight bear on his toe only. Patient Profile/Admitting Diagnosis:? The patient is an 89 yo male adm on 12/21/24 who has a history of Lewey Body dementia, chronic osteomyelitis a/w right foot ulcer, PAD, inactive RA, CKD, BPH/LUTS who was sent from a routine visit with his neurologist where he was complaining of dizziness and found to have a systolic blood pressure in 70s. Went to the ED and was admitted. Past Medical History: All Active Problems Dizziness (Acute) Orthostatic hypotension (Acute) Chronic osteomyelitis (Acute) Palliative care patient (Acute) Lewy body dementia (Acute) Chronic kidney disease (Chronic) CKD 3B Acute osteomyelitis of right calcaneus (Acute) Atherosclerotic PVD with ulceration (Acute) DNR (do not resuscitate) (Acute) 09/27/2024 COLST: DNR/DNI. +transfer to the hospital, treat, use antibiotics and IV fluids. Nanette says he should not have a feeding tube. Pt does not know what he would want to do.Advanced care planning/counseling discussion (Acute) Palliative care encounter (Acute) Ambulatory dysfunction (Acute) Caregiver stress (Acute) Non-healing ulcer of right foot (Acute) Ulcer of right foot with fat layer exposed (Acute) Ulcer of left heel and midfoot with fat layer exposed (Acute) Corns and callosities (Acute) Long toenail (Acute) Bilateral bunions (Acute) Acquired hammertoes of both feet (Acute) Ulcer of right foot (Acute) Parkinsonian features (Acute) Cognitive changes (Acute) Paranoia (Acute) Visual hallucination (Acute) Atopic contact dermatitis (Acute) Transient cerebral ischemia (Chronic) Benign prostatic hyperplasia (Chronic) Cellulitis (Acute) Atopic dermatitis (Acute) Lung nodule (Acute) Microscopic hematuria (Acute) Erectile dysfunction (Acute) History of elevated prostate specific antigen (PSA) (Acute) Medical History Esophageal stricture Rheumatoid arthritis HTN (hypertension) HLD (hyperlipidemia) BPH w urinary obs/LUTS Adenomatous colon polyp Allergic rhinitis Dysphonia Lesion of iris Transient acantholytic dermatosis Bilateral hip pain Spinal stenosis Chronic constipation Orthostatic dizziness Sinus bradycardia RBBB (right bundle branch block) Anemia Weight loss Pruritus Surgical History Colonoscopy - [facility] (07/27/15) DR.TERRY CHOUDHARY Smoking/Tobacco Use Status: Former Tobacco Use tobacco type: cigarettes Quit Date: 10/05/99 Medications: See chart Social History/Home Situation: Lives with his Nanette in [place]. Stays on one level with one step and then one step to enter. Has a portable W/C, cane, walker, commode and urinal. Has home health RN for dressings and PT 1x/week. Was instructed to limit his ambulation secondary to the wound so has been doing stand pivot transfers with cuing from his and moved from room to room with his . Granddaughter and present in room. Granddaughter reports she is able to assist home into the home and would be able to check on them over the weekend. Subjective: Patient agreeable to transfer into w/c and back into recliner. Objective: Sitting with LE elevated upon arrival: 121/59 75 bpm 96% RA Sitting in w/c with LE dependent: 86/54 72 bpm 96% RA [facility]55 75 bpm 97% RA Sitting in recliner after 3 min rest: 122/58 75 bpm 96% Mental Status: Patient is sleeping upon arrival but arousal. Following cuing from with ~80% accuracy. Pain: No grimacing or complaints of pain observed. Limited communication secondary to menal status. ROM/Strength: Upper extremities: WFL Lower extremities: WFL. knee flexion during standing but full extension observed in sitting. Sensation: Unable to assess but patient responding to touch of therapist Soft tissue/edema: Bruising throughout UE with fragile skin. Right heel wound not examined. Bed Mobility:not performed Transfers: Stand pivot with recliner to/from w/c with w/c placed anterior to chair with CG/min assist of with cuing and CGA of PT for safety only. Patient mostly able to follow cuing from but difficulty secondary to width of w/c and size of arms. Discussed typical set up for a SPT but she felt this technique allowed him to shift his weight anteriorly and weight bear more efficiently. Transfers with were safely performed. Recommended she assess his ability to weight bear and follow instructions prior to cuing him to move for the transfer. Balance: [facility] AM-PAC 6 clicks Basic Mobility Inpatient Short Form: Raw Score:??16? Informed Consent/Education:? Patient, and granddaughter instructed in purpose of PT consult and plan of care and is agreeable Assessment:? Patient is an 89? year old male adm on 12/21/24 for low blood pressure, dizziness and difficulty with mobility..? Patient is able to perform transfers today with his at his baseline with up to min assist only with cuing (even with today's altered set up). Able to mobilize as needed for d/c to home with and granddaughter to assist. Patient is assessed as:? Low 01521?? complexity based on the following: History: dementia, wound Examination: see above Presentation: Stable and uncomplicated? Decision Making:? Low (0 history, 1-2 exam, stable/predictable, easy 20) Physical Therapy Goals: 1 visit Able to perform transfers at baseline: met All equipment needs met: met. Plan of Care/Treatment Plan: 1 visit only. Recommend HHPT, HH for wound and BP monitoring DISCHARGE RECOMMENDATIONS: HHPT for strengthening, mobility training, ? assess need for ramp inside the home, HH RN for wound and BP monitoring. Recommend clarify weighting status and need for special shoe for right foot wound Informed consent Prior to the start and throughout the course of the examination and treatment, patient was made aware of the specifics and purpose of the physical assessment and treatment procedures. Appropriate draping procedures were utilized to protect modesty where applicable. Billing Charges: Treatment Units Time Duration Manual Therapy(80907) Hands-on techniques to modulate pain increase joint range of motion reduce or eliminate soft tissue swelling, inflammation, or restriction facilitate relaxation and improve contractile and non-contractile tissue extensibility ? ? Therapeutic Procedures (39824) Instruction in therapeutic exercises to develop strength and endurance, range of motion and flexibility. HEP instruction and review: Provided skilled instruction in proper exercise performance: Provided skilled manual cues to facilitate proper muscle recruitment and/or movement pattern Neurological Re-Education(29519) To improve balance, coordination, kinesthetic and proprioceptive sensations. ? ? Ultrasound(66351) To promote healing. ? ? Gait Training(91140) ? ? Therapeutic Activity(42398) Instruction in dynamic activities with one on one patient contact by the provider to improve functional performance as follows: 2 ? ?25 Self Care Training(96112) ? ? E-Stim (Attended)(79942) ? ? Low IE(88868) 1 32 Mod IE(16746) ? ? High IE(04647) ? ? Time Coded Treatment Time ? 25 Total Treatment Time ? 57
--- NOTE | 2024-12-23 14:46 | NUR.NOTE ---
patient left at 1405 via w/c by POV with CATHLEEN Fitzpatrick. D/c teaching reviewed with harley including prescriptions to scrap picker (midodrine) and parameters, along with medications to stop (losartan) and medications he is needing tonight that were not given. PIV removed, all belongings packed up, given medication from patient med cassette. No pain at discharge. Home health to f/u with pt. Nursing Note:
--- NOTE | 2024-12-24 11:39 | W.PM.DS.N ---
Date of service: 12/23/24 Time of Service: 11:39 DS: Diagnosis Discharge Diagnosis (1) Orthostatic hypotension: Status: Acute (2) Chronic kidney disease: Status: Chronic (3) Chronic osteomyelitis: Status: Acute (4) Lewy body dementia: Status: Acute (5) BPH w urinary obs/LUTS: (6) Anemia: (7) Palliative care patient: Status: Resolved (8) DVT prophylaxis: Status: Resolved Discharge Plan Disposition Patient Disposition: Home W/Home Health Services Condition: Stable Discharge Details Reason For Visit: Orthostatic hypotension Admit Date/Time: 12/21/24 21:21 Admit Provider: Remi Knott Attending Provider: Remi Knott Primary Care Provider: ChrissieMagdaleno [facility] Course Hospital Course: History of Present Illness Narrative: 89 yo M with history of Lewey Body dementia, chronic osteomyelitis a/w right foot ulcer, PAD, inactive RA, CKD, BPH/LUTS who was sent from a routine visit with his neurologist where he was complaining of dizziness and found to have a systolic blood pressure in 70s. He is being treated for chornic osteomyelitis but he has been acting normally recently. He ate breakfast and lunch as normal. He has not had any recent cough or URI symptoms, nausea/vomiting or abdominal pain. He has had some loose stools recently but not frequent. He has progressive Lewey Body dementia and relies on his partner Nanette for care. He gives a limited history, denies complaints currently. He has no currently focal pain. Doesn't feel dizzy now at rest. No chest pain or palptiations. His wound has not looked any worse. He hasn't had worse joint pain, though he does have chronic back pain issues. He was admitted 11/09-04/28 for vomiting/dysphagia, which improved and attributed to gastroenteritis. During that admission his previous bone biopsy returned with cornybacterium and he was started on doxycycline. He was given 1 liter NS in the emergency room. Galliano well at rest, but BP dropped with standing and could not walk. Partner Nanette did not feel comfortable taking him home. Assessment and Plan Assessment and plan (1) Orthostatic hypotension: Status: Acute Assessment and plan: There is not a clear acute cause for orthostasis, though there are many possible causes in his history. Orthostasis can be a/w autonomic dysfunction of Lewey Body Dementia. Several of his medicaitons can cause it, including quetiapine, BP meds, and alpha blockers. 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 Will observe on telemetry, get echo as his EKG is abnormal and he has known vascular disease. Adjusing medications as below. He may be able to go home tomorrow if orthostasis resolves (2) Chronic kidney disease: Status: Chronic Assessment and plan: CKD near baseline around 1.5, follow (3) Chronic osteomyelitis: Status: Acute Assessment and plan: As above this doesn't appear to be getting worse, wound looks benign. Continue doxycycline. (4) Lewy body dementia: Status: Acute Assessment and plan: He has been on quetiapine to control hallucinations, I am hesitant to cut this back even though it can contribute to orthostasis and parkinsonism. No change for now. (5) BPH w urinary obs/LUTS: Assessment and plan: He is on high dose tamsulosin, which can cause orthostasis. Cut dose to 0.4mg and check post void bladder scan tomorrow. continue finasteride (6) Anemia: Assessment and plan: This is near his baseline mild anemia. I don't think it is contributing. (7) Palliative care patient: Status: Acute Assessment and plan: Follows with palliative. Some struggles with caring for him at home. Will consult. (8) DVT prophylaxis: Status: Resolved Assessment and plan: enoxaparin Pt was admitted to the hospital and had multiple interactions with PT who said that the pt was orthostatic but asymptomatic. I have started the pt on midodrine and added abdominal binder and mell hose. Pt does have some urinary retention that I will treat with flomax. I do recommend to continue with abdominal binder and mell/support stockings. I will hold his losartan in the interim Pt will be resumption of HHRN and new PT. Home Meds and New Rx's Prescriptions: New midodrine 5 mg tablet 10 mg PO TID 30 Days Qty: 180 0RF Rx Instructions: do not give last dose of day after 6PM or within 4 hrs of bedtime Continued triamcinolone acetonide 0.1 % cream 1 applic topical BID PRN (Reason: itching) albuterol sulfate 90 mcg/actuation HFA aerosol inhaler 2 puff inhalation Q4H PRN PRN multivitamin with iron Tablet 1 tab PO DAILY finasteride 5 mg tablet 5 mg PO DAILY Qty: 90 4RF hydroxyzine HCl 25 mg tablet 25 mg PO QID PRN quetiapine [Seroquel] 25 mg tablet See Rx Instructions PO .COMPLEX Patient Comments: 25mg QAM 62.5QPM per caregiver Rx Instructions: 25mg in AM and 62.5mg in PM orally; Santyl 250 unit/gram ointment 1 applic topical DAILY Qty: 90 0RF Rx Instructions: 4.3x3.6x0.5cm doxycycline hyclate 100 mg capsule 100 mg PO BID Qty: 28 0RF spironolactone 50 mg tablet 50 mg PO DAILY simvastatin 10 MG tablet 10 mg PO HS aspirin [Aspir-Low] 81 MG tablet,delayed release (DR/EC) 81 mg PO HS omeprazole 20 MG capsule,delayed release(DR/EC) 20 mg PO DAILY Anoro Ellipta 62.5-25 mcg/actuation Blister With Device 1 inh INHALATION DAILY Systane Gel 0.3 % gel 1 drp ophthalmic (eye) DAILY Spencer 128 2 % drops 1 drp ophthalmic (eye) DAILY tamsulosin 0.4 mg capsule 0.8 mg PO HS Discontinued losartan 100 mg tablet 25 mg PO DAILY Discharge Instructions Stand Alone Forms: Nursing Discharge Form Referrals: Magdaleno Dickens MD [Primary Care Provider] - 01/03/25 11:45 am Activity:: Stand up slowly Equipment/Supplies:: No Equipment Needed Diet:: As Tolerated Discharge Orders Discharge Orders: Discharge Order (Routine); Ordered 12/23/24 Ordered By: Crow Malagon Discharge Data Discharge Date/Time-TO BE ENTERED AT DEPARTURE: 12/23/24 14:05 DS: Summary Time Spent with Patient providing and/or coordinating discharge services: Greater than 30 minutes Status at Discharge Functional status at discharge: uses cane/walker Overall status at discharge: patient is progressing back to baseline Mental Status: mental status grossly normal Speech and Movement: speech and movement normal Mood: congruent mood Affect: normal affect Quality:SDOH Health Related Social Needs: No Data to Display Exam Narrative Exam Narrative: GEN: Alert and appropriately responsive, oriented to self only, cooperative and following directions. Cannot relate a linear history. No acute distress at rest. HEENT: Head atraumatic. Conjunctiva clear, no icterus. Pupils 2mm bilaterally and reactive. no rhinorrhea. MMM, edentulous, OP benign. Neck is supple with no masses or lymphadenopathy, trachea midline LUNGS: CTAB with normal effort CV: RRR with no murmurs, gallops, or rubs. ABD: active bowel sounds, soft, nontender and nondistended. No masses. EXT: no cyanosis, clubbing, or edema. BUE c/w RA MSK: No joint redness or swelling. Ulnar deviation nicci MCPs, but no warmth/redness NEURO: CN 2-12 grossly intact. SKIN: No rashes. Skin proximal and distal to right heel wound is not red or tender. Wound dress, under bandage looks pink, dry, no exudate or redness. PSYCH: flat affect, no apparent hallucinations or delusions. Psych Mental Status: mental status grossly normal Speech and Movement: speech and movement normal Mood: congruent mood Affect: normal affect DS: Data Vitals/I&O Vitals and I&O: Vital Signs Temperature 36.7 C 12/23/24 11:37 Temperature Source Temporal Artery Scan 12/23/24 11:37 Pulse 70 12/23/24 11:37 Pulse Rhythm Irregular 12/21/24 23:44 Pulse 76 12/21/24 22:31 Respiratory Rate 20 12/23/24 11:37 Respiratory Effort Normal, Non-Labored 12/21/24 23:44 Respiratory Depth Normal 12/21/24 23:44 Respiratory Pattern Normal 12/21/24 23:44 Blood Pressure 127/61 12/23/24 11:37 Blood Pressure Mean 96 12/21/24 22:31 Blood Pressure Position Sitting 12/21/24 15:14 Pulse Oximetry 95 12/23/24 11:37 Oxygen Delivery Method Room Air 12/23/24 11:37 Oxygen Flow Rate 0 12/23/24 11:37 Pain Level 0 12/23/24 04:11 Comment RN in room. 12/23/24 08:48 Intake & Output 12/23/24 12/23/24 12/24/24 11:59 23:59 11:59 Intake Total 200 / 320 120 / 320 Output Total 525 / 525 Balance 200 / -205 -405 / -205 Weight 62.4 kg Intake: Oral 200 / 320 120 / 320 Output: Urine 200 / 200 Post Void Residual 325 / 325 Other: Urine Color Yellow Comment immeasurable, voided in toilet. unable to determine characteristics as mixed with stool. POST VOID OF 100ML Stool Size Large Stool Characteristics Liquid Data Completed and Pending Labs on day of discharge: Preliminary micro results at discharge 12/21/24 16:59 Blood Culture - Preliminary Blood NO GROWTH 48 HOURS 12/21/24 16:31 Blood Culture - Preliminary Blood NO GROWTH 48 HOURS PFSH All Active Problems (Updated 12/24/24 @ 00:00 by KODI RAMIREZ) Hypotension (Acute) Orthostatic hypotension (Acute) Chronic kidney disease (Chronic) CKD 3B Lewy body dementia (Acute) Chronic osteomyelitis (Acute) Acute osteomyelitis of right calcaneus (Acute) Atherosclerotic PVD with ulceration (Acute) DNR (do not resuscitate) (Acute) 09/27/2024 COLST: DNR/DNI. +transfer to the hospital, treat, use antibiotics and IV fluids. Nanette says he should not have a feeding tube. Pt does not know what he would want to do. Advanced care planning/counseling discussion (Acute) Palliative care encounter (Acute) Ambulatory dysfunction (Acute) Caregiver stress (Acute) Non-healing ulcer of right foot (Acute) Ulcer of right foot with fat layer exposed (Acute) Ulcer of left heel and midfoot with fat layer exposed (Acute) Corns and callosities (Acute) Long toenail (Acute) Bilateral bunions (Acute) Acquired hammertoes of both feet (Acute) Ulcer of right foot (Acute) Parkinsonian features (Acute) Cognitive changes (Acute) Paranoia (Acute) Visual hallucination (Acute) Cellulitis (Acute) Atopic contact dermatitis (Acute) Transient cerebral ischemia (Chronic) Benign prostatic hyperplasia (Chronic) Atopic dermatitis (Acute) Lung nodule (Acute) Microscopic hematuria (Acute) Erectile dysfunction (Acute) History of elevated prostate specific antigen (PSA) (Acute) Medical History BPH w urinary obs/LUTS Esophageal stricture Rheumatoid arthritis HTN (hypertension) HLD (hyperlipidemia) Adenomatous colon polyp Allergic rhinitis Dysphonia Lesion of iris Transient acantholytic dermatosis Bilateral hip pain Spinal stenosis Chronic constipation Orthostatic dizziness Sinus bradycardia RBBB (right bundle branch block) Anemia Weight loss Pruritus Surgical History [place] [facility].TERRY CHOUDHARY Social History Smoking/Tobacco Use Status: Former Tobacco Use tobacco type: cigarettes Quit Date: 10/05/99 Smoking risk assessment performed?: Yes Alcohol Intake: never Drug use: Never Substance use type: does not use Housing: house Do you feel safe at home: Yes Do you feel safe in your relationship?: Yes Additional Social history: [facility] Time Spent with Patient Time Spent with Patient: 45-69 minutes Time was spent: preparing to see the patient(eg.review tests), obtaining and/or reviewing separately otained hiistory, ordering medications,tests, procedures, referring, communicating with other health career representative, indepentently interpreting results, counseling the patient and care coordination
== END 2024-12-23 14:05 | disposition home health service (06) | DRG 312 ==
LOC: ER 19:27 → MS 23:27
PROVIDERS: Admitting Provider Family Medicine; Emergency Provider Registered Nurse Emergency; PCP Family Medicine; Responsible Provider Hospitalist; Visit Provider Family Medicine
DX: I95.1 Orthostatic hypotension (principal); N13.8 Other obstructive and reflux uropathy; M86.671 Other chronic osteomyelitis, right ankle and foot; L97.422 Non-pressure chronic ulcer of left heel and midfoot with fat layer exposed; R44.1 Visual hallucinations; G31.83 Neurocognitive disorder with Lewy bodies; F02.80 Dementia in other diseases classified elsewhere, unspecified severity, without behavioral disturbance, psychotic disturbance, mood disturbance, and anxiety; N40.1 Benign prostatic hyperplasia with lower urinary tract symptoms; D64.9 Anemia, unspecified; Z51.5 Encounter for palliative care; N18.32 Chronic kidney disease, stage 3b; Z66 Do not resuscitate; I70.244 Atherosclerosis of native arteries of left leg with ulceration of heel and midfoot; I70.235 Atherosclerosis of native arteries of right leg with ulceration of other part of foot; L97.519 Non-pressure chronic ulcer of other part of right foot with unspecified severity; I12.9 Hypertensive chronic kidney disease with stage 1 through stage 4 chronic kidney disease, or unspecified chronic kidney disease; E78.5 Hyperlipidemia, unspecified; M48.00 Spinal stenosis, site unspecified; K59.09 Other constipation; I45.10 Unspecified right bundle-branch block; K22.2 Esophageal obstruction; Z79.899 Other long term (current) drug therapy
CPT/HCPCS: 00123; 36415; 80048; 80053; 87040; 93005; 93306; 94640; 96360; 97161; 97530; 99214; 99285; 71046; 73630; 83605; 83735; 83880; 84484; 85025; 93010; 94664; 94760; 99223; 99232; 99239; J1650; J3475

== ENCOUNTER → 2025-01-12 09:53 | Outpatient (BNVA) | payer MEDICARE, BC, SELFPAY | PROVIDERS: PCP Family Medicine; Referring Provider Family Medicine; Visit Provider Podiatrist | DX: Z51.89 Encounter for other specified aftercare (principal); L97.512 Non-pressure chronic ulcer of other part of right foot with fat layer exposed; L97.422 Non-pressure chronic ulcer of left heel and midfoot with fat layer exposed; I70.209 Unspecified atherosclerosis of native arteries of extremities, unspecified extremity; L84 Corns and callosities; M20.41 Other hammer toe(s) (acquired), right foot; M20.42 Other hammer toe(s) (acquired), left foot; M21.611 Bunion of right foot; M21.612 Bunion of left foot; L60.2 Onychogryphosis; M86.171 Other acute osteomyelitis, right ankle and foot; L03.115 Cellulitis of right lower limb | CPT/HCPCS: 99214 ==

== ENCOUNTER 2025-01-27 02:08 | Emergency (ER) | payer MEDICARE, BC, SELFPAY ==
[2025-01-27 02:01] VITALS: BP 153/56; PULSE 89; RESP 16; O2SAT 93
[2025-01-27 02:05] VITALS: RESP 16
--- NOTE | 2025-01-27 02:22 | ED.GENADUL_ITS ---
Discharge Plan Disposition Patient Disposition: Home Condition: Stable Discharge Details Clinical Impression: Lewy body dementia Primary Care Provider: Magdaleno Dickens ED Provider: Helena Noble Home Meds and New Rx's Prescriptions: No Action albuterol sulfate 90 mcg/actuation HFA aerosol inhaler 2 puff inhalation Q4H PRN PRN finasteride 5 mg tablet 5 mg PO DAILY Qty: 90 4RF Santyl 250 unit/gram ointment 1 applic topical DAILY Qty: 90 0RF Rx Instructions: 4.3x3.6x0.5cm acetaminophen 650 mg suppository 650 mg WA Q6H PRN (Reason: fever, mild pain) Qty: 6 0RF Rx Instructions: Hospice Patient hyoscyamine sulfate 0.125 mg tablet,disintegrating 0.125 - 0.25 mg PO Q4H PRN (Reason: secretions) Qty: 24 0RF Rx Instructions: Hospice Patient lorazepam 1 mg tablet 1 mg PO Q4H PRN (Reason: anxiety, WONG or nausea) Qty: 6 5RF Rx Instructions: Hospice Patient haloperidol lactate 2 mg/mL concentrate 1 mg PO Q6H PRN (Reason: agitation) Qty: 15 0RF Rx Instructions: Hospice Patient morphine concentrate 100 mg/5 mL (20 mg/mL) solution 5 - 20 mg PO Q1-4H MDD 5 mL PRN (Reason: moderate to severe pain or shortness of breath) Qty: 30 0RF Rx Instructions: Hospice Patient prochlorperazine maleate 10 mg tablet 10 mg PO Q6H PRN (Reason: nausea and vomiting) Qty: 6 0RF Rx Instructions: Hospice Patient bisacodyl [Dulcolax (bisacodyl)] 10 mg suppository 10 mg WA daily PRN (Reason: constipation) Qty: 2 0RF Rx Instructions: Hospice Patient Insert 1 supp WA Daily PRN constipation (no BM in 3 days) risperidone 1 mg/mL solution 2 mg PO BID Qty: 30 3RF Rx Instructions: may increase to tid if needed HOSPICE omeprazole 20 MG capsule,delayed release(DR/EC) 20 mg PO DAILY Anoro Ellipta 62.5-25 mcg/actuation Blister With Device 1 inh INHALATION DAILY Systane Gel 0.3 % gel 1 drp ophthalmic (eye) DAILY Spencer 128 2 % drops 1 drp ophthalmic (eye) DAILY tamsulosin 0.4 mg capsule 0.4 mg PO HS Discharge Instructions Additional Instructions: Mr. Galvez was given 1mg of lorazapam in the emergency department. Please follow your hospice clinician's advice regarding further treatment at home and keep his appointment tomorrow. HPI General Mode of arrival: EMS . Date/Time Provider Initiated Documentation: 01/27/25 02:09 . Limitations to Documentation: altered mental status . Information obtained by: patient, RN/MD, EMS and old records reviewed . HPI Narrative: 89yo M with Lewey Body dementia, on home hospice, presenting via EMS for agitation. No meds given en route, per EMS patient calm and cooperative during transport. Per [facility] ENTRY LEVEL FINANCIAL ANALYST on phone, patient with some medication changes today which may have contributed to agitation at home. Did recieve risperdone 1mg at 2030 and haldol at 2200 prior to transport; may have also had 1mg lorazapam (ENTRY LEVEL FINANCIAL ANALYST to clarify with hospice nurse). Patient does not qualify for respite admission at this time and [facility] is working with family to increase caregiver support at home with goal of discharge back to home hospice tonight; pt does have provider visit scheduled for tomorrow. Patient denies any complaints. Related Data Home Medications ?Medication ?Instructions ?Recorded ?Confirmed omeprazole 20 mg capsule,delayed 20 mg PO DAILY 07/26/15 01/12/25 release umeclidinium 62.5 mcg-vilanterol 1 inh inhalation DAILY 05/10/23 01/12/25 25 mcg/actuation powdr for inhalation (Anoro Ellipta) finasteride 5 mg tablet 5 mg PO DAILY #90 tabs 05/27/24 01/12/25 collagenase clostridium histo. 250 1 applic topical DAILY #90 grams 08/29/24 01/12/25 unit/gram topical ointment (Santyl) albuterol sulfate 90 mcg/actuation 2 puff inhalation Q4H PRN PRN 10/18/24 01/12/25 aerosol inhaler artificial tears(hypromellose) 0.3 1 drp ophthalmic (eye) DAILY 11/09/24 01/12/25 % eye gel (Systane Gel) sodium chloride 2 % eye drops 1 drp ophthalmic (eye) DAILY 11/09/24 01/12/25 (Spencer 128) tamsulosin 0.4 mg capsule 0.4 mg PO HS 12/30/24 01/12/25 acetaminophen 650 mg rectal 650 mg WA Q6H PRN fever, mild pain 01/03/25 01/12/25 suppository #6 supp bisacodyl 10 mg rectal suppository 10 mg WA daily PRN constipation #2 01/03/25 01/12/25 (Dulcolax (bisacodyl)) supp haloperidol lactate 2 mg/mL oral 1 mg (0.5 mL) PO Q6H PRN agitation 01/03/25 01/12/25 concentrate #15 mL hyoscyamine sulfate 0.125 mg 0.125 - 0.25 mg (1 - 2 x 0.125 mg) 01/03/25 01/12/25 disintegrating tablet PO Q4H PRN secretions #24 tabs lorazepam 1 mg tablet 1 mg PO Q4H PRN anxiety, WONG or 01/03/25 01/12/25 nausea #6 tabs morphine concentrate 100 mg/5 mL 5 - 20 mg (0.25 - 1 mL) PO Q1-4H 01/03/25 01/12/25 (20 mg/mL) oral solution PRN moderate to severe pain or shortness of breath #30 mL prochlorperazine maleate 10 mg 10 mg PO Q6H PRN nausea and 01/03/25 01/12/25 tablet vomiting #6 tabs risperidone 1 mg/mL oral solution 2 mg (2 mL) PO BID #30 mL 01/24/25 Previous Rx's ?Medication ?Instructions ?Recorded finasteride 5 mg tablet 5 mg PO DAILY #90 tabs 05/27/24 collagenase clostridium histo. 250 1 applic topical DAILY #90 grams 08/29/24 unit/gram topical ointment (Santyl) acetaminophen 650 mg rectal 650 mg WA Q6H PRN fever, mild pain 01/03/25 suppository #6 supp bisacodyl 10 mg rectal suppository 10 mg WA daily PRN constipation #2 01/03/25 (Dulcolax (bisacodyl)) supp haloperidol lactate 2 mg/mL oral 1 mg (0.5 mL) PO Q6H PRN agitation 01/03/25 concentrate #15 mL hyoscyamine sulfate 0.125 mg 0.125 - 0.25 mg (1 - 2 x 0.125 mg) 01/03/25 disintegrating tablet PO Q4H PRN secretions #24 tabs lorazepam 1 mg tablet 1 mg PO Q4H PRN anxiety, WONG or 01/03/25 nausea #6 tabs morphine concentrate 100 mg/5 mL 5 - 20 mg (0.25 - 1 mL) PO Q1-4H 01/03/25 (20 mg/mL) oral solution PRN moderate to severe pain or shortness of breath #30 mL prochlorperazine maleate 10 mg 10 mg PO Q6H PRN nausea and 01/03/25 tablet vomiting #6 tabs risperidone 1 mg/mL oral solution 2 mg (2 mL) PO BID #30 mL 01/24/25 Allergies Allergy/AdvReac Type Severity Reaction Status Date / Time trazodone Allergy Mild Other (See Verified 01/12/25 10:01 Comment) atenolol Allergy Other (See Verified 01/12/25 10:01 Comment) codeine AdvReac Unknown Other (See Verified 01/12/25 10:01 Comment) General Stated Complaint: GenMedical REGINALDO: 3 Review of Systems Narrative: see HPI Exam Narrative Exam Narrative: General: Alert, in no acute distress. Resting calmly on stretcher, eyes closed. Head: Normocephalic, atraumatic Neck: Trachea midline, ?Neck supple. Cardiac: ?No cyanosis. Resp: No respiratory distress. Course Vital Signs Vital signs: Vital Signs Pulse 89 01/27/25 02:01 Respiratory Rate 16 01/27/25 02:01 Blood Pressure 153/56 H 01/27/25 02:01 Pulse Oximetry 93 01/27/25 02:01 Pulse 89 01/27/25 02:01 Respiratory Rate 16 01/27/25 02:05 Respiratory Effort Normal 01/27/25 02:05 Respiratory Depth Normal 01/27/25 02:05 Respiratory Pattern Normal 01/27/25 02:05 Blood Pressure 153/56 H 01/27/25 02:01 Blood Pressure Position Supine 01/27/25 02:01 Pulse Oximetry 93 01/27/25 02:01 Oxygen Delivery Method Room Air 01/27/25 02:01 Oxygen Flow Rate 0 01/27/25 02:01 Medical Decision Making 89yo M with Lewey Body dementia, on home hospice, presenting via EMS for agitation. No meds given en route, per EMS patient calm and cooperative during transport. Calm on arrival. Per [facility] ENTRY LEVEL FINANCIAL ANALYST on phone, patient with some medication changes today which may have contributed to agitation at home; per initial conversation he received risperdone 1mg at 2030 and haldol at 2200 prior to transport as well as possibly lorazapam. After [facility] spoke with caregiver, called back and stated that pt did not actually receive haldol at home, did get 0.5mg of lorazapam. Patient does not qualify for respite admission at this time; [facility] reports that has family coming to help overnight and is happy to take patient back. They have a plan for medication at home should he become agitated again. Will also give 1mg PO lorazapam her and [facility] is working with family to increase caregiver support at home with goal of discharge back to home hospice tonight; pt does have provider visit scheduled for tomorrow. Discharged home via EMS; discharge instructions were sent home with patient. Quality:SDOH Health Related Social Needs: No Data to Display PFSH All Active Problems (Updated 01/27/25 @ 02:38 by Helnea Noble MD) Lewy body dementia (Acute) Hypotension (Acute) Orthostatic hypotension (Acute) Chronic kidney disease (Chronic) CKD 3B Lewy body dementia (Acute) Chronic osteomyelitis (Acute) Acute osteomyelitis of right calcaneus (Acute) Atherosclerotic PVD with ulceration (Acute) DNR (do not resuscitate) (Acute) 09/27/2024 COLST: DNR/DNI. +transfer to the hospital, treat, use antibiotics and IV fluids. Nanette says he should not have a feeding tube. Pt does not know what he would want to do. Advanced care planning/counseling discussion (Acute) Palliative care encounter (Acute) Ambulatory dysfunction (Acute) Caregiver stress (Acute) Non-healing ulcer of right foot (Acute) Ulcer of right foot with fat layer exposed (Acute) Ulcer of left heel and midfoot with fat layer exposed (Acute) Corns and callosities (Acute) Long toenail (Acute) Bilateral bunions (Acute) Acquired hammertoes of both feet (Acute) Ulcer of right foot (Acute) Parkinsonian features (Acute) Cognitive changes (Acute) Paranoia (Acute) Visual hallucination (Acute) Cellulitis (Acute) Atopic contact dermatitis (Acute) Transient cerebral ischemia (Chronic) Benign prostatic hyperplasia (Chronic) Atopic dermatitis (Acute) Lung nodule (Acute) Microscopic hematuria (Acute) Erectile dysfunction (Acute) History of elevated prostate specific antigen (PSA) (Acute) Medical History BPH w urinary obs/LUTS Esophageal stricture Rheumatoid arthritis HTN (hypertension) HLD (hyperlipidemia) Adenomatous colon polyp Allergic rhinitis Dysphonia Lesion of iris Transient acantholytic dermatosis Bilateral hip pain Spinal stenosis Chronic constipation Orthostatic dizziness Sinus bradycardia RBBB (right bundle branch block) Anemia Weight loss Pruritus Surgical History Colonoscopy - MAC (07/27/15) DR.TERRY CHOUDHARY Social History Smoking/Tobacco Use Status: Former Tobacco Use tobacco type: cigarettes Quit Date: 10/05/99 Smoking risk assessment performed?: Yes Alcohol Intake: never Drug use: Never Substance use type: does not use Housing: house Do you feel safe at home: Yes Do you feel safe in your relationship?: Yes Additional Social history: UTAP
[2025-01-27] MEDS: LORazepam 1 MG TAB PO (02:44)
== END 2025-01-27 03:24 | disposition home or self-care (01) ==
PROVIDERS: Emergency Provider Student in an Organized Health Care Education/Training Program; PCP Family Medicine
DX: G31.83 Neurocognitive disorder with Lewy bodies; F02.80 Dementia in other diseases classified elsewhere, unspecified severity, without behavioral disturbance, psychotic disturbance, mood disturbance, and anxiety
CPT/HCPCS: 99283; 99282

== ENCOUNTER 2025-01-27 10:52 | Inpatient (IN) | payer OTHER, SELFPAY ==
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
--- NOTE | 2025-01-27 13:43 | W.PC.ACHO ---
Registration Status: Primary Language: Preferred Language: Medical / Surgical History (Last Reviewed 01/27/25 @ 11:49 by Yin Guallpa MD) BPH w urinary obs/LUTS Esophageal stricture Rheumatoid arthritis HTN (hypertension) HLD (hyperlipidemia) Adenomatous colon polyp Allergic rhinitis Dysphonia Lesion of iris Transient acantholytic dermatosis Bilateral hip pain Spinal stenosis Chronic constipation Orthostatic dizziness Sinus bradycardia RBBB (right bundle branch block) Anemia Weight loss Pruritus (Last Reviewed 01/27/25 @ 11:49 by Yin Guallpa MD) Colonoscopy - MAC (07/27/15) Most Recent Vital Signs Respiratory Effort Non-Labored 01/27/25 12:16 Respiratory Depth Normal 01/27/25 12:16 Respiratory Pattern Normal 01/27/25 12:16 Oxygen Delivery Method Room Air 01/27/25 12:16 Oxygen Flow Rate 0 01/27/25 12:16 Pain Level 0 01/27/25 12:16 Allergies trazodone Allergy (Mild, Verified 01/12/25 10:01) Other (See Comment) CONFUSION, HALLUCINATIONS atenolol Allergy (Verified 01/12/25 10:01) Other (See Comment) unknown codeine Adverse Reaction (Unknown, Verified 01/12/25 10:01) Other (See Comment) unknown Diet Orders Category Date Time Status Regular/Normal [DIET] Nutrition 01/27/25 Lunch Active Intake and Output - 24 Hour Total 01/27/25 thru 01/27/25 13:23 Intake Total 0 Balance 0 Intake: Oral 0 Other: Urine Color Dark Cookie Urine Appearance Clear Stool Size Moderate Stool Characteristics Soft Brown Urinary Catheter Urinary Catheter Date of 01/27/25 Insertion [Urethral (Mata)] Time of insertion [Urethral ( 13:23 Mata)] Falls Risk Assessment History of Falls Previous History 01/27/25 12:16 Contributing Factors Confusion,Impairments, 01/27/25 12:16 Incontinence,Medications Ambulatory Aids Uses ambulatory device + 01/27/25 12:16 Tubes/Lines With any additional score 01/27/25 12:16 Gait Evaluation W/any additional score 01/27/25 12:16 Fall Total Score 97 01/27/25 12:16 Level of Risk Maximum Risk 01/27/25 12:16 Problems (Last Reviewed 01/27/25 @ 11:49 by Yin Guallpa MD) Hospice care patient (Acute) Lewy body dementia (Acute) Chronic osteomyelitis (Acute) DNR (do not resuscitate) (Acute) Ambulatory dysfunction (Acute) Caregiver stress (Acute) Paranoia (Acute) Visual hallucination (Acute) v v v v v v v v v Sending and/or Receiving Nurses: Please use comment section below to note any information pertinent to the patient hand-off not included above. Information / Comments: Patient arrived via EMS as a direct admit from home. Hospice patient currently being followed by Dr. Guallpa. No report received prior to admission. Please see admission assessment for receiving nurse assessment. Report received from: EMS
--- NOTE | 2025-01-27 14:02 | NUR.NOTE ---
Nursing Note: Observed dwyer insertion by student nurseCuauhtemoc. Inserted without difficult in sterile manner. Charting reviewed and I am in agreement.
--- NOTE | 2025-01-27 15:57 | CHAPLAIN ---
Ed is here on hospice respite until 02/01. When I visited he was sleeping and appeared to be comfortable. His granddaughter, Alondra, is with him. She said the Ed's partner of 15 years, Nanette, won't be in today but will likely visit tomorrow. Ed went on hospice on 01/06. He has Lewy Body Dementia and has declined quickly since being on hospice, according to Dr. Guallpa notes. He has hallucinations and was thinking that people were going to harm him. Nanette was fearful for her own safety in taking care of him and called [facility] at point. Currently Ed is resting and seems to be comfortable. Alondra thought his mouth is dry and I let his nurse, DARRIUS Mclean, know that. I let Alondra know that here is a vault manager available 27/04.
[2025-01-27] MEDS: Senna TAB PO (19:54)
[2025-01-27] MEDS: Haloperidol 5 MG/ML VIAL 2 MG IM/IV (20:21)
[2025-01-27] MEDS: LORazepam 2 MG/1 ML Oral Concentrate PO ×2 (20:34→23:23)
[2025-01-28] MEDS: LORazepam 2 MG/1 ML Oral Concentrate PO (00:53)
[2025-01-28] MEDS: Normal Saline Flush 10 ML SYR ×2 (01:23→02:15)
[2025-01-28] MEDS: Haloperidol 5 MG/ML VIAL 2 MG IM/IV (02:40)
[2025-01-28] MEDS: LORazepam 2 MG/ML VIAL IVP ×4 (05:40→23:30)
--- NOTE | 2025-01-28 08:48 | PDOC.CMPRO ---
Date of service: 01/28/25 Time of Service: 08:49 Care Management Progress Note Progress Note Text Progress Note Text: Per report, Ed lives at home with his , Nanette, who is his primary caregiver. She is having difficulty taking care of him at home due to his hallucinations and aggressive behaviors. He has been on hospice for about a month and has reportedly had a sharp decline. Ed was lying in bed, resting comfortably when CM met with him. Two of his sons were in the room, and there was a baseball game on TV, which they reported that Ed would be happy about. Per hospice provider, he was changed to symptom management today, and it was determined that he will likely remain at [facility] for end of life care. The family was informed by the hospice provider. CM will continue to follow. Discharge Potential Discharge Needs: Other (possible alternate placement; hospice SENIOR OFFICE ASSISTANT is arranging) Anticipated Barriers to Discharge: Other (Ed's may not be able to care for him at home) Transportation: EMS Plan: Ed is at [facility] for hospice symptom management, and he will likely remain at [facility] for end of life care. His family has been visiting regularly. CM will support Ed and his family through this difficult time. Social Determinants of Health Screening Will the Patient Participate in the Screening?: Unable to obtain In the past 12 months, have you had to go without electric, gas, oil or water in your home?: choose not to answer Has lack of transportation kept you from medical appointments or from doing things needed for daily living?: choose not to answer Has anyone in your life made you feel unsafe or unsupported?: choose not to answer Do you speak a language other than Maldivian at home?: No Does the patient want assistance with any of the above?: No Comments: Patient non-verbal at this time Health Related Social Needs Health related social needs: material hardship(utilities) (Z59.12) Health related social needs 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
[2025-01-28] MEDS: MORPHine 2 MG/ML SYR IVP ×3 (09:18→17:49)
[2025-01-28] MEDS: Haloperidol 5 MG/ML VIAL 1 MG IM/IV ×3 (09:19→17:49)
--- NOTE | 2025-01-28 11:59 | PHA.REVIEW2 ---
Pharmacy Admission Review Admission Clinical Review Admission Pharmacy Review: Hospice care patient (Acute) Lewy body dementia (Acute) Chronic osteomyelitis (Acute) DNR (do not resuscitate) (Acute) Ambulatory dysfunction (Acute) Caregiver stress (Acute) Paranoia (Acute) Visual hallucination (Acute) trazodone Allergy (Mild, Verified 01/12/25 10:01) Other (See Comment) atenolol Allergy (Verified 01/12/25 10:01) Other (See Comment) codeine Adverse Reaction (Unknown, Verified 01/12/25 10:01) Other (See Comment) Resuscitation Status DNR/DNI Comments Comments/Follow Ups: Hospice respite, discharge Wednesday 01/31 Pharmacy Admission Review Renal Dosing Medications needing adjustments: N/A (No height or weight in patients chart) Anticoagulation DVT Prophylaxis: N/A (hospice) Opiate Usage Evaluate Pain Scale/Pains Meds: Reviewed (morphine oral solution q1h PRN - no doses given, morphine 1-2mg IVP q1h PRN - 1mg / 24 hrs) Relevant Labs Electrolytes, C-Reactive P, ESR: N/A (hospice) Cardiac Review BP, HR, EF%: N/A (hospice) QTc Review QTc: Reviewed (480 from 12/21/24 - most recent EKG on file) IV to PO Switch IV Medications: Reviewed Home Meds Home Med List reviewed: Reviewed Current Meds Current Medication Order Review: Reviewed Comments Comments/Follow Ups: Hospice respite, discharge Wednesday 01/31
--- NOTE | 2025-01-28 14:37 | W.PM.PROGNOT ---
Date of Service Date of service: 01/28/25 Time of Service: 14:00 Assessment and Plan Assessment and plan (1) Hospice care patient: Status: Acute Assessment and plan: Ed will remain at [facility] on hospice symptom management at this time Current uncontrolled symptoms are agitation/paranoa c/b LBD; previously on PO risperidone, haldol and lorazepam, however d/t inability to safely administer PO meds, he is now requiring IV/IM dosing of medications. added scop patch PRN morphine 0.5mg IV q1h PRN for labored breathing, reviewed w/RN; not required currently This proposal lead writer is environmental studies faculty member through Thursday - plan for visit tomorrow around 10am (2) Lewy body dementia: Status: Acute Assessment and plan: Hospice admitted diagnosis End stage, w/visual hallucinations, paranoia, agitation and aggression (3) Caregiver stress: Status: Acute Assessment and plan: partner Nanette unable to care for him safely at home, did require an ED visit electrician crane maintenance 01/27 - hospice respite initiated on admission to reduce stress and potentially make new caregiver plan - hospice ADMINISTRATIVE ASSISTANT COORDINATOR working on potential discharge plans - mera aware Ed's preference would be to be home for EOL, aware not safe at this time (4) Paranoia: Status: Acute Assessment and plan: continue Haldol 1mg q4h and lorazepam 0.5-1mg q1h PRN - received total 3 doses Haldol today, last given 13:46, 08:40, 02:40 - received total 3 doses lorazepam today, last given 13:46, 05:40, 01:00 good effect w/medications; continue to monitor today, may start scheduled dosing pending today's reports/use Please consider using IV access for all meds as able to avoid additional needle sticks, as appropriate no longer able to take PO meds, including risperidone, last dose 01/27 PM (5) Visual hallucination: Status: Acute Assessment and plan: as above (6) Chronic osteomyelitis: Status: Acute Assessment and plan: no active discharge has history of sepsis from same doesn't seem to be painful for him (7) Ambulatory dysfunction: Status: Acute Assessment and plan: non-ambulatory, for months high fall risk bed alarms on (8) Advanced care planning/counseling discussion: Status: Acute Assessment and plan: reviewed with mera expected EOL during this hospitalization, need for ongoing hospitalization for appropriate symptom management, at this point not able to safely be home w/o IV/IM medications - reviewed if stable for 24h may consider discharge home, but would need additional caregiver support for Nanette from other family members reviewed life expectancy of hours to days, some anticipated signs: apnea, cooling extremeties, breath sounds/rattling, reduced periods of being awake. all questions were answered plan made w/mera for provider to return tomorrow morning around 10am for joint visit w/Tomaseamon Malcolm would like to be notified if any change in Ed's status, w/preference to be here at bedside for EOL Mg: [phone] [phone] Subjective Subjective Interval history since last seen: Ed remains hospitalized at [facility], initially for respite on hospice, he is now hospitalized for symptom management. Mera Mg and Abdias sitting bedside Yesterday Ed remained sleeping throughout the day, however overnight he had increased agitation and aggression. He is not able to take any medications orally and required IV/IM medications. Intake: no oral intake since arrival, not able to swallow any medications since last evenings dose of risperidone. he has had oral care performed every hour, w/limited distress. Activity/Sleep: slept most of day yesterday, w/increased movement/agitation noted overnight. today he did have increased pulling at dwyer and iv lines, at blankets, restless and trying to get out of bed. resting comfortably post medications Agitation: Haldol 2mg given overnight around 02:40; 1mg 08:40 and 13:46 today; given with lorazepam, dosed at 01:00, 05:40 and 13:46 at 1mg; together good effect. even when he is more active, he is not opening his eyes. pulling stopped w/blanket tucked underneath. he is preferring to have his arms uncovered; he is not redirectable when he is more agitated/awake - last dose risperidone 4/25 PM dose Pain: some grimace/groan noted w/more activity, morphine 1mg IV administered x2 w/no changes in behavior. pain does not appear to be source of discomfort Resp: mouth breathing, no witnessed periods of apnea. did have a mucus plug cleared appropriately w/suction overnight. some witnessed labored breathing earlier, none since meds administered as above Urine: Dwyer in place, he is pulling at it w/increased agitation, no issues currently. Urine output decreasing, dark osman in color Bowels: no BM since arrival, did have some smears Social: granddaughter Josefina visited earlier, did participate in some oral care; partner Nanette also visited today; sons Mg and Abdias sitting bedside, aware that dad would prefer to be home for EOL. other son Wilbur lives in [place] and is potentially on his way home. ACP: Ed's previous preferences were to be home for EOL. If at all possible, Mg and Abdias would like to honor that, they are aware of limitations w/medication administration and caregiving requirements. - they live close by and would like to be notified w/any changes in Ed's status, they would like to be here for EOL if able Exam Narrative Exam Narrative: General: Lying bed, on his back, does not open eyes; no grimace/groan; no visible changes in status during physical exam. HEENT: normocephalic, atraumatic; MMM, edentulous Neck: without lad Lungs: RR even and unlabored; CTAB, limited to anterior james Card: Regular rate and rhythm GI: abd soft NT ND + bs hypoactive, no masses Ext:ext right heel with scab, no discharge, no redness or warms, no cyanosis of feet or hands, no mottling Psych: no evidence of agitation or anxiety; remains stable w/no changes throughout 25m visit Time Spent with Patient Time Spent with Patient: 25-34 minutes Time was spent: preparing to see the patient(eg.review tests), obtaining and/or reviewing separately otained hiistory, ordering medications,tests, procedures, referring, communicating with other health transitional care manager, counseling the patient and care coordination
[2025-01-28] MEDS: Normal Saline Flush 10 ML SYR IVP (16:46)
[2025-01-28] MEDS: Refresh PLUS Eye Drops 0.4ml 1 EACH OP (18:42)
[2025-01-29] MEDS: LORazepam 2 MG/ML VIAL IVP ×3 (02:38→21:16)
--- NOTE | 2025-01-29 04:55 | NUR.NOTE ---
Nursing Note: Patient received Lorazepam 0.5 - 1 mg IVP for episode of agitation and restlessness, attempted to pull dwyer many times. Repositioned on bed and oral care rendered by MONA..Continue to tender comfort measures. Bed alarm in progress. Call lights at reach.
--- NOTE | 2025-01-29 10:33 | PGE_ITS ---
Date of Service Date of service: 01/29/25 Time of Service: 10:15 Assessment and Plan Assessment and plan (1) Hospice care patient: Status: Acute Assessment and plan: Ed will remain at [facility] on hospice symptom management at this time Current uncontrolled symptoms are agitation/paranoa c/b LBD; previously on PO risperidone, haldol and lorazepam, however d/t inability to safely administer PO meds, he is now requiring IV/IM dosing of medications. added scop patch PRN morphine 0.5mg IV q1h PRN for labored breathing, reviewed w/RN; not required currently This check writer is university demonstrator through Thursday - plan for visit tomorrow around 10am (2) Lewy body dementia: Status: Acute Assessment and plan: Hospice admitted diagnosis End stage, w/visual hallucinations, paranoia, agitation and aggression (3) Caregiver stress: Status: Acute Assessment and plan: partner Nanette unable to care for him safely at home, did require an ED visit pharmacy account director 01/27 - hospice respite initiated on admission to reduce stress and potentially make new caregiver plan - hospice U.S. COMMISSIONER working on potential discharge plans - mera aware Ed's preference would be to be home for EOL, aware not safe at this time (4) Paranoia: Status: Acute Assessment and plan: continue Haldol 1mg q4h and lorazepam 0.5-1mg q1h PRN - 01/28: haldol doses 02:40, 08:40, 13:46, 17:49, requesting 1mg dose administered now lorazepam dose times: 01:00, 05:40, 13:46, 02:38, 23:30, none today less medications required today, may consider scheduled haldol q4h, however will hold of today as it has been nearly 16 hours since last dose continue lorazepam dose of 0.5mg as able, history of 1mg w/increased sedation good effect w/medications; Please consider using IV access for all meds as able to avoid additional needle sticks, as appropriate no longer able to take PO meds, including risperidone, last dose 01/27 PM; will d/c oral meds (5) Visual hallucination: Status: Acute Assessment and plan: as above (6) Chronic osteomyelitis: Status: Acute Assessment and plan: no active discharge has history of sepsis from same doesn't seem to be painful for him (7) Ambulatory dysfunction: Status: Acute Assessment and plan: non-ambulatory, for months high fall risk bed alarms on (8) Advanced care planning/counseling discussion: Status: Acute Assessment and plan: provided supportive conversation regarding dehydration concerns, suffering/discomfort and oral care, other EOL sxs and expectations all questions were answered reviewed current status, plan to remain in hospital at this time, anticipate EOL in hospital Mera would like to be notified if any change in Ed's status, w/preference to be here at bedside for EOL Mg: [phone] [phone] Subjective Subjective Interval history since last seen: Ed remains hospitalized at [facility] for hospice symptom management. Mera Calero and Mg Holliday's partner Yin, sitting at bedside Updates: no major updates. has remained stable, no major changes Intake: tolerating oral care around q1h w/no distress; no oral intake since 01/27 PM meds Activity/Sleep: has not had any periods of awake/alertness. increased restlessness in upper body this morning, some reaching up and to face. has not opened eyes. Agitation: Haldol doses: last dose 1mg 01/28 at 17:49, prior dose 13:46 l orazepam doses: last dose 1mg 02:38, prior dose 0.5mg 23:30 Pain: no reports/concerns of pain; last morphine dose 2mg 17:49 on 01/28 w/agitation Resp: no periods of apnea noted. no mucus/secretions causing audible resp changes. has not needed scop patch Urine: Mata in place, no issues currently. Urine output decreasing, dark osman in color. averaging around 300cc/12hrs Bowels: no BM since arrival Social: mera Holliday and Abdias visited last night, no concerns. unclear if son Wilbur will be coming up from [place]. partner Nanette planning on visiting this morning Exam Narrative Exam Narrative: General: Lying bed, on his back, does not open eyes; no grimace/groan; no visible changes in status during light physical exam. light restlessness, in BUE w/ pulling at blanket, reaching to arms/chin HEENT: normocephalic, atraumatic; semi-moist MM, w/some light lip peeling, easily removed w/oral care; no suck reflex or changes w/oral swabbing, no agitation w/oral care Neck: without lad Lungs: RR even and unlabored; CTAB, limited to anterior james Card: Regular rhythm, tachycardic GI: abd soft NT ND, + bs hypoactive to absent, no masses Ext:BUE/BLE extremeties warm; ext right heel with scab, no discharge, no redness or warms, no cyanosis of feet or hands, no mottling Psych: no evidence of agitation or anxiety, some restlessness w/BUE. remains stable w/no changes throughout 25m visit Time Spent with Patient Time Spent with Patient: 25-34 minutes Time was spent: preparing to see the patient(eg.review tests), obtaining and/or reviewing separately otained hiistory, ordering medications,tests, procedures, referring, communicating with other health home care and home health aides teacher, counseling the patient and care coordination
[2025-01-29] MEDS: Refresh PLUS Eye Drops 0.4ml 1 EACH OP (10:47)
[2025-01-29] MEDS: Normal Saline Flush 10 ML SYR IVP ×4 (10:48→21:15)
[2025-01-29] MEDS: Haloperidol 5 MG/ML VIAL 1 MG IM/IV ×2 (11:07→16:25)
[2025-01-29] MEDS: Scopolamine 1 MG/3 DAYS PATCH TD (16:42)
[2025-01-30] MEDS: MORPHine 2 MG/ML SYR IVP ×8 (08:03→23:17)
[2025-01-30] MEDS: Refresh PLUS Eye Drops 0.4ml 1 EACH OP (08:04)
[2025-01-30] MEDS: Hyoscyamine 0.125 MG SL/ORAL/CHEW PO ×3 (08:04→20:53)
--- NOTE | 2025-01-30 08:48 | CMPROGNOTE_ITS ---
Date of service: 01/30/25 Time of Service: 13:35 Care Management Progress Note Progress Note Text Progress Note Text: Ed was lying in bed, and appeared to be comfortable when CM arrived. He had 2 granddaughters, his son, and partner Nanette in the room, who were supporting Ed at this time. Per Nanette, more family is on the way to visit. Ed was seen by hospice this morning. Hospice SEPTIC TANK INSTALLER has been working with the family on final arrangements CM will continue to follow. Discharge Potential Discharge Needs: Other (Is being seen by hospice) Anticipated Barriers to Discharge: Other (Ed will remain in the hospital for end of life care) Transportation: Other (n/a) Plan: Ed is at [facility] for hospice symptom management, and he will likely remain at [facility] for end of life care. His family has been visiting regularly. CM will support Ed and his family through this difficult time. Social Determinants of Health Screening Will the Patient Participate in the Screening?: Unable to obtain In the past 12 months, have you had to go without electric, gas, oil or water in your home?: choose not to answer Has lack of transportation kept you from medical appointments or from doing thi ngs needed for daily living?: choose not to answer Has anyone in your life made you feel unsafe or unsupported?: choose not to answer Do you speak a language other than Taiwanese at home?: No Does the patient want assistance with any of the above?: No Comments: Patient non-verbal at this time Health Related Social Needs Health related social needs: material hardship(utilities) (Z59.12) Health related social needs details: 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
[2025-01-30] MEDS: Normal Saline Flush 10 ML SYR IVP ×4 (09:15→22:30)
[2025-01-30] MEDS: LORazepam 2 MG/ML VIAL IVP (10:31)
--- NOTE | 2025-01-30 13:54 | W.PM.PROGNOT ---
Date of Service Date of service: 01/30/25 Time of Service: 07:30 Assessment and Plan Assessment and plan (1) Hospice care patient: Status: Acute Assessment and plan: Ed will remain at [facility] on hospice symptom management at this time; suspected life expectancy remains to be hours to days, w/new changes in respirations, reduced urine output Current uncontrolled symptoms are dyspnea, agitation/paranoa c/b LBD; previously on PO risperidone, haldol and lorazepam, however d/t inability to safely administer PO meds, he is now requiring IV/IM dosing of medications. apap IV PRN for fever/suspected fever ordered This press writer is numerical control machine tool operator through Thursday - plan for visit tomorrow around 10am (2) Dyspnea: Status: Acute Assessment and plan: continue morphine 2mg IVP q1h PRN reviewed with family continue atropine drops PRN for respiratory secretions; continue scop patch (3) Lewy body dementia: Status: Acute Assessment and plan: Hospice admitted diagnosis End stage, w/visual hallucinations, paranoia, agitation and aggression (4) Caregiver stress: Status: Acute Assessment and plan: partner Nanette unable to care for him safely at home, did require an ED visit behavioral consultant 01/27 - hospice respite initiated on admission to reduce stress and potentially make new caregiver plan - hospice PROFESSOR OF ANTHROPOLOGY working on potential discharge plans - sons aware Ed's preference would be to be home for EOL, aware not safe at this time - Nanette aware he will remain in hospital for EOL, she agrees unsafe to return home at this time provided reassurance to Nanette regarding her decision making, safety and caregiver stress (5) Paranoia: Status: Acute Assessment and plan: continue Haldol 1mg q4h and lorazepam 0.5-1mg q1h PRN less medications required today compared to yesterday/over the weekend; may consider scheduled haldol q4h, however will hold off today d/t increased dosing frequency continue lorazepam dose of 0.5mg as able, history of 1mg w/increased sedation good effect w/medications; Please consider using IV access for all meds as able to avoid additional needle sticks, as appropriate no longer able to take PO meds, including risperidone, last dose 01/27 PM; will d/c oral meds (6) Visual hallucination: Status: Acute Assessment and plan: as above (7) Chronic osteomyelitis: Status: Acute Assessment and plan: no active discharge has history of sepsis from same doesn't seem to be painful for him (8) Ambulatory dysfunction: Status: Acute Assessment and plan: non-ambulatory, for months high fall risk bed alarms on (9) Advanced care planning/counseling discussion: Status: Acute Assessment and plan: reviewed Nanette's concerns regarding caregiver concerns, as above provided supportive conversation regarding dehydration concerns, suffering/discomfort and oral care, other EOL sxs and expectations all questions were answered reviewed current status, plan to remain in hospital at this time, anticipate EOL in hospital Yun would like to be notified if any change in Ed's status, w/preference to be here at bedside for EOL Mg: [phone] [phone] Subjective Subjective Interval history since last seen: Ed remains hospitalized at [facility] for hospice symptom management. Son Abdias, partner Nanette at bedside on 1st visit; 2nd visit granddaughter/grandson, Nanette, Nanette's daughter at bedside Updates: no major updates. has remained stable, no major changes or concerns Intake: tolerating oral care around q1h w/no distress; no oral intake since 01/27 PM meds Activity/Sleep: has not had any periods of awake/alertness. has not opened eyes. some periods of restlessness intermittent, good response w/Ativan earlier Agitation: Haldol doses: last dose 1mg 01/29 16:25; prior dose 11:07, 01/28 17:49 lorazepam: last dose 1mg 09:00ish today w/good effect Pain: no reports/concerns of pain; Resp: intermittent labored breathing, w/periods of apnea now present; increased sputum in throat w/respiratory rattle present, scopolamine patch placed w/improvement; - 1st visit: 07:30 recommend 0.5mg morphine administered for dyspnea; report w/mild effect, have increased to 1mg and 2mg respectfully since this morning, most recently at 1300, w/good effect; atropine drops administered this morning w/resolution of rattled breathing Urine: Mata in place, no issues currently. Urine output decreasing, dark osman in color. averaging around 300cc/12hrs yesterday, less today Bowels: no BM since arrival Social: it does not sound like son Wilbur will make it up from [place]. grandson from [place] on his way up, arriving around 6pm today ACP: Nanette wonders if she did the right thing, if he is going to remain in hospital through EOL Exam Narrative Exam Narrative: General: Lying bed, on his back, does not open eyes; no grimace/groan; no visible changes in status during light physical exam. no restlessness noted HEENT: normocephalic, atraumatic; semi-moist MM, w/some light lip peeling, easily removed w/oral care; no suck reflex or changes w/oral swabbing, no agitation w/oral care Neck: without lad Lungs: RR labored and tachynpic, w/resp rattle present on 1st visit; 2nd visit unlabored, shallow, no resp gurgle; mouth open; CTAB, limited to anterior jmaes Card: Regular rhythm, tachycardic GI: abd soft NT ND, + bs hypoactive to absent, no masses Ext:BUE/BLE extremeties cool to touch 1st visit, warm 2nd; ext right heel with scab, no discharge, no redness or warms, no cyanosis of feet or hands, no mottling Psych: no evidence of agitation or anxiety, some restlessness w/BUE. remains stable w/no changes throughout 25m visit Time Spent with Patient Time Spent with Patient: 25-34 minutes Time was spent: preparing to see the patient(eg.review tests), obtaining and/or reviewing separately otained hiistory, referring, communicating with other health progressive care unit registered nurse, indepentently interpreting results, counseling the patient and care coordination
[2025-01-30] MEDS: LORazepam 20 MG/10 ML VIAL IVP ×2 (21:05→22:30)
[2025-01-31] MEDS: Normal Saline Flush 10 ML SYR IVP ×4 (00:18→20:25)
[2025-01-31] MEDS: LORazepam 20 MG/10 ML VIAL IVP ×3 (00:19→09:14)
[2025-01-31] MEDS: MORPHine 2 MG/ML SYR IVP ×9 (01:42→13:01)
[2025-01-31] MEDS: Hyoscyamine 0.125 MG SL/ORAL/CHEW PO ×3 (05:18→13:00)
--- NOTE | 2025-01-31 06:02 | NUR.NOTE ---
Nursing Note: Patient remained comfortable throughout night giving morphine and ativan IV routinely. Prior to giving frequent dosing family had called and said patient appeared uncomfortable with groaning, grimacing and increased work of breathing. After keeping morphine and Ativan routinely given, patient remained comfortable t/o the night.
[2025-01-31] MEDS: Refresh PLUS Eye Drops 0.4ml 1 EACH OP (07:05)
--- NOTE | 2025-01-31 09:09 | CMPROGNOTE_ITS ---
Date of service: 01/31/25 Time of Service: 09:09 Care Management Progress Note Progress Note Text Progress Note Text: Ed was lying in bed, and appeared to be comfortable when CM arrived. He was surrounded by supporting family members. Family had a care cart in the room, and denied needed it refilled. Ed will continued to be followed by CM. Discharge Potential Discharge Needs: Other (Follwed by hospice) Anticipated Barriers to Discharge: Other (Ed will remain at the hospice for end of life care and symptom management ) Patient/Family Education Needs: Review discharge instructions, discuss Ask Me Three Plan: Ed is at [facility] for hospice symptom management, and he will likely remain at [facility] for end of life care. His family has been visiting regularly. CM will support Ed and his family through this difficult time. Social Determinants of Health Screening Will the Patient Participate in the Screening?: Unable to obtain In the past 12 months, have you had to go without electric, gas, oil or water in your home?: choose not to answer Has lack of transportation kept you from medical appointments or from doing things needed for daily living?: choose not to answer Has anyone in your life made you feel unsafe or unsupported?: choose not to answer Do you speak a language other than Hebrew at home?: No Does the patient want assistance with any of the above?: No Comments: Patient non-verbal at this time Health Related Social Needs Health related social needs: material hardship(utilities) (Z59.12) 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
--- NOTE | 2025-01-31 12:57 | W.NUTRFU ---
Date of service: 01/31/25 Time of Service: 12:57 Nutrition Note NOTE: Mr Ward approaching EOL per review of palliative care notes. Ordered for minced and moist diet consistency however has increasing poor po intake and risk of aspiration. meal trays on hold currently. Will support pt with whatever he or family may need for nourishment during admission. No aggressive nutrition intervention planned at this time. Time Spent in Nutritional Counseling and Treatment: 0
--- NOTE | 2025-01-31 13:55 | W.PM.PROGNOT ---
Date of Service Date of service: 01/31/25 Time of Service: 13:55 Assessment and Plan Assessment and plan (1) Dyspnea: Status: Acute Assessment and plan: no evidence of active dypsnea during my visit morphine working well to control does have some upper airway rattling struggling with any oral meds, especially given dry mm will chage him over to IV glycopyrolate to help limit his secretions will continue with scop patch (2) Hospice care patient: Status: Acute Assessment and plan: Ed is actively dying. One son, two grandchildren, SO and family friends are all present at bedside. One son has not phoned in to talk to his father. Family has tried to persuade him to say a few words, but he has not answered his phone/texts,etc. Life expectancy is in hours not days. We are changing over to a hydromorphone pump today, as granddaughter is feeling that he looks more comfortable with hourly meds. No morphine pumps available due to morphine shortage. He remains on symptom management as we cannot give IV medications at home. He requires IV glycopyrrolate and IV lorazepam. He is requiring hourly IV pain medications, to the point where we are starting an IV pump on him shortly. Swallowing has proved more difficult for him that most dying people, likely due to his Lewy Body dementia. (3) Lewy body dementia: Status: Acute Assessment and plan: Reason why he is on hospice. Has been paranoid, aggressive, agitated and threatening at home. Since coming in, has been receiving IV medications, including haldol and lorazepam. With these medications on board, he has been calm enough to care for safely. At this point in time, he is so close to , that I am not certain he would survive a ambulance trip home. Continue symptom management/general inpatient care. (4) Dying care: Status: Acute Assessment and plan: Ed looked comfortable during my visit but nursing, family , and my colleague Sabine Linares PRINT SHOP HELPER reported that he has not been comfortable until today. He is now unable to swallow any meds. I changed him over to IV glycopyrolate. For consistency of pain management, I changed him over to a hydromorphone pump. Technician Biological Health has been at bedside. Subjective Subjective Patient reports: pain is less, no bowel movement and afebrile; denies tolerating liquids well or tolerating a regular diet Interval history since last seen: I discussed Ed's hospital course with Sabine Linares NP and read her progress notes from 01/28, 01/29 and 01/30. Ed appears comfortable at time of my visit. Granddaughter Jhon said he was uncomfortable yesterday late afternoon and evening, as he has not been getting pain medications hourly, per her report. Family, including DPOA//SO Nanette, asked for Ed to be transitioned over to a pump. He is making very little urine. He put out about 50 ccs over last 7 hrs. He has not eaten x 5 days. He is only receiving mouth care. He is not on IVF. He is on comfort measures. He was initially admitted on hospice respite on Thursday. He changed over to hospice symptom management soon thereafter as he became very agitated and struggled to swallow any meds. He was changed over to IV meds at that time. Exam Narrative Exam Narrative: Lying on his back, eyes closed, mouth open most of the visit, NAD. He is having rare episodes of apnea lasting up to 20 seconds. He has some upper airway secretions, but not a lot. His mucous membranes are dry. Lungs has loud coarse breath sounds throughout his lung james. CV hard to hear his heart sounds due to his lung sounds. Tachycardic by pulse. Abd soft, normal weight, no masses noted, +bs gu has a dwyer in place, uop 50 ccs in 7 hrs, less than 10 cc/hr, c/w kidney failure; urine is concentrated neuro minimal responsive psych no agitation skin no hot to touch, no cyanosis, no mottling Time Spent with Patient Time Spent with Patient: 35-49 minutes Time was spent: obtaining and/or reviewing separately otained hiistory, ordering medications,tests, procedures, referring, communicating with other health career center director, counseling the patient (family of patient) and care coordination
[2025-01-31] MEDS: Glycopyrrolate 0.2 MG/1 ML VIAL 0.1 MG IVP ×4 (13:59→23:34)
[2025-01-31] MEDS: HYDROmorphone 50 MG in Normal Saline 245 ML IV_INF (14:10)
--- NOTE | 2025-01-31 15:43 | CHAPLAIN ---
Ed is not responsive. He appeared to be comfortable when I was visiting this afternoon, and family members felt so as well. Several family members were in the room with him. I spoke with Nanette, his long time partner of 16 years, alone in the family room. She had concerns about if she'd done the right thing when Ed became aggressive at home last week. She called the police, who information technology internship called EMS even though Ed is a hospice patient. She said the police didn't want to look at the hospice documentation and called EMS. Ed returned home after being taken to the ED, and then came back to [facility] the next day as a direct admit for respite care. Nanette said family members had reassured her that in the moment, she needed to call someone when Ed became aggressive or she could have been injured. Ed remains here on respite and will likely stay here for end of life care. Ed was raised Mandaeism however Nanette said he stopped going to yarsani and would not want a pipe threading machine operator called now. Two of Ed's children have , two daughters. One son was here today. Another visited yesterday and doesn't plan to return. A third one lives in [place] and is not planning on traveling here. There are several grandchildren and great granchildren along with Nanette's children and grandchildren who are involved in supporting Ed and Nanette. A granddaughter who was here today thinks that may be a person/friend that Ed would want to hear from. They are making plans to have that person call so Ed can here his voice. The person is someome who worked with Ed for many years. Nanette has a daughter who is to a physician (they are in [place] for a wedding currently) and Nanette said she relies on them for help with medical questions and concerns. Nanette wanted to talk about why God would make anyone suffer, and how it isn't fair that Ed, who is a kind, loving person should have experience the agitation that he did, and not just peacefully. We talked about how circumstances in life happen, and God may or may not be in control of them. I was able to reassure her that the staff's primary concern will be keeping Ed comfortable and his will likely be very peaceful. When we returned to Ed's room, Dr. Guallpa, from Hospice was there, and answered Nanette and other family member's questions about pain control and the possible advantages of putting Arnold on a drip for consistent main control. I will continue to visit.
[2025-01-31 21:30] VITALS: RESP 12
[2025-02-01 00:46] VITALS: RESP 12
[2025-02-01] MEDS: Glycopyrrolate 0.2 MG/1 ML VIAL 0.1 MG IVP ×5 (01:42→15:29)
[2025-02-01 01:51] VITALS: RESP 12
[2025-02-01 04:48] VITALS: RESP 11
[2025-02-01] MEDS: Normal Saline Flush 10 ML SYR IVP ×2 (06:51→20:50)
--- NOTE | 2025-02-01 10:40 | NUR.NOTE ---
Nursing Note: Per Nanette, conversatoins should be had directly with nanette regarding patient care or any changes. Provider aware.
--- NOTE | 2025-02-01 13:10 | CMPROGNOTE_ITS ---
Date of service: 02/01/25 Time of Service: 13:10 Care Management Progress Note Progress Note Text Progress Note Text: Ed was lying in bed and appeared to be comfortable, when CM arrived. Ed will remain at the hospital for end of life care and symptom management. He was surrounded by family, who denied needing anything at this time. Discharge Potential Discharge Needs: Other (Followed by Hospice ) Anticipated Barriers to Discharge: Other (Ed will remain at the hospital for end of life care and symptom management.) Patient/Family Education Needs: Review discharge instructions, discuss Ask Me Three Plan: Ed is at [facility] for hospice symptom management, and he will likely remain at [facility] for end of life care. His family has been visiting regularly. will support Ed and his family through this difficult time. Social Determinants of Health Screening Will the Patient Participate in the Screening?: Unable to obtain In the past 12 months, have you had to go without electric, gas, oil or water in your home?: choose not to answer Has lack of transportation kept you from medical appointments or from doing things needed for daily living?: choose not to answer Has anyone in your life made you feel unsafe or unsupported?: choose not to answer Do you speak a language other than Uzbek at home?: No Does the patient want assistance with any of the above?: No Comments: Patient non-verbal at this time Health Related Social Needs Health related social needs: material hardship(utilities) (Z59.12) 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
[2025-02-01] MEDS: Scopolamine 1 MG/3 DAYS PATCH TD (15:29)
--- NOTE | 2025-02-01 15:36 | NUR.NOTE ---
Nursing Note: Nanette states [facility] for home, son states one in [place] and that the stone was picked out at [facility]. Unsure at this time who to call if patient expires. Will Verify when Nanette returns to facility. AP
--- NOTE | 2025-02-01 16:57 | CHAPLAIN ---
I've checked in on Ankur, Nanette and Nanette's daughter a few times today. Ankur continues to be unresponsive, and comfortable. There was more time between breaths this afternoon. Nanette wanted to spend some time in the chapel this morning, so I stayed with Ankur while she did that. A granddaughter visited this afternoon. Nanette seems to be well supported by family and realistic about Ankur's coming soon. She said she's not sure why he's lingering and that has said everything to him that she thinks he needs to hear from her. A son who lives out of state, called and spoke with Ankur on the phone. Nanette planned to go home this afternoon and feed her dog and then return to visit this evening. I will continue to check in. Nanette is aware that operator prefinish is available to her at any time.
--- NOTE | 2025-02-01 20:05 | PGE_ITS ---
Date of Service Date of service: 02/01/25 Time of Service: 10:00 Assessment and Plan Assessment and plan (1) Dyspnea: Status: Acute Assessment and plan: * Continue Dilaudid FURNITURE REMOVALIST'S ASSISTANT, IV glycopyrrolate, IV lorazepam (these can not be administered in the home setting) and scopolamine patch per current orders; no need for changes to FURNITURE REMOVALIST'S ASSISTANT titration parameters at this time. * Maintain Mata catheter in place - bladder scan obtained to evaluate for urinary retention secondary to possible catheter obstruction versus expected progression to renal shutdown; results are pending. While renal failure is suspected, obstruction would be uncomfortable, and it is important to rule this out to ensure patient comfort * Monitor for signs of discomfort or distress * Provide support to family at bedside * Continue hospice-level, comfort-focused care (2) Hospice care patient: Status: Acute Assessment and plan: * Need for IV Medications: The patient requires IV opioid therapy and other medications that must be administered continuously to manage symptoms, includ ing pain and dyspnea. These treatments are vital to ensure comfort and maintain the patient's quality of life. Due to the complexity and the need for constant adjustments, these treatments cannot be provided adequately in a home setting. * Hospice Care Requirements: The patient is receiving [id number] symptom management to address pain, nausea, dyspnea, and other end-of-life concerns. While hospice care can often be provided at home, this patient?s current symptom load requires immediate and consistent access to IV medications and close monitoring, which is not feasible in a home environment without specialized equipment and 24/7 professional assistance. * Inability to Provide IV Medications at Home: The patient?s condition necessitates the administration of intravenous medications that require careful titration and monitoring. IV hydromorphone (Dilaudid) and other infusions are essential to address severe pain, but such treatment cannot be safely managed outside of a controlled medical environment. At home, there would be a risk of inadequate symptom management, possible medication errors, and complications due to the patient?s frailty and medical complexity. The required nursing supervision and specialized equipment for IV administration are not available in the home setting. * Patient?s Safety and Comfort: Transferring the patient to a home hospice setting would jeopardize their comfort and safety, given the complexity of their care needs and the absence of appropriate resources at home. The acute pain management needed to prevent suffering and improve the quality of life cannot be sufficiently provided outside of the inpatient facility. The patient?s medical needs are such that ongoing inpatient hospice care is the most appropriate setting for their care. (3) Lewy body dementia: Status: Acute Assessment and plan: At home, he exhibited significant neuropsychiatric symptoms, including paranoia, aggression, agitation, and threatening behaviors, which could not be managed effectively in the home setting. Upon admission, he has been receiving intravenous medications, including haloperidol and lorazepam, which have successfully stabilized his condition, allowing for safe care. Given his current decline and proximity to , it is uncertain whether he would survive an ambulance transport back home. Given the patient's advanced stage of LBD, which includes symptoms such as hallucinations, paranoia, and cognitive fluctuations, and considering the potential risks associated with transporting him, it is deemed most appropriate to continue his care in the current hospital setting. Continue Hospice Care: Maintain current symptom management protocols, focusing on comfort and dignity. Medication Management: Continue administration of haloperidol and lorazepam as needed to manage agitation and psychosis. Monitor Symptoms: Regularly assess for signs of terminal restlessness or agitation, adjusting medications as necessary to ensure comfort. Family Support: Provide ongoing emotional support to family members, addressing any concerns and keeping them informed of the patient's condition. Reevaluation: Continually assess the patient's condition to determine if any changes in the care plan are required. (4) Dying care: Status: Acute Assessment and plan: Continue Hospice Care: Maintain current symptom management protocols, focusing on comfort and dignity. Regular, frequent Bull Float Finisher visits. Medication Management: Continue administration of haloperidol and lorazepam as needed to manage agitation and psychosis. Continue dilaudid FURNITURE REMOVALIST'S ASSISTANT. Monitor Symptoms: Regularly assess for signs of terminal restlessness or agitation, adjusting medications as necessary to ensure comfort. Family Support: Provide ongoing emotional support to family members, addressing any concerns and keeping them informed of the patient's condition. Reevaluation: Continually assess the patient's condition to determine if any changes in the care plan are required. Subjective Subjective Patient reports: no new complaints Interval history since last seen: Patient is an 89-year-old male on hospice care, admitted to the hospital for symptom management. Family (Nanette and her daughter) report that the patient was experiencing significant, unrelieved pain at home despite hospice measures. The level of discomfort at home became unmanageable, prompting the need for inpati ent care. Nanette and her daughter are currently at the bedside. Nursing staff also present. Given the patient?s need for IV pain management, symptom control, and close monitoring, continued inpatient hospice care is medically necessary and appropriate. Discharge to a home hospice setting is not viable due to the inability to provide the necessary level of care and administration of IV medications. The patient?s clinical condition and the requirement for IV medications and professional supervision make continued inpatient hospice care the best option for ensuring comfort and preventing unnecessary suffering. Family is in agreement with plan of care. Exam Narrative Exam Narrative: General: Patient is supine with eyes closed and mouth open; appears comfortable with no signs of distress or grimacing. Respiratory: Breathing is slow and regular, with a variable respiratory rate ranging from 6 to 14 breaths per minute. Notable apneic episodes exceeding 30 seconds observed intermittently. No upper airway secretions present. Breath sounds are clear bilaterally without adventitious sounds. Cardiovascular: Heart sounds are difficult to auscultate due to pulmonary sounds; tachycardia noted by palpation. Abdomen: Soft, non-distended; bowel sounds present; no masses or tenderness. Genitourinary: Mata catheter in place; no urine output for approximately 6 hours. Bladder scan ordered to assess for urinary retention versus renal shutdown; results pending. Neurological: Unresponsive; no signs of agitation. Skin: Warm, no cyanosis or mottling observed. Mucous Membranes: Dry. Objective Last Vital Signs Resp 11 L 02/01/25 04:48 Time Spent with Patient Time Spent with Patient: 35-49 minutes Time was spent: preparing to see the patient(eg.review tests) and care coordination
[2025-02-02] MEDS: Glycopyrrolate 0.2 MG/1 ML VIAL 0.1 MG IVP (03:19)
[2025-02-02 06:28] VITALS: RESP 15
[2025-02-02] MEDS: Normal Saline Flush 10 ML SYR IVP (09:56)
--- NOTE | 2025-02-02 14:30 | PDOC.CMPRO ---
Date of service: 02/02/25 Time of Service: 14:30 Care Management Progress Note Progress Note Text Progress Note Text: Ed was lying in bed and appeared to be comfortable, when CM arrived. Ed will remain at the hospital for end of life care and symptom management. He was surrounded by family, who denied needing anything at this time. Discharge Potential Discharge Needs: Other (Followed by hospice) Anticipated Barriers to Discharge: Other (Ed will remain at the hospital for end of life care and symptom management.) Plan: Ed is at [facility] for hospice symptom management, and he will remain at [facility] for end of life care. His family has been visiting regularly. will support Ed and his family through this difficult time. Social Determinants of Health Screening Will the Patient Participate in the Screening?: Unable to obtain In the past 12 months, have you had to go without electric, gas, oil or water in your home?: choose not to answer Has lack of transportation kept you from medical appointments or from doing things needed for daily living?: choose not to answer Has anyone in your life made you feel unsafe or unsupported?: choose not to answer Do you speak a language other than Kiswahili at home?: No Does the patient want assistance with any of the above?: No Comments: Patient non-verbal at this time Health Related Social Needs Health related social needs: material hardship(utilities) (Z59.12) 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
--- NOTE | 2025-02-02 15:32 | CHAPLAIN ---
I checked in with Nanette and her daughter this morning. They were going to be leaving soon for lunch and a granddaughter was going to stay with Ankur. Ankur appears to be comfortable. He had not been responsive for several days. He was admitted last Thursday for hospice respite, and stayed for end of life care as he became less responsive and began the dying process. Nanette spends most of the day with Ankur and family members visit as well.
--- NOTE | 2025-02-02 15:58 | PGE_ITS ---
Date of Service Date of service: 02/02/25 Time of Service: 15:00 Assessment and Plan Assessment and plan (1) Dying care: Status: Acute Assessment and plan: Looks comfortable. Pain pump more effective than oral meds and then IV push meds had been. Continue. Mouth is dry. He is a mouth breather. Demonstrated oral care again to family. He does have primitive reflex of suck activated by sroking of tongue mouth lip with sponge stick, indicating further cerebral failure. (2) Hospice care patient: Status: Acute Assessment and plan: Continues on hospice GIP level of care. He appears to be very close to . He is not making any urine to speak off (2cc/hr). He is hot to the touch. He is having multiple episodes of apnea. At this point in time, I could not reassure the family that he would not during transport back to his home. He will continue on GIP level of care. I will see him again tomorrow if he is still alive. Life expectancy hours to days. (3) Lewy body dementia: Status: Acute Assessment and plan: Original reason he came on hospice and reason for admission, which was first a respite for his long-term partner, Nanette and then became a gip/symptom management admission when he became very agitated and aggressive, requiring IV medications to keep him calm. Over the last 24 hrs, he has transitioned to being well managed, with symptoms controlled. I did not make any medication changes today. (4) DNR (do not resuscitate): Status: Acute Assessment and plan: Has not wanted aggressive care for many years. (5) Caregiver stress: Status: Acute Assessment and plan: Nanette, his long-term partner of 16 years, got some sleep last night. Rehan Donaldson has been taking on role of Ed's advocate. Today she looked exhaused and I suggested she go home. (6) Non-healing ulcer of right foot: Status: Acute Assessment and plan: Present but not cause of his fever. No immediate risk of recurrent sepsis. (has known osteomyelitis) (7) Renal failure: Status: Chronic Assessment and plan: He is making about 2 cc/hr of urine. He is now suffering from multip system organ failure, with evidence of renal, heart, and brain failure. Subjective Subjective Patient reports: pain is less, fever and other (made 50 ccs of urine over 24 hrs, per nursing) Interval history since last seen: Ed is not responsive. His son Wilbur did call him since I last saw Ed. Family (and I) thought that this was what ed was waiting for. HOwever, he is still with us. He is on a hydromorphone pump at increased dose. He is hot to the touch. He has no non-verbal signs of pain. He is making very little urine. Significant other Nanette was able to get some sleep last night. She went home Granddaughter Anika looks exhausted. She has been with Ed overnight and all day today. Exam Narrative Exam Narrative: General: Patient is supine with eyes closed and mouth open; appears comfortable with no signs of distress or grimacing. Respiratory: Breathing is slow and regular, with a variable respiratory rate ranging from 6 to 14 breaths per minute. Notable apneic episodes exceeding 30 seconds observed intermittently. No upper airway secretions present. Breath sounds are clear bilaterally without adventitious sounds. Cardiovascular: Heart sounds are difficult to auscultate due to pulmonary sounds; tachycardia noted by palpation. Abdomen: Soft, non-distended; bowel sounds present; no masses or tenderness. Genitourinary: Mata catheter in place; no urine output for approximately 6 hours. Bladder scan ordered to assess for urinary retention versus renal shutdown; results pending. Neurological: Unresponsive; no signs of agitation. Skin: feels hot to the touch, cheeks are flushed, no cyanosis or mottling observed. Mucous Membranes: Dry. Tongue coated with white material, even after mouth care. Objective Last Vital Signs Resp 15 02/02/25 06:28 Time Spent with Patient Time Spent with Patient: 25-34 minutes Time was spent: referring, communicating with other health health careers instructor, counseling the patient (patient's family, as he cannot communicate) and care coordination
--- NOTE | 2025-02-02 16:51 | CHAPLAIN ---
Ankur continues to rest comfortably. Nanette told me that Dr. Guallpa (from Hospice) was in to check on Ankur this afternoon and told Nanette that Ankur has a terminal fever which isn't unusual for someone who is dying. Dr. Guallpa also told Nanette that it's likely Ankur will this weekend. Nanette's daughter from [place] has been here with her this week, and will likely go home tomorrow. Other family members have been visiting. A granddaughter of [place] has been here most of the day.
[2025-02-03 02:37] VITALS: RESP 15
[2025-02-03 02:42] VITALS: RESP 15
[2025-02-03] MEDS: LORazepam 2 MG/ML VIAL IVP (04:46)
[2025-02-03] MEDS: Scopolamine 1 MG/3 DAYS PATCH TD (06:29)
[2025-02-03] MEDS: Refresh PLUS Eye Drops 0.4ml 1 EACH OP (08:03)
[2025-02-03] MEDS: Normal Saline Flush 10 ML SYR IVP (08:03)
--- NOTE | 2025-02-03 10:50 | PDOC.CMPRO ---
Date of service: 02/03/25 Time of Service: 12:31 Care Management Progress Note Progress Note Text Progress Note Text: Ed passed today and was surrounded my family. CM informed hospice. Social Determinants of Health Screening Will the Patient Participate in the Screening?: Unable to obtain In the past 12 months, have you had to go without electric, gas, oil or water in your home?: choose not to answer Has lack of transportation kept you from medical appointments or from doing things needed for daily living?: choose not to answer Has anyone in your life made you feel unsafe or unsupported?: choose not to answer Do you speak a language other than Indonesian at home?: No Does the patient want assistance with any of the above?: No Comments: Patient non-verbal at this time Health Related Social Needs Health related social needs: material hardship(utilities) (Z59.12) Health related social needs details: Patient is [employer]ER
--- NOTE | 2025-02-03 11:49 | CHAPLAIN ---
Ankur remains unresponsive. He's been here a week now, with the first five days being respite care. His , Nanette, continues to spend days her with him, along with grandchildren and other family members. Dr. Guallpa, the hospice medical device sales, visited yesterday. Ankur will stay here for end of life care.
== END 2025-02-03 16:58 | disposition expired | DRG 57 ==
PROVIDERS: Admitting Provider Family Medicine; PCP Family Medicine; Visit Provider Family Medicine
DX: G31.83 Neurocognitive disorder with Lewy bodies (principal); F02.C2 Dementia in other diseases classified elsewhere, severe, with psychotic disturbance; Z51.5 Encounter for palliative care; R06.00 Dyspnea, unspecified; Z66 Do not resuscitate; R26.2 Difficulty in walking, not elsewhere classified; F22 Delusional disorders; R63.4 Abnormal weight loss; N18.32 Chronic kidney disease, stage 3b; I70.235 Atherosclerosis of native arteries of right leg with ulceration of other part of foot; I70.245 Atherosclerosis of native arteries of left leg with ulceration of other part of foot; L97.522 Non-pressure chronic ulcer of other part of left foot with fat layer exposed; L97.512 Non-pressure chronic ulcer of other part of right foot with fat layer exposed; Z79.899 Other long term (current) drug therapy
CPT/HCPCS: 00123; 99232; J1171; J1596; J1630; J2060; J2270; J3490